=== PATIENT | female | born 1935 | race Caucasian/White ===

== ENCOUNTER → 2016-09-03 | Outpatient (REF) | payer MEDICARE, OTHER ==
[~2016-09-03] MED LIST: /ALEN70TA; /BENA20TA; /WARF3TA; ACET65TA; ADV100INH INH; ALBU17IN INH; ALBU83IN INH; AVEL1TAB3 PO; AZIT500T2 PO; AZOPT; BENA20TA8 PO; CALC500T36 PO; CALCCHW12; COUM1TAB19 PO; DOCU100C16 PO; FELO5TAB; FELO5TAB PO; FOSA70TA PO; HYDR25TAB PO; IPRASOL4 INH; K-TA1TAB PO; LASI40TA PO; LEVA1TAB PO; LUMIGAN; MICR10CA PO; MULTCAP PO; NEUR100C PO; OYST500T17 PO; PATIENT COMMENT; PRED10TA PO; THERGRAN; TORS100T PO; TRAM50TA2 PO; TYLE325C PO; TYLE650T25 PO; VITA100066 PO; VITA250T; VITA500046 PO; VITMTA PO; ZOCO40TA; ZOCO40TA PO
== END ==
LOC: M LAB REF 16:23
PROVIDERS: ATTEND Nurse Practitioner Family
DX: R07.9 Chest pain, unspecified (principal)

== ENCOUNTER 2016-11-23 19:08 | Observation (INO) | payer MEDICARE, OTHER ==
[~2016-11-23] VITALS: Ht 167.6 cm; Wt 78.2 kg
[~2016-11-23 19:08] MED LIST changes: -ADV100INH INH; -DOCU100C16 PO; -IPRASOL4 INH; -OYST500T17 PO; -PATIENT COMMENT; -TORS100T PO; -TRAM50TA2 PO; -VITA500046 PO
[2016-11-23 20:36] LABS: INR 2.26
--- NOTE | 2016-11-23 21:00 | REPUSA ---
CT of the head Clinical history: Fall. Protocol: Multiple axial CT images obtained with 5 mm slice thickness were obtained through the head without administration of contrast. Findings: The ventricles and sulci are symmetric but prominent in size bilaterally. There are periven tricular areas of low attenuation throughout the deep white matter. There is no evidence of acute hem orrhage or infarct. There is no midline shift, mass effect, or extra-axial fluid collection. The osse ous structures are unremarkable. The visualized paranasal sinuses and mastoid air cells are clear. Impression: No acute hemorrhage or infarct. 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
[2016-11-23] MEDS ORDERED: KETOROLAC TROMETHAMINE 10 MG TAB PO ONE (21:30)
[2016-11-23 22:25] LABS: CALCIUM LEVEL 9.6 MG/DL (8.8-10.2); CREATININE FOR GFR 1.03 MG/DL (0.55-1.02); GLOMERULAR FILTRATION RATE 54.9 (>32); POTASSIUM SERUM 3.8 MEQ/L (3.5-5.1)
[2016-11-23 22:27] LABS: BASO # 0.1 K/mm3 (0.0-0.2); BASO % 0.6 % (0.0-1.0); EOS # 0.2 K/mm3 (0.0-0.50); EOS % 1.3 % (0.0-3.0); LARGE UNSTAINED CELL # 0.2 K/mm3 (0.0-0.4); LARGE UNSTAINED CELL % 2.1 % (0.0-4.0); LYMPH # 1.1 K/mm3 (1.5-4.5); LYMPH % 7.7 % (24.0-44.0); MEAN CORPUSCULAR HEMOGLOBIN 29.1 pg (27.0-33.0); MEAN CORPUSCULAR HGB CONC 31.6 g/dl (32.0-36.5); MEAN CORPUSCULAR VOLUME 92.1 fl (80.0-96.0); MONO # 1.1 K/mm3 (0.0-0.8); MONO % 9.3 % (0.0-5.0); NEUTROPHILS # 9.1 K/mm3 (1.8-7.7); PLATELET COUNT, AUTOMATED 226 k/mm3 (150-450); RED CELL DISTRIBUTION WIDTH 14.3 % (11.5-14.5); WHITE BLOOD COUNT 11.5 K/mm3 (4.0-10.0)
[2016-11-23] MEDS ORDERED: NS 500 ML IV ONE (23:15)
[2016-11-24] MEDS ORDERED: ISOVUE-370 76% 100ML VIAL (Q9967) As Ordered ONE (00:26)
--- NOTE | 2016-11-24 01:10 | REPUSA ---
CLINICAL HISTORY: Trauma. TECHNIQUE: Multiple axial CT images were obtained through chest with IV contrast material. MPR olmedo l and sagittal sequences were obtained. COMMENTS: Pacemaker wires in good position. Moderate cardiomegaly. Mild central pulmonary venous congestion. Mild bilateral basilar contusions in the lower lobes. Subsegmental atelectatic airspace disease in the right lower lobe. There is no evidence of pleural or parenchymal mass. There are no pleural effusions. There is no evid ence of hilar or mediastinal lymphadenopathy. The heart and great vessels are within normal limits. The visualized portions of the liver are of uniform attenuation without mass or defect. There is no i ntra or extrahepatic biliary ductal dilatation. The spleen is unremarkable. The visualized pancreas i s of normal contour and attenuation characteristics. There is no evidence of adrenal mass. The visual ized portions of the kidneys present no abnormalities. The bony structures are free of lytic or blastic lesions. Multilevel degenerative changes are seen in volving the thoracic spine. Scattered calcifications are seen involving the aorta and visualized jade r branches compatible with atherosclerosis. No evidence for abnormal enhancement. IMPRESSION: Congestive heart failure. Mild bilateral basilar pulmonary contusions in the lower lobes more prominent on the right. No fracture. Thank you for your kind referral of this patient.
[2016-11-24] MEDS ORDERED: MORPHINE 2 MG/ML 1ML SYRINGE IV ONE (02:15)
[2016-11-24] MEDS ORDERED: IPRASOL4 INH (03:15)
[2016-11-24] MEDS ORDERED: TORS100T PO (03:15)
[2016-11-24] MEDS ORDERED: ADV100INH INH (03:15)
[2016-11-24] MEDS ORDERED: OYST500T17 PO (03:15)
[2016-11-24] MEDS ORDERED: VITA500046 PO (03:15)
[2016-11-24] MEDS ORDERED: PATIENT COMMENT (03:16)
--- NOTE | 2016-11-24 03:27 | HPEPDOC ---
Medical History and Physical History and Physical Primary care provider: Dr. Pereira Date of Admission: 11/24/2016 Attending: Dr. Myla Hinton CHIEF COMPLAINT: "I tripped and fell" HISTORY OF PRESENT ILLNESS: Ms. Lin is an 81-year-old female who is on chronic warfarin therapy for atrial fibrillation who tripped and fell earlier today. She denies any syncope, lightheadedness, or any prodromal symptoms, she simply tripped. She did hit her head, and does have a large contusion on the right side of her face. CT of the head was negative for any hemorrhage or osseous damage. Her chest x-ray did show a small opacity on the right side, therefore a chest CT was ordered, and pulmonary contusion was confirmed. As the patient is on warfarin therapy, the time during which she is at the highest risk of developing a bleed would be within the first 24 hours, therefore the decision was made to admit the patient and repeat a chest CT after at least 12 hours had passed. 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 She used to smoke half pack a day for 20 years but quit in 1974. She does drink alcohol occasionally. Denies recreational drug use. FAMILY HISTORY: No pertinent family history REVIEW OF SYSTEMS: Constitutional: Patient denies fevers, chills, night sweats, recent weight gain/ loss. HEENT: Patient denies blurred or double vision, transient visual disturbances, postnasal drip, epistaxis, sore throat, difficulty chewing or swallowing food. Cardiovascular: Patient denies chest discomfort/pain, palpitations, exertional dyspnea, orthopnea, edema of the extremities, claudication. Respiratory: Patient denies dyspnea, she does state that she has coughed a few times since she has been in the emergency department, but it is nonproductive. She denies hemoptysis. She does admit to some chest wall pain, mostly on the right side. Gastrointestinal: Patient denies nausea, vomiting, diarrhea, constipation, abdominal pain, melena, hematochezia, hematemesis, jaundice. PHYSICAL EXAMINATION: Vitals: Temperature 97.9, pulse 82, respirations 16, blood pressure 153/88, pulse oximetry 96% on room air General: Awake, alert, oriented 3. She is in no acute distress. She denies any recent fevers, chills, night sweats. HEENT: Head normocephalic, she does have a large contusion lateral to her right eye. pupils equally reactive to light and accommodation, conjunctiva are pink, sclera are nonicteric, buccal mucosa is pink and moist with no lesions in the oropharynx. Hearing is grossly intact to conversation. Respiratory: She did have a minimal wheeze, although with a few deep breaths and this resolved. Otherwise she is clear to auscultation bilaterally Cardiovascular: Irregularly irregular with variable S1 and S2. There is no evidence of chest wall deformity. There is no evidence of any contusion or ecchymoses on the chest wall. She is diffusely (yet minimally) tender to palpation on the right lateral chest wall. Abdomen: Soft, nontender, nondistended, no hepatosplenomegaly appreciated. Bowel sounds present. Extremities: 2+ pulses in the radial and dorsalis pedis bilaterally. No evidence of clubbing or cyanosis. IMAGING: In no acute traumatic injury or hemorrhages noted on the CT of the head. Bilateral lower lobe contusions, right worse than left and noted on CT of the chest. ASSESSMENT: 1. Bilateral lower lobe lung contusions 2. Fall secondary to tripping 3. Chronic atrial fibrillation, on Coumadin 4. Essential hypertension 5. Chronic diastolic congestive heart failure 6. History of mitral valve replacement 7. Wheezing for the past 1-2 months 8. DVT prophylaxis with Coumadin PLAN: Will admit the patient for observation. The patient was instructed to call the nurse immediately if there is any change in her respiratory status, pain, if she developed any shortness of breath, or hemoptysis. We will continue to monitor her vital signs and clinical status. Consideration may be made to repeat imaging later today if this is clinically warranted. Otherwise, we'll continue with her usual doses of her home regimen for her chronic medical issues. She was given 1 dose of PO Toradol which apparently was insufficient, therefore she also received 1 dose of IV morphine in the emergency department which she was able to tolerate without any issue in light of her codeine allergy. We will attempt to control her pain with tramadol and during her stay here. As the patient is in pain, she is also at risk for the development of pneumonia if she does not continue to take deep breaths, therefore I have also ordered for incentive spirometry. She also reports that she began wheezing a few months ago for which she was started on an inhaler, we will continue her home dose, and she will likely need to continue to work this up as an outpatient. My preceptor for this patient encounter was physically present in the building during the encounter and was fully available. As needed, all aspects of the patient interview, examination, medical decision making process, and medical care plan development were reviewed and approved by the preceptor. Preceptor is aware and concurs with the plan as stated in the body of this note and will attest to such by his/her cosignature. Vital Signs Vital Signs Date Time Temp Pulse Resp B/P (MAP) Pulse Ox O2 Delivery O2 Flow Rate FiO2 11/24/16 03:15 18 11/24/16 03:14 136/79 (98) 11/24/16 03:08 68 93 11/24/16 01:25 Room Air 11/23/16 19:21 97.9 Laboratory Data Labs 24H Laboratory Tests 2 11/23/16 20:09: White Blood Count 11.5H, Red Blood Count 4.66, Hemoglobin 13.6, Hematocrit 42.9 , Mean Corpuscular Volume 92.1, Mean Corpuscular Hemoglobin 29.1, Mean Corpuscular Hemoglobin Concent 31.6L, Red Cell Distribution Width 14.3, Platelet Count 226, Neutrophils (%) (Auto) 79.0H, Lymphocytes (%) (Auto) 7.7L, Monocytes (%) (Auto) 9.3H, Eosinophils (%) (Auto) 1.3, Basophils (%) (Auto) 0.6 , Neutrophils # (Auto) 9.1H, Lymphocytes # (Auto) 1.1L, Monocytes # (Auto) 1.1H , Eosinophils # (Auto) 0.2, Basophils # (Auto) 0.1, Large Unclassified Cells % 2.1, Large Unclassified Cells # 0.2, Prothrombin Time 25.8H, Prothromb Time International Ratio 2.26, Anion Gap 5L, Glomerular Filtration Rate 54.9, Blood Urea Nitrogen 21H, Creatinine 1.03H, Sodium Level 143, Potassium Level 3.8, Chloride Level 99, Carbon Dioxide Level 39H, Calcium Level 9.6 CBC/BMP Laboratory Tests 11/23/16 20:09 Red Blood Count 4.66, Mean Corpuscular Volume 92.1, Mean Corpuscular Hemoglobin 29.1, Mean Corpuscular Hemoglobin Concent 31.6 L, Red Cell Distribution Width 14.3, Neutrophils (%) (Auto) 79.0 H, Lymphocytes (%) (Auto) 7.7 L, Monocytes (% ) (Auto) 9.3 H, Eosinophils (%) (Auto) 1.3, Basophils (%) (Auto) 0.6, Neutrophils # (Auto) 9.1 H, Lymphocytes # (Auto) 1.1 L, Monocytes # (Auto) 1.1 H , Eosinophils # (Auto) 0.2, Basophils # (Auto) 0.1, Calcium Level 9.6 Home Medications Scheduled Calcium/Vitamin D (Oyster Shell Calcium + 500-200 mg-Unit) 1 Tab Tab, 1 TAB PO TID Cholecalciferol (Vitamin D) 5,000 Unit Tab, 5,000 UNIT PO QPM Multivitamins *[facility] STOCKED* (Thera M Plus *[facility] STOCKED*) 1 Tab Tab, 1 TAB PO DAILY Potassium Chloride (K-Tab) 20 Meq Tab, 20 MEQ PO BID Salmeterol/Fluticasone (Advair Diskus 100-50 Mcg/Dose) 28 Puff/Inhaler Aerp, 1 PUFF INH BID Simvastatin - High Dose (Zocor) 40 Mg Tab, 40 MG PO QHS Torsemide (Torsemide) 100 Mg Tab, 100 MG PO DAILY Warfarin Sod (Coumadin) 3 Mg Tab, 3 MG PO QPM Scheduled PRN Albuterol/Ipratropium (Ipratropium [place]/Albut 0.5-2.5 (3) mg/3Ml) 1 Steve Steve, 1 STEVE INH QID PRN for SHORTNESS OF BREATH Miscellaneous Medications [Patient Comment] PATIENT UNSURE OF MOST OF HER MEDICATIONS AND WHEN SHE TAKES THEM. NOT A RELIABLE HISTORIAN. GOING TO CALL SPOUSE OR THE PHARMACY IN THE MORNING Allergies Coded Allergies: Chlorpromazine (Verified Allergy, Intermediate, RASH, 06/13/12) Penicillins (Verified Allergy, Intermediate, RASH, 06/13/12) Penicillins Cross Reactors (Verified Allergy, Intermediate, RASH, 06/13/12) Codeine (Verified Adverse Reaction, Mild, VOMITTING, 06/13/12) SUBHASH LEE DO Nov 24, 2016 03:27
[2016-11-24] MEDS: traMADol 50 MG TAB PO PRN ×3 (05:23→20:02)
[2016-11-24] MEDS ORDERED: DOCU100C16 PO (05:24)
[2016-11-24 05:30] VITALS: BP 178/79
--- NOTE | 2016-11-24 05:52 | ECGEPIP ---
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
[2016-11-24] MEDS ORDERED: IPRATROPIUM 0.5MG/ALBUTEROL 2.5MG INH SOL UD 3ML (DUONEB)(J7620) INH PRN (06:00)
[2016-11-24 06:38] VITALS: BP 140/72
[2016-11-24 07:30] VITALS: BP 137/95
--- NOTE | 2016-11-24 07:33 | REP ---
Right ribs and PA chest: Right ribs four views: There is no rib fracture or other rib abnormality. 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 PA chest two views add inspiration and expiration: Comparison is 08/13/2016. There is chronic cardiomegaly. Sternotomy wires and pacemaker are again identified. There is chronic increased radiodensity inferolaterally in the right lung compatible with chronic parenchymal scarring. There is a bone infarct versus enchondroma in the proximal left humerus. There is no pneumothorax, hemothorax or pulmonary contusion. Signed by Jerardo Dasilva MD 11/24/2016 07:24 A
--- NOTE | 2016-11-24 07:37 | REP ---
Chest, single AP view, the patient supine, and expiration view: Comparisons are the plain film PA and lateral chest dated 09/26/[address] dated 11/24/[address] dated 10/26/2015. Massive cardiomegaly and sternotomy wires and pacemaker are again noted, unchanged. There is chronic increased radiodensity in the right middle lobe, unchanged from all prior studies, compatible with chronic atelectasis and scarring. There is no pneumothorax or hemothorax. There is an enchondroma versus bone infarct in the proximal left humerus. Signed by Jerardo Dasilva MD 11/24/2016 07:28 A
[2016-11-24] MEDS: VITAMIN D 1,000 INTERNATIONAL UNITS TABLET PO SCH (08:46)
[2016-11-24] MEDS: TORSEMIDE 100 MG TAB PO SCH ×2 (08:46→12:05)
[2016-11-24] MEDS: CALCIUM/VITAMIN D 500 MG TAB PO SCH ×3 (08:46→19:59)
--- NOTE | 2016-11-24 08:46 | REP ---
Right hip two views: Comparison is 05/23/2015. There is advanced osteoarthritis, unchanged. There is no fracture or dislocation. There is diffuse demineralization. The bladder is opacified because of the IV contrast for the CT of the chest earlier this same date. Signed by Jerardo Dasilva MD 11/24/2016 08:36 A
[2016-11-24] MEDS: POTASSIUM CHLORIDE 10 MEQ SR TABLET PO SCH (08:47)
--- NOTE | 2016-11-24 08:52 | REP ---
PA and lateral chest: Comparisons are 11/23/2016, 08/13/2016, chest CT and 11/14/[address] of 11/24/2016 of 36 a.m.: There is chronic cardiomegaly, sternotomy wires and pacemaker, unchanged from all prior studies. There is chronic collapse and atelectasis of the right middle lobe, unchanged from all prior studies. On the most recent CT there are subsegmental infiltrates in the lower lobes bilaterally, not present on the comparison CT, not visible on the current plain film study. There is no pneumothorax. No definite pleural effusion. The brayan and mediastinum are unremarkable. Bony thorax is unchanged. There is an enchondroma versus bone infarct in the proximal left humerus, unchanged. Impression: No significant interval changes. However, by CT there are small bilateral lower lobe infiltrates. Signed by Jerardo Dasilva MD 11/24/2016 08:44 A
[2016-11-24] MEDS: ADVAIR HFA 45/21MCG INHALER INH SCH ×2 (11:00→20:45)
[2016-11-24 12:00] VITALS: BP 178/75
--- NOTE | 2016-11-24 12:45 | IPNPDOC ---
Subjective Date Seen The patient was seen on 11/24/16. Subjective Chief Complaint/HPI The patient is a 81-year-old female admitted with a reason for visit of FELL. General: Denies: Chills, Night Sweats Constitutional: Denies: Chills, Fever, Malaise, Weakness, Fatigue Eyes: Denies: Pain, Vision change, Conjunctivae inflammation, Eyelid inflammation ENT: Denies: Head Aches, Ear Pain Skin: Denies: Rash Pulmonary: Denies: Dyspnea, Cough, Pleuritic Chest Pain, Other Symptoms Cardiovascular: Denies: Chest Pain, Palpitations, Orthopnea Gastrointestinal: Denies: Nausea, Vomiting Genitourinary: Denies: Dysuria Musculoskeletal: Reports: Other Symptoms (minimal right upper thoracic rib cage pain with movement, much improved from admission), Denies: Neck Pain, Back Pain Neurological: Denies: Weakness, Numbness Psych: Reports: Mood Normal Objective Physical Examination General Exam: Positive: Alert, Cooperative, No Acute Distress Eye Exam: Positive: Conjunctiva & lids normal, EOMI, Other Eye Symptoms ( minimal bruising of right supra-orbit from fall, denies change in vision/ blurred vision or pain with eye movement), Negative: Sclera icteric, Ptosis ENT Exam: Positive: Atraumatic, Mucous membr. moist/pink, Pharynx Normal, Tongue Midline, Nares Patent, Negative: Pharyngeal Edema Neck Exam: Positive: Supple, Negative: JVD, thyromegaly Chest Exam: Positive: Clear to auscultation, Normal air movement, Rhonchi, Negative: Rales, Wheezing, Diminished Heart Exam: Positive: Rate Normal, Normal S1, Normal S2, Negative: Murmurs, Rubs Abdomen Exam: Positive: Normal bowel sounds Extremity Exam: Positive: Normal pulses, Negative: Clubbing, Cyanosis, Edema, Tenderness, Swelling Skin Exam: Negative: Rash, Breakdown Neuro Exam: Positive: Normal Speech Assessment /Plan Problems (1) Pulmonary contusion Status: Acute Response to Treatment: Stable Problem Text: repeat CXR done today showed no interval changes but did comment on b/l lower lobe infiltrates. Pt did sound a bit rhonchus on lung exam but does not have a white count, is not complaining of cough, is afebrile, do not think/suspect this is pneumonia. Pt feels well and states her pain is much improved from admission. Will continue to monitor. Use of incentive spirometry was stressed to pt. Pt asked to alert nurse if she has SOB or begins to cough up blood. Pt verbalized understanding. (2) Infiltrate noted on imaging study Response to Treatment: Stable Problem Text: As above, in light of no white count and afebrile with no active complaints of cough, will continue to monitor as do not suspect this is due to pneumonia. Incentive spirometry use was encouraged to pt. (3) Diastolic heart failure Status: Chronic Response to Treatment: Stable Problem Text: pt seems euvolemic will continue home torsemide (4) Hypertension Status: Chronic Response to Treatment: Stable Problem Text: 178/75 pt receiving IV torsemide will continue to monitor, if it continues to increase may consider IV hydralizine if SBP >180 (5) H/O mitral valve replacement Status: Chronic Response to Treatment: Stable Problem Text: stable, porcine valve, would continue to monitor (6) Atrial fibrillation Status: Chronic Response to Treatment: Stable Problem Text: continue coumadin, INR is therapeutic (7) DVT prophylaxis Status: Acute Response to Treatment: Stable Problem Text: coumidin therapy Plan/VTE VTE Prophylaxis Ordered?: Yes VS, I&O, 24H, [facility] Vital Signs/I&O Vital Signs Date Time Temp Pulse Resp B/P (MAP) Pulse Ox O2 Delivery O2 Flow Rate FiO2 11/24/16 12:09 Room Air 11/24/16 12:00 97.9 69 20 178/75 (109) 94 I&O- Last 24 Hours up to 6 AM 11/24/16 06:00 Intake Total 30 ml Balance 30 ml Laboratory Data 24H LABS Laboratory Tests 2 11/23/16 20:09: White Blood Count 11.5H, Red Blood Count 4.66, Hemoglobin 13.6, Hematocrit 42.9 , Mean Corpuscular Volume 92.1, Mean Corpuscular Hemoglobin 29.1, Mean Corpuscular Hemoglobin Concent 31.6L, Red Cell Distribution Width 14.3, Platelet Count 226, Neutrophils (%) (Auto) 79.0H, Lymphocytes (%) (Auto) 7.7L, Monocytes (%) (Auto) 9.3H, Eosinophils (%) (Auto) 1.3, Basophils (%) (Auto) 0.6 , Neutrophils # (Auto) 9.1H, Lymphocytes # (Auto) 1.1L, Monocytes # (Auto) 1.1H , Eosinophils # (Auto) 0.2, Basophils # (Auto) 0.1, Large Unclassified Cells % 2.1, Large Unclassified Cells # 0.2, Prothrombin Time 25.8H, Prothromb Time International Ratio 2.26, Anion Gap 5L, Glomerular Filtration Rate 54.9, Blood Urea Nitrogen 21H, Creatinine 1.03H, Sodium Level 143, Potassium Level 3.8, Chloride Level 99, Carbon Dioxide Level 39H, Calcium Level 9.6 CBC/BMP Laboratory Tests 11/23/16 20:09 Red Blood Count 4.66, Mean Corpuscular Volume 92.1, Mean Corpuscular Hemoglobin 29.1, Mean Corpuscular Hemoglobin Concent 31.6 L, Red Cell Distribution Width 14.3, Neutrophils (%) (Auto) 79.0 H, Lymphocytes (%) (Auto) 7.7 L, Monocytes (% ) (Auto) 9.3 H, Eosinophils (%) (Auto) 1.3, Basophils (%) (Auto) 0.6, Neutrophils # (Auto) 9.1 H, Lymphocytes # (Auto) 1.1 L, Monocytes # (Auto) 1.1 H , Eosinophils # (Auto) 0.2, Basophils # (Auto) 0.1, Calcium Level 9.6 GME ATTESTATION GME ATTESTATION My preceptor for this patient encounter was physically present in the building during the encounter and was fully available. As needed, all aspects of the patient interview, examination, medical decision making process, and medical care plan development were reviewed and approved by the preceptor. Preceptor is aware and concurs with the plan as stated in the body of this note and will attest to such by his/her cosignature. ATTENDING NOTE I have seen and examined the above patient and agree with the progress note as documented above. SEGUN CARY DO Nov 24, 2016 12:45 SERGIO SOLIS Dec 05, 2016 18:11
[2016-11-24 16:00] VITALS: BP 151/69
[2016-11-24] MEDS ORDERED: WARFARIN SOD 3 MG TAB PO SCH (17:00)
[2016-11-24] MEDS ORDERED: MOM 30ML SUSPENSION UDC PO ONE (19:00)
[2016-11-24 20:00] VITALS: BP 163/75
[2016-11-24] MEDS ORDERED: DOCUSATE SODIUM 100 MG CAP PO SCH (21:00)
[2016-11-24] MEDS ORDERED: SIMVASTATIN 40 MG TAB PO SCH (21:00)
[2016-11-24] MEDS ORDERED: MULTIVITAMINS/MINERALS THERAP 1 TAB PO SCH (21:00)
[2016-11-25] VITALS: BP 155/71
[2016-11-25] MEDS: traMADol 50 MG TAB PO PRN ×3 (00:01→11:25)
[2016-11-25 04:00] VITALS: BP 169/76
[2016-11-25 05:52] LABS: BASO # 0.1 K/mm3 (0.0-0.2); BASO % 0.5 % (0.0-1.0); EOS # 0.1 K/mm3 (0.0-0.50); LARGE UNSTAINED CELL # 0.3 K/mm3 (0.0-0.4); LARGE UNSTAINED CELL % 2.6 % (0.0-4.0); LYMPH % 8.2 % (24.0-44.0); MEAN CORPUSCULAR HEMOGLOBIN 30.3 pg (27.0-33.0); MEAN CORPUSCULAR HGB CONC 33.6 g/dl (32.0-36.5); MEAN CORPUSCULAR VOLUME 90.4 fl (80.0-96.0); MONO % 8.2 % (0.0-5.0); NEUTROPHILS # 9.6 K/mm3 (1.8-7.7); NEUTROPHILS % 79.4 % (36.0-66.0); PLATELET COUNT, AUTOMATED 211 k/mm3 (150-450); RED CELL DISTRIBUTION WIDTH 14.2 % (11.5-14.5); WHITE BLOOD COUNT 12.1 K/mm3 (4.0-10.0)
[2016-11-25 05:59] LABS: INR 2.35
[2016-11-25 06:04] LABS: ANION GAP 5 MEQ/L (8-16); BLOOD UREA NITROGEN 20 MG/DL (7-18); CALCIUM LEVEL 9.5 MG/DL (8.8-10.2); CARBON DIOXIDE LEVEL 35 MEQ/L (21-32); CHLORIDE LEVEL 97 MEQ/L (98-107); CREATININE FOR GFR 0.78 MG/DL (0.55-1.02); GLOMERULAR FILTRATION RATE > 60.0 (>32); GLUCOSE, FASTING 110 MG/DL (83-110); MAGNESIUM LEVEL 2.3 MG/DL (1.8-2.4); POTASSIUM SERUM 3.4 MEQ/L (3.5-5.1); SODIUM LEVEL 137 MEQ/L (136-145)
[2016-11-25 08:00] VITALS: BP 167/77
[2016-11-25] MEDS: CALCIUM/VITAMIN D 500 MG TAB PO SCH (08:47)
[2016-11-25] MEDS: TORSEMIDE 100 MG TAB PO SCH (08:47)
[2016-11-25] MEDS: VITAMIN D 1,000 INTERNATIONAL UNITS TABLET PO SCH (08:47)
[2016-11-25] MEDS: POTASSIUM CHLORIDE 10 MEQ SR TABLET PO SCH (08:47)
[2016-11-25] MEDS ORDERED: TRAM50TA2 PO (11:00)
--- NOTE | 2016-11-25 11:21 | DS.PDOC ---
Discharge Summary General Date of Admission Nov 23, 2016 at 19:09 Date of Discharge 11-25-16 Primary Care Physician: Jr Pereira Collins Discharge Summary PROCEDURES PERFORMED DURING STAY: None ADMITTING DIAGNOSES: 1. B/l lower lobe contusions 2. Fall secondary to tripping 3. Chronic A. fib on coumidin 4. Essential HTN 5. Chronic diastolic CHF 6. Hx of mitral valve replacement 7. wheezing for past 2 months 8. DVT prohphylaxis on coumadin DISCHARGE DIAGNOSES: 1. Lung contusion 2. Infiltrates on CT 3. Diastolic HF 4. HTN 5. history of MV replacement 6. DVT prophylaxis COMPLICATIONS/CHIEF COMPLAINT: Altered Mental Status/Pulmonary Contusion. HISTORY OF PRESENT ILLNESS: Pt is a 81 y/o female who presened to ED on 2016 with complaint of having tripped on her rug that day and falling on her side and hitting her head. HOSPITAL COURSE: During the stay the pt did have some mild right upper thoracic rib cage pain with movement, especially with sitting upright in bed, this was controlled with tramadol medication. The pt did not complain of SOB or coughing up blood during the course of her stay. She did also suffer a right sided supra orbital contusion but did not suffer from LOC from her fall, during her stay she did not complain of any change in vision, blurred vision or pain with eye movement. On the day of d/c the pt was in some discomfort before her tramadol medication but stated it felt much better when her medication had taken effect, she denied being SOB or having any episodes of dizzyness or chest pain nor racing heart. DISCHARGE MEDICATIONS: Please see below. ALLERGIES: Please see below. PHYSICAL EXAMINATION ON DISCHARGE: VITAL SIGNS: Please see below. GENERAL: AAOx3, conversant and plesant, NAD HEENT: nares patent b/l, EOMI, clear conjunctiva, no pain with eye movements. NCAT. NECK: supple CARDIOVASCULAR EXAMINATION: normal s1 and s2, no murmurs, rubs or gallops appreciated RESPIRATORY EXAMINATION: cta b/l, no wheezing, rhonchi or rales appreciated ABDOMINAL EXAMINATION: soft, non-distended, nabsx4, no rebound ridgity or guarding appreciated EXTREMITIES: no rashes, erythema or clubbing noted SKIN: intact NEUROLOGICAL EXAMINATION: no focal deficits appreciated PSYCHIATRIC EXAMINATION: normal affect LABORATORY DATA: Please see below. IMAGING: CT head 11-23-16 Impression: No acute hemorrhage or infarct. Findings are consistent with age- related atrophy and chronic small vessel ischemic disease. Rib x-ray 11-23-16 There is chronic cardiomegaly. Sternotomy wires and pacemaker are again identified. There is chronic increased radiodensity inferolaterally in the right lung compatible with chronic parenchymal scarring. There is a bone infarct versus enchondroma in the proximal left humerus. There is no pneumothorax, hemothorax or pulmonary contusion. CXR 11-23-16 Massive cardiomegaly and sternotomy wires and pacemaker are again noted, unchanged. There is chronic increased radiodensity in the right middle lobe, unchanged from all prior studies, compatible with chronic atelectasis and scarring. There is no pneumothorax or hemothorax. There is an enchondroma versus bone infarct in the proximal left humerus. Chest CT 11-23-16 IMPRESSION: Congestive heart failure. Mild bilateral basilar pulmonary contusions in the lower lobes more prominent on the right. No fracture. Hip x-ray 11-24-16 There is advanced osteoarthritis, unchanged. There is no fracture or dislocation. There is diffuse demineralization. The bladder is opacified because of the IV contrast for the CT of the chest earlier this same date CXR 11-24-16 Impression: No significant interval changes. However, by CT there are small bilateral lower lobe infiltrates. PROGNOSIS: favorable ACTIVITY: As tolerated DIET: as tolerated DISCHARGE PLAN: follow with PCP within one week of d/c DISPOSITION: stable DISCHARGE INSTRUCTIONS: 1. Follow with PCP within one week of d/c 2. Should you experience coughing with blood, fever, increased chest pain, shortness of breath return to ED [facility] ITEMS TO FOLLOWUP ON ON OUTPATIENT: 1. Follow with PCP within one week of d/c DISCHARGE CONDITION: Stable TIME SPENT ON DISCHARGE: Greater than 35 minutes. Vital Signs/I&Os Vital Signs Date Time Temp Pulse Resp B/P (MAP) Pulse Ox O2 Delivery O2 Flow Rate FiO2 11/25/16 08:07 Room Air 11/25/16 08:00 98.2 64 20 167/77 (107) 93 I&O- Last 24 Hours up to 6 AM 11/26/16 06:00 Intake Total 720 ml Output Total 100 ml Balance 620 ml Laboratory Data Labs 24H Laboratory Tests 2 11/25/16 05:40: White Blood Count 12.1H, Red Blood Count 4.87, Hemoglobin 14.8, Hematocrit 44.0 , Mean Corpuscular Volume 90.4, Mean Corpuscular Hemoglobin 30.3, Mean Corpuscular Hemoglobin Concent 33.6, Red Cell Distribution Width 14.2, Platelet Count 211, Neutrophils (%) (Auto) 79.4H, Lymphocytes (%) (Auto) 8.2L, Monocytes (%) (Auto) 8.2H, Eosinophils (%) (Auto) 1.0, Basophils (%) (Auto) 0.5, Neutrophils # (Auto) 9.6H, Lymphocytes # (Auto) 1.0L, Monocytes # (Auto) 1.0H, Eosinophils # (Auto) 0.1, Basophils # (Auto) 0.1, Large Unclassified Cells % 2.6 , Large Unclassified Cells # 0.3, Prothrombin Time 26.6H, Prothromb Time International Ratio 2.35, Anion Gap 5L, Glomerular Filtration Rate > 60.0, Blood Urea Nitrogen 20H, Creatinine 0.78, Sodium Level 137, Potassium Level 3.4L , Chloride Level 97L, Carbon Dioxide Level 35H, Calcium Level 9.5, Magnesium Level 2.3 CBC/BMP Laboratory Tests 11/25/16 05:40 Red Blood Count 4.87, Mean Corpuscular Volume 90.4, Mean Corpuscular Hemoglobin 30.3, Mean Corpuscular Hemoglobin Concent 33.6, Red Cell Distribution Width 14.2 , Neutrophils (%) (Auto) 79.4 H, Lymphocytes (%) (Auto) 8.2 L, Monocytes (%) ( Auto) 8.2 H, Eosinophils (%) (Auto) 1.0, Basophils (%) (Auto) 0.5, Neutrophils # (Auto) 9.6 H, Lymphocytes # (Auto) 1.0 L, Monocytes # (Auto) 1.0 H, Eosinophils # (Auto) 0.1, Basophils # (Auto) 0.1, Calcium Level 9.5 Discharge Medications Scheduled Calcium/Vitamin D ([place] Calcium + 500-200 mg-Unit) 1 Tab Tab, 1 TAB PO TID, (Reported) Cholecalciferol (Vitamin D) 5,000 Unit Tab, 5,000 UNIT PO DAILY, (Reported) TAKES AT NOON Docusate Sodium (Docusate Sodium) 100 Mg Cap, 100 MG PO QHS, (Reported) Multivitamins *[facility] STOCKED* (Thera M Plus *[facility] STOCKED*) 1 Tab Tab, 1 TAB PO QHS , (Reported) Potassium Chloride (K-Tab) 20 Meq Tab, 20 MEQ PO DAILY, (Reported) Salmeterol/Fluticasone (Advair Diskus 100-50 Mcg/Dose) 28 Puff/Inhaler Aerp, 1 PUFF INH BID, (Reported) Simvastatin - High Dose (Zocor) 40 Mg Tab, 40 MG PO QHS, (Reported) Torsemide (Torsemide) 100 Mg Tab, 100 MG PO ASDIRECTED, (Reported) NORMALLY, TAKES ONCE A DAY; BEEN TAKING IT BID THIS WEEK PER DOCTOR. TAKES IN MORNING AND NOON. Warfarin Sod (Coumadin) 3 Mg Tab, 3 MG PO QPM, (Reported) TAKES AT DINNERTIME Scheduled PRN Albuterol/Ipratropium (Ipratropium [place]/Albut 0.5-2.5 (3) mg/3Ml) 1 Steve Steve, 1 STEVE INH QID PRN for SHORTNESS OF BREATH, (Reported) Tramadol HCl (Tramadol HCl) 50 Mg Tab, 50 MG PO Q6HP PRN for MODERATE PAIN (PS 5 -7) Allergies Coded Allergies: Chlorpromazine (Verified Allergy, Intermediate, RASH, 06/13/12) Penicillins (Verified Allergy, Intermediate, RASH, 06/13/12) Penicillins Cross Reactors (Verified Allergy, Intermediate, RASH, 06/13/12) Codeine (Verified Adverse Reaction, Mild, VOMITTING, 06/13/12) GME ATTESTATION GME ATTESTATION My preceptor for this patient encounter was physically present in the building during the encounter and was fully available. As needed, all aspects of the patient interview, examination, medical decision making process, and medical care plan development were reviewed and approved by the preceptor. Preceptor is aware and concurs with the plan as stated in the body of this note and will attest to such by his/her cosignature. SEGUN CARY DO Nov 25, 2016 11:21
== END 2016-11-25 12:06 | disposition home or self-care (01) ==
LOC: EDBD 19:08 → M ED 19:08 → M ED INP 19:09 → M PCU 11-24 05:40
PROVIDERS: ADMIT Internal Medicine; ATTEND Internal Medicine
DX: S27.322A Contusion of lung, bilateral, initial encounter (principal); W18.09XA Striking against other object with subsequent fall, initial encounter; Y92.099 Unspecified place in other non-institutional residence as the place of occurrence of the external cause; Y99.9 Unspecified external cause status; R91.8 Other nonspecific abnormal finding of lung field; I50.32 Chronic diastolic (congestive) heart failure; I11.0 Hypertensive heart disease with heart failure; Z95.2 Presence of prosthetic heart valve; Z95.0 Presence of cardiac pacemaker; I48.91 Unspecified atrial fibrillation; Z79.01 Long term (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 anticoagulants; Z79.899 Other long term (current) drug therapy; Z87.891 Personal history of nicotine dependence; N18.3 Chronic kidney disease, stage 3 (moderate); Y93.9 Activity, unspecified
CPT/HCPCS: 36415; 70450; 71010; 71020; 71101; 71260; 73502; 80048; 83735; 85025; 85610; 93005; 94640; 94664; 96374; 97162; 99285; G0378; G8978; G8979; G8980; Q9967

== ENCOUNTER → 2016-12-08 | Outpatient (REF) | payer MEDICARE, OTHER ==
[~2016-12-08] MED LIST changes: +ADV100INH INH; +DOCU100C16 PO; +IPRASOL4 INH; +OYST500T17 PO; +PATIENT COMMENT; +TORS100T PO; +TRAM50TA2 PO; +VITA500046 PO
[2016-12-08 19:17] LABS: VITAMIN B12 LEVEL 605 PG/ML
== END ==
LOC: M LAB REF 16:25
PROVIDERS: ATTEND Nurse Practitioner Family
DX: G30.1 Alzheimer's disease with late onset (principal)

== ENCOUNTER 2017-03-24 15:31 | Inpatient (IN) | payer MEDICARE, OTHER ==
[2017-03-24 16:07] LABS: ABG BASE EXCESS 3.2 (-2.0-2.0); ABG HCO3 31.6 MEQ/L (22.0-26.0); ABG O2 SATURATION 99.7 % (95.0-99.0); ABG PARTIAL PRESSURE O2 251.1 mmHg (75.0-100.0); ABG STANDARD HCO3 27.3 MEQ/L (22.0-26.0); ABG TOTAL CO2 33.5 MEQ/L (23.0-31.0); ABG pH (ARTERIAL) 7.304 UNITS (7.350-7.450)
[2017-03-24 16:23] LABS: BASO % 0.2 % (0.0-1.0); HEMATOCRIT 42.6 % (36.0-47.0); HEMOGLOBIN 13.8 g/dl (12.0-16.0); IMMATURE GRANULOCYTE # 0.1 10^3/uL (0-0); IMMATURE GRANULOCYTE % 0.6 % (0-0); LYMPH # 0.6 10^3/uL (1.5-4.5); LYMPH % 4.8 % (24.0-44.0); MEAN CORPUSCULAR HEMOGLOBIN 29.1 pg (27.0-33.0); MEAN CORPUSCULAR HGB CONC 32.4 g/dl (32.0-36.5); MEAN CORPUSCULAR VOLUME 89.9 fl (80.0-96.0); NEUTROPHILS # 10.6 10^3/uL (1.8-7.7); NEUTROPHILS % 79.4 % (36.0-66.0); PLATELET COUNT, AUTOMATED 194 10^3/uL (150-450); RED BLOOD COUNT 4.74 10^6/uL (4.00-5.40); WHITE BLOOD COUNT 13.4 10^3/uL (4.0-10.0)
[2017-03-24] MEDS: LABETALOL HCL 100 MG/20 ML VIAL IV (16:32)
[2017-03-24 16:34] LABS: INR 2.63; PARTIAL THROMBOPLASTIN TIME 44.2 SECONDS (26.8-37.9); PROTHROMBIN TIME 29.2 SECONDS (12.4-14.5)
[2017-03-24 16:44] LABS: NT-PRO BNP 2503 PG/ML (<450)
[2017-03-24 16:46] LABS: ALBUMIN/GLOBULIN RATIO 1.25 (1.00-1.93); ALKALINE PHOSPHATASE 77 U/L (45-117); ALT/SGPT 40 U/L (12-78); ANION GAP 9 MEQ/L (8-16); AST/SGOT 73 U/L (7-37); BILIRUBIN,DIRECT 0.4 MG/DL (0.0-0.2); BILIRUBIN,TOTAL 1.1 MG/DL (0.2-1.0); BLOOD UREA NITROGEN 30 MG/DL (7-18); CALCIUM LEVEL 9.5 MG/DL (8.8-10.2); CARBON DIOXIDE LEVEL 32 MEQ/L (21-32); CHLORIDE LEVEL 92 MEQ/L (98-107); CPK CREATINE PHOSPHOKINASE 502 U/L (26-192); CREATININE FOR GFR 1.23 MG/DL (0.55-1.02); FREE T4 1.22 NG/DL (0.76-1.46); GLOMERULAR FILTRATION RATE 44.7 (>32); GLUCOSE, FASTING 200 MG/DL (83-110); POTASSIUM SERUM 4.6 MEQ/L (3.5-5.1); SODIUM LEVEL 133 MEQ/L (136-145); TOTAL PROTEIN 7.2 GM/DL (6.4-8.2); TROPONIN I 0.05 NG/ML (< 0.10)
[2017-03-24 16:47] LABS: POSITIVE DIFF POS FLAG
[2017-03-24 16:51] LABS: CK-MB VALUE MASS 6.5 NG/ML (0.0-3.6); MB/CK RELATIVE INDEX 1.29 (< OR =4)
[2017-03-24] MEDS ORDERED: ISOVUE-370 76% 100ML VIAL (Q9967) As Ordered (16:57)
[2017-03-24] MEDS: WARFARIN SOD 3 MG TAB PO (17:00)
[2017-03-24 17:32] LABS: ABG BASE EXCESS 2.6 (-2.0-2.0); ABG HCO3 30.2 MEQ/L (22.0-26.0); ABG O2 SATURATION 99.4 % (95.0-99.0); ABG PARTIAL PRESSURE CO2 59.6 mmHg (35.0-45.0); ABG STANDARD HCO3 26.8 MEQ/L (22.0-26.0); ABG TOTAL CO2 32.1 MEQ/L (23.0-31.0); ABG pH (ARTERIAL) 7.323 UNITS (7.350-7.450)
[2017-03-24] MEDS: NITROGLYCERIN 2% OINT 1 GM *U/D* PKT TOP (18:15)
[2017-03-24] MEDS ORDERED: ONDANSETRON 4MG/2ML VIAL (J2405) IV (18:15)
[2017-03-24 18:44] LABS: C REACTIVE PROTEIN QUANTITATIV 3.13 MG/DL (0.00-0.30)
[2017-03-24 18:53] LABS: LACTIC ACID SEPSIS PROTOCOL 1.9 MMOL/L (0.4-2.0)
[2017-03-24] MEDS: methylPREDNISolone INJ 125 MG/2 ML VIAL (J2930) IV (20:00)
[2017-03-24] MEDS: MEROPENEM INJ 1 GM in APPROPRIATE DILUENT 1 EA IV (21:00)
[2017-03-24] MEDS ORDERED: TORSEMIDE 100 MG TAB PO (21:00)
[2017-03-24] MEDS: IPRATROPIUM 0.5MG/ALBUTEROL 2.5MG INH SOL UD 3ML (DUONEB)(J7620) NEB (21:45)
[2017-03-24] MEDS: DONEPEZIL 5 MG TAB PO (22:13)
[2017-03-24] MEDS: SENOKOT S TAB PO (22:13)
[2017-03-24] MEDS: SIMVASTATIN 40 MG TAB PO (22:13)
[2017-03-24] MEDS: MULTIVITAMINS/MINERALS THERAP 1 TAB PO (22:13)
[2017-03-24 22:20] LABS: CK-MB VALUE MASS 6.2 NG/ML (0.0-3.6); CPK CREATINE PHOSPHOKINASE 487 U/L (26-192); MB/CK RELATIVE INDEX 1.27 (< OR =4)
[2017-03-24 22:37] LABS: TROPONIN I 0.86 NG/ML (< 0.10)
[2017-03-24] MEDS: ADVAIR HFA 45/21MCG INHALER INH (22:45)
[2017-03-25] MEDS: IPRATROPIUM 0.5MG/ALBUTEROL 2.5MG INH SOL UD 3ML (DUONEB)(J7620) NEB ×5 (02:50→23:22)
[2017-03-25] MEDS: methylPREDNISolone INJ 125 MG/2 ML VIAL (J2930) IV (04:00)
[2017-03-25 04:52] LABS: HEMATOCRIT 41.1 % (36.0-47.0); HEMOGLOBIN 13.3 g/dl (12.0-16.0); MEAN CORPUSCULAR HEMOGLOBIN 29.2 pg (27.0-33.0); MEAN CORPUSCULAR HGB CONC 32.4 g/dl (32.0-36.5); MEAN CORPUSCULAR VOLUME 90.1 fl (80.0-96.0); PLATELET COUNT, AUTOMATED 156 10^3/uL (150-450); RED BLOOD COUNT 4.56 10^6/uL (4.00-5.40); RED CELL DISTRIBUTION WIDTH 14.9 % (11.5-14.5); WHITE BLOOD COUNT 9.3 10^3/uL (4.0-10.0)
[2017-03-25 05:04] LABS: INR 2.99; PROTHROMBIN TIME 32.4 SECONDS (12.4-14.5)
[2017-03-25 05:24] LABS: ALBUMIN 3.6 GM/DL (3.2-5.2); ALBUMIN/GLOBULIN RATIO 1.03 (1.00-1.93); ALKALINE PHOSPHATASE 74 U/L (45-117); ALT/SGPT 106 U/L (12-78); ANION GAP 7 MEQ/L (8-16); AST/SGOT 155 U/L (7-37); BILIRUBIN,TOTAL 0.7 MG/DL (0.2-1.0); BLOOD UREA NITROGEN 39 MG/DL (7-18); C REACTIVE PROTEIN QUANTITATIV 3.02 MG/DL (0.00-0.30); CALCIUM LEVEL 9.2 MG/DL (8.8-10.2); CARBON DIOXIDE LEVEL 36 MEQ/L (21-32); CHLORIDE LEVEL 93 MEQ/L (98-107); CPK CREATINE PHOSPHOKINASE 489 U/L (26-192); GLOMERULAR FILTRATION RATE 38.5 (>32); GLUCOSE, FASTING 146 MG/DL (83-110); MB/CK RELATIVE INDEX 1.63 (< OR =4); POTASSIUM SERUM 4.1 MEQ/L (3.5-5.1); SODIUM LEVEL 136 MEQ/L (136-145); TOTAL PROTEIN 7.1 GM/DL (6.4-8.2)
[2017-03-25] MEDS: LEVOTHYROXINE 25MCG TABLET (0.025MG) PO (06:00)
[2017-03-25] MEDS: ADVAIR HFA 45/21MCG INHALER INH ×2 (09:00→20:57)
[2017-03-25] MEDS: PANTOPRAZOLE 40MG INJ (PROTONIX) (C9113) IV (10:22)
[2017-03-25] MEDS: FUROSEMIDE 40 MG/4 ML VIAL (J1940) IV ×2 (10:22→17:28)
[2017-03-25] MEDS: MEROPENEM INJ 1 GM in APPROPRIATE DILUENT 1 EA IV ×2 (10:23→20:36)
[2017-03-25] MEDS: SENOKOT S TAB PO ×2 (11:31→20:37)
[2017-03-25 13:16] LABS: CPK CREATINE PHOSPHOKINASE 594 U/L (26-192); TROPONIN I 0.78 NG/ML (< 0.10)
[2017-03-25 13:17] LABS: MB/CK RELATIVE INDEX 1.34 (< OR =4)
[2017-03-25] MEDS: SODIUM CHLORIDE HYPERTONIC 3% 15ML NEB SOL INH ×3 (16:01→23:22)
[2017-03-25] MEDS: WARFARIN SOD 3 MG TAB PO (17:29)
[2017-03-25] MEDS ORDERED: SLF 3 ML SYR IV (17:30)
[2017-03-25] MEDS: MULTIVITAMINS/MINERALS THERAP 1 TAB PO (20:37)
[2017-03-25] MEDS: DONEPEZIL 5 MG TAB PO (20:37)
[2017-03-25] MEDS: SIMVASTATIN 40 MG TAB PO (20:37)
[2017-03-25 21:00] LABS: CPK CREATINE PHOSPHOKINASE 591 U/L (26-192); MB/CK RELATIVE INDEX 1.01 (< OR =4); TROPONIN I 0.48 NG/ML (< 0.10)
[2017-03-25] MEDS: SLF 3 ML SYR IV (22:00)
[2017-03-26] MEDS: IPRATROPIUM 0.5MG/ALBUTEROL 2.5MG INH SOL UD 3ML (DUONEB)(J7620) NEB ×5 (02:00→20:00)
[2017-03-26] MEDS: SODIUM CHLORIDE HYPERTONIC 3% 15ML NEB SOL INH ×5 (03:24→20:00)
[2017-03-26 04:50] LABS: MEAN CORPUSCULAR HGB CONC 32.5 g/dl (32.0-36.5); MEAN CORPUSCULAR VOLUME 89.3 fl (80.0-96.0); PLATELET COUNT, AUTOMATED 174 10^3/uL (150-450); RED BLOOD COUNT 4.48 10^6/uL (4.00-5.40); RED CELL DISTRIBUTION WIDTH 14.8 % (11.5-14.5); WHITE BLOOD COUNT 11.2 10^3/uL (4.0-10.0)
[2017-03-26 05:03] LABS: INR 4.62; PROTHROMBIN TIME 46.2 SECONDS (12.4-14.5)
[2017-03-26 05:12] LABS: ALBUMIN 3.5 GM/DL (3.2-5.2); ALBUMIN/GLOBULIN RATIO 1.17 (1.00-1.93); ALKALINE PHOSPHATASE 60 U/L (45-117); ALT/SGPT 101 U/L (12-78); ANION GAP 4 MEQ/L (8-16); AST/SGOT 115 U/L (7-37); BILIRUBIN,TOTAL 0.6 MG/DL (0.2-1.0); BLOOD UREA NITROGEN 46 MG/DL (7-18); C REACTIVE PROTEIN QUANTITATIV 1.85 MG/DL (0.00-0.30); CALCIUM LEVEL 8.5 MG/DL (8.8-10.2); CARBON DIOXIDE LEVEL 39 MEQ/L (21-32); CHLORIDE LEVEL 94 MEQ/L (98-107); CREATININE FOR GFR 1.03 MG/DL (0.55-1.02); GLOMERULAR FILTRATION RATE 54.9 (>32); GLUCOSE, FASTING 120 MG/DL (83-110); POTASSIUM SERUM 3.6 MEQ/L (3.5-5.1); SODIUM LEVEL 137 MEQ/L (136-145); TOTAL PROTEIN 6.5 GM/DL (6.4-8.2)
[2017-03-26] MEDS: LEVOTHYROXINE 25MCG TABLET (0.025MG) PO (05:44)
[2017-03-26] MEDS: SLF 3 ML SYR IV ×3 (05:45→21:00)
[2017-03-26 05:56] LABS: TROPONIN I 0.36 NG/ML (< 0.10)
[2017-03-26] MEDS: ADVAIR HFA 45/21MCG INHALER INH ×2 (08:03→20:22)
[2017-03-26] MEDS: methylPREDNISolone INJ 125 MG/2 ML VIAL (J2930) IV (08:19)
[2017-03-26] MEDS: SENOKOT S TAB PO ×2 (08:19→20:58)
[2017-03-26] MEDS: PANTOPRAZOLE 40MG INJ (PROTONIX) (C9113) IV (08:19)
[2017-03-26] MEDS: FUROSEMIDE 40 MG/4 ML VIAL (J1940) IV ×2 (08:19→17:29)
[2017-03-26] MEDS: MEROPENEM INJ 1 GM in APPROPRIATE DILUENT 1 EA IV ×2 (08:20→20:58)
[2017-03-26] MEDS: DONEPEZIL 5 MG TAB PO (20:57)
[2017-03-26] MEDS: MULTIVITAMINS/MINERALS THERAP 1 TAB PO (20:57)
[2017-03-26] MEDS: SIMVASTATIN 40 MG TAB PO (20:58)
[2017-03-27] MEDS: SODIUM CHLORIDE HYPERTONIC 3% 15ML NEB SOL INH ×7 (00:18→23:40)
[2017-03-27] MEDS: IPRATROPIUM 0.5MG/ALBUTEROL 2.5MG INH SOL UD 3ML (DUONEB)(J7620) NEB ×5 (00:19→23:41)
[2017-03-27 04:35] LABS: HEMATOCRIT 38.8 % (36.0-47.0); HEMOGLOBIN 12.4 g/dl (12.0-16.0); MEAN CORPUSCULAR HEMOGLOBIN 28.4 pg (27.0-33.0); PLATELET COUNT, AUTOMATED 164 10^3/uL (150-450); RED BLOOD COUNT 4.36 10^6/uL (4.00-5.40); RED CELL DISTRIBUTION WIDTH 14.6 % (11.5-14.5); WHITE BLOOD COUNT 11.3 10^3/uL (4.0-10.0)
[2017-03-27 04:46] LABS: PROTHROMBIN TIME 55.4 SECONDS (12.4-14.5)
[2017-03-27 04:55] LABS: ALBUMIN 3.4 GM/DL (3.2-5.2); ALBUMIN/GLOBULIN RATIO 1.21 (1.00-1.93); ALKALINE PHOSPHATASE 59 U/L (45-117); ALT/SGPT 107 U/L (12-78); ANION GAP 5 MEQ/L (8-16); AST/SGOT 97 U/L (7-37); BILIRUBIN,TOTAL 0.7 MG/DL (0.2-1.0); BLOOD UREA NITROGEN 30 MG/DL (7-18); C REACTIVE PROTEIN QUANTITATIV 0.98 MG/DL (0.00-0.30); CALCIUM LEVEL 8.5 MG/DL (8.8-10.2); CARBON DIOXIDE LEVEL 38 MEQ/L (21-32); CHLORIDE LEVEL 98 MEQ/L (98-107); CREATININE FOR GFR 0.72 MG/DL (0.55-1.02); GLOMERULAR FILTRATION RATE > 60.0 (>32); GLUCOSE, FASTING 108 MG/DL (83-110); POTASSIUM SERUM 3.7 MEQ/L (3.5-5.1); SODIUM LEVEL 141 MEQ/L (136-145); TOTAL PROTEIN 6.2 GM/DL (6.4-8.2); TROPONIN I 0.28 NG/ML (< 0.10)
[2017-03-27 05:40] LABS: INR 5.78
[2017-03-27] MEDS: LEVOTHYROXINE 25MCG TABLET (0.025MG) PO (05:56)
[2017-03-27] MEDS: SLF 3 ML SYR IV ×3 (05:59→21:05)
[2017-03-27] MEDS: FUROSEMIDE 40 MG/4 ML VIAL (J1940) IV ×2 (08:41→17:37)
[2017-03-27] MEDS: PANTOPRAZOLE 40MG INJ (PROTONIX) (C9113) IV (08:43)
[2017-03-27] MEDS: methylPREDNISolone INJ 125 MG/2 ML VIAL (J2930) IV (08:43)
[2017-03-27] MEDS: SENOKOT S TAB PO ×2 (08:43→21:04)
[2017-03-27] MEDS: MEROPENEM INJ 1 GM in APPROPRIATE DILUENT 1 EA IV ×2 (08:46→21:05)
[2017-03-27] MEDS: ADVAIR HFA 45/21MCG INHALER INH ×2 (09:31→21:45)
[2017-03-27] MEDS: SIMVASTATIN 40 MG TAB PO (21:04)
[2017-03-27] MEDS: MULTIVITAMINS/MINERALS THERAP 1 TAB PO (21:04)
[2017-03-27] MEDS: DONEPEZIL 5 MG TAB PO (21:05)
[2017-03-28] MEDS: SODIUM CHLORIDE HYPERTONIC 3% 15ML NEB SOL INH ×5 (02:56→20:02)
[2017-03-28] MEDS: IPRATROPIUM 0.5MG/ALBUTEROL 2.5MG INH SOL UD 3ML (DUONEB)(J7620) NEB ×4 (04:35→20:02)
[2017-03-28] MEDS: SLF 3 ML SYR IV ×3 (05:30→22:11)
[2017-03-28] MEDS: LEVOTHYROXINE 25MCG TABLET (0.025MG) PO (05:30)
[2017-03-28 06:10] LABS: HEMATOCRIT 38.6 % (36.0-47.0); HEMOGLOBIN 12.5 g/dl (12.0-16.0); MEAN CORPUSCULAR HEMOGLOBIN 29.3 pg (27.0-33.0); MEAN CORPUSCULAR HGB CONC 32.4 g/dl (32.0-36.5); MEAN CORPUSCULAR VOLUME 90.6 fl (80.0-96.0); PLATELET COUNT, AUTOMATED 166 10^3/uL (150-450); RED BLOOD COUNT 4.26 10^6/uL (4.00-5.40); RED CELL DISTRIBUTION WIDTH 14.6 % (11.5-14.5); WHITE BLOOD COUNT 10.4 10^3/uL (4.0-10.0)
[2017-03-28 06:19] LABS: INR 4.26; PROTHROMBIN TIME 43.2 SECONDS (12.4-14.5)
[2017-03-28 06:28] LABS: ALBUMIN 3.4 GM/DL (3.2-5.2); ALBUMIN/GLOBULIN RATIO 1.21 (1.00-1.93); ALKALINE PHOSPHATASE 61 U/L (45-117); ALT/SGPT 115 U/L (12-78); ANION GAP 2 MEQ/L (8-16); AST/SGOT 84 U/L (7-37); BILIRUBIN,TOTAL 0.7 MG/DL (0.2-1.0); BLOOD UREA NITROGEN 20 MG/DL (7-18); C REACTIVE PROTEIN QUANTITATIV 0.58 MG/DL (0.00-0.30); CALCIUM LEVEL 8.6 MG/DL (8.8-10.2); CARBON DIOXIDE LEVEL 42 MEQ/L (21-32); CHLORIDE LEVEL 97 MEQ/L (98-107); CREATININE FOR GFR 0.66 MG/DL (0.55-1.02); GLOMERULAR FILTRATION RATE > 60.0 (>32); GLUCOSE, FASTING 105 MG/DL (83-110); POTASSIUM SERUM 3.4 MEQ/L (3.5-5.1); SODIUM LEVEL 141 MEQ/L (136-145); TOTAL PROTEIN 6.2 GM/DL (6.4-8.2)
[2017-03-28] MEDS: ADVAIR HFA 45/21MCG INHALER INH (07:21)
[2017-03-28] MEDS: SENOKOT S TAB PO ×2 (09:55→22:10)
[2017-03-28] MEDS: POTASSIUM CHLORIDE 10 MEQ SR TABLET PO (09:55)
[2017-03-28] MEDS: methylPREDNISolone INJ 125 MG/2 ML VIAL (J2930) IV (09:55)
[2017-03-28] MEDS: PANTOPRAZOLE 40MG INJ (PROTONIX) (C9113) IV (09:55)
[2017-03-28] MEDS: FUROSEMIDE 40 MG/4 ML VIAL (J1940) IV (09:56)
[2017-03-28] MEDS: MEROPENEM INJ 1 GM in APPROPRIATE DILUENT 1 EA IV ×2 (09:56→22:10)
[2017-03-28] MEDS: TORSEMIDE 100 MG TAB PO (17:54)
[2017-03-28] MEDS: ADVAIR HFA 230/21MCG INHALER INH (21:00)
[2017-03-28] MEDS: methylPREDNISolone INJ 40 MG/1 ML VIAL (J2920) IV (22:09)
[2017-03-28] MEDS: DONEPEZIL 5 MG TAB PO (22:10)
[2017-03-28] MEDS: SIMVASTATIN 40 MG TAB PO (22:10)
[2017-03-28] MEDS: MULTIVITAMINS/MINERALS THERAP 1 TAB PO (22:10)
[2017-03-29] MEDS: IPRATROPIUM 0.5MG/ALBUTEROL 2.5MG INH SOL UD 3ML (DUONEB)(J7620) NEB ×7 (01:37→23:48)
[2017-03-29 06:07] LABS: HEMATOCRIT 41.1 % (36.0-47.0); HEMOGLOBIN 13.4 g/dl (12.0-16.0); MEAN CORPUSCULAR HEMOGLOBIN 29.1 pg (27.0-33.0); MEAN CORPUSCULAR HGB CONC 32.6 g/dl (32.0-36.5); MEAN CORPUSCULAR VOLUME 89.2 fl (80.0-96.0); PLATELET COUNT, AUTOMATED 186 10^3/uL (150-450); RED BLOOD COUNT 4.61 10^6/uL (4.00-5.40); RED CELL DISTRIBUTION WIDTH 14.7 % (11.5-14.5); WHITE BLOOD COUNT 9.7 10^3/uL (4.0-10.0)
[2017-03-29 06:18] LABS: INR 2.62; PROTHROMBIN TIME 29.1 SECONDS (12.4-14.5)
[2017-03-29] MEDS: SLF 3 ML SYR IV ×3 (06:21→22:05)
[2017-03-29] MEDS: LEVOTHYROXINE 25MCG TABLET (0.025MG) PO (06:21)
[2017-03-29 06:26] LABS: ALBUMIN 3.6 GM/DL (3.2-5.2); ALBUMIN/GLOBULIN RATIO 1.16 (1.00-1.93); ALKALINE PHOSPHATASE 62 U/L (45-117); ALT/SGPT 112 U/L (12-78); ANION GAP 3 MEQ/L (8-16); AST/SGOT 71 U/L (7-37); BILIRUBIN,TOTAL 1.2 MG/DL (0.2-1.0); BLOOD UREA NITROGEN 17 MG/DL (7-18); C REACTIVE PROTEIN QUANTITATIV 0.39 MG/DL (0.00-0.30); CALCIUM LEVEL 8.4 MG/DL (8.8-10.2); CARBON DIOXIDE LEVEL 43 MEQ/L (21-32); CHLORIDE LEVEL 93 MEQ/L (98-107); GLOMERULAR FILTRATION RATE > 60.0 (>32); GLUCOSE, FASTING 157 MG/DL (83-110); POTASSIUM SERUM 3.3 MEQ/L (3.5-5.1); SODIUM LEVEL 139 MEQ/L (136-145); TOTAL PROTEIN 6.7 GM/DL (6.4-8.2)
[2017-03-29] MEDS: ADVAIR HFA 230/21MCG INHALER INH ×2 (07:31→19:45)
[2017-03-29] MEDS: SODIUM CHLORIDE HYPERTONIC 3% 15ML NEB SOL INH ×7 (07:31→23:48)
[2017-03-29] MEDS: PANTOPRAZOLE 40MG TAB (PROTONIX) PO (10:08)
[2017-03-29] MEDS: POTASSIUM CHLORIDE 10 MEQ SR TABLET PO (10:09)
[2017-03-29] MEDS: methylPREDNISolone INJ 40 MG/1 ML VIAL (J2920) IV ×2 (10:10→22:04)
[2017-03-29] MEDS: MEROPENEM INJ 1 GM in APPROPRIATE DILUENT 1 EA IV ×2 (10:10→22:04)
[2017-03-29] MEDS: TORSEMIDE 100 MG TAB PO ×2 (10:15→16:34)
[2017-03-29] MEDS: WARFARIN SOD 2 MG TAB PO (16:32)
[2017-03-29] MEDS: MULTIVITAMINS/MINERALS THERAP 1 TAB PO (22:04)
[2017-03-29] MEDS: DONEPEZIL 5 MG TAB PO (22:04)
[2017-03-29] MEDS: SIMVASTATIN 40 MG TAB PO (22:04)
[2017-03-30] MEDS: IPRATROPIUM 0.5MG/ALBUTEROL 2.5MG INH SOL UD 3ML (DUONEB)(J7620) NEB ×5 (03:06→23:32)
[2017-03-30] MEDS: SODIUM CHLORIDE HYPERTONIC 3% 15ML NEB SOL INH ×6 (03:06→23:32)
[2017-03-30] MEDS: SLF 3 ML SYR IV ×3 (06:18→21:14)
[2017-03-30] MEDS: LEVOTHYROXINE 25MCG TABLET (0.025MG) PO (06:18)
[2017-03-30 06:32] LABS: HEMATOCRIT 40.5 % (36.0-47.0); HEMOGLOBIN 13.1 g/dl (12.0-16.0); MEAN CORPUSCULAR HEMOGLOBIN 28.6 pg (27.0-33.0); MEAN CORPUSCULAR HGB CONC 32.3 g/dl (32.0-36.5); MEAN CORPUSCULAR VOLUME 88.4 fl (80.0-96.0); PLATELET COUNT, AUTOMATED 206 10^3/uL (150-450); RED BLOOD COUNT 4.58 10^6/uL (4.00-5.40); RED CELL DISTRIBUTION WIDTH 14.7 % (11.5-14.5); WHITE BLOOD COUNT 11.7 10^3/uL (4.0-10.0)
[2017-03-30 06:51] LABS: ALBUMIN 3.2 GM/DL (3.2-5.2); ALBUMIN/GLOBULIN RATIO 1.07 (1.00-1.93); ALKALINE PHOSPHATASE 59 U/L (45-117); ALT/SGPT 90 U/L (12-78); ANION GAP 3 MEQ/L (8-16); AST/SGOT 50 U/L (7-37); BILIRUBIN,TOTAL 1.2 MG/DL (0.2-1.0); BLOOD UREA NITROGEN 19 MG/DL (7-18); C REACTIVE PROTEIN QUANTITATIV < 0.30 MG/DL (0.00-0.30); CALCIUM LEVEL 8.7 MG/DL (8.8-10.2); CARBON DIOXIDE LEVEL 44 MEQ/L (21-32); CHLORIDE LEVEL 92 MEQ/L (98-107); CREATININE FOR GFR 0.72 MG/DL (0.55-1.02); GLOMERULAR FILTRATION RATE > 60.0 (>32); GLUCOSE, FASTING 144 MG/DL (70-100); POTASSIUM SERUM 3.4 MEQ/L (3.5-5.1); SODIUM LEVEL 139 MEQ/L (136-145); TOTAL PROTEIN 6.2 GM/DL (6.4-8.2)
[2017-03-30 06:58] LABS: INR 2.21; PROTHROMBIN TIME 25.3 SECONDS (12.4-14.5)
[2017-03-30 08:21] LABS: MAGNESIUM LEVEL 2.3 MG/DL (1.8-2.4)
[2017-03-30] MEDS: ADVAIR HFA 230/21MCG INHALER INH ×2 (09:03→20:33)
[2017-03-30] MEDS: TORSEMIDE 100 MG TAB PO ×2 (09:47→17:23)
[2017-03-30] MEDS: PANTOPRAZOLE 40MG TAB (PROTONIX) PO (09:48)
[2017-03-30] MEDS: methylPREDNISolone INJ 40 MG/1 ML VIAL (J2920) IV (09:48)
[2017-03-30] MEDS: MEROPENEM INJ 1 GM in APPROPRIATE DILUENT 1 EA IV (09:48)
[2017-03-30] MEDS: guaiFENesin ER 600 MG TAB PO ×2 (12:16→21:13)
[2017-03-30] MEDS: predniSONE 20 MG TAB PO (12:16)
[2017-03-30] MEDS: POTASSIUM CHLORIDE 10 MEQ SR TABLET PO (12:17)
[2017-03-30] MEDS: LevoFLOXacin 500 MG TABLET PO (17:23)
[2017-03-30] MEDS: WARFARIN SOD 2 MG TAB PO (17:23)
[2017-03-30] MEDS: DONEPEZIL 5 MG TAB PO (21:00)
[2017-03-30] MEDS: MULTIVITAMINS/MINERALS THERAP 1 TAB PO (21:12)
[2017-03-30] MEDS: SIMVASTATIN 40 MG TAB PO (21:13)
[2017-03-31] MEDS: IPRATROPIUM 0.5MG/ALBUTEROL 2.5MG INH SOL UD 3ML (DUONEB)(J7620) NEB ×6 (04:42→20:00)
[2017-03-31] MEDS: SODIUM CHLORIDE HYPERTONIC 3% 15ML NEB SOL INH ×5 (04:42→20:00)
[2017-03-31] MEDS: LEVOTHYROXINE 25MCG TABLET (0.025MG) PO (06:20)
[2017-03-31] MEDS: SLF 3 ML SYR IV ×3 (06:20→22:00)
[2017-03-31 06:32] LABS: HEMATOCRIT 40.7 % (36.0-47.0); HEMOGLOBIN 13.3 g/dl (12.0-16.0); MEAN CORPUSCULAR HEMOGLOBIN 28.8 pg (27.0-33.0); MEAN CORPUSCULAR HGB CONC 32.7 g/dl (32.0-36.5); MEAN CORPUSCULAR VOLUME 88.1 fl (80.0-96.0); PLATELET COUNT, AUTOMATED 199 10^3/uL (150-450); RED BLOOD COUNT 4.62 10^6/uL (4.00-5.40); RED CELL DISTRIBUTION WIDTH 14.6 % (11.5-14.5); WHITE BLOOD COUNT 16.5 10^3/uL (4.0-10.0)
[2017-03-31 06:40] LABS: INR 2.16; PROTHROMBIN TIME 24.9 SECONDS (12.4-14.5)
[2017-03-31 06:54] LABS: ALBUMIN 3.3 GM/DL (3.2-5.2); ALKALINE PHOSPHATASE 57 U/L (45-117); ALT/SGPT 77 U/L (12-78); ANION GAP 6 MEQ/L (8-16); AST/SGOT 40 U/L (7-37); BILIRUBIN,TOTAL 1.4 MG/DL (0.2-1.0); BLOOD UREA NITROGEN 22 MG/DL (7-18); C REACTIVE PROTEIN QUANTITATIV < 0.30 MG/DL (0.00-0.30); CALCIUM LEVEL 8.8 MG/DL (8.8-10.2); CARBON DIOXIDE LEVEL 42 MEQ/L (21-32); CHLORIDE LEVEL 91 MEQ/L (98-107); CREATININE FOR GFR 0.83 MG/DL (0.55-1.02); GLOMERULAR FILTRATION RATE > 60.0 (>32); GLUCOSE, FASTING 119 MG/DL (70-100); SODIUM LEVEL 139 MEQ/L (136-145); TOTAL PROTEIN 6.3 GM/DL (6.4-8.2)
[2017-03-31] MEDS: ADVAIR HFA 230/21MCG INHALER INH (07:42)
[2017-03-31] MEDS ORDERED: POTASSIUM CHLORIDE 10 MEQ SR TABLET PO (09:00)
[2017-03-31] MEDS: NS 1,000 ML IV (09:07)
[2017-03-31] MEDS: POTASSIUM CHLORIDE 10 MEQ SR TABLET PO ×2 (09:08→21:14)
[2017-03-31] MEDS: predniSONE 20 MG TAB PO (09:08)
[2017-03-31] MEDS: PANTOPRAZOLE 40MG TAB (PROTONIX) PO (09:08)
[2017-03-31] MEDS: guaiFENesin ER 600 MG TAB PO ×2 (09:08→21:13)
[2017-03-31] MEDS: DOCUSATE SODIUM 100 MG CAP PO (14:44)
[2017-03-31] MEDS: LevoFLOXacin 500 MG TABLET PO (17:16)
[2017-03-31] MEDS: WARFARIN SOD 2 MG TAB PO (17:16)
[2017-03-31] MEDS: DONEPEZIL 5 MG TAB PO (21:13)
[2017-03-31] MEDS: SIMVASTATIN 40 MG TAB PO (21:14)
[2017-03-31] MEDS: MULTIVITAMINS/MINERALS THERAP 1 TAB PO (21:14)
[2017-04-01] MEDS: SODIUM CHLORIDE HYPERTONIC 3% 15ML NEB SOL INH ×3 (00:02→08:00)
[2017-04-01] MEDS: ADVAIR HFA 230/21MCG INHALER INH ×2 (00:02→07:17)
[2017-04-01] MEDS: IPRATROPIUM 0.5MG/ALBUTEROL 2.5MG INH SOL UD 3ML (DUONEB)(J7620) NEB ×2 (00:02→08:00)
[2017-04-01] MEDS: LEVOTHYROXINE 25MCG TABLET (0.025MG) PO (05:51)
[2017-04-01] MEDS: SLF 3 ML SYR IV (05:51)
[2017-04-01] MEDS: SIMETHICONE 80 MG CHEW TAB PO (06:43)
[2017-04-01] MEDS: PANTOPRAZOLE 40MG TAB (PROTONIX) PO (08:06)
[2017-04-01] MEDS: predniSONE 20 MG TAB PO (08:06)
[2017-04-01] MEDS: guaiFENesin ER 600 MG TAB PO (08:06)
[2017-04-01] MEDS: POTASSIUM CHLORIDE 10 MEQ SR TABLET PO (08:06)
[2017-04-01 09:14] LABS: HEMATOCRIT 44.8 % (36.0-47.0); HEMOGLOBIN 14.4 g/dl (12.0-16.0); MEAN CORPUSCULAR HEMOGLOBIN 28.7 pg (27.0-33.0); MEAN CORPUSCULAR HGB CONC 32.1 g/dl (32.0-36.5); MEAN CORPUSCULAR VOLUME 89.4 fl (80.0-96.0); PLATELET COUNT, AUTOMATED 239 10^3/uL (150-450); RED BLOOD COUNT 5.01 10^6/uL (4.00-5.40); RED CELL DISTRIBUTION WIDTH 14.9 % (11.5-14.5); WHITE BLOOD COUNT 19.3 10^3/uL (4.0-10.0)
[2017-04-01 09:38] LABS: INR 2.26; PROTHROMBIN TIME 25.8 SECONDS (12.4-14.5)
[2017-04-01 09:39] LABS: ANION GAP 6 MEQ/L (8-16); BLOOD UREA NITROGEN 24 MG/DL (7-18); CALCIUM LEVEL 9.5 MG/DL (8.8-10.2); CARBON DIOXIDE LEVEL 38 MEQ/L (21-32); CHLORIDE LEVEL 92 MEQ/L (98-107); GLOMERULAR FILTRATION RATE 50.9 (>32); GLUCOSE, FASTING 123 MG/DL (70-100); POTASSIUM SERUM 3.8 MEQ/L (3.5-5.1); SODIUM LEVEL 136 MEQ/L (136-145)
== END 2017-04-01 12:41 | disposition home health service (06) | DRG 193 ==
LOC: M MSPAV 03-27 16:42 → M ICU 03-25 14:40 → M ED 15:31 → M ED INP 18:13
DX: J18.9 Pneumonia, unspecified organism (principal); J96.01 Acute respiratory failure with hypoxia; I50.33 Acute on chronic diastolic (congestive) heart failure; I13.0 Hypertensive heart and chronic kidney disease with heart failure and stage 1 through stage 4 chronic kidney disease, or unspecified chronic kidney disease; E78.5 Hyperlipidemia, unspecified; J20.5 Acute bronchitis due to respiratory syncytial virus; E03.9 Hypothyroidism, unspecified; K21.9 Gastro-esophageal reflux disease without esophagitis; I48.91 Unspecified atrial fibrillation; N18.9 Chronic kidney disease, unspecified; G30.9 Alzheimer's disease, unspecified; F02.80 Dementia in other diseases classified elsewhere, unspecified severity, without behavioral disturbance, psychotic disturbance, mood disturbance, and anxiety; Z88.0 Allergy status to penicillin; Z88.5 Allergy status to narcotic agent; Z87.891 Personal history of nicotine dependence; Z79.52 Long term (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 systemic steroids; Z79.01 Long term (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 anticoagulants; Z79.899 Other long term (current) drug therapy; Z95.3 Presence of xenogenic heart valve

== ENCOUNTER → 2017-04-21 | Outpatient (REF) | payer MEDICARE, OTHER ==
[2017-04-21 15:45] LABS: PROTHROMBIN TIME 53.5 SECONDS (12.4-14.5)
[2017-04-21 16:15] LABS: INR 5.54
== END ==
LOC: M LAB REF 15:21
DX: I48.2 Chronic atrial fibrillation (principal)
CPT/HCPCS: 85610

== ENCOUNTER → 2017-05-28 | Outpatient (CLI) | payer MEDICARE, OTHER | LOC: M RAD 16:58 | DX: S52.514A Nondisplaced fracture of right radial styloid process, initial encounter for closed fracture (principal); W18.09XA Striking against other object with subsequent fall, initial encounter; Y92.9 Unspecified place or not applicable | CPT/HCPCS: 73110 ==

== ENCOUNTER 2017-09-30 03:41 | Emergency (ER) | payer MEDICARE, OTHER ==
[2017-09-30] MEDS: ONDANSETRON 4MG/2ML VIAL (J2405) IV (04:15)
[2017-09-30] MEDS: NS 500 ML IV (04:15)
[2017-09-30 04:38] LABS: BASO % 0.2 % (0.0-1.0); EOS % 0.1 % (0.0-3.0); HEMATOCRIT 38.2 % (36.0-47.0); HEMOGLOBIN 12.6 g/dl (12.0-15.5); IMMATURE GRANULOCYTE % 0.5 % (0-3.0); LYMPH % 0.6 % (24.0-44.0); MEAN CORPUSCULAR HEMOGLOBIN 29.9 pg (27.0-33.0); MEAN CORPUSCULAR VOLUME 90.5 fl (80.0-96.0); MONO % 15.2 % (0.0-5.0); NEUTROPHILS # 20.8 10^3/uL (1.8-7.7); NEUTROPHILS % 83.4 % (36.0-66.0); PLATELET COUNT, AUTOMATED 188 10^3/uL (150-450); RED BLOOD COUNT 4.22 10^6/uL (4.00-5.40); RED CELL DISTRIBUTION WIDTH 14.6 % (11.5-14.5); WHITE BLOOD COUNT 24.9 10^3/uL (4.0-10.0)
[2017-09-30 05:01] LABS: ANION GAP 5 MEQ/L (8-16); BLOOD UREA NITROGEN 45 MG/DL (7-18); CALCIUM LEVEL 9.2 MG/DL (8.8-10.2); CARBON DIOXIDE LEVEL 35 MEQ/L (21-32); CHLORIDE LEVEL 98 MEQ/L (98-107); CREATININE FOR GFR 1.52 MG/DL (0.55-1.30); GLOMERULAR FILTRATION RATE 34.9 (>32); GLUCOSE, FASTING 145 MG/DL (70-100); LYMPH # 0.2 10^3/uL (1.5-4.5); MONO # 3.8 10^3/uL (0.0-0.8); POSITIVE DIFF POS FLAG; POTASSIUM SERUM 4.3 MEQ/L (3.5-5.1); SODIUM LEVEL 138 MEQ/L (136-145)
== END 2017-09-30 11:26 | disposition home or self-care (01) ==
LOC: M ED 03:41
DX: R11.2 Nausea with vomiting, unspecified (principal); R19.7 Diarrhea, unspecified; I48.91 Unspecified atrial fibrillation; I11.0 Hypertensive heart disease with heart failure; I50.9 Heart failure, unspecified; G30.9 Alzheimer's disease, unspecified; F02.80 Dementia in other diseases classified elsewhere, unspecified severity, without behavioral disturbance, psychotic disturbance, mood disturbance, and anxiety; Z95.2 Presence of prosthetic heart valve; Z88.0 Allergy status to penicillin; Z88.5 Allergy status to narcotic agent; Z88.8 Allergy status to other drugs, medicaments and biological substances; Z79.899 Other long term (current) drug therapy; Z79.01 Long term (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 anticoagulants; Z79.51 Long term (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 inhaled steroids
CPT/HCPCS: J2405

== ENCOUNTER → 2017-12-24 | Outpatient (REF) | payer MEDICARE, OTHER ==
[2017-12-24 17:43] LABS: ATYPICAL LYMPH 7 % (0-5); BANDS 2 % (< 11); EOSINOPHILS 3 % (0-5); LYMPHOCYTES 2 % (16-52); MONOCYTES 17 % (0-8); NEUTROPHILS 69 % (35-75)
[2017-12-24 17:48] LABS: TOXIC VACUOLATION 1+
== END ==
LOC: M LAB REF 16:40
DX: D72.9 Disorder of white blood cells, unspecified (principal)
CPT/HCPCS: 85007

== ENCOUNTER → 2018-10-07 | Outpatient (REF) | payer MEDICARE, OTHER ==
[~2018-10-07] MED LIST changes: -/WARF3TA; +ARIC1TAB; -CALC500T36 PO; +CALC500T61 PO; +COUM1TAB19; +COUM2TAB22 PO; +DONE5TAB64 PO; +DOXY100C37 PO; +HYDR-2541 PO; -HYDR25TAB PO; +IPRA0.00 INH; -IPRASOL4 INH; +KLOR-CON; -LASI40TA PO; +LASI40TA9 PO; -LEVA1TAB PO; +LEVA250T13 PO; +LEVO25TA5 PO; +LOSA50TA88; +MUCI600T37 PO; +PRED-351 PO; -PRED10TA PO; +PRED10TA2 PO; +PROAAER10 INH; +SIMV40TA2; +SPIR-10; +SYNT25TA; +WARF-58
[2018-10-07 18:07] LABS: BASO # 0.1 10^3/uL (0.0-0.2); BASO % 0.6 % (0.0-1.0); EOS # 0.2 10^3/uL (0.0-0.50); EOS % 1.9 % (0.0-3.0); HEMATOCRIT 41.6 % (36.0-47.0); HEMOGLOBIN 13.5 g/dl (12.0-15.5); LYMPH # 1.2 10^3/uL (1.5-4.5); LYMPH % 10.4 % (24.0-44.0); MEAN CORPUSCULAR HEMOGLOBIN 29.8 pg (27.0-33.0); MEAN CORPUSCULAR HGB CONC 32.5 g/dl (32.0-36.5); MEAN CORPUSCULAR VOLUME 91.8 fl (80.0-96.0); MONO # 1.9 10^3/uL (0.0-0.8); NEUTROPHILS # 7.7 10^3/uL (1.8-7.7); NEUTROPHILS % 69.6 % (36.0-66.0); PLATELET COUNT, AUTOMATED 216 10^3/uL (150-450); RED BLOOD COUNT 4.53 10^6/uL (4.00-5.40)
== END ==
LOC: M LAB REF 17:10
PROVIDERS: ATTEND Nurse Practitioner Adult Health
DX: N18.3 Chronic kidney disease, stage 3 (moderate) (principal)

== ENCOUNTER 2018-11-12 15:06 | Observation (INO) | payer MEDICARE, OTHER ==
[~2018-11-12] VITALS: Ht 167.6 cm; Wt 69.6 kg
[~2018-11-12 15:06] MED LIST changes: -ARIC1TAB; +ARIC1TAB PO; -AZIT500T2 PO; +AZIT500T5 PO; -FELO5TAB PO; +FELO5TAB26 PO; -SIMV40TA2; +SIMV40TA20 PO; -SPIR-10; +SPIR-10 PO; -SYNT25TA; +SYNT25TA PO; -WARF-58; +WARF-58 PO
[2018-11-12] MEDS ORDERED: WARF05TA PO (17:14)
[2018-11-12] MEDS ORDERED: INCR1INH PO (17:14)
[2018-11-12 17:53] LABS: BASO # 0.1 10^3/uL (0.0-0.2); BASO % 0.7 % (0.0-1.0); EOS # 0.3 10^3/uL (0.0-0.5); EOS % 2.1 % (0.0-3.0); HEMATOCRIT 41.4 % (36.0-47.0); HEMOGLOBIN 13.6 g/dl (12.0-15.5); LYMPH % 6.1 % (24.0-44.0); MEAN CORPUSCULAR HGB CONC 32.9 g/dl (32.0-36.5); MEAN CORPUSCULAR VOLUME 91.2 fl (80.0-96.0); MONO % 13.5 % (0.0-5.0); NEUTROPHILS # 12.3 10^3/uL (1.5-8.5); NEUTROPHILS % 77.1 % (36.0-66.0); PLATELET COUNT, AUTOMATED 211 10^3/uL (150-450); RED BLOOD COUNT 4.54 10^6/uL (4.00-5.40)
[2018-11-12 18:08] LABS: INR 2.13; PROTHROMBIN TIME 23.6 SECONDS (11.8-14.0)
[2018-11-12 18:09] LABS: PARTIAL THROMBOPLASTIN TIME 34.8 SECONDS (25.0-38.4)
[2018-11-12 18:21] LABS: MONO # 2.2 10^3/uL (0.0-0.8)
[2018-11-12] MEDS ORDERED: NS 500 ML IV ONE (19:00)
[2018-11-12] MEDS ORDERED: ISOVUE-370 76% 100ML VIAL (Q9967) As Ordered ONE (19:02)
--- NOTE | 2018-11-12 20:28 | REPVR ---
EXAM: CT Abdomen and Pelvis With Contrast EXAM DATE/TIME: 11/12/2018 7:38 PM CLINICAL HISTORY: 83 years old, female; Abdominal pain; Tenderness; Other: CVA; Additional info: UTI, elev. Wbc, CVA tender TECHNIQUE: Imaging protocol: Computed tomography of the abdomen and pelvis with intravenous contrast. Radiation optimization: All CT scans at this facility use at least one of these dose optimization techniques: automated exposure control; mA and/or kV adjustment per patient size (includes targeted exams where dose is matched to clinical indication); or iterative reconstruction. Contrast material: ISOVUE 370; Contrast volume: 100 ml; Contrast route: IV; COMPARISON: CT ABD PELVIS W/O CONTRAST 09/30/2017 5:56 AM FINDINGS: Tubes, catheters and devices: Pacemaker in position. Lungs: Minimal bibasilar interstitial prominence. Heart: Prominent enlargement of the right atrium. Liver: The liver attenuation is 81 Hounsfield units and the spleen is 106 Hounsfield units. Gallbladder and bile ducts: There is a gallstone in the gallbladder measuring 17 mm. Pancreas: Normal. No ductal dilation. Spleen: Splenic calcifications. Adrenals: Normal. No mass. Kidneys and ureters: Moderate left renal atrophy with parenchymal thinning, particularly the upper pole. There is a left renal cyst measuring up to 20 mm. Stomach and bowel: Slight wall thickening of the gastric antrum and pylorus. Colonic diverticulosis without diverticulitis. Appendix: A normal retrocecal appendix is seen. Intraperitoneal space: Unremarkable. No free air. No significant fluid collection. Vasculature: There is moderate atherosclerotic calcification of the abdominal aorta with extension into the iliac arteries. Lymph nodes: Unremarkable. No enlarged lymph nodes. Bladder: There is bladder wall thickening, however, the bladder is nondistended and is nonspecific. There is some perivesicular induration, however. Facet arthropathy of lower lumbar spine. Reproductive: Unremarkable as visualized. Bones/joints: Degenerative changes of the hips, right greater than left. Soft tissues: Unremarkable. IMPRESSION: 1. Enlarged right atrium and pacemaker in position which is unchanged from 09/30/2017. 2. Cholelithiasis 3. Question of antral gastritis which is similar. 4. Moderate left renal atrophy with parenchymal thinning. 5. Colonic diverticulosis without diverticulitis. 6. There is bladder wall thickening, however, the bladder is nondistended and is nonspecific. There is perivesicular induration and cystitis is not excluded. Electronically signed by: Russel Santana On 11/12/2018 20:28:11 PM
[2018-11-12] MEDS ORDERED: cefTRIAXone SOD 500 MG in D5W MINI-BAG PLUS 50 ML IV ONE (21:00)
--- NOTE | 2018-11-12 21:31 | HPEPDOC ---
[facility] Medical History & Physical Date of Admission Nov 12, 2018 Date of Service: Nov 12, 2018 Primary Care Physician: Jr Pereira Collins Attending Physician: ROBYN BUENO MD History and Physical TIME OF SERVICE: 950pm The patient is a poor historian. The HPI was obtained from the patient's daughter and ED attending CHIEF COMPLAINT: Bloody urine HISTORY OF PRESENT ILLNESS: This is an 83-year-old female who was brought to the ED today for evaluation of hematuria. According to the patient's daughter earlier during the day the patient's noticed that she kept on going to the bathroom. She complained of pain when she urinated one time and thereafter developed sagrario blood in the urine. Currently the patient continues to have polyuria but the dysuria has resolved. She denies having abdominal pain, denies having back pain, denies having fevers, and denies having chills. According to the patient's daughter who corroborated the review of systems, in the ED attending the patient had right- sided CVA tenderness. REVIEW OF SYSTEMS: 12 point review of systems negative except as listed in HPI PAST MEDICAL/ SURGICAL HISTORY: Afib w Mitral Valve Prosthesis (Coumadin) Alzheimer's Dementia Chronic Diastolic CHF / Chronic HTN Hypothyroidism COPD CKD 3 Dyslipidemia Unsteady gait/uses a walker to ambulate. Status post pacemaker placement SOCIAL HISTORY: Quit smoking, smoked half a pack for 20 years. His . The patient is dependent on her and her daughter for assistance with IADLs FAMILY HISTORY: Patient's daughter denies family history of cancer. ALLERGIES: Please see below. HOME MEDICATIONS: Please see below. PHYSICAL EXAMINATION: VITAL SIGNS: Please see below. GENERAL APPEARANCE: Well-nourished, well-developed, not in apparent distress, does not appear toxic HEENT: Normocephalic, atraumatic, mucous members moist and pink CARDIOVASCULAR: Regular rate and rhythm. No murmurs, rubs or gallops LUNGS: Clear to auscultation bilaterally on room air ABDOMEN: The abdomen is soft and nontender on palpation. Bowel sounds are hypoactive MUSCULOSKELETAL: Age of motion is intact in all 4 extremities INTEGUMENT: Skin does not appear flushed and diaphoretic NEUROLOGICAL: Cranial nerves II-12 grossly intact. Speech is not dysarthric PSYCHIATRIC: Alert and oriented to person, place and time, able to understand and follow commands LABORATORY DATA: See below. IMAGING: CT of the abdomen showed an enlarged right atrium, pacemaker, cholelithiasis, possible antral gastritis, moderate left renal atrophy with parenchymal thickening, chronic diverticulosis, and bladder wall thickening with perivascular induration MICROBIOLOGY: Please see below. ASSESSMENT: Ms. Lin is an 9-year-old female with a past medical history of atrial fibrillation, prosthetic mitral valve, chronic diastolic congestive heart failure, chronic hypertension, CKD 3, COPD, hypothyroidism and Alzheimer's dementia who will be admitted for management of pyelonephritis. PLAN: 1.Pyelonephritis -symptoms include CVA tenderness and dysuria -WBC # elevated -UA showed 3+ blood, leukocyte esterase and WBCs and bacteria - Cr & BUN slightly elevated Plan: admit to [facility] / f/u Ucx, blood Cx and renal function / switch to PO Ciprofloxacin tomorrow 2. Hematuria CT showed bladder wall thicknening that could be due to UTI or malignancy I discussed this finding with the patient's daughter will talk to the the patient's father about whether they want urology eval Plan: day time team can f/u w patients to determine if they want Uro eval / cystocscopy to r/o cancer 3. Afib w Mitral Valve Prosthesis (Coumadin) INR 2.3 Plan: c/w home meds 4.Chronic Diastolic CHF /Chronic HTN Clinically compensated. Plan: Control blood pressure /Continue home meds 5.COPD Stable Plan: Continue home meds 6. CKD 3 Plan: f/u BMP avoid NSAIDs 7. Hypothyroidism Plan: Continue home meds 8. Alzheimer's Dementia. Plan: Patient's family will spend the night and try to be present during the hospitalization /continue home meds DVT px w SCDs bc of hematuria Dispo pending clinical course Vital Signs Vital Signs Date Time Temp Pulse Resp B/P (MAP) Pulse Ox O2 Delivery O2 Flow Rate FiO2 11/12/18 19:54 97.8 63 16 149/67 (94) 96 Room Air Laboratory Data Labs 24H Laboratory Tests 2 11/12/18 16:13: Urine Color REDH, Urine Appearance CLOUDYH, Urine pH 8.0, Urine Specific [place] 1.008, Urine Protein 2+H, Urine Glucose (UA) NEGATIVE, Urine Ketones NEGATIVE, Urine Blood 3+H, Urine Nitrite NEGATIVE, Urine Bilirubin NEGATIVE, Urine Urobilinogen 0.2, Urine Leukocyte Esterase 1+H, Urine WBC (Auto) 68H, Urine RBC (Auto) TNTCH, Urine Hyaline Casts (Auto) 0, Urine Bacteria (Auto) 1+H, Urine Squamous Epithelial Cells 0, Urine Sperm (Auto) 11/12/18 17:41: Immature Granulocyte % (Auto) 0.5, White Blood Count 16.0H, Red Blood Count 4.54, Hemoglobin 13.6, Hematocrit 41.4, Mean Corpuscular Volume 91.2, Mean Corpuscular Hemoglobin 30.0, Mean Corpuscular Hemoglobin Concent 32.9, Red Cell Distribution Width 15.2H, Platelet Count 211, Neutrophils (%) (Auto) 77.1H, Lymphocytes (%) (Auto) 6.1L, Monocytes (%) (Auto) 13.5H, Eosinophils (%) (Auto) 2.1, Basophils (%) (Auto) 0.7, Neutrophils # (Auto) 12.3H, Lymphocytes # (Auto) 1.0L, Monocytes # (Auto) 2.2H, Eosinophils # (Auto) 0.3, Basophils # (Auto) 0.1, Nucleated Red Blood Cells % (auto) 0.0, Prothrombin Time 23.6H, Prothromb Time International Ratio 2.13, Activated Partial Thromboplast Time 34.8 11/12/18 17:53: POC Glucose (Misc Panel) 106H, POC Sodium (Misc Panel) 135L, POC Potassium (Misc Panel) 4.1, POC Chloride (Misc Panel) 95L, POC Total CO2 (Misc Panel) 32.0H, POC Blood Urea Nitrogen (Misc Panel 27H, POC Ionized Calcium (Misc Panel) 4.8, POC Creatinine (Misc Panel) 1.4H, POC Hematocrit (Misc Panel) 42.0 CBC/BMP Laboratory Tests 11/12/18 17:41 Red Blood Count 4.54, Mean Corpuscular Volume 91.2, Mean Corpuscular Hemoglobin 30.0, Mean Corpuscular Hemoglobin Concent 32.9, Red Cell Distribution Width 15.2 H, Neutrophils (%) (Auto) 77.1 H, Lymphocytes (%) (Auto) 6.1 L, Monocytes (%) (Auto) 13.5 H, Eosinophils (%) (Auto) 2.1, Basophils (%) (Auto) 0.7, Neutrophils # (Auto) 12.3 H, Lymphocytes # (Auto) 1.0 L, Monocytes # (Auto) 2.2 H, Eosinophils # (Auto) 0.3, Basophils # (Auto) 0.1 Microbiology Microbiology 11/12/18 Urine Culture, Received Pending Home Medications Scheduled Calcium Carbonate/Vitamin D3 (Calcium 500-Vit D3 200 Caplet) 1 Each Tablet, 1 TAB PO TID Cholecalciferol (Vitamin D3) (Vitamin D3) 5,000 Unit Capsule, 5,000 UNIT PO DAILY TAKES AT NOON Docusate Sodium (Colace) 100 Mg Capsule, 100 MG PO BID Donepezil HCl (Aricept) 5 Mg Tab, 5 MG PO QHS Levothyroxine Sodium (Synthroid) 25 Mcg Tab, 25 MCG PO DAILY TAKES AT 0700 Multivitamin (Multivitamins) 1 Each Capsule, 1 CAP PO QHS Potassium Chloride (Potassium Chloride) 10 Meq Tab.er.prt, 10 MEQ PO BID TAKES 0800 AND 1800 Salmeterol/Fluticasone (Advair 100-50 Diskus) 28 Puff/Inhaler Aerp, 1 PUFF INH BID Simvastatin (Simvastatin) 40 Mg Tab, 40 MG PO QHS Spironolactone (Spironolactone) 25 Mg Tab, 25 MG PO DAILY Torsemide (Torsemide) 100 Mg Tab, 50 MG PO BID TAKES 0800 AND 1200 Umeclidinium [place] (Incruse Ellipta) 62.5 Mcg Blst.w.dev, 1 PUFF PO QPM Warfarin Sodium (Warfarin Sodium) 3 Mg Tab, 3 MG PO QPM TAKES AT 1800 Allergies Coded Allergies: Penicillins (Verified Allergy, Intermediate, rash, 11/12/18) chlorpromazine (Verified Allergy, Unknown, 11/12/18) codeine (Verified Adverse Reaction, Unknown, vomiting, 11/12/18) A-FIB/CHADSVASC A-FIB History Current/History of A-Fib/PAF?: Yes Current PO Anticoag Therapy: Yes Age/Risk Factor Scoring CHADSVASC: CHADSVASC Response (Comments) Value Age Risk Factor Age >/= 75 years old 2 Gender Risk Factor Female 1 Hx of CHF Yes 1 Hx of HTN Yes 1 Hx of Stroke/TIA/or VTE No 0 Hx of Diabetes No 0 Hx of Vascular Disease No 0 Total 5 Treatment Treatment ordered: ROBYN Hirsch MD Nov 12, 2018 21:31
[2018-11-12] MEDS ORDERED: CALC1TAB30 PO (21:34)
[2018-11-12] MEDS ORDERED: VITA500054 PO (21:34)
[2018-11-12] MEDS ORDERED: POTA10TA17 PO (21:34)
[2018-11-12] MEDS ORDERED: MULTCAP PO (21:36)
[2018-11-12] MEDS ORDERED: COLA100C5 PO (21:39)
[2018-11-13 01:51] VITALS: BP 136/62
[2018-11-13] MEDS: DONEPEZIL 5 MG TAB PO SCH ×2 (02:54→21:01)
[2018-11-13 06:00] VITALS: BP 125/57
[2018-11-13] MEDS: CIPROFLOXACIN 250 MG TAB PO SCH ×2 (06:07→17:49)
[2018-11-13] MEDS: LEVOTHYROXINE 25MCG TABLET (0.025MG) PO SCH (06:07)
[2018-11-13 07:15] LABS: HEMATOCRIT 37.3 % (36.0-47.0); HEMOGLOBIN 12.2 g/dl (12.0-15.5); MEAN CORPUSCULAR HEMOGLOBIN 29.2 pg (27.0-33.0); MEAN CORPUSCULAR HGB CONC 32.7 g/dl (32.0-36.5); MEAN CORPUSCULAR VOLUME 89.2 fl (80.0-96.0); PLATELET COUNT, AUTOMATED 190 10^3/uL (150-450); RED BLOOD COUNT 4.18 10^6/uL (4.00-5.40); WHITE BLOOD COUNT 12.2 10^3/uL (4.0-10.0)
[2018-11-13 07:22] LABS: INR 2.13; PROTHROMBIN TIME 23.6 SECONDS (11.8-14.0)
[2018-11-13 07:39] LABS: CALCIUM LEVEL 9.5 MG/DL (8.8-10.2); CREATININE FOR GFR 1.06 MG/DL (0.55-1.30); GLOMERULAR FILTRATION RATE 52.8 (>32); POTASSIUM SERUM 3.6 MEQ/L (3.5-5.1)
[2018-11-13] MEDS: ADVAIR HFA 45/21MCG INHALER INH SCH ×2 (07:59→19:42)
[2018-11-13] MEDS: POTASSIUM CHLORIDE 10 MEQ SR TABLET PO SCH ×2 (09:17→21:01)
[2018-11-13] MEDS: SPIRONOLACTONE 25 MG TAB PO SCH (09:17)
[2018-11-13] MEDS: DOCUSATE SODIUM 100 MG CAP PO SCH ×2 (09:17→21:00)
[2018-11-13] MEDS: TORSEMIDE (DEMADEX) 50 MG PER 1/2 TAB PO SCH ×2 (09:17→17:49)
--- NOTE | 2018-11-13 12:51 | IPNPDOC ---
Date Seen The patient was seen on 11/13/18. Progress Note SUBJECTIVE: Patient denies any complaints at this time, she is feeling good otherwise patient denies chest pain, shortness breath, nausea, vomiting, fevers, chills. Patient is oriented to person but not place time or situation which is her baseline and as such much of the history is obtained from the patient's daughter who lives with her at his bedside. Patient has had hematuria for one day as well as frequent urination and some dysuria with being unable to void at times yesterday prompting her to present to the emergency room yesterday. OBJECTIVE PHYSICAL EXAMINATION: VITAL SIGNS: Please see below. GENERAL: Pleasant elderly female sitting up in bed no acute distress feeding herself breakfast HEENT: Moist mucous membranes no elevation in CVP CARDIOVASCULAR: S1 S2 regular no additional heart sounds appreciated. RESPIRATORY: Clear to auscultation bilaterally. ABDOMINAL: Bowel sounds present abdomen soft and nontender CVA tenderness positive more so on the left than the right EXTREMITIES: No clubbing cyanosis or edema NEUROLOGICAL: Spontaneously moves all 4 extremities cranial 2 through 12 grossly intact no gross focal deficits appreciated PSYCHOLOGICAL: Appropriate but disoriented LABORATORY DATA, MICROBIOLOGY: Please see below. IMAGING STUDIES: CT abdomen and pelvis:1. Enlarged right atrium and pacemaker in position which is unchanged from 09/30/2017. 2. Cholelithiasis 3. Question of antral gastritis which is similar. 4. Moderate left renal atrophy with parenchymal thinning. 5. Colonic diverticulosis without diverticulitis. 6. There is bladder wall thickening, however, the bladder is nondistended and is nonspecific. There is perivesicular induration and cystitis is not excluded. ASSESSMENT AND PLAN: This is a 83-year-old female with pyelonephritis PROBLEMS: 1. Pyelonephritis: History is difficult given the patient's presentation however her family is quite reliable she's had increased urinations as well as complained of some intermittent difficulty of urination and hematuria within the last 24 hours. UA is abnormal is mostly blood but certainly could be taken to be suggestive of a urinary tract infection in the setting. As such he did receive 1 dose of ceftriaxone is currently on ciprofloxacin which we will continue she appears to be tolerating it quite well. We'll monitor her urine for improvement of ulcerative hemoglobin as she did reportedly have quite significant bleeding. My suspicion for any anemia is quite low though. It is possible that her bleeding secondary to anticoagulation and underlying bladder tumor she did have some bladder wall thickness however I would treat her for urinary tract infection and see if her symptoms resolved without any recurrence prior to further investigations or cystoscopy and I did discuss at length with the family bedside. Follow culture data should likely complete 2 weeks of antibiotics 2. Atrial fibrillation: She is rate controlled she is anticoagulated. She is status post pacer 3. Alzheimer's type dementia: She is at her baseline cognitive status. Continue with Aricept 4. Hypothyroidism: Continue with Synthroid 5. COPD: Patient is at her baseline respiratory status, continue with Advair and umeclidinium 6. Chronic kidney disease: Stable 7. Dyslipidemia: Resume statin upon discharge 8. 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 Diastolic congestive heart failure: Well compensated at this time, continue with torsemide and potassium supplementation 10. Hypertension: Continue spironolactone, controlled DVT prophylaxis: Coumadin DISPOSITION: Possibly home in the next 24 hours. VS, I&O, 24H, [facility] Vital Signs/I&O Vital Signs Date Time Temp Pulse Resp B/P (MAP) Pulse Ox O2 Delivery O2 Flow Rate FiO2 11/13/18 06:00 98.0 60 18 125/57 (79) 96 11/12/18 19:54 Room Air I&O- Last 24 Hours up to 6 AM 11/13/18 06:00 Intake Total 650 ml Balance 650 ml Laboratory Data 24H LABS Laboratory Tests 2 11/12/18 16:13: Urine Color REDH, Urine Appearance CLOUDYH, Urine pH 8.0, Urine Specific [place] 1.008, Urine Protein 2+H, Urine Glucose (UA) NEGATIVE, Urine Ketones NEGATIVE, Urine Blood 3+H, Urine Nitrite NEGATIVE, Urine Bilirubin NEGATIVE, Urine Urobilinogen 0.2, Urine Leukocyte Esterase 1+H, Urine WBC (Auto) 68H, Urine RBC (Auto) TNTCH, Urine Hyaline Casts (Auto) 0, Urine Bacteria (Auto) 1+H, Urine Squamous Epithelial Cells 0, Urine Sperm (Auto) 11/12/18 17:41: Immature Granulocyte % (Auto) 0.5, White Blood Count 16.0H, Red Blood Count 4.54, Hemoglobin 13.6, Hematocrit 41.4, Mean Corpuscular Volume 91.2, Mean Corpuscular Hemoglobin 30.0, Mean Corpuscular Hemoglobin Concent 32.9, Red Cell Distribution Width 15.2H, Platelet Count 211, Neutrophils (%) (Auto) 77.1H, Lymphocytes (%) (Auto) 6.1L, Monocytes (%) (Auto) 13.5H, Eosinophils (%) (Auto) 2.1, Basophils (%) (Auto) 0.7, Neutrophils # (Auto) 12.3H, Lymphocytes # (Auto) 1.0L, Monocytes # (Auto) 2.2H, Eosinophils # (Auto) 0.3, Basophils # (Auto) 0.1, Nucleated Red Blood Cells % (auto) 0.0, Prothrombin Time 23.6H, Prothromb Time I nternational Ratio 2.13, Activated Partial Thromboplast Time 34.8 11/12/18 17:53: POC Glucose (Misc Panel) 106H, POC Sodium (Misc Panel) 135L, POC Potassium (Misc Panel) 4.1, POC Chloride (Misc Panel) 95L, POC Total CO2 (Misc Panel) 32.0H, POC Blood Urea Nitrogen (Misc Panel 27H, POC Ionized Calcium (Misc Panel) 4.8, POC Creatinine (Misc Panel) 1.4H, POC Hematocrit (Misc Panel) 42.0 11/12/18 21:59: Lactic Acid Level 1.0 11/13/18 06:36: Nucleated Red Blood Cells % (auto) 0.0, Prothrombin Time 23.6H, Prothromb Time International Ratio 2.13, Anion Gap 6L, Glomerular Filtration Rate 52.8, Blood Urea Nitrogen 21H, Creatinine 1.06, Sodium Level 138, Potassium Level 3.6, Chloride Level 99, Carbon Dioxide Level 33H, Calcium Level 9.5 CBC/BMP Laboratory Tests 11/12/18 17:41 Red Blood Count 4.54, Mean Corpuscular Volume 91.2, Mean Corpuscular Hemoglobin 30.0, Mean Corpuscular Hemoglobin Concent 32.9, Red Cell Distribution Width 15.2 H, Neutrophils (%) (Auto) 77.1 H, Lymphocytes (%) (Auto) 6.1 L, Monocytes (%) (Auto) 13.5 H, Eosinophils (%) (Auto) 2.1, Basophils (%) (Auto) 0.7, Neutrophils # (Auto) 12.3 H, Lymphocytes # (Auto) 1.0 L, Monocytes # (Auto) 2.2 H, Eosinophils # (Auto) 0.3, Basophils # (Auto) 0.1 11/13/18 06:36 Red Blood Count 4.18, Mean Corpuscular Volume 89.2, Mean Corpuscular Hemoglobin 29.2, Mean Corpuscular Hemoglobin Concent 32.7, Red Cell Distribution Width 15.3 H, Calcium Level 9.5 Microbiology Microbiology 11/12/18 Blood Culture, Received Pending 11/12/18 Blood Culture, Received Pending 11/12/18 Urine Culture, Received Pending HERLINDA REEDER MD Nov 13, 2018 12:51
[2018-11-13 15:06] VITALS: BP 125/54
[2018-11-13] MEDS ORDERED: WARFARIN SOD 3 MG TAB PO SCH (17:00)
[2018-11-13] MEDS ORDERED: INCRUSE ELLIPTA (PATIENT'S OWN MED) INH SCH (20:00)
[2018-11-13 22:00] VITALS: BP 139/65
[2018-11-14] MEDS: CIPROFLOXACIN 250 MG TAB PO SCH (05:47)
[2018-11-14] MEDS: LEVOTHYROXINE 25MCG TABLET (0.025MG) PO SCH (05:47)
[2018-11-14 06:00] VITALS: BP 144/63
[2018-11-14 06:42] LABS: HEMATOCRIT 37.2 % (36.0-47.0); HEMOGLOBIN 12.3 g/dl (12.0-15.5); MEAN CORPUSCULAR HEMOGLOBIN 29.9 pg (27.0-33.0); MEAN CORPUSCULAR HGB CONC 33.1 g/dl (32.0-36.5); MEAN CORPUSCULAR VOLUME 90.5 fl (80.0-96.0); PLATELET COUNT, AUTOMATED 182 10^3/uL (150-450); RED BLOOD COUNT 4.11 10^6/uL (4.00-5.40); WHITE BLOOD COUNT 9.5 10^3/uL (4.0-10.0)
[2018-11-14 06:53] LABS: INR 1.87; PROTHROMBIN TIME 21.3 SECONDS (11.8-14.0)
[2018-11-14 07:12] LABS: CREATININE FOR GFR 1.16 MG/DL (0.55-1.30); GLOMERULAR FILTRATION RATE 47.6 (>32); POTASSIUM SERUM 3.5 MEQ/L (3.5-5.1)
[2018-11-14] MEDS: POTASSIUM CHLORIDE 10 MEQ SR TABLET PO SCH (08:26)
[2018-11-14] MEDS: DOCUSATE SODIUM 100 MG CAP PO SCH (08:26)
[2018-11-14] MEDS: TORSEMIDE (DEMADEX) 50 MG PER 1/2 TAB PO SCH (08:26)
[2018-11-14] MEDS: SPIRONOLACTONE 25 MG TAB PO SCH (08:26)
[2018-11-14] MEDS: ADVAIR HFA 45/21MCG INHALER INH SCH (08:45)
[2018-11-14] MEDS ORDERED: CIPR-250 PO (09:49)
--- NOTE | 2018-11-14 14:23 | DS.PDOC ---
Discharge Summary General Date of Admission Nov 12, 2018 at 15:07 Date of Discharge 11/14/18 Primary Care Physician: Jr Pereira Collins Attending Physician: HERLINDA REEDER MD Discharge Summary PROCEDURES PERFORMED DURING STAY: None. ADMITTING/DISCHARGE DIAGNOSES: 1. Pyelonephritis 2. Atrial fibrillation 3. Alzheimer's type dementia 4. Hypothyroidism 5. Chronic obstructive pulmonary disease 6. Chronic kidney disease 7. Dyslipidemia 8. Mitral valve disease 9. Diastolic congestive heart failure 10. Hypertension COMPLICATIONS/CHIEF COMPLAINT: Blood in urine HISTORY OF PRESENT ILLNESS/HOSPITAL COURSE: Patient is an 83-year-old female who presented to the emergency room 2 days prior to discharge with hematuria. Patient was going to the bathroom more frequently throughout the day when she came in the emergency room. In the emergency Department patient continue to have polyuria but she was having no pain or difficulty with urination at that time. Patient was found to have right-sided CVA tenderness. Patient was admitted into the hospital for treatment of pyelonephritis due to her positive urinary analysis for infection in her positive CVA tenderness. Patient was treated with ciprofloxacin. Patient was monitored in the hospital for 2 days and on the second day, patient was deemed ready for discharge. Patient was discharged home with family. DISCHARGE MEDICATIONS: Please see below. ALLERGIES: Please see below. PHYSICAL EXAMINATION ON DISCHARGE: Vitals: (see below) General: No acute distress, laying comfortably in bed. HEENT: Moist mucous membranes. Neck: No JVD or lymphadenopathy Cardiac: RRR, mechanical valve could be heard loudest over the fifth intercostal space midclavicular line. Pulm: Clear to auscultation b/l. No wheezing, rhonchi Abd: NT/ND + BS, mild right-sided CVA tenderness. Ext: No edema or cyanosis LABORATORY DATA: Please see below. IMAGING: A CT of the abdomen and pelvis with IV contrast performed on 11/12/2017 showed enlarged right atrium and pacemaker in position which is unchanged from 09/30/2017, cholelithiasis, question of antral gastritis which is similar, moderate left renal atrophy with parenchymal thinning, colonic diverticulosis without diverticulitis, there is bladder wall thickening however the bladder is nondistended and is nonspecific. There is perivesicular induration and cystitis is not excluded PROGNOSIS: Fair ACTIVITY: As tolerated. DIET: Regular DISCHARGE PLAN/DISPOSITION: Discharge home with family DISCHARGE INSTRUCTIONS: 1. Follow-up with primary care provider within 5-10 days. 2. Continue ciprofloxacin 250 mg twice a day for the next 12 days to complete a 14 day course. 3. Urinary analysis should be repeated in about 4-6 weeks to monitor for resolution of hematuria. 4. Return to the emergency department if symptoms worsen. DISCHARGE CONDITION: Stable. I saw and evaluated the patient. I agree with the findings and plan of care as documented in the documenters note. I spent 45 minutes coordinating this patient's discharge. Vital Signs/I&Os Vital Signs Date Time Temp Pulse Resp B/P (MAP) Pulse Ox O2 Delivery O2 Flow Rate FiO2 11/14/18 06:00 97.2 58 18 144/63 (90) 93 11/12/18 19:54 Room Air I&O- Last 24 Hours up to 6 AM 11/14/18 06:00 Intake Total 960 ml Balance 960 ml Laboratory Data Labs 24H Laboratory Tests 2 11/14/18 06:26: Nucleated Red Blood Cells % (auto) 0.0, Prothrombin Time 21.3H, Prothromb Time International Ratio 1.87, Anion Gap 6L, Glomerular Filtration Rate 47.6, Blood Urea Nitrogen 18, Creatinine 1.16, Sodium Level 140, Potassium Level 3.5, Chloride Level 102, Carbon Dioxide Level 32, Calcium Level 9.0 CBC/BMP Laboratory Tests 11/14/18 06:26 Red Blood Count 4.11, Mean Corpuscular Volume 90.5, Mean Corpuscular Hemoglobin 29.9, Mean Corpuscular Hemoglobin Concent 33.1, Red Cell Distribution Width 15.2 H, Calcium Level 9.0 Microbiology Microbiology 11/12/18 Blood Culture - Preliminary, Resulted No growth after 24 hours . All specim... 11/12/18 Blood Culture - Preliminary, Resulted No growth after 24 hours . All specim... 11/12/18 Urine Culture - Final, Complete Escherichia Coli Discharge Medications Scheduled Calcium Carbonate/Vitamin D3 (Calcium 500-Vit D3 200 Caplet) 1 Each Tablet, 1 TAB PO TID, (Reported) Cholecalciferol (Vitamin D3) (Vitamin D3) 5,000 Unit Capsule, 5,000 UNIT PO DAILY, (Reported) TAKES AT NOON Ciprofloxacin HCl (Cipro) 250 Mg Tablet, 250 MG PO BID@0600,1800 Docusate Sodium (Colace) 100 Mg Capsule, 100 MG PO BID, (Reported) Donepezil HCl (Aricept) 5 Mg Tab, 5 MG PO QHS, (Reported) Levothyroxine Sodium (Synthroid) 25 Mcg Tab, 25 MCG PO DAILY, (Reported) TAKES AT 0700 Multivitamin (Multivitamins) 1 Each Capsule, 1 CAP PO QHS, (Reported) Potassium Chloride (Potassium Chloride) 10 Meq Tab.er.prt, 10 MEQ PO BID, (Reported) TAKES 0800 AND 1800 Salmeterol/Fluticasone (Advair 100-50 Diskus) 28 Puff/Inhaler Aerp, 1 PUFF INH BID, (Reported) Simvastatin (Simvastatin) 40 Mg Tab, 40 MG PO QHS, (Reported) Spironolactone (Spironolactone) 25 Mg Tab, 25 MG PO DAILY, (Reported) Torsemide (Torsemide) 100 Mg Tab, 50 MG PO BID, (Reported) TAKES 0800 AND 1200 Umeclidinium [place] (Incruse Ellipta) 62.5 Mcg Blst.w.dev, 1 PUFF PO QPM, (Reported) Warfarin Sodium (Warfarin Sodium) 3 Mg Tab, 3 MG PO QPM, (Reported) TAKES AT 1800 Allergies Coded Allergies: Penicillins (Verified Allergy, Intermediate, rash, 11/12/18) chlorpromazine (Verified Allergy, Unknown, 11/12/18) codeine (Verified Adverse Reaction, Unknown, vomiting, 11/12/18) ROLANDO PRESSLEY DO Nov 14, 2018 14:23 HERLINDA REEDER MD Nov 22, 2018 12:09
== END 2018-11-14 10:30 | disposition home or self-care (01) ==
LOC: M ED 15:06 → M ED INP 15:07 → UNDOADMOB 21:32 → M ED INP 21:32 → M MS5PR 11-13 01:45
PROVIDERS: ADMIT Internal Medicine; ATTEND Internal Medicine
DX: N10 Acute pyelonephritis (principal); I48.91 Unspecified atrial fibrillation; G30.9 Alzheimer's disease, unspecified; F02.80 Dementia in other diseases classified elsewhere, unspecified severity, without behavioral disturbance, psychotic disturbance, mood disturbance, and anxiety; E03.9 Hypothyroidism, unspecified; N18.3 Chronic kidney disease, stage 3 (moderate); I12.9 Hypertensive chronic kidney disease with stage 1 through stage 4 chronic kidney disease, or unspecified chronic kidney disease; E78.49 Other hyperlipidemia; I34.1 Nonrheumatic mitral (valve) prolapse; J44.9 Chronic obstructive pulmonary disease, unspecified; I50.32 Chronic diastolic (congestive) heart failure; Z79.01 Long term (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 anticoagulants; Z88.0 Allergy status to penicillin; Z79.899 Other long term (current) drug therapy; Z88.8 Allergy status to other drugs, medicaments and biological substances; Z87.891 Personal history of nicotine dependence; Z95.0 Presence of cardiac pacemaker
CPT/HCPCS: 36415; 74177; 80047; 80048; 81001; 83605; 85025; 85027; 85610; 85730; 87040; 87088; 87186; 94640; 96361; 96365; 99284; G0378; J0696; Q9967

== ENCOUNTER 2018-11-25 13:56 | Emergency (ER) | payer MEDICARE, OTHER ==
[~2018-11-25] VITALS: Ht 167.6 cm; Wt 73.2 kg
[~2018-11-25 13:56] MED LIST changes: +AZIT500T2 PO; -AZIT500T5 PO; +CALC1TAB30 PO; +CIPR-250 PO; +COLA100C5 PO; +FELO5TAB PO; -FELO5TAB26 PO; +INCR1INH PO; +POTA10TA17 PO; +SIMV40TA2 PO; -SIMV40TA20 PO; +VITA500054 PO; +WARF05TA PO
[2018-11-25 14:09] VITALS: BP 155/70
--- NOTE | 2018-11-25 14:45 | REP ---
CT BRAIN WITHOUT IV CONTRAST: CT brain performed without IV contrast. There is moderate atrophy. There is no midline shift or mass effect. Mild periventricular small vessel ischemic changes are present. There is no acute intracranial hemorrhage or extra-axial fluid collection. Basal ganglia calcifications are seen bilaterally. There are vascular calcifications in the carotid siphons. No fracture is seen. IMPRESSION: Chronic atrophy. No acute intracranial hemorrhage or skull fracture. Electronically Signed by Jerardo Smart MD 11/25/2018 06:53 P
--- NOTE | 2018-11-25 14:46 | REP ---
The of the cervical spine: Axial images are acquired helical scanning and a reformatted sagittal coronal projections. There are no comparisons. There is demineralization. Vertebral body heights are normal. No vertebral body compression deformities. There is degenerative disc disease throughout the cervical spine. The prevertebral soft tissues are unremarkable. The facet articulations of C3- C4-C5 appear fused bilaterally. I suspect the distal tip of the L5 spinous process is in a avulsed. This could be acute or chronic. Is 1 - 2 mm of anterolisthesis of the C4 vertebral body on C5 and there is reversal of the cervical lordosis. This could be positional, from muscular spasm or secondary to the used facets at C 03-05 bilaterally. The skull base, C1, C2 is unremarkable except for osteoarthritis. There are no posterior element fractures except for the avulsed distal tip of the C5 minus process , acute versus chronic. Impression: The distal tip of the C5 spinous process appears an avulsed. This could be acute or chronic. No other fracture is identified. There is one and 2 mm anterolisthesis of C four on five and reversal of the cervical lordosis. This could be positional, degenerative or secondary to the fused posterior facets at C3-C5, or could be a combination of these factors. Graph there is demineralization. Electronically Signed by Jerardo Dasilva MD 11/25/2018 02:37 P
== END 2018-11-25 16:40 | disposition home or self-care (01) ==
LOC: M ED 13:56 → EDBD 13:56 → M ED 16:40
DX: S09.8XXA Other specified injuries of head, initial encounter (principal); W01.0XXA Fall on same level from slipping, tripping and stumbling without subsequent striking against object, initial encounter; Y92.002 Bathroom of unspecified non-institutional (private) residence as the place of occurrence of the external cause; Y93.E1 Activity, personal bathing and showering; E78.5 Hyperlipidemia, unspecified; Y99.8 Other external cause status; I48.91 Unspecified atrial fibrillation; E03.9 Hypothyroidism, unspecified; G31.9 Degenerative disease of nervous system, unspecified; I13.0 Hypertensive heart and chronic kidney disease with heart failure and stage 1 through stage 4 chronic kidney disease, or unspecified chronic kidney disease; M50.31 Other cervical disc degeneration, high cervical region; H40.9 Unspecified glaucoma; J44.9 Chronic obstructive pulmonary disease, unspecified; I50.9 Heart failure, unspecified; N18.3 Chronic kidney disease, stage 3 (moderate); M81.0 Age-related osteoporosis without current pathological fracture; Z95.0 Presence of cardiac pacemaker; Z87.891 Personal history of nicotine dependence; Z88.0 Allergy status to penicillin; Z88.5 Allergy status to narcotic agent; Z88.8 Allergy status to other drugs, medicaments and biological substances; Z79.01 Long term (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 anticoagulants; Z95.2 Presence of prosthetic heart valve; Z79.899 Other long term (current) drug therapy

== ENCOUNTER → 2018-11-29 | Outpatient (CLI) | payer MEDICARE, OTHER ==
--- NOTE | 2018-11-29 12:09 | REP ---
CT BRAIN WITHOUT CONTRAST: HISTORY: Head injury in a fall. Comparison head CT study November 25, 2018 and November 23, 2018. CT FINDINGS: Preliminary digital cfo controller radiograph is unremarkable. On bone window settings, there is no evidence of skull fracture. No significant scalp hematoma is appreciated. No acute intraorbital abnormality is seen. On soft tissue window settings, there is a generalized cerebral atrophy and cerebellar atrophy unchanged. There is physiologic calcification of the basal ganglia bilaterally. Small vessel changes are seen in the periventricular white matter as before. There is some vascular calcification in the distal internal carotid arteries. There is no evidence of acute intracranial hemorrhage, infarct, mass or midline shift. IMPRESSION: Generalized atrophy, small vessel changes, vascular calcification. No acute intracranial abnormality. Electronically Signed by Cj Ardon MD 11/29/2018 04:07 P
== END ==
LOC: M RAD 10:41
PROVIDERS: ATTEND Nurse Practitioner Adult Health
DX: S09.90XD Unspecified injury of head, subsequent encounter (principal); X58.XXXD Exposure to other specified factors, subsequent encounter

== ENCOUNTER → 2019-02-07 | Outpatient (REF) | payer MEDICARE, OTHER ==
[~2019-02-07] MED LIST changes: -AZIT500T2 PO; +AZIT500T5 PO; -FELO5TAB PO; +FELO5TAB26 PO; -SIMV40TA2 PO; +SIMV40TA20 PO
== END ==
LOC: M LAB REF 12:14
PROVIDERS: ATTEND Nurse Practitioner Adult Health
DX: R35.0 Frequency of micturition (principal)

== ENCOUNTER → 2019-05-09 | Outpatient (REF) | payer MEDICARE, OTHER ==
[2019-05-09 18:20] LABS: ATYPICAL LYMPH 17 % (0-5); BASOPHILS 2 % (0-1); EOSINOPHILS 4 % (0-3); LYMPHOCYTES 5 % (16-44); MONOCYTES 2 % (0-5); NEUTROPHILS 70 % (28-66); OVALOCYTES 1+; POIKILOCYTOSIS 1+
[2019-05-09 18:21] LABS: PLATELET ESTIMATE NORMAL (NORMAL)
== END ==
LOC: M LAB REF 16:14
PROVIDERS: ATTEND Nurse Practitioner Adult Health
DX: Z51.81 Encounter for therapeutic drug level monitoring (principal); Z79.01 Long term (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 anticoagulants; Z95.2 Presence of prosthetic heart valve; N18.3 Chronic kidney disease, stage 3 (moderate)

== ENCOUNTER 2019-12-26 08:28 | Inpatient (IN) | payer MEDICARE, OTHER ==
[~2019-12-26] VITALS: Ht 162.6 cm; Wt 73.8 kg
[2019-12-26] MEDS: ADVAIR HFA 45/21MCG INHALER INH SCH ×2 (08:00→19:06)
[2019-12-26] MEDS ORDERED: LIDOCAINE 2% 5ML JELLY UROJET TOP ONE (08:45)
[2019-12-26] MEDS ORDERED: NS 500 ML IV ONE (08:45)
[2019-12-26] MEDS: POTASSIUM CHLORIDE 10 MEQ SR TABLET PO SCH ×2 (09:00→21:53)
[2019-12-26] MEDS: DOCUSATE SODIUM 100 MG CAP PO SCH ×2 (09:00→21:53)
[2019-12-26] MEDS ORDERED: WARF-58 PO (09:14)
[2019-12-26 09:22] LABS: BASO # 0.1 10^3/uL (0.0-0.2); BASO % 0.4 % (0.0-1.0); EOS # 0.1 10^3/uL (0.0-0.5); EOS % 0.5 % (0.0-3.0); HEMATOCRIT 40.2 % (36.0-47.0); HEMOGLOBIN 13.1 g/dl (12.0-15.5); LYMPH # 0.8 10^3/uL (1.5-5.0); LYMPH % 5.6 % (24.0-44.0); MEAN CORPUSCULAR HEMOGLOBIN 30.1 pg (27.0-33.0); MEAN CORPUSCULAR HGB CONC 32.6 g/dl (32.0-36.5); MEAN CORPUSCULAR VOLUME 92.4 fl (80.0-96.0); MONO # 2.5 10^3/uL (0.0-0.8); MONO % 17.9 % (0.0-5.0); NEUTROPHILS # 10.7 10^3/uL (1.5-8.5); PLATELET COUNT, AUTOMATED 178 10^3/uL (150-450); RED BLOOD COUNT 4.35 10^6/uL (4.00-5.40); WHITE BLOOD COUNT 14.2 10^3/uL (4.0-10.0)
[2019-12-26] MEDS ORDERED: ISOVUE-370 76% 100ML VIAL As Ordered ONE (09:45)
--- NOTE | 2019-12-26 09:48 | REPVR ---
PROCEDURE INFORMATION: Exam: XR Chest, 1 View Exam date and time: 12/26/2019 9:20 AM Age: 84 years old Clinical indication: Other: Altered mental status TECHNIQUE: Imaging protocol: XR of the chest Views: Frontal portable sitting upright view of the chest. COMPARISON: [facility] PORTABLE CHEST X-RAY 03/24/2017 4:10 PM FINDINGS: Tubes, catheters and devices: The patient is status post median sternotomy with intact sternal cerclage wires. Lungs: The pulmonary vasculature is less congested and better defined. Stable right middle lobe mild subsegmental scarring. Mild right lateral basilar subsegmental atelectasis. Pleural space: No pleural effusion. No pneumothorax. Heart/Mediastinum: Mediastinum: Stable. Poorly visualized mitral valve replacement. Stable left sided left atrial calcifications. Stable marked cardiomegaly. Vasculature: A single lead left subclavian permanent pacemaker is present. The right ventricular lead appears to be in good position. Mild tortuosity of the descending thoracic aorta. Bones/joints: Stable proximal left humeral probable bone infarction, as visualized. Moderate aortic arch and descending thoracic aortic atherosclerotic calcification without ectasia. IMPRESSION: 1. Improved pulmonary vascular congestion. 2. Mild right lateral basilar subsegmental atelectasis. Electronically signed by: Cory Parmar On 12/26/2019 09:48:54 AM
[2019-12-26 09:51] LABS: ALBUMIN 3.7 GM/DL (3.2-5.2); ALT/SGPT 24 U/L (12-78); BILIRUBIN,DIRECT 0.4 MG/DL (0.0-0.2); BILIRUBIN,TOTAL 1.2 MG/DL (0.2-1.0); CK-MB VALUE MASS < 1.0 NG/ML (<3.6); CPK CREATINE PHOSPHOKINASE 62 U/L (26-192); LIPASE 157 U/L (73-393); MB/CK RELATIVE INDEX 1.61 (< OR =4); TOTAL PROTEIN 6.7 GM/DL (6.4-8.2); TROPONIN I < 0.02 NG/ML (< 0.10)
[2019-12-26] MEDS ORDERED: ALBU83IN INH (10:45)
[2019-12-26] MEDS ORDERED: CLAR500T97 PO (10:45)
[2019-12-26] MEDS ORDERED: D 50CAP2 PO (10:45)
[2019-12-26] MEDS ORDERED: ACET-907 PO (10:45)
[2019-12-26] MEDS ORDERED: IPRA0.00 INH (10:45)
--- NOTE | 2019-12-26 10:46 | REPVR ---
PROCEDURE INFORMATION: Exam: CT Head Without Contrast Exam date and time: 12/26/2019 10:17 AM Age: 84 years old Clinical indication: Altered mental status/memory loss TECHNIQUE: Imaging protocol: Computed tomography of the head without contrast. Radiation optimization: All CT scans at this facility use at least one of these dose optimization techniques: automated exposure control; mA and/or kV adjustment per patient size (includes targeted exams where dose is matched to clinical indication); or iterative reconstruction. COMPARISON: CT Head without contrast 11/29/2018 11:28 AM FINDINGS: Brain: Mild hypoattenuating foci are noted in the posterior superior periatrial and anterior lateral ventricular periventricular white matter bilaterally. Bilateral globus pallidus calcifications. 3.5 mm dural-based right lower parietal region densely ossified lesion likely representing a chronic calcified benign meningioma, stable. No intracranial hemorrhage. No acute cortical infarction identified. Cerebral ventricles: Prominence of the ventricular system and subarachnoid spaces is consistent with the patient's age of 84 years. Bones/joints: No acute abnormality identified. No acute fracture. Paranasal sinuses: Visualized sinuses are unremarkable. No fluid levels. Mastoid air cells: Visualized mastoid air cells are well aerated. Orbital cavity: Bilateral prior cataract surgery. Vasculature: Atherosclerotic calcifications are present involving the carotid artery siphons bilaterally. Soft tissues: Unremarkable. IMPRESSION: 1. Age appropriate supratentorial and infratentorial atrophy. 2. Mild chronic white matter microvascular ischemic disease. 3. No acute intracranial abnormality identified. Electronically signed by: Cory Parmar On 12/26/2019 10:46:27 AM
--- NOTE | 2019-12-26 11:01 | REPVR ---
PROCEDURE INFORMATION: Exam: CT Abdomen And Pelvis With Contrast Exam date and time: 12/26/2019 10:17 AM Age: 84 years old Clinical indication: Abdominal pain; Localized; Left lower quadrant (llq); Additional info: Llq pain - await bun/cr TECHNIQUE: Imaging protocol: Computed tomography of the abdomen and pelvis with intravenous contrast. Radiation optimization: All CT scans at this facility use at least one of these dose optimization techniques: automated exposure control; mA and/or kV adjustment per patient size (includes targeted exams where dose is matched to clinical indication); or iterative reconstruction. Contrast material: ISOVUE 370; Contrast volume: 100 ml; Contrast route: INTRAVENOUS (IV); COMPARISON: CT ABD/PEL W/IV CONTRAST ONLY 11/12/2018 7:35 PM FINDINGS: Tubes, catheters and devices: A right ventricular pacemaker lead is present. Heart: Right atrial and right ventricular cardiac chamber dilatation redemonstrated. Mitral annular calcification is present. Marked cardiomegaly. Liver: Normal. No mass. Gallbladder and bile ducts: A single 23 mm gallstone is present dependently in the nondistended gallbladder. No wall thickening or pericholecystic fluid identified. Pancreas: Severe pancreatic atrophy. Spleen: The spleen demonstrates a few small granulomatous calcifications. Adrenals: Normal. No mass. Kidneys and ureters: 2.1 cm left renal lower pole exophytic benign simple cyst. Severe left renal cortical scarring. Stomach and bowel: There is mural thickening of the proximal sigmoid colon, with paracolonic diverticula and pericolonic soft tissue stranding with increased paracolic adipose attenuation. No evidence of perforation or abscess formation. Appendix: The vermiform appendix is normal. Intraperitoneal space: Unremarkable. No free air. No significant fluid collection. Vasculature: Moderate aortic atherosclerotic calcification without aneurysm. The iliac arteries show moderate bilateral atherosclerotic calcifications without evidence of aneurysm. Lymph nodes: No enlarged lymph nodes. Urinary bladder: Unremarkable as visualized. Reproductive: Small nonspecific uterine mural calcifications, stable. Bones/joints: Bilateral lower lumbar facet primary osteoarthritis. Diffuse osteopenia. The patient is status post median sternotomy with sternal cerclage wires. Soft tissues: Unremarkable. IMPRESSION: 1. Uncomplicated sigmoid colonic diverticulitis. 2. Left renal benign simple cyst. 3. Severe left renal cortical scarring. 4. Cholelithiasis. COMMENTS: Consistent with the [employer]'s Incidental Findings Committee white paper (J Am Mary Radiol 2018): Any incidental renal lesion less than 1 cm or classified as too small to characterize, or any incidental cystic renal lesion characterized as simple-appearing, is likely benign. No follow-up imaging is recommended for these lesions per consensus recommendations based on imaging criteria. Electronically signed by: Cory Parmar On 12/26/2019 11:01:15 AM
[2019-12-26] MEDS ORDERED: ONDANSETRON 4MG/2ML VIAL IV ONE (11:15)
[2019-12-26] MEDS ORDERED: fentaNYL 100 MCG/2 ML INJECTION (J3010) IV ONE (11:15)
[2019-12-26] MEDS ORDERED: NS 1,000 ML IV ONE (11:15)
[2019-12-26] MEDS ORDERED: MEROPENEM INJ 1 GM in IV 1 EA IV ONE (11:15)
[2019-12-26] MEDS ORDERED: ACETAMINOPHEN TAB 650MG DOSE (2X325MG) PO PRN (12:15)
[2019-12-26] MEDS ORDERED: MORPHINE 2 MG/ML 1ML VIAL (J2270) IV PRN (12:30)
[2019-12-26] MEDS ORDERED: ONDANSETRON 4MG/2ML VIAL IV PRN (12:30)
[2019-12-26] MEDS: NS 1,000 ML IV SCH ×2 (12:36→21:54)
--- NOTE | 2019-12-26 12:57 | HPEPDOC ---
[facility] Medical History & Physical Date of Admission Dec 26, 2019 Date of Service: Dec 26, 2019 History and Physical Chief complaint: Presented to the hospital with worsening confusion over the last 2 weeks History of present illness: Patient is an 84-year-old female with a PMHx of Alzheimers, A. fib and Mitral Valve Prosthesis (on Coumadin), s/p PM, Diastolic CHF, HTN, DLP, COPD, Hypothyroidism, CKD3, Unsteady gait (uses a walker at baseline) who presented to [facility] after expressing worsening confusion while at home. [facility]. Patients had noted that shes been experiencing some level of confusion over last 2 weeks. Over the last 2 days. She didnt progressively getting weaker. Yesterday she had a loss of appetite. History was acquired from daughter, Tiara ([phone]), who was present at the bedside. As per daughter, patient has not experience any nausea, vomiting, chest pain, shortness of breath or fevers or chills while at home. She has experience a cough recently without any significant production of sputum. Vision has reported abdominal pain over last 3-4 days with constipation while at home. Denies any urinary discomfort. Past Medical History: Alzheimers, A. fib and Mitral Valve Prosthesis (on Coumadin), s/p PM, Diastolic CHF, HTN, DLP, COPD, Hypothyroidism, CKD3, Unsteady gait (uses a walker at baseline) Past Surgical History: Mitral valve replacements 1984 Pacemaker placement approximately 15 years ago No other surgeries reported Allergies: See below Medications: See below Family History: - No history of malignancies Social History: - No history of alcohol or illicit drugs; as per daughter, patient had quit smoking in 1971; but was a smoker of 20 years at one D - Denies recent travel or sick contacts - Lives with at [facility] Review of Systems: 10 point review of systems complete, all negative otherwise stated in HPI Physical exam: - Vitals: BP [121/59], HR [51], RR [18], Sat [99%NC2L], Temp [98.7F] - General: Lying in bed, No acute distress, Awake / Alert, Drowsy - HEENT: NC, AT, PERRLA - CVS: Bradycardic, +S1S2 - Lungs: Fair air entry bilaterally, No wheezing / rales / rhonchi - Abdomen: Soft, Non-distended, left lower quadrant tenderness - Extremities: Trace to 1+ pitting edema bilaterally, No calf tenderness - Neuro: No focal motor or sensory deficit - Skin: No visible rashes Assessment and Plan: Acute metabolic encephalopathy - likely 2/2 infectious etiology - Currently patient has had a decline in her baseline level of mentation - Patient does have dementia at baseline; however, she is able to ambulate and lives at assisted living - No focal neurologic deficits noted - CT head 12/25: 1. Age appropriate supratentorial and infratentorial atrophy. 2. Mild chronic white matter microvascular ischemic disease. 3. No acute intracranial abnormality identified. - See below Acute diverticulitis - Patient is hemodynamically stable and afebrile - Physical reveals left lower quadrant abdominal tenderness - Leukocytosis with neutrophil predominance; No lactic acidosis - CT abdomen / pelvis 12/25: 1. Uncomplicated sigmoid colonic diverticulitis. 2. Left renal benign simple cyst. 3. Severe left renal cortical scarring. 4. Cholelithiasis. - CXR 12/25: 1. Improved pulmonary vascular congestion. 2. Mild right lateral basilar subsegmental atelectasis. - Patient has received meropenem in the emergency room - Will continue with ceftriaxone and Flagyl while inpatient - Continue with pain control and anti-emetics with morphine and Zofran Alzheimers - c/w Donepezil A. fib and Mitral Valve Prosthesis (on Coumadin) s/p PM Diastolic CHF - LE with trace pitting edema - CXR with improved vascular congestion - Will stop IV fluids within 24 hours - Diuretics on hold for now HTN - BP well controlled - Currently not on medications DLP - Currently not on medications COPD - No evidence of exacerbation - c/w inhaled therapy as ordered Hypothyroidism - c/w Levothyroxine CKD3 - Cr baseline of 1.0 - Cr slightly elevated form baseline - Will hold diuretics - c/w gentle IV fluid hydration for 24 hours only Vitamin D deficiency - c/w Vitamin D supplementation Unsteady gait - Uses a walker at baseline - Will consider PT evaluation within 24 hours Gastrointestinal prophylaxis - Will start Protonix DVT prophylaxis - Will continue full anticoagulation with Coumadin Vital Signs Vital Signs Date Time Temp Pulse Resp B/P (MAP) Pulse Ox O2 Delivery O2 Flow Rate FiO2 12/26/19 12:15 51 98 12/26/19 12:00 121/59 (79) 12/26/19 11:59 18 12/26/19 10:00 Room Air 12/26/19 08:45 98.7 Laboratory Data Labs 24H Laboratory Tests 2 12/26/19 08:53: Immature Granulocyte % (Auto) 0.6, Neutrophils (%) (Auto) 75.0H, Lymphocytes (%) (Auto) 5.6L, Monocytes (%) (Auto) 17.9H, Eosinophils (%) (Auto) 0.5, Basophils (%) (Auto) 0.4, Neutrophils # (Auto) 10.7H, Lymphocytes # (Auto) 0.8L, Monocytes # (Auto) 2.5H, Eosinophils # (Auto) 0.1, Basophils # (Auto) 0.1, Nucleated Red Blood Cells % (auto) 0.0, Urine Color YELLOW, Urine Appearance CLEAR, Urine pH 6.0, Urine Specific [place] 1.012, Urine Protein NEGATIVE, Urine Glucose (UA) NEGATIVE, Urine Ketones NEGATIVE, Urine Blood NEGATIVE, Urine Nitrite NEGATIVE, Urine Bilirubin NEGATIVE, Urine Urobilinogen 0.2, Urine Leukocyte Esterase NEGATIVE, Urine WBC (Auto) 1, Urine RBC (Auto) 1, Urine Hyaline Casts (Auto) 0, Urine Bacteria (Auto) NEGATIVE, Urine Squamous Epithelial Cells 0, Urine Sperm (Auto) , Total Bilirubin 1.2H, Direct Bilirubin 0.4H, Aspartate Amino Transf (AST/SGOT) 23, Alanine Aminotransferase (ALT/SGPT) 24, Alkaline Phosphatase 72, Ammonia < 10, Total Creatine Kinase 62, Creatine Kinase MB < 1.0, Creatine Kinase MB Relative Index 1.61, Troponin I < 0.02, Total Protein 6.7, Albumin 3.7, Albumin/Globulin Ratio 1.2, Lipase 157, Thyroid Stimulating Hormone (TSH) 3.480 12/26/19 09:28: POC Glucose (Misc Panel) 107H, POC Sodium (Misc Panel) 136, POC Potassium (Misc Panel) 3.9, POC Chloride (Misc Panel) 95L, POC Total CO2 (Misc Panel) 30.0H, POC Blood Urea Nitrogen (Misc Panel 30H, POC Ionized Calcium (Misc Panel) 5.1, POC Creatinine (Misc Panel) 1.2, POC Prothrombin Time (Misc) 31.3H, POC INR (Misc) 2.7, POC Hematocrit (Misc Panel) 41.0 12/26/19 09:29: POC Lactate (Misc Panel) 0.90 12/26/19 09:34: POC Troponin I ([facility]) 0.02 CBC/BMP Laboratory Tests 12/26/19 08:53 Home Medications Scheduled Calcium Carbonate/Vitamin D3 (Calcium 500-Vit D3 200 Caplet) 1 Each Tablet, 1 TA B PO TID Cholecalciferol (Vitamin D3) (Vitamin D3) 125 Mcg Capsule, 125 MCG PO DAILY TAKES AT 1300 Docusate Sodium (Colace) 100 Mg Capsule, 100 MG PO BID Donepezil HCl (Aricept) 5 Mg Tab, 5 MG PO QHS Levothyroxine Sodium (Synthroid) 25 Mcg Tab, 25 MCG PO DAILY Multivitamin (Multivitamins) 1 Each Capsule, 1 CAP PO QHS Potassium Chloride (Potassium Chloride) 10 Meq Tab.er.prt, 10 MEQ PO BID TAKES 0800 AND 1800 Salmeterol/Fluticasone (Advair 100-50 Diskus) 28 Puff/Inhaler Aerp, 1 PUFF INH BID Simvastatin (Simvastatin) 40 Mg Tab, 40 MG PO QHS Spironolactone (Spironolactone) 25 Mg Tab, 25 MG PO DAILY Torsemide (Torsemide) 100 Mg Tab, 50 MG PO DAILY Umeclidinium [place] (Incruse Ellipta) 62.5 Mcg Blst.w.dev, 1 PUFF PO QHS Warfarin Sodium (Warfarin Sodium) 3 Mg Tab, 3 MG PO 6XWK QPM: WED, , WED, , WED, WED Warfarin Sodium (Warfarin Sodium) 3 Mg Tablet, 6 MG PO 1XWK QPM: SUNDAYS Scheduled PRN Acetaminophen (Tylenol) 325 Mg Tablet, 650 MG PO Q6H PRN for PAIN / FEVER Albuterol Sulf (Albuterol Sulfate) 2.5 Mg/3 Ml Vial.neb, 2.5 MG INH QID PRN for SOB/WHEEZING Clarithromycin (Clarithromycin) 500 Mg Tablet, 500 MG PO ONCE PRN for PRIOR TO DENTAL PROCEDURE Ipratropium/Albuterol Sulfate (Iprat-Albut 0.5-3(2.5) mg/3 ml) 3 Ml Ampul.neb, 1 STEVE INH QID PRN for SHORTNESS OF BREATH Allergies Coded Allergies: Penicillins (Verified Allergy, Intermediate, rash, 11/12/18) chlorpromazine (Verified Allergy, Unknown, 11/12/18) codeine (Verified Adverse Reaction, Unknown, vomiting, 11/12/18) KVNG LORD MD Dec 26, 2019 12:57
[2019-12-26] MEDS ORDERED: LEVALBUTEROL 1.25 MG/0.5 ML CONCENTRATE NEB INH PRN (13:00)
[2019-12-26 15:20] VITALS: BP 118/38
[2019-12-26 15:23] VITALS: BP 122/44
[2019-12-26] MEDS: LEVALBUTEROL 1.25 MG/0.5 ML CONCENTRATE NEB INH SCH ×2 (16:00→19:06)
[2019-12-26] MEDS: PANTOPRAZOLE 40MG VIAL (C9113 PER 1) IV SCH (16:21)
[2019-12-26] MEDS: cefTRIAXone SOD 2 GM in D5W MINI-BAG PLUS 50 ML IV SCH (16:22)
[2019-12-26] MEDS: LEVOTHYROXINE 25MCG TABLET (0.025MG) PO SCH (16:22)
[2019-12-26] MEDS: CALCIUM/VITAMIN D 500 MG TAB PO SCH ×2 (16:22→21:53)
[2019-12-26] MEDS: VITAMIN D 1,000 INTERNATIONAL UNITS TABLET PO SCH (16:22)
[2019-12-26] MEDS: WARFARIN SOD 3MG TAB PO SCH (17:36)
[2019-12-26] MEDS: metroNIDAZOLE 500 MG in IV 1 EA IV SCH (17:36)
[2019-12-26] MEDS: MULTIVITAMINS/MINERALS THERAP 1 TAB PO SCH (21:54)
[2019-12-26] MEDS: DONEPEZIL 5 MG TAB PO SCH (21:54)
[2019-12-26] MEDS: SIMVASTATIN 40 MG TAB PO SCH (21:54)
[2019-12-26 22:00] VITALS: BP 139/64
[2019-12-27] MEDS: metroNIDAZOLE 500 MG in IV 1 EA IV SCH ×3 (00:53→17:07)
--- NOTE | 2019-12-27 05:32 | ECGEPIP ---
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
[2019-12-27 06:00] VITALS: BP 139/69
[2019-12-27] MEDS: LEVOTHYROXINE 25MCG TABLET (0.025MG) PO SCH (06:15)
[2019-12-27 07:32] LABS: BASO # 0.1 10^3/uL (0.0-0.2); BASO % 0.6 % (0.0-1.0); EOS % 0.2 % (0.0-3.0); HEMATOCRIT 38.9 % (36.0-47.0); HEMOGLOBIN 12.4 g/dl (12.0-15.5); LYMPH # 0.6 10^3/uL (1.5-5.0); MEAN CORPUSCULAR HEMOGLOBIN 30.1 pg (27.0-33.0); MEAN CORPUSCULAR HGB CONC 31.9 g/dl (32.0-36.5); MEAN CORPUSCULAR VOLUME 94.4 fl (80.0-96.0); MONO # 2.6 10^3/uL (0.0-0.8); MONO % 16.7 % (0.0-5.0); PLATELET COUNT, AUTOMATED 161 10^3/uL (150-450); RED BLOOD COUNT 4.12 10^6/uL (4.00-5.40); WHITE BLOOD COUNT 15.4 10^3/uL (4.0-10.0)
[2019-12-27 07:48] LABS: BLOOD UREA NITROGEN 24 MG/DL (7-18); CREATININE FOR GFR 0.94 MG/DL (0.55-1.30); GLUCOSE, FASTING 76 MG/DL (70-100)
[2019-12-27 07:49] LABS: CALCIUM LEVEL 9.6 MG/DL (8.8-10.2); CARBON DIOXIDE LEVEL 27 MEQ/L (21-32); CHLORIDE LEVEL 105 MEQ/L (98-107); GLOMERULAR FILTRATION RATE > 60.0 (>32); MAGNESIUM LEVEL 2.4 MG/DL (1.8-2.4); POTASSIUM SERUM 4.6 MEQ/L (3.5-5.1); SODIUM LEVEL 139 MEQ/L (136-145)
[2019-12-27 07:51] LABS: INR 3.21; PROTHROMBIN TIME 33.6 SECONDS (12.5-14.3)
[2019-12-27] MEDS: CALCIUM/VITAMIN D 500 MG TAB PO SCH ×3 (07:56→22:10)
[2019-12-27] MEDS: DOCUSATE SODIUM 100 MG CAP PO SCH ×2 (07:56→22:10)
[2019-12-27] MEDS: POTASSIUM CHLORIDE 10 MEQ SR TABLET PO SCH ×2 (07:56→22:10)
[2019-12-27] MEDS: CALCIUM CARBONATE 500 MG CHEW U/D PO SCH ×4 (07:58→17:07)
[2019-12-27] MEDS: WARFARIN SOD 3MG TAB PO SCH (07:59)
[2019-12-27] MEDS: LEVALBUTEROL 1.25 MG/0.5 ML CONCENTRATE NEB INH SCH ×4 (08:00→20:00)
[2019-12-27] MEDS: ADVAIR HFA 45/21MCG INHALER INH SCH ×2 (08:27→20:41)
[2019-12-27] MEDS ORDERED: TORSEMIDE 100 MG TAB PO SCH (09:00)
[2019-12-27] MEDS: VITAMIN D 1,000 INTERNATIONAL UNITS TABLET PO SCH (12:42)
[2019-12-27] MEDS: PANTOPRAZOLE 40MG VIAL (C9113 PER 1) IV SCH (12:43)
[2019-12-27 14:00] VITALS: BP 140/71
[2019-12-27] MEDS ORDERED: PILL CUTTER 1 EACH XX PRN (14:00)
[2019-12-27] MEDS: SPIRONOLACTONE 25 MG TAB PO SCH (14:16)
[2019-12-27] MEDS: cefTRIAXone SOD 2 GM in D5W MINI-BAG PLUS 50 ML IV SCH (15:31)
[2019-12-27] MEDS: TORSEMIDE (DEMADEX) 50 MG PER 1/2 TAB PO SCH (15:31)
--- NOTE | 2019-12-27 18:37 | IPNPDOC ---
Text Note Date of Service The patient was seen on 12/27/19. NOTE Subjective: Patient is an 84-year-old female with a PMHx of Alzheimers, A. fib and Mitral Valve Prosthesis (on Coumadin), s/p PM, Diastolic CHF, HTN, DLP, COPD, Hypothyroidism, CKD3, Unsteady gait (uses a walker at baseline) who presented to [facility] after expressing worsening confusion while at home. Patient was admitted to the hospital service for evaluation of her diverticulitis. Patient was seen and examined at the bedside. Patient is awake and alert. Denies any nausea, vomiting. Denies chest pain, shortness breath or palpitations. Reports some abdominal discomfort. Denies any bowel movements. Denies any urinary discomfort. Objective: Vitals (See below) General: Lying in bed, no acute distress, comfortable, AAOx3 HEENT: NC, AT CVS: +S1S2 Lungs: Fair air entry b/l, -w/r/r Abdomen: Soft, ND, left lower quadrant tenderness. Still appreciated Extremities: Trace edema, - Calf tenderness Assessment and plan: s/p Acute metabolic encephalopathy - likely 2/2 infectious etiology - Mentation appears to be improved compared to yesterday patient is awake and alert - No focal neurologic deficits noted - CT head 12/25: 1. Age appropriate supratentorial and infratentorial atrophy. 2. Mild chronic white matter microvascular ischemic disease. 3. No acute intracranial abnormality identified. - See below Acute diverticulitis - Remains hemodynamically stable and afebrile - Physical with improvement of left lower quadrant abdominal tenderness - Leukocytosis persists; No lactic acidosis - CT abdomen / pelvis 12/25: 1. Uncomplicated sigmoid colonic diverticulitis. 2. Left renal benign simple cyst. 3. Severe left renal cortical scarring. 4. Cholelithiasis. - CXR 12/25: 1. Improved pulmonary vascular congestion. 2. Mild right lateral basilar subsegmental atelectasis. - c/w ceftriaxone and Flagyl (Day #2) - c/w pain control and anti-emetics with morphine and Zofran - Will advance diet today as tolerated Alzheimers - c/w Donepezil A. fib and Mitral Valve Prosthesis (on Coumadin) - s/p PM - Supra-therapeutic INR - Will hold Coumadin today Diastolic CHF - LE again with trace pitting edema - CXR with improved vascular congestion - Will DC IV fluids - Will resume Diuretics HTN - BP well controlled - Currently not on medications DLP - Currently not on medications COPD - No evidence of exacerbation - c/w inhaled therapy as ordered Hypothyroidism - c/w Levothyroxine CKD3 - Cr baseline of 1.0 - Will resume diuresis today Vitamin D deficiency - c/w Vitamin D supplementation Unsteady gait - Uses a walker at baseline - Will start PT evaluation today Gastrointestinal prophylaxis - Will c/w Protonix DVT prophylaxis - Will continue full anticoagulation with Coumadin VS,Fishbone, I+O VS, Fishbone, I+O Laboratory Tests 12/27/19 07:00 Vital Signs Date Time Temp Pulse Resp B/P (MAP) Pulse Ox O2 Delivery O2 Flow Rate FiO2 12/27/19 14:00 140/71 (94) 12/27/19 14:00 98.6 68 17 93 Room Air 12/26/19 14:50 2.0 I&O- Last 24 Hours up to 6 AM 12/27/19 06:00 Intake Total 1100 ml Output Total 30 ml Balance 1070 ml KVNG LORD MD Dec 27, 2019 18:37
[2019-12-27 22:00] VITALS: BP 137/49
[2019-12-27] MEDS: DONEPEZIL 5 MG TAB PO SCH (22:10)
[2019-12-27] MEDS: SIMVASTATIN 40 MG TAB PO SCH (22:10)
[2019-12-27] MEDS: MULTIVITAMINS/MINERALS THERAP 1 TAB PO SCH (22:10)
[2019-12-28] MEDS: metroNIDAZOLE 500 MG in IV 1 EA IV SCH ×2 (00:57→09:31)
[2019-12-28] MEDS: LEVOTHYROXINE 25MCG TABLET (0.025MG) PO SCH (06:42)
[2019-12-28 07:57] LABS: BASO # 0.1 10^3/uL (0.0-0.2); BASO % 0.8 % (0.0-1.0); EOS # 0.2 10^3/uL (0.0-0.5); EOS % 1.5 % (0.0-3.0); HEMATOCRIT 35.6 % (36.0-47.0); HEMOGLOBIN 11.5 g/dl (12.0-15.5); LYMPH % 9.6 % (24.0-44.0); MEAN CORPUSCULAR HEMOGLOBIN 29.5 pg (27.0-33.0); MEAN CORPUSCULAR HGB CONC 32.3 g/dl (32.0-36.5); MEAN CORPUSCULAR VOLUME 91.3 fl (80.0-96.0); MONO % 19.6 % (0.0-5.0); NEUTROPHILS % 68.1 % (36.0-66.0); PLATELET COUNT, AUTOMATED 158 10^3/uL (150-450); WHITE BLOOD COUNT 10.3 10^3/uL (4.0-10.0)
[2019-12-28] MEDS: LEVALBUTEROL 1.25 MG/0.5 ML CONCENTRATE NEB INH SCH ×2 (08:00→11:24)
[2019-12-28] MEDS: ADVAIR HFA 45/21MCG INHALER INH SCH (08:26)
[2019-12-28 08:28] LABS: CALCIUM LEVEL 8.9 MG/DL (8.8-10.2); CREATININE FOR GFR 1.02 MG/DL (0.55-1.30); GLOMERULAR FILTRATION RATE 55.1 (>32); POTASSIUM SERUM 3.6 MEQ/L (3.5-5.1)
[2019-12-28 09:22] LABS: INR 5.06
[2019-12-28] MEDS: SPIRONOLACTONE 25 MG TAB PO SCH (09:31)
[2019-12-28] MEDS: TORSEMIDE (DEMADEX) 50 MG PER 1/2 TAB PO SCH (09:31)
[2019-12-28] MEDS: CALCIUM/VITAMIN D 500 MG TAB PO SCH (09:32)
[2019-12-28] MEDS: POTASSIUM CHLORIDE 10 MEQ SR TABLET PO SCH (09:32)
[2019-12-28] MEDS: DOCUSATE SODIUM 100 MG CAP PO SCH (09:32)
[2019-12-28] MEDS: CALCIUM CARBONATE 500 MG CHEW U/D PO SCH ×2 (09:32→13:00)
[2019-12-28] MEDS ORDERED: METR-265 PO (10:46)
[2019-12-28] MEDS ORDERED: CIPR500T3 PO (10:46)
--- NOTE | 2019-12-28 11:18 | DS.PDOC ---
Discharge Summary General Date of Admission Dec 26, 2019 at 12:28 Date of Discharge 12/28/2019 Primary Care Physician: Simi Martinez Attending Physician: JEFF PASTOR MD Discharge Summary PROCEDURES PERFORMED DURING STAY: None. ADMITTING/DISCHARGE DIAGNOSES: 1. Acute metabolic encephalopathy, likely secondary to infectious etiology. 2. Acute diverticulitis. 3. Alzheimer's dementia. 4. Atrial fibrillation with mitral valve prosthesis, on Coumadin. 5. Diastolic congestive heart failure 6. Hypertension 7. Dyslipidemia 8. COPD 9. Hypothyroidism 10. CKG stage III 11. Vitamin D deficiency 12. Unsteady gait COMPLICATIONS/CHIEF COMPLAINT: Diverticulitis Large Intestine. HISTORY OF PRESENT ILLNESS: Patient is an 84-year-old female who presented to the hospital on 12/26/2019 with's increased confusion over the last 2 weeks. Patient has also had progressive weakness 2 days prior to admission. Patient also had a loss of appetite the day prior to coming to admission. Patient had been experiencing a cough without any significant sputum production. Patient had also been complaining of increased abdominal pain over the last 3-4 days with constipation while at home. Patient was brought into the emergency department with patient was found to have diverticulitis and was started on IV antibiotics. Patient was started on IV ceftriaxone and IV metronidazole. HOSPITAL COURSE: During the patient's hospital course, she was at first very sleepy and was not waking up much. Patient's diet was able to be advanced on 12/27/2019. Patient became more awake on 12/27/2019 and was experiencing less abdominal pain. Patient worked with physical therapy and was back at her baseline. Patient was doing much better on 12/28/2019. Patient was eating and was not reporting any abdominal pain. Patient's INR did become supratherapeutic. We spoke with the patient's daughter about this and she has a device that she can check her INR from home. We advised her to hold her warfarin and to speak with her primary care provider, Dr. Pereira, who manages her INR for further instructions. We advised her to check her INR tomorrow and report this to her PCP. Metronidazole is the most likely culprit for her increased INR. Patient will be discharged home on 3 more days of ciprofloxacin and metronidazole. Patient was deemed safe and ready for discharge on 12/26/2019 and was discharged from the hospital. DISCHARGE MEDICATIONS: Please see below. ALLERGIES: Please see below. PHYSICAL EXAMINATION ON DISCHARGE: VITAL SIGNS: Please see below. General: Alert female who is sitting in the chair eating a full liquid diet when I walked into the room. Patient did not appear to be in any acute distress. HEENT: Normocephalic, atraumatic, moist mucous membranes. Cardiac: Regular rate and rhythm, no murmurs, normal S1, normal S2 Pulm: Clear to auscultation bilaterally. No wheezes, rhonchi, rales Abd: Nondistended, nontender to palpation, normal bowel sounds Ext: No edema bilateral lower extremities LABORATORY DATA: Please see below. IMAGING: A CT of the head performed without IV contrast on 12/26/2019 was reported to show age-appropriate supratentorial and infratentorial atrophy, mild chronic white matter microvascular ischemic disease, no acute intracranial abnormality identified. A chest x-ray performed on 12/26/2019 was reported to show improved pulmonary vascular congestion, mild right lateral basilar subsegmental atelectasis A CT of the abdomen and pelvis performed with IV contrast only on 12/26/2019 was reported to show uncomplicated sigmoid colonic diverticulitis, left renal benign simple cyst, severe left renal cortical scarring, cholelithiasis PROGNOSIS: Fair ACTIVITY: As tolerated. DIET: Advance as tolerated DISCHARGE PLAN: Discharge home with family DISCHARGE INSTRUCTIONS: 1. Follow up with primary care provider in 3-5 days. 2. Hold warfarin today and recheck INR with home INR machine tomorrow and await instructions from primary care provider. 3. Advance diet as tolerated. 4. Continue ciprofloxacin and metronidazole for 3 days DISCHARGE CONDITION: Stable. TIME SPENT ON DISCHARGE: 30 minutes. Vital Signs/I&Os Vital Signs Date Time Temp Pulse Resp B/P (MAP) Pulse Ox O2 Delivery O2 Flow Rate FiO2 12/27/19 22:00 99.0 62 18 137/49 (78) 94 Room Air 12/26/19 14:50 2.0 I&O- Last 24 Hours up to 6 AM 12/28/19 06:00 Intake Total 2284 ml Output Total 0 ml Balance 2284 ml Laboratory Data Labs 24H Laboratory Tests 2 12/28/19 06:52: Lab Scanned Report Miscellaneous Lab 12/28/19 07:11: Immature Granulocyte % (Auto) 0.4, Neutrophils (%) (Auto) 68.1H, Lymphocytes (%) (Auto) 9.6L, Monocytes (%) (Auto) 19.6H, Eosinophils (%) (Auto) 1.5, Basophils (%) (Auto) 0.8, Neutrophils # (Auto) 7.0, Lymphocytes # (Auto) 1.0L, Monocytes # (Auto) 2.0H, Eosinophils # (Auto) 0.2, Basophils # (Auto) 0.1, Nucleated Red Blood Cells % (auto) 0.0, Anion Gap 7L, Glomerular Filtration Rate 55.1, Calcium Level 8.9, Magnesium Level 2.0 12/28/19 08:23: Prothrombin Time 48.0H, Prothromb Time International Ratio 5.06*H CBC/BMP Laboratory Tests 12/28/19 07:11 Discharge Medications Scheduled Calcium Carbonate/Vitamin D3 (Calcium 500-Vit D3 200 Caplet) 1 Each Tablet, 1 TAB PO TID, (Reported) Cholecalciferol (Vitamin D3) (Vitamin D3) 125 Mcg Capsule, 125 MCG PO DAILY, (Reported) TAKES AT 1300 Ciprofloxacin HCl (Ciprofloxacin HCl) 500 Mg Tablet, 500 MG PO BID Docusate Sodium (Colace) 100 Mg Capsule, 100 MG PO BID, (Reported) Donepezil HCl (Aricept) 5 Mg Tab, 5 MG PO QHS, (Reported) Levothyroxine Sodium (Synthroid) 25 Mcg Tab, 25 MCG PO DAILY, (Reported) Metronidazole (Metronidazole) 500 Mg Tablet, 500 MG PO TID Multivitamin (Multivitamins) 1 Each Capsule, 1 CAP PO QHS, (Reported) Potassium Chloride (Potassium Chloride) 10 Meq Tab.er.prt, 10 MEQ PO BID, (Reported) TAKES 0800 AND 1800 Salmeterol/Fluticasone (Advair 100-50 Diskus) 28 Puff/Inhaler Aerp, 1 PUFF INH BID, (Reported) Simvastatin (Simvastatin) 40 Mg Tab, 40 MG PO QHS, (Reported) Spironolactone (Spironolactone) 25 Mg Tab, 25 MG PO DAILY, (Reported) Torsemide (Torsemide) 100 Mg Tab, 50 MG PO DAILY, (Reported) Umeclidinium [place] (Incruse Ellipta) 62.5 Mcg Blst.w.dev, 1 PUFF PO QHS, (Reported) Scheduled PRN Acetaminophen (Tylenol) 325 Mg Tablet, 650 MG PO Q6H PRN for PAIN / FEVER, (Reported) Albuterol Sulf (Albuterol Sulfate) 2.5 Mg/3 Ml Vial.neb, 2.5 MG INH QID PRN for SOB/WHEEZING, (Reported) Clarithromycin (Clarithromycin) 500 Mg Tablet, 500 MG PO ONCE PRN for PRIOR TO DENTAL PROCEDURE, (Reported) Ipratropium/Albuterol Sulfate (Iprat-Albut 0.5-3(2.5) mg/3 ml) 3 Ml Ampul.neb, 1 STEVE INH QID PRN for SHORTNESS OF BREATH, (Reported) Allergies Coded Allergies: Penicillins (Verified Allergy, Intermediate, rash, 11/12/18) chlorpromazine (Verified Allergy, Unknown, 11/12/18) codeine (Verified Adverse Reaction, Unknown, vomiting, 11/12/18) GME ATTESTATION GME ATTESTATION My faculty preceptor for this patient encounter was physically present during the encounter and was fully available. All aspects of the patient interview, examination, medical decision making process, and medical care plan development were reviewed and approved by the faculty preceptor. The faculty preceptor is aware and concurs with the plan as stated in the body of this note and will attest to such by his/her cosignature. ATTENDING NOTE I, Jeff Pastor, have independently examined this patient and performed my own physical exam, as well as reviewed the documentation and edited where necessary. I have discussed in detail with the resident / student the findings and plan of treatment as documented by the resident / student and edited their note. I agree with their findings and treatment plan and have edited their documentation. I will continue to follow the patient during this hospital stay. Time spent on discharge 35 minutes ROLANDO PRESSLEY DO Dec 28, 2019 11:18 JEFF PASTOR MD Dec 28, 2019 15:47
[2019-12-28] MEDS: PANTOPRAZOLE 40MG VIAL (C9113 PER 1) IV SCH (13:00)
[2019-12-28] MEDS: VITAMIN D 1,000 INTERNATIONAL UNITS TABLET PO SCH (13:00)
[2019-12-28 14:00] VITALS: BP 152/69
[2019-12-31] MEDS ORDERED: WARFARIN SOD 3MG TAB PO SCH (17:00)
== END 2019-12-28 14:45 | disposition home or self-care (01) | DRG 391 ==
LOC: M ED 08:28 → EDBD 08:28 → M ED INP 12:28 → ENRESERV 14:18 → M MS5PR 15:05
PROVIDERS: ADMIT Internal Medicine; ATTEND Internal Medicine
DX: K57.32 Diverticulitis of large intestine without perforation or abscess without bleeding (principal); G93.41 Metabolic encephalopathy; I13.0 Hypertensive heart and chronic kidney disease with heart failure and stage 1 through stage 4 chronic kidney disease, or unspecified chronic kidney disease; I50.32 Chronic diastolic (congestive) heart failure; N18.30 Chronic kidney disease, stage 3 unspecified; J44.9 Chronic obstructive pulmonary disease, unspecified; G30.9 Alzheimer's disease, unspecified; I48.91 Unspecified atrial fibrillation; F02.80 Dementia in other diseases classified elsewhere, unspecified severity, without behavioral disturbance, psychotic disturbance, mood disturbance, and anxiety; Z79.01 Long term (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 anticoagulants; Z95.2 Presence of prosthetic heart valve; E78.5 Hyperlipidemia, unspecified; E03.9 Hypothyroidism, unspecified; E55.9 Vitamin D deficiency, unspecified; R26.89 Other abnormalities of gait and mobility; Z79.899 Other long term (current) drug therapy; Z88.0 Allergy status to penicillin; Z88.5 Allergy status to narcotic agent; Z88.8 Allergy status to other drugs, medicaments and biological substances

== ENCOUNTER → 2020-01-10 | Outpatient (REF) | payer MEDICARE, OTHER ==
[~2020-01-10] MED LIST changes: +ACET-907 PO; +CIPR500T3 PO; +CLAR500T97 PO; +D 50CAP2 PO; +METR-265 PO
[2020-01-10 17:39] LABS: HEMATOCRIT 41.6 % (36.0-47.0); HEMOGLOBIN 13.3 g/dl (12.0-15.5); MEAN CORPUSCULAR HEMOGLOBIN 29.8 pg (27.0-33.0); MEAN CORPUSCULAR VOLUME 93.3 fl (80.0-96.0); PLATELET COUNT, AUTOMATED 231 10^3/uL (150-450); RED BLOOD COUNT 4.46 10^6/uL (4.00-5.40); WHITE BLOOD COUNT 7.8 10^3/uL (4.0-10.0)
[2020-01-10 20:08] LABS: ALBUMIN 3.7 GM/DL (3.2-5.2); BILIRUBIN,TOTAL 0.7 MG/DL (0.2-1.0); CALCIUM LEVEL 10.1 MG/DL (8.8-10.2); CREATININE FOR GFR 1.07 MG/DL (0.55-1.30); GLOMERULAR FILTRATION RATE 52.1 (>32); POTASSIUM SERUM 4.2 MEQ/L (3.5-5.1); TOTAL PROTEIN 6.6 GM/DL (6.4-8.2)
== END ==
LOC: M LAB REF 16:42
PROVIDERS: ATTEND Nurse Practitioner Adult Health
DX: I50.41 Acute combined systolic (congestive) and diastolic (congestive) heart failure (principal)

== ENCOUNTER 2020-01-31 06:20 | Inpatient (IN) | payer MEDICARE, OTHER ==
[~2020-01-31] VITALS: Ht 160 cm; Wt 71.0 kg
[2020-01-31 07:48] LABS: BASO # 0.1 10^3/uL (0.0-0.2); BASO % 1.1 % (0.0-1.0); EOS # 0.2 10^3/uL (0.0-0.5); EOS % 2.2 % (0.0-3.0); HEMATOCRIT 40.6 % (36.0-47.0); LYMPH # 1.1 10^3/uL (1.5-5.0); LYMPH % 12.8 % (24.0-44.0); MEAN CORPUSCULAR HEMOGLOBIN 29.9 pg (27.0-33.0); MEAN CORPUSCULAR VOLUME 93.3 fl (80.0-96.0); MONO # 1.5 10^3/uL (0.0-0.8); NEUTROPHILS # 5.5 10^3/uL (1.5-8.5); NEUTROPHILS % 65.5 % (36.0-66.0); PLATELET COUNT, AUTOMATED 194 10^3/uL (150-450); RED BLOOD COUNT 4.35 10^6/uL (4.00-5.40); WHITE BLOOD COUNT 8.5 10^3/uL (4.0-10.0)
[2020-01-31] MEDS ORDERED: WARF-58 PO (07:59)
[2020-01-31 08:18] LABS: THYROID STIMULATING HORMONE 5.12 uIU/ML (0.358-3.740)
[2020-01-31] MEDS: ADVAIR HFA 45/21MCG INHALER INH SCH ×2 (09:00→19:37)
[2020-01-31 09:25] LABS: INR 2.38; PROTHROMBIN TIME 26.5 SECONDS (12.5-14.3)
[2020-01-31] MEDS ORDERED: IPRATROPIUM 0.5MG/ALBUTEROL 2.5MG INH SOL UD 3ML (DUONEB) INH PRN (11:30)
[2020-01-31] MEDS ORDERED: ALBUTEROL SULFATE 2.5 MG/0.5 ML INH NEB SOLN INH PRN (11:30)
[2020-01-31] MEDS ORDERED: ACETAMINOPHEN TAB 650MG DOSE (2X325MG) PO PRN (11:30)
--- NOTE | 2020-01-31 11:36 | HPEPDOC ---
[facility] Medical History & Physical Date of Admission Jan 31, 2020 Date of Service: Jan 31, 2020 Primary Care Physician: Jr Pereira Collins Attending Physician: MARY JANE MOODY MD History and Physical CHIEF COMPLAINT: Syncope HISTORY OF PRESENT ILLNESS: The patient has dementia, and history is given by her daughter. The patient is an 84yo female with a hx of Alzheimer dementia, HTN, atrial fibrillation, and diastolic heart failure. She was in her normal state of health until this morning, when her was helping her out of bed and she fell. The patient's called for the facility staff. The patient reportedly regained consciousness after a few seconds and stated "I passed out." She was brought to the hospital by EMS and is accompanied by her daughter. The patient denies dizziness, blurry vision, or tremor. The patient is in no pain, and has had no recent changes to eating habits or energy levels, though the daughter adds that the patient's normal energy and appetite are low. PAST MEDICAL HISTORY: 1. Alzheimer's Dementia. 2. HTN. 3. A-Fib. 4. Diastolic Heart Failure. 5. COPD 6. Mechanical Mitral Valve 7. CKD Stage 3 PAST SURGICAL HISTORY: 1. Pacemaker. 2. Mitral Mechanical Valve Replacement. SOCIAL HISTORY: Marital status: . Resides in: [facility]. 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 Tobacco use: Former smoker. Daughter reports that she quit in the 70s, and smoked less than one pack a day ETOH: used to drink socially. FAMILY HISTORY: Mother: of a stroke in her 60s. ALLERGIES: Please see below. REVIEW OF SYSTEMS: CONSTITUTIONAL: Denies recent weight changes, energy changes, fever or chills HEENT: Denies eyesight changes, blurry vision, hearing changes, or sinus problems. CARDIOVASCULAR: Denies chest pain, irregular heart beats, swelling in the ex tremities. RESPIRATORY: Denies SOB, cough, wheezing. GASTROINTESTINAL: Denies nausea, vomiting, constipation/diarrhea, pain or difficulties swallowing. GENITOURINARY: Denies pyuria. SKIN: Denies new rashes. MUSCULOSKELETAL: Denies muscle or joint pains. NEUROLOGICAL: Positive for loss of consciousness as per HPI. Denies RAMIREZ, blurry vision, weakness. HOME MEDICATIONS: Please see below. PHYSICAL EXAMINATION: VITAL SIGNS: See below GENERAL APPEARANCE: Patient NAD. Patient is an elderly woman who appears her stated age. She is well groomed. HEENT: Eyes are PERRL, but do not accommodate. Mucus membranes are moist and pink. Normocephalic, atraumatic. CARDIOVASCULAR: Bradycardic with a normal rhythm. S1 and S2 sounds are noted. No S3 or S4 sounds are appreciated. There is a distinct click over the mitral valve. Radial pulses are equal. Capillary refill <3s. LUNGS: Wheezing is heard at the lung bases b/l. No rales or rhonchi are appreciated. Chest rise is symmetrical on inhalation. ABDOMEN: Abdomen is soft, nondistended, nontender, bowel sounds present MUSCULOSKELETAL: Moves all extremities well. EXTREMITIES: There is no edema in the legs. No lesions are seen on the feet. NEUROLOGICAL: Eyes have trouble tracking finger movements, and do not look down. Otherwise, cranial nerve 2-12 testing is normal. Muscle strength 5/5 in both lower and upper extremities. PSYCHIATRIC: Patient is awake and alert. Patient has a flat affect. LABORATORY DATA: See below. IMAGING: None MICROBIOLOGY: Please see below. ASSESSMENT: Mrs. Lin is an 84yo female with a PMHx of Alzheimer's dementia, A-fib, HTN and CKD Stage 3, who presented after an episode of syncope found to be bradycardic with ventricular pacemaker functioning at a rate of 50. PLAN: 1. Bradycardia with ventricular pacemaker. - The daughter reports that previous interrogation last Apr did not show any use the previous year. - Discussed with Dr. Mortensen who will interrogate the pacemaker and may increase the basal rate. - Obtain 2D Echocardiogram. Continuous Telemetry. 2. Syncope -Likely 2/2 bradycardia as discussed above -Orthostatics in the ED were negative -Patient has no signs of infection -No electrolyte abnormalities on lab work 3. Mechanical Mitral Valve -INR is 2.36, below the therapeutic range for mechanical valve (2.5-3.5) -Home warfarin is 3mg. Will give 4 mg dose of Warfarin tonight, and will reevaluate INR in the morning to determine further treatment. 4. Diastolic CHF - Continue spironolactone and torsemide. 5. A-Fib - Continue Warfarin as noted above 5. CKD Stage 3 - Cr 1.1, baseline around 1.0 - monitor BMP daily 6. HLD -Continue home Simvastatin 7. Alzheimer's Dementia -Continue home Donepezil DVT prophylaxis: on warfarin as noted above Disposition: admitted to med/surg with TM inpatient, expect greater than 2 midnight's stay Vital Signs Vital Signs Date Time Temp Pulse Resp B/P (MAP) Pulse Ox O2 Delivery O2 Flow Rate FiO2 01/31/20 11:05 97.9 49 18 96 Room Air 01/31/20 11:00 142/67 (92) Laboratory Data Labs 24H Laboratory Tests 2 01/31/20 07:15: Immature Granulocyte % (Auto) 0.4, Neutrophils (%) (Auto) 65.5, Lymphocytes (%) (Auto) 12.8L, Monocytes (%) (Auto) 18.0H, Eosinophils (%) (Auto) 2.2, Basophils (%) (Auto) 1.1H, Neutrophils # (Auto) 5.5, Lymphocytes # (Auto) 1.1L, Monocytes # (Auto) 1.5H, Eosinophils # (Auto) 0.2, Basophils # (Auto) 0.1, Nucleated Red Blood Cells % (auto) 0.0, Prothrombin Time 26.5H, Prothromb Time International Ratio 2.38, Thyroid Stimulating Hormone (TSH) 5.120H 01/31/20 07:19: Bedside Glucose (Misc Panel) 83 01/31/20 07:35: POC Glucose (Misc Panel) 89, POC Sodium (Misc Panel) 138, POC Potassium (Misc Panel) 3.7, POC Chloride (Misc Panel) 98, POC Total CO2 (Misc Panel) 32.0H, POC Blood Urea Nitrogen (Misc Panel 26, POC Ionized Calcium (Misc Panel) 4.6, POC Creatinine (Misc Panel) 1.1, POC Hematocrit (Misc Panel) 40.0 01/31/20 07:37: POC Troponin I (Misc) 0.01 01/31/20 09:31: Coronavirus (COVID-19)(PCR) NEGATIVE CBC/BMP Laboratory Tests 01/31/20 07:15 Home Medications Scheduled Calcium Carbonate/Vitamin D3 (Calcium 500-Vit D3 200 Caplet) 1 Each Tablet, 1 T AB PO TID Cholecalciferol (Vitamin D3) (Vitamin D3) 125 Mcg Capsule, 125 MCG PO DAILY TAKES AT 1300 Docusate Sodium (Colace) 100 Mg Capsule, 100 MG PO BID Donepezil HCl (Aricept) 5 Mg Tab, 5 MG PO QHS Levothyroxine Sodium (Levothyroxine Sodium) 25 Mcg Tablet, 25 MCG PO DAILY Multivitamin (Multivitamins) 1 Each Capsule, 1 CAP PO QHS Potassium Chloride (Potassium Chloride) 10 Meq Tab.er.prt, 10 MEQ PO BID TAKES 0800 AND 1800 Salmeterol/Fluticasone (Advair 100-50 Diskus) 28 Puff/Inhaler Aerp, 1 PUFF INH BID Simvastatin (Simvastatin) 40 Mg Tab, 40 MG PO QHS Spironolactone (Spironolactone) 25 Mg Tab, 25 MG PO DAILY Torsemide (Torsemide) 100 Mg Tab, 100 MG PO DAILY Umeclidinium [place] (Incruse Ellipta) 62.5 Mcg Blst.w.dev, 1 PUFF PO QHS Warfarin Sodium (Warfarin Sodium) 3 Mg Tablet, 3 MG PO QHS Scheduled PRN Acetaminophen (Tylenol) 325 Mg Tablet, 650 MG PO Q6H PRN for PAIN / FEVER Albuterol Sulf (Albuterol Sulfate) 2.5 Mg/3 Ml Vial.neb, 2.5 MG INH QID PRN for SOB/WHEEZING Ipratropium/Albuterol Sulfate (Iprat-Albut 0.5-3(2.5) mg/3 ml) 3 Ml Ampul.neb, 1 STEVE INH QID PRN for SHORTNESS OF BREATH Allergies Coded Allergies: Penicillins (Verified Allergy, Intermediate, rash, 01/31/20) chlorpromazine (Verified Allergy, Unknown, 01/31/20) codeine (Verified Adverse Reaction, Unknown, vomiting, 01/31/20) A-FIB/CHADSVASC A-FIB History Current/History of A-Fib/PAF?: Yes Current PO Anticoag Therapy: Yes GME ATTESTATION GME ATTESTATION My faculty preceptor for this patient encounter was physically present during the encounter and was fully available. All aspects of the patient interview, examination, medical decision making process, and medical care plan development were reviewed and approved by the faculty preceptor. The faculty preceptor is aware and concurs with the plan as stated in the body of this note and will attest to such by his/her cosignature. ATTENDING NOTE Patient was seen and examined by me personally with the students and the residen ts. Agree with the above assessment and plan. ROSSANA PETIT Jan 31, 2020 11:36 MJ PENALOZA D.O. Jan 31, 2020 16:17 MARY JANE MOODY MD Feb 02, 2020 11:37
[2020-01-31 12:15] VITALS: BP 151/68
[2020-01-31 12:59] LABS: FREE T4 1.32 NG/DL (0.76-1.46)
[2020-01-31] MEDS: DOCUSATE SODIUM 100 MG CAP PO SCH ×2 (13:03→21:13)
[2020-01-31] MEDS: SPIRONOLACTONE 25 MG TAB PO SCH (13:03)
[2020-01-31] MEDS: POTASSIUM CHLORIDE 10 MEQ SR TABLET PO SCH ×2 (13:04→21:13)
[2020-01-31] MEDS: TIOTROPIUM INHALER/CAPSULE (SPIRIVA) INH SCH (13:11)
[2020-01-31 14:00] VITALS: BP 163/59
[2020-01-31] MEDS: TORSEMIDE 100 MG TAB PO SCH (15:48)
[2020-01-31] MEDS: CALCIUM/VITAMIN D 500 MG TAB PO SCH ×2 (15:48→21:13)
[2020-01-31] MEDS ORDERED: WARFARIN SOD 1MG TAB PO ONE (17:00)
[2020-01-31] MEDS: DONEPEZIL 5 MG TAB PO SCH (21:14)
[2020-01-31] MEDS: SIMVASTATIN 40 MG TAB PO SCH (21:14)
[2020-01-31] MEDS: WARFARIN SOD 3MG TAB PO SCH (21:14)
[2020-01-31 22:00] VITALS: BP 134/49
[2020-02-01 06:00] VITALS: BP 127/52
[2020-02-01] MEDS: TIOTROPIUM INHALER/CAPSULE (SPIRIVA) INH SCH (07:15)
[2020-02-01] MEDS: ADVAIR HFA 45/21MCG INHALER INH SCH ×2 (07:16→19:20)
--- NOTE | 2020-02-01 07:22 | ECGEPIP ---
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
[2020-02-01 07:48] LABS: HEMATOCRIT 44.1 % (36.0-47.0); HEMOGLOBIN 14.3 g/dl (12.0-15.5); MEAN CORPUSCULAR HEMOGLOBIN 29.9 pg (27.0-33.0); MEAN CORPUSCULAR HGB CONC 32.4 g/dl (32.0-36.5); MEAN CORPUSCULAR VOLUME 92.3 fl (80.0-96.0); PLATELET COUNT, AUTOMATED 205 10^3/uL (150-450); RED BLOOD COUNT 4.78 10^6/uL (4.00-5.40); WHITE BLOOD COUNT 8.7 10^3/uL (4.0-10.0)
[2020-02-01 08:04] LABS: INR 2.35; PROTHROMBIN TIME 26.3 SECONDS (12.5-14.3)
[2020-02-01 08:25] LABS: CALCIUM LEVEL 9.6 MG/DL (8.8-10.2); GLOMERULAR FILTRATION RATE 56.4 (>32); POTASSIUM SERUM 3.6 MEQ/L (3.5-5.1)
[2020-02-01] MEDS: CALCIUM/VITAMIN D 500 MG TAB PO SCH ×3 (09:26→22:17)
[2020-02-01] MEDS: DOCUSATE SODIUM 100 MG CAP PO SCH ×2 (09:26→22:18)
[2020-02-01] MEDS: SPIRONOLACTONE 25 MG TAB PO SCH (09:27)
[2020-02-01] MEDS: POTASSIUM CHLORIDE 10 MEQ SR TABLET PO SCH ×2 (09:27→22:18)
[2020-02-01] MEDS: TORSEMIDE 100 MG TAB PO SCH (09:27)
--- NOTE | 2020-02-01 10:51 | IPNPDOC ---
Text Note Date of Service The patient was seen on 02/01/20. NOTE SUBJECTIVE: Patient was seen and examined today at bedside. She appears somewhat confused as she is trying to eat breakfast, but holding up her breakfast order form and unsure of what to do with it. She states she is frustrated. She denies any new complaints today. No chest pain or palpitations. No shortness of breath. No recent episodes of syncope. However, she is somewhat poor historian due to her advanced dementia. OBJECTIVE: VITAL SIGNS: See below GENERAL: Alert, comfortable, in no acute distress HEENT: Normocephalic, atraumatic, PERRLA, EOMI, moist mucous membranes NECK: Supple, trachea midline, no lymphadenopathy, no JVD CARDIOVASCULAR: Bradycardic rate, normal rhythm, normal S1 and S2. Distinct click auscultated. RESPIRATORY: Clear to auscultation bilaterally with equal air entry bilaterally. No wheezing, rhonchi, or rales. ABDOMEN: Soft, nontender, nondistended, bowel sounds present, no masses or hepatosplenomegaly appreciated EXTREMITIES: No cyanosis or edema. Pulses 2+/4 in bilateral upper and lower extremities SKIN: [place], warm, dry NEUROLOGIC: Alert and oriented x1 to person. No focal deficits appreciated PSYCHIATRIC: Affect somewhat flat. Appears frustrated due to her confusion. ASSESSMENT/PLAN: 84 year old female with a history of Alzheimer's dementia, atrial fibrillation, HTN and CKD Stage 3, who presented after an episode of syncope found to be bradycardic with ventricular pacemaker functioning at a rate of 50. # Bradycardia with ventricular pacemaker. - The daughter reports that previous interrogation last Apr did not show any use the previous year. - Discussed with Dr. Mortensen who came in yesterday to adjust the pacemaker settings. Her basal rate was increased to 60. - Ordered echocardiogram, results pending. Continuous telemetry. # Syncope -Likely 2/2 bradycardia as discussed above -Orthostatics in the ED were negative -Patient has no signs of infection -No electrolyte abnormalities on lab work -Echocardiogram results pending. # Mechanical Mitral Valve -INR is 2.35, below the therapeutic range for mechanical valve (2.5-3.5) -Home warfarin is 3mg. Will give 5 mg dose of Warfarin tonight as her INR remains subtherapeutic. # Diastolic CHF - Continue spironolactone and torsemide. # A-Fib - Continue Warfarin as noted above # CKD Stage 3 - Cr 1.0, baseline around 1.0 - monitor BMP daily # HLD -Continue home Simvastatin # Alzheimer's Dementia -Continue home Donepezil DVT prophylaxis: on warfarin as noted above Disposition: likely d/c tomorrow to return to her assisted living facility with her VS,Fishbone, I+O VS, Fishbone, I+O Laboratory Tests 02/01/20 07:31 Vital Signs Date Time Temp Pulse Resp B/P (MAP) Pulse Ox O2 Delivery O2 Flow Rate FiO2 02/01/20 06:00 97.1 60 20 127/52 (77) 95 Room Air I&O- Last 24 Hours up to 6 AM 02/01/20 06:00 Intake Total 390 ml Output Total 500 ml Balance -110 ml GME ATTESTATION GME ATTESTATION My faculty preceptor for this patient encounter was physically present during the encounter and was fully available. All aspects of the patient interview, examination, medical decision making process, and medical care plan development were reviewed and approved by the faculty preceptor. The faculty preceptor is aware and concurs with the plan as stated in the body of this note and will attest to such by his/her cosignature. ATTENDING NOTE Patient was seen and examined by me personally with the students and the residents. Agree with the above assessment and plan. MJ PENALOZA D.O. Feb 01, 2020 10:51 MARY JANE MOODY MD Feb 02, 2020 11:37
[2020-02-01] MEDS: LEVOTHYROXINE 25MCG TABLET (0.025MG) PO SCH (10:53)
[2020-02-01 14:00] VITALS: BP 130/50
[2020-02-01] MEDS ORDERED: WARFARIN SOD 2MG TAB PO ONE (17:00)
[2020-02-01] MEDS ORDERED: RAMELTEON 8 MG TAB (ROZEREM) PO PRN (21:00)
[2020-02-01 22:00] VITALS: BP 131/51
[2020-02-01] MEDS: DONEPEZIL 5 MG TAB PO SCH (22:17)
[2020-02-01] MEDS: WARFARIN SOD 3MG TAB PO SCH (22:17)
[2020-02-01] MEDS: SIMVASTATIN 40 MG TAB PO SCH (22:17)
[2020-02-02] MEDS: LEVOTHYROXINE 25MCG TABLET (0.025MG) PO SCH (05:46)
[2020-02-02 06:14] LABS: INR 2.79; PROTHROMBIN TIME 30.1 SECONDS (12.5-14.3)
[2020-02-02 06:39] VITALS: BP 126/54
[2020-02-02] MEDS ORDERED: LEVO25TA5 PO (07:09)
[2020-02-02] MEDS: TIOTROPIUM INHALER/CAPSULE (SPIRIVA) INH SCH (07:20)
[2020-02-02] MEDS: ADVAIR HFA 45/21MCG INHALER INH SCH (07:21)
[2020-02-02] MEDS: SPIRONOLACTONE 25 MG TAB PO SCH (08:58)
[2020-02-02] MEDS: CALCIUM/VITAMIN D 500 MG TAB PO SCH (08:58)
[2020-02-02] MEDS: DOCUSATE SODIUM 100 MG CAP PO SCH (08:58)
[2020-02-02] MEDS: TORSEMIDE 100 MG TAB PO SCH (08:58)
[2020-02-02] MEDS: POTASSIUM CHLORIDE 10 MEQ SR TABLET PO SCH (08:59)
--- NOTE | 2020-02-02 13:24 | ECHO ---
DATE OF PROCEDURE: 01/31/2020 Age: 84 Gender: Female Height: 160 cm Weight: 71 kg REFERRING PHYSICIAN: Danie Baltazar MD and Sommer Spivey DO. INDICATION: Syncope. MEASUREMENTS: IVS 1.0 cm LV 5.4 cm LVPW 0.9 cm LA 6.1 cm Aorta 3.0 cm IVC 2.4 cm Left atrial volume index 98 FINDINGS: This study is of acceptable technical quality. The patient is in atrial fibrillation with bradycardic rate and intermittent ventricular pacing. Left ventricle is normal size. There is septal wall motion abnormality consistent with right ventricular paced rhythm. Overall, ejection fraction appears to be mildly reduced. I estimated LVEF around 50%. Right ventricle appeared mildly dilated. There is severe biapical enlargement, left atrium is larger than the right. There is an echo artifact in right-sided heart chambers consistent with pacemaker lead. The aortic valve is tricuspid. It is minimally sclerotic, but mobility of leaflets is preserved. There is a mechanical prosthesis in the mitral position. The visualization was rather limited, but it appears to have normal mobility. No obvious dysfunction of the valves by 2D imaging is apparent. Tricuspid valve appears normal. Pulmonic valve also appears normal. No pericardial effusion is noted. Inferior vena cava is dilated and there is limited collapse with inspiration indicative of high central venous pressure. Aortic root is normal. Aortic arch and abdominal aorta were not well visualized. Doppler interrogation of the aortic valve reveals no stenosis and mild insufficiency. The mean gradient across the mitral valve is 5 mmHg, peak gradient 12 mmHg, and only mild insufficiency seen by color Doppler imaging. This is consistent with normal function of the prosthetic valve. There is at least moderate tricuspid insufficiency. Calculated pulmonary artery pressure is at minimum in the 50s, corresponding to moderate pulmonary hypertension. Pulmonic valve exhibits trace insufficiency. Evaluation of diastolic function is inconclusive due to underlying atrial fibrillation and the presence of mitral prosthesis. CONCLUSIONS: 1. Study is of fair technical quality, underlying atrial fibrillation with slow ventricular response and intermittent ventricular pacing. 2. Normal left ventricular (LV) size with septal wall motion abnormality and overall mildly reduced left ventricular systolic function, estimated left ventricular ejection fraction (LVEF) 50%. 3. Aortic sclerosis with no stenosis and mild insufficiency. 4. Normally functional mitral prosthetic valve. 5. High central venous pressure and likely moderate pulmonary hypertension. 6. Moderate tricuspid insufficiency. 7. Echo artifact in right-sided heart chamber most likely consistent with right ventricle pacing lead. COMMENTS: Subacute bacterial endocarditis (SBE) prophylaxis is recommended. The severity of pulmonary hypertension does not appear to be sufficient to explain syncopal event. MTDD
--- NOTE | 2020-02-02 14:43 | DS.PDOC ---
Discharge Summary General Date of Admission Jan 31, 2020 at 10:38 Date of Discharge 02/02/2020 Attending Physician: MARY JANE MOODY MD Discharge Summary PROCEDURES PERFORMED DURING STAY: None. ADMITTING DIAGNOSES: 1. Bradycardia with ventricular pacemaker. 2. Syncope 3. Mechanical Mitral Valve 4. Diastolic CHF 5. A-Fib 5. CKD Stage 3 6. HLD 7. Alzheimer's Dementia DISCHARGE DIAGNOSES: 1. Bradycardia, resolved, with ventricular pacemaker. 2. Syncope, single episode 3. Mechanical Mitral Valve 4. Diastolic CHF 5. A-Fib 5. CKD Stage 3 6. HLD 7. Alzheimer's Dementia COMPLICATIONS/CHIEF COMPLAINT: Dementia/Syncope. HISTORY OF PRESENT ILLNESS: Regina Lin is an 84-year-old female who presented after a single syncopal episode at her home in a assisted living facility. She lives in assisted living with her who was helping to get her out of bed when the patient suddenly went weak and nonresponsive for a few seconds. The prevented her from falling to the ground and lowered her down carefully. The patient awoke after just a few seconds and stated "I just fainted". The assisted living facility called EMS and the patient was brought to the emergency department for further evaluation. The patient's daughter accompanied her and provided most of the history. The patient herself was able to answer review of system questions and denied any current symptoms. She did recall the episode earlier that morning and denies any prior episodes similar to this. Emergency department evaluation did not find any acute abnormalities. However, EKG showed a ventricularly paced rhythm with atrial fibrillation and bradycardia at a rate of 48. The hospitalist team was called for admission for possible symptomatic bradycardia or pacemaker dysfunction.. HOSPITAL COURSE: The patient was admitted to the hospital and monitored on continuous telemetry. The daughter provided further history, noting that the patient had been seen by her sheriff sergeant, Dr. Kaylee waggoner in April 2019 and had not had any use of the pacemaker at that time for the previous year. In light of this, it appears she is newly pacemaker dependent. Dr. Kaylee waggoner was called and he was able to see the patient and interrogate the pacemaker. He did not find any acute events during the time of the syncope. He also increase the basal rate of the pacemaker to 60 BPM, instead of 50 BPM which it was previously set at. An echocardiogram was performed with results detailed below. The patient did not have any syncopal episodes or pre-syncopal symptoms during her admission. DISCHARGE MEDICATIONS: Please see below. ALLERGIES: Please see below. PHYSICAL EXAMINATION ON DISCHARGE: VITAL SIGNS: Please see below. GENERAL: Alert, comfortable, in no acute distress HEENT: Normocephalic, atraumatic, PERRLA, EOMI, moist mucous membranes NECK: Supple, trachea midline, no lymphadenopathy, no JVD CARDIOVASCULAR: Bradycardic rate, normal rhythm, normal S1 and S2. Distinct click auscultated. RESPIRATORY: Clear to auscultation bilaterally with equal air entry bilaterally. No wheezing, rhonchi, or rales. ABDOMEN: Soft, nontender, nondistended, bowel sounds present, no masses or hepatosplenomegaly appreciated EXTREMITIES: No cyanosis or edema. Pulses 2+/4 in bilateral upper and lower extremities SKIN: [place], warm, dry NEUROLOGIC: Alert and oriented x1 to person. No focal deficits appreciated PSYCHIATRIC: Affect somewhat flat. Appears frustrated due to her confusion. LABORATORY DATA: Please see below. IMAGING: - Echocardiogram: 1. Study is of fair technical quality, underlying atrial fibrillation with slow ventricular response and intermittent ventricular pacing. 2. Normal left ventricular (LV) size with septal wall motion abnormality and overall mildly reduced left ventricular systolic function, estimated left ventricular ejection fraction (LVEF) 50%. 3. Aortic sclerosis with no stenosis and mild insufficiency. 4. Normally functional mitral prosthetic valve. 5. High central venous pressure and likely moderate pulmonary hypertension. 6. Moderate tricuspid insufficiency. 7. Echo artifact in right-sided heart chamber most likely consistent with right ventricle pacing lead. PROGNOSIS: Fair ACTIVITY: As tolerated. DIET: 2 gram sodium restriction DISCHARGE PLAN: Home to assisted living facility DISPOSITION: 01 Home, Self-Care. DISCHARGE INSTRUCTIONS: 1. Follow-up with your PCP in 7-10 days 2. Follow up with cardiology Dr Mortensen next week as scheduled 3. You had an echocardiogram during this admission and the results will be reviewed with you by your PCP and/or sheriff sergeant. 4. If your symptoms return or your condition worsens, please call your PCP or return to the ED for further evaluation. ITEMS TO FOLLOWUP ON ON OUTPATIENT: 1. Echocardiogram results DISCHARGE CONDITION: Stable. TIME SPENT ON DISCHARGE: Greater than 35 minutes. Vital Signs/I&Os Vital Signs Date Time Temp Pulse Resp B/P (MAP) Pulse Ox O2 Delivery O2 Flow Rate FiO2 11/27/20 06:39 98.2 62 18 126/54 (78) 94 Room Air I&O- Last 24 Hours up to 6 AM 02/02/20 06:00 Intake Total 220 ml Output Total 100 ml Balance 120 ml Laboratory Data Labs 24H Laboratory Tests 2 02/02/20 05:39: Prothrombin Time 30.1H, Prothromb Time International Ratio 2.79 Discharge Medications Scheduled Calcium Carbonate/Vitamin D3 (Calcium 500-Vit D3 200 Caplet) 1 Each Tablet, 1 TAB PO TID, (Reported) Cholecalciferol (Vitamin D3) (Vitamin D3) 125 Mcg Capsule, 125 MCG PO DAILY, (Reported) TAKES AT 1300 Docusate Sodium (Colace) 100 Mg Capsule, 100 MG PO BID, (Reported) Donepezil HCl (Aricept) 5 Mg Tab, 5 MG PO QHS, (Reported) Levothyroxine Sodium (Levothyroxine Sodium) 25 Mcg Tablet, 25 MCG PO DAILY, (Reported) Multivitamin (Multivitamins) 1 Each Capsule, 1 CAP PO QHS, (Reported) Potassium Chloride (Potassium Chloride) 10 Meq Tab.er.prt, 10 MEQ PO BID, (Reported) TAKES 0800 AND 1800 Salmeterol/Fluticasone (Advair 100-50 Diskus) 28 Puff/Inhaler Aerp, 1 PUFF INH BID, (Reported) Simvastatin (Simvastatin) 40 Mg Tab, 40 MG PO QHS, (Reported) Spironolactone (Spironolactone) 25 Mg Tab, 25 MG PO DAILY, (Reported) Torsemide (Torsemide) 100 Mg Tab, 100 MG PO DAILY, (Reported) Umeclidinium [place] (Incruse Ellipta) 62.5 Mcg Blst.w.dev, 1 PUFF PO QHS, ( Reported) Warfarin Sodium (Warfarin Sodium) 3 Mg Tablet, 3 MG PO QHS, (Reported) Scheduled PRN Acetaminophen (Tylenol) 325 Mg Tablet, 650 MG PO Q6H PRN for PAIN / FEVER, (Reported) Albuterol Sulf (Albuterol Sulfate) 2.5 Mg/3 Ml Vial.neb, 2.5 MG INH QID PRN for SOB/WHEEZING, (Reported) Ipratropium/Albuterol Sulfate (Iprat-Albut 0.5-3(2.5) mg/3 ml) 3 Ml Ampul.neb, 1 STEVE INH QID PRN for SHORTNESS OF BREATH, (Reported) Allergies Coded Allergies: Penicillins (Verified Allergy, Intermediate, rash, 01/31/20) chlorpromazine (Verified Allergy, Unknown, 01/31/20) codeine (Verified Adverse Reaction, Unknown, vomiting, 01/31/20) GME ATTESTATION GME ATTESTATION My faculty preceptor for this patient encounter was physically present during the encounter and was fully available. All aspects of the patient interview, examination, medical decision making process, and medical care plan development were reviewed and approved by the faculty preceptor. The faculty preceptor is aware and concurs with the plan as stated in the body of this note and will attest to such by his/her cosignature. MJ PENALOZA D.O. Feb 02, 2020 14:43
== END 2020-02-02 13:48 | disposition home or self-care (01) | DRG 309 ==
LOC: M ED 06:20 → M ED INP 10:38 → ENRESERV 10:53 → M MSPAV 12:13
PROVIDERS: ADMIT Internal Medicine; ATTEND Internal Medicine
DX: R00.1 Bradycardia, unspecified (principal); I50.32 Chronic diastolic (congestive) heart failure; I13.0 Hypertensive heart and chronic kidney disease with heart failure and stage 1 through stage 4 chronic kidney disease, or unspecified chronic kidney disease; R55 Syncope and collapse; N18.30 Chronic kidney disease, stage 3 unspecified; I48.91 Unspecified atrial fibrillation; G30.9 Alzheimer's disease, unspecified; Z95.0 Presence of cardiac pacemaker; F02.80 Dementia in other diseases classified elsewhere, unspecified severity, without behavioral disturbance, psychotic disturbance, mood disturbance, and anxiety; Z79.899 Other long term (current) drug therapy; Z88.0 Allergy status to penicillin; Z88.5 Allergy status to narcotic agent; Z88.8 Allergy status to other drugs, medicaments and biological substances; Z87.891 Personal history of nicotine dependence

== ENCOUNTER 2020-03-29 02:31 | Inpatient (IN) | payer MEDICARE, OTHER ==
[~2020-03-29] VITALS: Ht 162.6 cm; Wt 77.5 kg
--- OUTSIDE RECORDS SUMMARY | 2020-03-29 02:35 | CCD | Continuity of Care Document ---
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) Use O nset: 09/12/1996 Atrial fibrillation Onset: 09/12/1996 Contact dermatitis SHANNA Bernard Onset: 12/05/2010 Heart valve replacement SHANNA Bernard Onset: 3 Mitral valve disorder SHANNA Bernard Onset: 08/03/2012 Essential hypertension LORENA Puentes Onset: 3 Anticoagulant agent SHANNA Bernard Onset: 09/19/2014 Chronic atrial fibrillation Luiz Pereira MD Onset: Hypothyroidism Luiz Pereira MD Onset: 12/09/2016 Social History Type Date Description Comments Sex Unknown Tobacco Use Start: Unknown End: Unknown Patient is a former smoker Exercise Type/Frequency Exercises rarely Allergies, Adverse Reactions, Alerts Active Allergies Reaction Severity Comments Date WILMER Hernandez 02/03/2010 Thorazine 11/27/2015 Medications Active Medications SIG Qnty Indications Ordering Provide r Date Xopenex 0.63mg/3ML Nebulizer use four times daily prn for wheezing and shortness of breath. DX J44.9 36ml SHANNA Bernard 01/01/2020 [facility] Probiotic Capsules one twice daily while on antibiotics or if having diarrhea 30cap s Simi Cole [facility] 12/29/2019 Vitamin D3 Ultra Strength 125mcg (5000 Ut) Capsules 1 by mouth every day 90caps Simi Cole [facility] Nebulizer Kit/Tubing/Mouthpiece K it for use with nebulizer--use up to four times a day dx j44.9 1units Simi Cole [facility] 01/12/2019 Incruse Ellipta 62.5mcg/Inh Aeroso l inhale one puff by mouth daily 3units Simi Cole [facility] 019 Levothyroxine Sodium 25mcg Tablets 1 tablet by mouth every day 90tabs Simi Cole [facility] 12/09 Aricept 5mg Tablets 1 by mouth every day at bedtime 90tabs G30.1 Nicolas Espana M.D. 12/08/2016 Advair Diskus 100-50mcg/Dose Aeros ol inhale one puff by mouth twice a day 180units Simi Cole [facility] 10/13/2016 Colace 100mg Capsules 1 by mouth twice a day 180caps K59.00 LUL Beyer JR 017 Calcium 500+D [id number] Table ts 1 by mouth three times a day 270tabs Luiz Pereira MD Duoneb 0.5-2.5(3)mg/3ML Solution inhale the contents of one vial via nebulizer four times a day as needed for wheezing or shortness of breath 270ml R06.02 Simi Cole [facility] 07/21/19 17 Torsemide 100mg Tablets 1tablet by mouth daily 30tabs R60.0 Simi Cole [facility] 07/20/2016 Tylenol 325mg Capsules 2 by mouth every day as needed 180caps Simi Cole [facility] 05/22/2016 Albuterol Sulfate (2 .5mg/3ML) 0.083% Nebulizer q.i.d. prn via nebulizer dx J44.9 75ml ARVIND BernardP 09/27/2015 Coumadin 3mg Tablets take 1 tablet by mouth once a day as directed 90tabs Simi Cole [facility] Simvastatin 40mg Tablets take one tablet by mouth at bedtime 90tabs Simi Cole [facility] 09/11/2014 Multi-Vitamins Tablets 1 by mouth daily 90tabs Simi Cole, [facility] 09/20/2002 Spironolactone 25mg Tablets 1 by mouth every day Unknown Klor-Con M10 10Meq Tablets ER 2 by mouth every day Unknown Losartan Potassium 25mg Tablets 1 by mouth every day Unknown Ciprofloxacin HCL 500mg Tablets 1 tab by mouth twice daily Unknown Metronidazole 500mg Tablets one by mouth three times a day for 10 days Unknown Medications Administered in Office Medication SIG Qnty Indications Ordering Provider Date Administration Of Flu Vaccine Inj ection Simi Cole, [facility] 02/07/2019 Immunization Adminstration,1 Vaccine/Tox oid Injection Simi Cole, [facility] 07/07/2018 Administration Of Flu Vaccine Inj ection Simi Cole, [facility] 12/24/2017 Administration Of Flu Vaccine Inj ection Carleen Trimble [facility] 12/08/2016 Administration Of Flu Vaccine Inj ection Carleen Trimble, [facility] 12/19/2015 Administration Of Flu Vaccine Inj ection Luiz Pereira MD 12/20/2014 Administration Of Flu Vaccine Inj salmaion Luiz Pereira MD 12/28/2013 Administration Of Flu Vaccine Inj salmaion Luiz Pereira MD 12/18/2011 Administration Of Flu Vaccine Inj salmaion Luiz Pereira MD 12/16/2010 Administration Of Flu Vaccine Inj kay Pereira MD 12/12/2009 Administration Of Flu Vaccine Inj kay Pereira MD 12/13/2008 Administration Of Flu Vaccine Inj salmaion Luiz Pereira MD 01/10/2008 Administration Of Flu Vaccine Inj salmaion Luiz Pereira MD 12/23/2006 Administration Of Zostavax Injection Luiz Pereira MD 08/13/2006 Administration Of Flu Vaccine Inj ection LORENA Puentes 02/04/2006 Administration Of Flu Vaccine Inj ection Luiz Pereira MD 12/09/2004 Administration Of Flu Vaccine Inj ection ARVIND BernardP 12/25/2003 Administration Of Flu Vaccine Inj salmaion Luiz Pereira MD 01/09/2003 Administration Of Flu Vaccine Inj ection Simi [place], [employer] 12/13/2001 Immunizations CPT Code Status Date Vaccine Lot # [id number] Given 12/11/2019 Influenza,Unspecified 20644 Given 11/14/2019 PPD [id number] 38349 Given 02/07/2019 Influenza Vaccin e Quadrivalent Preser/Antibiotic Free Im Use [id number] 58400 Given 07/07/2018 Adacel- Tetanus Diphtheria P ertussis (Age64 & Under) [id number] 37336 Given 04/12/2018 Shingrix 56825 Given 02/01/2018 Shingrix 97199 Given 12/24/2017 Influenza Virus Vaccine, Quadrivalent ([id number]), Derived From 5 Given 12/08/2016 Influenza Vaccin e Quadrivalent Preser/Antibiotic Free Im Use [id number] Q2037 Given 12/19/2015 Fluvirin Virus Vaccine 32797 01 Q2037 Given 12/20/2014 Fluvirin Virus Vaccine 39011 01 90746 Given 05/22/2014 Prevnar 13 [id number] Q2037 Given 12/28/2013 Fluvirin Virus Vaccine 82916 21 Q2037 Given 12/18/2011 Fluvirin Virus Vaccine 69492 01 Q2037 Given 12/16/2010 Fluvirin Virus Vaccine Q2037 Given 12/16/2010 Fluvirin Virus Vaccine 22969 Given 12/12/2009 Influenza Virus Vaccine 05505 Given 01/29/2009 Pneumovax 23 10840 Given 12/13/2008 Influenza Virus Vaccine 64064 Given 01/10/2008 Influenza Virus Vaccine 03607 Given 12/23/2006 Influenza Virus Vaccine 09359 Given 08/13/2006 Zoster Vaccine 24198 Given 02/04/2006 Influenza Virus Vaccine 03411 Given 12/09/2004 Influenza Virus Vaccine 62905 Given 12/25/2003 Influenza Virus Vaccine 45394 Given 01/09/2003 Influenza Virus Vaccine 33988 Given 12/13/2001 Influenza Virus Vaccine 62377 Given 01/25/2001 Influenza Virus Vaccine 29345 Given 04/13/2000 Tetanus Toxoid U-Pneum Given 12/07/1999 Pneumococcal,Unspecified 21241 Given 12/26/1998 Influenza Virus Vaccine 13855 Given 12/30/1993 Influenza Virus Vaccine Vital Signs Date Vital Result Comment 01/04/2020 11:21am Heart Rate 82 /min Weight 163.00 lb O2 % BldC Oximetry 94 % 11/16/2019 1:40pm BP Systolic 130 mmHg BP Diastolic 50 mmHg Heart Rate 56 /min Body Temperature 98.4 F Respiratory Rate 14 /min Height 65.5 inches 5'5.50" Weight 147.00 lb O2 % BldC Oximetry 95 % BMI (Body Mass Index) 24.1 kg/m2 Results Test Acquired Date Facility Test Result H/L Range Note Laboratory test finding 01/31/2020 [facility] [address] [place] [address] [phone] iSTAT Troponin 0.01 NG/ML Normal 0.00-0.08 Istat Chem8+ Panel 01/31/2020 [facility] nter [address] [place] [address] [phone] iSTAT HCT 40.0 % Normal 38.0-51.0 iSTAT Glucose 89 mg/dL Normal 70-105 iSTAT Sodium 138 mEq/L Normal 136-145 iSTAT Potassium 3.7 mEq/L Normal 3.5-5.1 iSTAT CA++ 4.6 mg/dL Normal 4.5-5.3 iSTAT Chloride 98 mEq/L Normal 98-109 iSTAT Co2 32.0 MM/L High 23.0-27.0 iSTAT BUN 26 mg/dL Normal 8-26 iSTAT Creatinine 1.1 mg/dL Normal 0.6-1.3 Laboratory test finding 01/31/[address] [address] [phone] Bedside Glucose 83 mg/dL Normal 83-110 CBC With Differential 01/31/[address] [address] [phone] White Blood Count 8.5 10 Normal 4.0-10.0 Red Blood Count 4.35 10 Normal 4.00-5.40 Hemoglobin 13.0 g/dL Normal 12.0-15.5 Hematocrit 40.6 % Normal 36.0-47.0 Mean Corpuscular Volume 93.3 fl Normal 80.0-96.0 Mean Corpuscular Hemoglobin 29.9 pg Normal 27.0-33.0 Mean Corpuscular HGB Conc 32.0 g/dL Normal 32.0-36.5 Red Cell Distribution Width 15.2 % High 11.5-14.5 Platelet Count, Automated 194 10 Normal 150-450 Neutrophils % 65.5 % Normal 36.0-66.0 Lymph % 12.8 % Low 24.0-44.0 Bulloch % 18.0 % High 0.0-5.0 Eos % 2.2 % Normal 0.0-3.0 Baso % 1.1 % High 0.0-1.0 Immature Granulocyte % 0.4 % Normal 0-3.0 Nucleated Red Blood Cell % 0.0 % Normal 0-0 Neutrophils # 5.5 10 Normal 1.5-8.5 Lymph # 1.1 10 Low 1.5-5.0 Bulloch # 1.5 10 High 0.0-0.8 Eos # 0.2 10 Normal 0.0-0.5 Baso # 0.1 10 Normal 0.0-0.2 Laboratory test finding 01/31/2020 [facility] [address] [place] [address] [phone] Thyroid Stimulating Hormone 5.120 uIU/ML High 0. 358-3.740 Prothrombin Time/Inr 01/31/2020 [facility] enter [address] [place] [address] [phone] Prothrombin Time 26.5 seconds High 12.5-14.3 Inr 2.38 Normal 1 Complete Blood Count 01/10/2020 [facility] enter [address] [place] [address] [phone] White Blood Count 7.8 10 Normal 4.0-10.0 Red Blood Count 4.46 10 Normal 4.00-5.40 Hemoglobin 13.3 g/dL Normal 12.0-15.5 Hematocrit 41.6 % Normal 36.0-47.0 Mean Corpuscular Volume 93.3 fl Normal 80.0-96.0 Mean Corpuscular Hemoglobin 29.8 pg Normal 27.0-33.0 Mean Corpuscular HGB Conc 32.0 g/dL Normal 32.0-36.5 Red Cell Distribution Width 15.9 % High 11.5-14.5 Platelet Count, Automated 231 10 Normal 150-450 Nucleated Red Blood Cell % 0.0 % Normal 0-0 Comprehensive Metabolic Profil 01/10/2020 [facility] [address] [place] [address] [phone] Glucose, Fasting 99 mg/dL Normal 70-100 Blood Urea Nitrogen 21 mg/dL High 7-18 Creatinine For GFR 1.07 mg/dL Normal 0.55-1.30 Glomerular Filtration Rate 52.1 Normal >32 2 Sodium Level 136 mEq/L Normal 136-145 Potassium Serum 4.2 mEq/L Normal 3.5-5.1 Chloride Level 95 mEq/L Low 98-107 Carbon Dioxide Level 35 mEq/L High 21-32 Anion Gap 6 mEq/L Low 8-16 Calcium Level 10.1 mg/dL Normal 8.8-10.2 Ast/Sgot 32 U/L Normal 7-37 Alt/SGPT 23 U/L Normal 12-78 Alkaline Phosphatase 66 U/L Normal 45-117 Bilirubin,Total 0.7 mg/dL Normal 0.2-1.0 Total Protein 6.6 GM/DL Normal 6.4-8.2 Albumin 3.7 GM/DL Normal 3.2-5.2 Albumin/Globulin Ratio 1.3 Normal 1.2-2.2 Type & Screen -Incl Blood Type,Price,AB SC 12/26/[address] [address] [phone] Blood Type A POSITIVE Normal AB Screen (Indirect Jaylan)Vis NEGATIVE Normal Laboratory test finding 12/26/2019 [facility] [address] [place] [address] [phone] Lipase 157 U/L Normal 73-393 Thyroid Stimulating Hormone 3.480 uIU/ML Normal 0.358-3.740 Liver Profile 12/26/2019 [facility] nter [address] [place] [address] [phone] Ast/Sgot 23 U/L Normal 7-37 Alt/SGPT 24 U/L Normal 12-78 Alkaline Phosphatase 72 U/L Normal 45-117 Bilirubin,Total 1.2 mg/dL High 0.2-1.0 Bilirubin,Direct 0.4 mg/dL High 0.0-0.2 Total Protein 6.7 GM/DL Normal 6.4-8.2 Albumin 3.7 GM/DL Normal 3.2-5.2 Albumin/Globulin Ratio 1.2 Normal 1.2-2.2 Cardiac Marker Panel 12/26/2019 [facility] enter [address] [place] [address] [phone] CPK Creatine Phosphokinase 62 U/L Normal 26-19 2 CK-MB Value Mass < 1.0 NG/ML Normal <3.6 MB/CK Relative Index 1.61 Normal < Or =4 3 Troponin I < 0.02 NG/ML Normal < 0.10 4 Ua W/ Reflex To Culture 12/26/[address] [address] [phone] Appearance, Urine RFX CLEAR Normal Clear Color, Urine RFX YELLOW Normal Yellow PH,Urine RFX 6.0 units Normal 5.0-9.0 Specific Elizabeth Ur Auto RFX 1.012 Normal 1.002-1.035 Protein, Urine Auto RFX NEGATIVE mg/dL Normal Negative Glucose, Urine (Ua) Auto RFX NEGATIVE mg/dL Normal Negative Ketone, Urine Auto RFX NEGATIVE mg/dL Normal Negative Urobilinogen, Urine Auto RFX 0.2 mg/dL Normal 0.0-2.0 Bilirubin, Urine Auto RFX NEGATIVE Normal Negative Nitrite, Urine Auto RFX NEGATIVE Normal Negative Leukocyte Esterase Ur Auto RFX NEGATIVE Normal Negative Blood, Urine Blood RFX NEGATIVE Normal Negative WBC, Urine Auto RFX 1 /HPF Normal 0-3 RBC, Urine Auto RFX 1 /HPF Normal 0-3 Bacteria, Urine Auto RFX NEGATIVE Normal Negative Squam Epithelial Cell Ur Aurfx 0 /HPF Normal 0-6 Hyaline Cast, Urine Auto RFX 0 /LPF Normal 0-1 Laboratory test finding 12/26/2019 [address] [place] [address] [phone] Ammonia < 10 uMOL/L Normal <32 CBC With Differential 12/26/[address] [address] [phone] White Blood Count 14.2 10 High 4.0-10.0 Red Blood Count 4.35 10 Normal 4.00-5.40 Hemoglobin 13.1 g/dL Normal 12.0-15.5 Hematocrit 40.2 % Normal 36.0-47.0 Mean Corpuscular Volume 92.4 fl Normal 80.0-96.0 Mean Corpuscular Hemoglobin 30.1 pg Normal 27.0-33.0 Mean Corpuscular HGB Conc 32.6 g/dL Normal 32.0-36.5 Red Cell Distribution Width 15.3 % High 11.5-14.5 Platelet Count, Automated 178 10 Normal 150-450 Neutrophils % 75.0 % High 36.0-66.0 Lymph % 5.6 % Low 24.0-44.0 Bulloch % 17.9 % High 0.0-5.0 Eos % 0.5 % Normal 0.0-3.0 Baso % 0.4 % Normal 0.0-1.0 Immature Granulocyte % 0.6 % Normal 0-3.0 Nucleated Red Blood Cell % 0.0 % Normal 0-0 Neutrophils # 10.7 10 High 1.5-8.5 Lymph # 0.8 10 Low 1.5-5.0 Bulloch # 2.5 10 High 0.0-0.8 Eos # 0.1 10 Normal 0.0-0.5 Baso # 0.1 10 Normal 0.0-0.2 Istat PT/Inr 12/26/2019 [place] [address] [place], [place] [address] [phone] iSTAT Protime Seconds 31.3 seconds High 12.1-14. 4 iSTAT Inr 2.7 Normal Istat Chem8+ Panel 12/26/2019 [facility] nter [address] [place], [place] [address] [phone] iSTAT HCT 41.0 % Normal 38.0-51.0 iSTAT Glucose 107 mg/dL High 70-105 iSTAT Sodium 136 mEq/L Normal 136-145 iSTAT Potassium 3.9 mEq/L Normal 3.5-5.1 iSTAT CA++ 5.1 mg/dL Normal 4.5-5.3 iSTAT Chloride 95 mEq/L Low 98-109 iSTAT Co2 30.0 MM/L High 23.0-27.0 iSTAT BUN 30 mg/dL High 8-26 iSTAT Creatinine 1.2 mg/dL Normal 0.6-1.3 Laboratory test finding 12/26/2019 [facility] [address] [place], [place] [address] [phone] iSTAT Lactate 0.90 Normal 0.4-2.0 Laboratory test finding 12/26/2019 [facility] [address] [place] [address] [phone] iSTAT Troponin 0.02 NG/ML Normal 0.00-0.08 Complete Blood Count 11/16/2019 [facility] [employer] [facility] [employer] Super[employer] Finishing: [place] [address] [phone] WBC 7.4 x10*3/UL 4.1 - 10.9 RBC 5.02 x10*6/UL 4.20 - 6.30 Hemoglobin 14.8 g/dL 12.0 - 18.0 Hematocrit 44.4 % 37.0 - 51.0 MCV 88.5 fL 80.0 - 97.0 MCH 29.4 pg 26.0 - 32.0 MCHC 33.3 g/dL 31.0 - 38.0 RDW 14.3 % High 11.6 - 13.7 PLT 208 x10*3/UL 140 - 440 MPV 8.8 FL 7.8 - 11.0 Lymph % 16.7 % 10.0 - 58.5 Mid % 4.6 % 1.7 - 9.3 Neut % 78.7 % 37.0 - 92.0 Lymph # 1.2 x10*3/UL 0.6 - 4.1 Mid # 0.4 x10*3/UL 0.1 - 0.6 Neut # 5.8 x10*3/UL 2.0 - 7.8 Basic Metabolic Panel 11/16/2019 [facility] Super[facility] [employer] Finishing: [place] [address] [phone] Glucose 100 mg/dL High 74 - 99 5 BUN 24 mg/dL High 7 - 18 Creatinine 1.4 mg/dL High 0.6 - 1.3 Sodium 139 mEq/L 136 - 145 Potassium 4.3 mEq/L 3.5 - 5.1 Chloride 99 mEq/L 98 - 107 Carbon Dioxide 36 mEq/L High 21 - 32 Calcium 9.9 mg/dL 8.5 - 10.1 GFR 36 mL/min Low >60 GFR 44 mL/min Low >60 6 Laboratory test finding 11/16/2019 [place] [employer] [facility] [employer] Supervisor Pipe Finishing: [place] [address] [phone] Thyroid Stimulating Hormone 3.19 uIU/mL 0.3 6 - 3.74 Laboratory test finding 11/14/2019 Wi-Inr Inr 3.1 Laboratory test finding 10/17/2019 Wi-Inr Inr 2.5 Complete Blood Count 08/16/2019 [facility] [employer] Supervisor P[employer] Finishing: [place] [address] [phone] WBC 8.1 x10*3/UL 4.1 - 10.9 RBC 5.07 x10*6/UL 4.20 - 6.30 Hemoglobin 14.8 g/dL 12.0 - 18.0 Hematocrit 44.9 % 37.0 - 51.0 MCV 88.5 fL 80.0 - 97.0 MCH 29.3 pg 26.0 - 32.0 MCHC 33.1 g/dL 31.0 - 38.0 RDW 14.2 % High 11.6 - 13.7 PLT 206 x10*3/UL 140 - 440 MPV 8.7 FL 7.8 - 11.0 Lymph % 16.9 % 10.0 - 58.5 Mid % 4.7 % 1.7 - 9.3 Neut % 78.4 % 37.0 - 92.0 Lymph # 1.3 x10*3/UL 0.6 - 4.1 Mid # 0.5 x10*3/UL 0.1 - 0.6 Neut # 6.3 x10*3/UL 2.0 - 7.8 Basic Metabolic Panel 08/16/2019 [facility] Super[employer] Finishing: [place] [address] [phone] Glucose 76 mg/dL 74 - 99 7 BUN 22 mg/dL High 7 - 18 Creatinine 1.2 mg/dL 0.6 - 1.3 Sodium 144 mEq/L 136 - 145 Potassium 4.2 mEq/L 3.5 - 5.1 Chloride 104 mEq/L 98 - 107 Carbon Dioxide 33 mEq/L High 21 - 32 Calcium 9.7 mg/dL 8.5 - 10.1 GFR 43 mL/min Low >60 GFR 52 mL/min Low >60 8 Laboratory test finding 08/16/2019 [place] [facility] Super[employer] P[employer] Finishing: [place] [address] [phone] Magnesium 2.1 mg/dL 1.8 - 2.4 1 THERAPUTIC HUMAN INR VALUES INDICATIONS NORMAL RANGES PROPHYLAXIS/TREATMENT OF: VENOUS THROMBOSIS 2.0-3.0 PULMONARY EMBOLISM 2.0-3.0 PREVENTION OF SYSTEMIC EMBOLISM FROM: TISSUE HEART VALVES 2.0-3.0 ACUTE MYOCARDIAL INFARCTION 2.0-3.0 VALVULAR HEART DISEASE 2.0-3.0 ATRIAL FIBRILLATION 2.0-3.0 MECHANICAL VALVES(HIGH RISK) 2.5-3.5 RECURRENT MYOCARDIAL INFARCTION 2.5-3.5 2 Units are mL/min/1.73 m2 Chronic Kidney Disease Staging per NKF: Stage I & II GFR >=60 Normal to Mildly Decreased Stage III GFR 30-59 Moderately Decreased Stage IV GFR 15-29 Severely Decreased Stage V GFR <15 Very Little GFR Left ESRD GFR <15 on RN CARDIOLOGY 3 DIAGNOSIS CRITERIA MMB ng/ml Relative Index (RI) NON-AMI < or = 5 N/A CARLOS ZONE > 5 < or = 4 AMI > 5 > 4 4 Troponin I Reference Interva l for Siemens Enola LOCI: 99th Percentile= 0.00-0.045 ng/ml Risk Stratification: <= 0.10 ng/ml Decreased Risk for Adverse Clinical Events. 0.10-1.50 ng/ml Increased Risk for Adv erse Clinical Events. Evaluation of additional criterion and/or repeat testing in 2-6 hours is suggested to rule out myocardial damage. >= 1.50 ng/ml Indicative of Myocardial Injury. 5 100-125 mg/dL PRE-DIABET ES/FASTING >126 mg/dL DIABETES/FASTING 6 CHRONIC KIDNEY DISEASE STAGI NG PER NKF STAGE I & II GFR >= 60 NORMAL TO MILDLY DECREASED STAGE III GFR 30-59 MODERATELY DECREASED STAGE IV GFR 15-29 SEVERELY DECREASED STAGE V GFR <15 VERY LITTLE GFR LEFT ESRD GFR <15 ON RN CARDIOLOGY 7 100-125 mg/dL PRE-DIABET ES/FASTING >126 mg/dL DIABETES/FASTING 8 CHRONIC KIDNEY DISEASE STAGI NG PER NKF STAGE I & II GFR >= 60 NORMAL TO MILDLY DECREASED STAGE III GFR 30-59 MODERATELY DECREASED STAGE IV GFR 15-29 SEVERELY DECREASED STAGE V GFR <15 VERY LITTLE GFR LEFT ESRD GFR <15 ON RN CARDIOLOGY Procedures Date Code Description Status 11/02/2017 [id number] Diabetic Foot Exam Completed 04/15/2016 [id number] Mammogram Completed 03/22/2015 [id number] Mammogram Completed 03/21/2014 [id number] Mammogram Completed 03/20/2013 [id number] Mammogram Completed 01/25/2013 [id number] Diabetic Retinal Eye Exam Comple casey 08/17/2012 [id number] Bone Mineral Density Test Comple casey 03/17/2012 [id number] Mammogram Completed 03/12/2011 [id number] Mammogram Completed 08/15/2010 [id number] Bone Mineral Density Test Comple casey 03/11/2010 [id number] Mammogram Completed 03/06/2009 [id number] Mammogram Completed 03/05/2008 [id number] Bone Mineral Density Test Comple casey 12/28/2003 [id number] Colonoscopy Completed Medical Devices Description No Information Available Encounters Type Date Location Provider Dx Diagnosis Office Visit 01/04/2020 11:20a [facility] Simi Arcos [place], [place] K57.92 Dvtrcli of intest, part unsp, w/o perf o r abscess w/o bleed I50.41 Acute combined systolic and diastolic (congestive) hrt fail I13.0 Hyp hrt & chr kdny dis w hrt fail and stg 1-4/unsp chr kdny N18.31 Chronic kidney disease, stag e 3a J44.9 Chronic obstructive pulmonar y disease, unspecified I48.21 Permanent atrial fibrillatio n 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 heart valve Z79.01 senior care (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 a nticoagulants R26.89 Other abnormalities of gait and mobility Office Visit 11/16/2019 1:40p [facility] 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 N18.3 Chronic kidney disease, stag e 3 (moderate) J44.9 Chronic obstructive pulmonar y disease, unspecified G30.1 Alzheimer's disease with lat e onset F02.80 Dementia in oth diseases [facility] w/o behavrl disturb I48.21 Permanent atrial fibrillatio n Z79.01 senior care (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 a nticoagulants 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 heart valve Z13.89 Encounter for screening for other disorder Assessments Date Code Description Provider 01/04/2020 K57.92 Diverticulitis of in testine, part unspecified, without perforation or abscess without bleeding Simi Cole [facility] 01/04/2020 I50.41 Acute combined systo lic (congestive) and diastolic (congestive) heart failure SHANNA Bernard 01/04/2020 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 Simi Cole [facility] 01/04/2020 N18.31 Chronic kidney disease, stage 3a ARVIND BernardP 01/04/2020 J44.9 Chronic obstructive pulmonary di sease, unspecified Simi Cole [facility] 01/04/2020 I48.21 Permanent atrial fibrillation An n ARVIND ColeP 01/04/2020 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 Simi Cole [facility] 01/04/2020 Z79.01 watermaster (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 antic oagulants SHANNA Bernard 01/04/2020 R26.89 Other abnormalities of gait and mobility SHANNA Bernard 12/21/2019 J44.9 Chronic obstructive pulmonary di sease, unspecified Dee F. 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 Simi Cole, [facility] 11/16/2019 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 Simi Cole [facility] 11/16/2019 N18.3 Chronic kidney disease, stage 3 (moderate) Simi Cole [facility] 11/16/2019 J44.9 Chronic obstructive pulmonary di sease, unspecified Simi Cole [facility] 11/16/2019 G30.1 Alzheimer's disease with late on set Simi Cole [facility] 11/16/2019 F02.80 Dementia in other di seases classified elsewhere without behavioral disturbance Simi oCle [facility] 11/16/2019 I48.21 Permanent atrial fibrillation An carlos Cole [facility] 11/16/2019 Z79.01 senior care (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 antic oagulants Simi Cole [facility] 11/16/2019 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 Simi Cole [facility] 11/16/2019 I87.2 Venous insufficiency (chronic) ( peripheral) [facility] [facility] 11/14/2019 Z11.1 Encounter for screening for resp iratory tuberculosis Luiz Pereira MD 11/14/2019 I48.21 Permanent atrial fibrillation An carlos Cole [facility] 11/14/2019 I48.21 Permanent atrial fibrillation Pr otime 11/14/2019 Z51.81 Encounter for therapeutic drug l evel monitoring Simi Cole [facility] 11/14/2019 Z51.81 Encounter for therapeutic drug l evel monitoring Protime 11/14/2019 Z79.01 watermaster (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 antic oagulants Simi Cole, [facility] 11/14/2019 Z79.01 watermaster (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 antic oagulants Protime 10/17/2019 I48.21 Permanent atrial fibrillation An n Kita Lott, [facility] 10/17/2019 I48.21 Permanent atrial fibrillation Pr otime 10/17/2019 Z51.81 Encounter for therapeutic drug l evel monitoring Simi Kita Oren, [facility] 10/17/2019 Z79.01 watermaster (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 antic oagulants Simi Cole, [facility] 10/12/2019 I10 Essential (primary) hypertension Luiz Pereira MD 10/12/2019 N18.3 Chronic kidney disease, stage 3 (moderate) Luiz Pereira MD 10/12/2019 J44.9 Chronic obstructive pulmonary di sease, unspecified Luiz Pereira MD 10/12/2019 G30.1 Alzheimer's disease with late on set Luiz Pereira MD 09/07/2019 N18.3 Chronic kidney disease, stage 3 (moderate) Luiz Pereira MD 09/07/2019 J44.9 Chronic obstructive pulmonary di sease, unspecified Luiz Pereira MD 09/07/2019 G30.1 Alzheimer's disease with late on set Luiz Pereira MD 09/07/2019 I10 Essential (primary) hypertension Luiz Pereira MD 08/16/2019 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 Simi Cole, [facility] 08/16/2019 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 Simi Cole, [facility] 08/16/2019 N18.3 Chronic kidney disease, stage 3 (moderate) iSmi Cole [facility] 08/16/2019 J44.9 Chronic obstructive pulmonary di sease, unspecified Simi Cole [facility] 08/16/2019 G30.1 Alzheimer's disease with late on set Simi Cole, [facility] 08/16/2019 F02.80 Dementia in other di seases classified elsewhere without behavioral disturbance Simi Cole [facility] 08/16/2019 I48.21 Permanent atrial fibrillation An n Kita Lott, [facility] 08/16/2019 Z79.01 senior care (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 antic oagulants Simi Kita Lott [facility] 08/16/2019 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 01/04/2020 - SHANNA Bernard* K57.92 Diverticulitis of intestine, part unspecified, without perforation or abscess without bleeding * I50.41 Acute combined systolic (congestive) and diastolic (congestive) heart failure* New Orders:* CBC and CMP, Scheduled: 01/10/20 * Comments:* will increase Torsemide to 100mg daily.will arrange for [facility] to evaluate. 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 * N18.31 Chronic kidney disease, stage 3a * J44.9 Chronic obstructive pulmonary disease, unspecified* Comments:* will request BMP in one week. * I48.21 Permanent atrial fibrillation* Comments:* Rate controlled. * 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 heart valve * Z79.01 watermaster (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 anticoagulants* Comments:* INR completed at home. Has been supratherapeutic due to interaction of Warfarin and Metronidazole. Verbal instructions given. Signs and symptoms to report re viewed. No evidence of thromboembolic or bleeding events. * R26.89 Other abnormalities of gait and mobility* New Orders:* Physical Therapy, Ordered: 01/04/20 * Comments:* will request home physical therapy. * All * Comments:* Will need FRANCIE.Tried to discuss MOLST and advance directives.Booklet "hard choices for loving people" given. Functional Status Description No Information Available Mental Status Description No Information Available Referrals Description No Information Available
--- OUTSIDE RECORDS SUMMARY | 2020-03-29 02:36 | CCD | Continuity of Care Document ---
Author Organization Unknown Address Unknown Phone Unavailable Care Team Providers Care Macaroni Maker Name Role Phone Luiz Pereira JR, MD AUTM Unavailable Kaylee Pop AUTM [phone] David Foster MD AUTM [phone] Richie Zapien MD AUTM [phone] Simi Molina AUTM [phone] [place] AT [facility] AUTM [phone] Problems Active Problems Provider Date Anticoagulants Sketcher (Current) Use O nset: 09/12/1996 Atrial fibrillation [...] breath. DX J44.9 36ml SHANNA Bernard 01/01/2020 [facility] Probiotic Capsules one twice daily while on antibiotics or if having diarrhea 30cap s Simi Cole [facility] 12/29/2019 Vitamin D3 Ultra Strength 125mcg (5000 Ut) Capsules 1 by mouth every day 90caps Simi Cole [facility] Nebulizer Kit/Tubing/Mouthpiece K it for use with nebulizer--use up to four times a day dx j44.9 1units Simi Cole [facility] 01/12/2019 Incruse Ellipta 62.5mcg/Inh Aeroso l inhale one puff by mouth daily 3units Simi Cole [facility] 019 Levothyroxine Sodium 25mcg Tablets 1 tablet by mouth every day 90tabs Simi Cole [facility] 12/09 Aricept 5mg Tablets 1 by mouth every day at bedtime 90tabs G30.1 Nicolas Espana M.D. 12/08/2016 Advair Diskus 100-50mcg/Dose Aeros ol inhale one puff by mouth twice a day 180units Simi Cole [facility] 10/13/2016 Colace 100mg Capsules 1 by mouth twice a day 180caps K59.00 LUL Beyer JR 017 Calcium 500+D [id number] Table ts 1 by mouth three times a day 270tabs Luiz Pereira MD Duoneb 0.5-2.5(3)mg/3ML Solution inhale the contents of one vial via nebulizer four times a day as needed for wheezing or shortness of breath 270ml R06.02 Simi Cole [facility] 07/21/19 17 Torsemide 100mg Tablets 1tablet by mouth daily 30tabs R60.0 Simi Cole [facility] 07/20/2016 Tylenol 325mg Capsules 2 by mouth every day as needed 180caps Simi Cole [facility] 05/22/2016 Albuterol Sulfate (2 .5mg/3ML) 0.083% Nebulizer q.i.d. prn via nebulizer dx J44.9 75ml ARVIND BernardP 09/27/2015 Coumadin 3mg Tablets take 1 tablet by mouth once a day as directed 90tabs Simi Cole [facility] Simvastatin 40mg Tablets take one tablet by mouth at bedtime 90tabs Simi Cole [facility] 09/11/2014 Multi-Vitamins Tablets 1 by mouth daily 90tabs Simi Cole, [facility] 09/20/2002 Spironolactone 25mg Tablets 1 by mouth [...] Of Flu Vaccine Inj ection Simi Cole, [facility] 02/07/2019 Immunization Adminstration,1 Vaccine/Tox oid Injection Simi Cole, [facility] 07/07/2018 Administration Of Flu Vaccine Inj ection Simi Cole, [facility] 12/24/2017 Administration Of Flu Vaccine Inj ection Carleen Trimble [facility] 12/08/2016 Administration Of Flu Vaccine Inj ection Carleen Trimble, [facility] 12/19/2015 Administration Of Flu Vaccine Inj ection Luiz Pereira MD 12/20/2014 Administration Of Flu Vaccine Inj salmaion Luiz Pereira MD 12/28/2013 Administration Of Flu Vaccine Inj salmaion Luiz Pereira MD 12/18/2011 Administration Of Flu Vaccine Inj salmaion Luiz Pereira MD 12/16/2010 Administration Of Flu Vaccine Inj kya Pereira MD 12/12/2009 Administration Of Flu Vaccine [...] Of Flu Vaccine Inj ection Simi Le Louisa, [employer] 12/13/2001 Immunizations CPT Code Status Date Vaccine Lot # U-Flu Given 12/11/2019 Influenza,Unspecified 96632 Given 11/14/2019 PPD [id number] 29165 Given 02/07/2019 Influenza Vaccin e Quadrivalent Preser/Antibiotic Free Im Use [id number] 97998 Given 07/07/2018 Adacel- Tetanus Diphtheria P ertussis (Age64 & Under) [id number] 47766 Given 04/12/2018 Shingrix 59872 Given 02/01/2018 Shingrix 72643 Given 12/24/2017 Influenza Virus Vaccine, Quadrivalent ([id number]), Derived From 8 Given 12/08/2016 Influenza Vaccin e Quadrivalent Preser/Antibiotic Free Im Use 105176 Q2037 Given 12/19/2015 Fluvirin Virus Vaccine 45809 01 Q2037 Given 12/20/2014 Fluvirin Virus Vaccine 59453 01 83916 Given 05/22/2014 Prevnar 13 [id number] Q2037 Given 12/28/2013 Fluvirin Virus Vaccine 23904 21 Q2037 Given 12/18/2011 Fluvirin Virus Vaccine 59043 01 Q2037 Given 12/16/2010 Fluvirin Virus Vaccine Q2037 Given 12/16/2010 Fluvirin Virus Vaccine 58332 Given 12/12/2009 Influenza Virus Vaccine 57804 Given 01/29/2009 Pneumovax 23 20420 Given 12/13/2008 Influenza Virus Vaccine 99457 Given 01/10/2008 Influenza Virus Vaccine 27062 Given 12/23/2006 Influenza Virus Vaccine 91984 Given 08/13/2006 Zoster Vaccine 61599 Given 02/04/2006 Influenza Virus Vaccine 23257 Given 12/09/2004 Influenza Virus Vaccine 27792 Given 12/25/2003 Influenza Virus Vaccine 64119 Given 01/09/2003 Influenza Virus Vaccine 02373 Given 12/13/2001 Influenza Virus Vaccine 18830 Given 01/25/2001 Influenza Virus Vaccine 75872 Given 04/13/2000 Tetanus Toxoid U-Pneum Given 12/07/1999 Pneumococcal,Unspecified 81985 Given 12/26/1998 Influenza Virus Vaccine 24567 Given 12/30/1993 Influenza Virus Vaccine Vital Signs [...] H/L Range Note Laboratory test finding 01/31/2020 [facility] [address] [place] [address] [phone] iSTAT Troponin 0.01 NG/ML Normal 0.00-0.08 Istat Chem8+ Panel 01/31/2020 [facility] nter [address] [place] [address] [phone] iSTAT HCT 40.0 % Normal 38.0-51.0 iSTAT Glucose 89 mg/dL Normal 70-105 iSTAT Sodium 138 mEq/L Normal 136-145 iSTAT Potassium 3.7 mEq/L Normal 3.5-5.1 iSTAT CA++ 4.6 mg/dL Normal 4.5-5.3 iSTAT Chloride 98 mEq/L Normal 98-109 iSTAT Co2 32.0 MM/L High 23.0-27.0 iSTAT BUN 26 mg/dL Normal 8-26 iSTAT Creatinine 1.1 mg/dL Normal 0.6-1.3 Laboratory test finding 01/31/[address] [address] [phone] Bedside Glucose 83 mg/dL Normal 83-110 CBC With Differential 01/31/[address] [address] [phone] White Blood Count 8.5 10 Normal 4.0-10.0 [...] 36.0-66.0 Lymph % 12.8 % Low 24.0-44.0 Scurry % 18.0 % High 0.0-5.0 Eos % 2.2 % Normal 0.0-3.0 Baso % 1.1 % High 0.0-1.0 Immature Granulocyte % 0.4 % Normal 0-3.0 Nucleated Red Blood Cell % 0.0 % Normal 0-0 Neutrophils # 5.5 10 Normal 1.5-8.5 Lymph # 1.1 10 Low 1.5-5.0 Scurry # 1.5 10 High 0.0-0.8 Eos # 0.2 10 Normal 0.0-0.5 Baso # 0.1 10 Normal 0.0-0.2 Laboratory test finding 01/31/2020 [facility] [address] [place] [address] [phone] Thyroid Stimulating Hormone 5.120 uIU/ML High 0. 358-3.740 Prothrombin Time/Inr 01/31/2020 [facility] enter [address] [place] [address] [phone] Prothrombin Time 26.5 seconds High 12.5-14.3 Inr 2.38 Normal 1 Complete Blood Count 01/10/2020 [facility] enter [address] [place] [address] [phone] White Blood Count 7.8 10 Normal 4.0-10.0 [...] % Normal 0-0 Comprehensive Metabolic Profil 01/10/2020 [facility] [address] [place] [address] [phone] Glucose, Fasting 99 mg/dL Normal 70-100 Blood [...] & Screen -Incl Blood Type,Price,AB SC 12/26/[address] [address] [phone] Blood Type A POSITIVE Normal AB Screen (Indirect Jaylan)Vis NEGATIVE Normal Laboratory test finding 12/26/2019 [facility] [address] [place] [address] [phone] Lipase 157 U/L Normal 73-393 Thyroid Stimulating Hormone 3.480 uIU/ML Normal 0.358-3.740 Liver Profile 12/26/2019 [facility] nter [address] [place] [address] [phone] Ast/Sgot 23 U/L Normal 7-37 Alt/SGPT 24 U/L Normal 12-78 Alkaline Phosphatase 72 U/L Normal 45-117 Bilirubin,Total 1.2 mg/dL High 0.2-1.0 Bilirubin,Direct 0.4 mg/dL High 0.0-0.2 Total Protein 6.7 GM/DL Normal 6.4-8.2 Albumin 3.7 GM/DL Normal 3.2-5.2 Albumin/Globulin Ratio 1.2 Normal 1.2-2.2 Cardiac Marker Panel 12/26/2019 [facility] enter [address] [place] [address] [phone] CPK Creatine Phosphokinase 62 U/L Normal 26-19 2 CK-MB Value Mass < 1.0 NG/ML Normal <3.6 MB/CK Relative Index 1.61 Normal < Or =4 3 Troponin I < 0.02 NG/ML Normal < 0.10 4 Ua W/ Reflex To Culture 12/26/[address] [address] [phone] Appearance, Urine RFX CLEAR Normal Clear Color, Urine RFX YELLOW Normal Yellow PH,Urine RFX 6.0 units Normal 5.0-9.0 Specific [place] Ur Auto RFX 1.012 Normal 1.002-1.035 Protein, [...] /LPF Normal 0-1 Laboratory test finding 12/26/2019 [address] [place] [address] [phone] Ammonia < 10 uMOL/L Normal <32 CBC With Differential 12/26/[address] [address] [phone] White Blood Count 14.2 10 High 4.0-10.0 [...] 36.0-66.0 Lymph % 5.6 % Low 24.0-44.0 Scurry % 17.9 % High 0.0-5.0 Eos % 0.5 % Normal 0.0-3.0 Baso % 0.4 % Normal 0.0-1.0 Immature Granulocyte % 0.6 % Normal 0-3.0 Nucleated Red Blood Cell % 0.0 % Normal 0-0 Neutrophils # 10.7 10 High 1.5-8.5 Lymph # 0.8 10 Low 1.5-5.0 Scurry # 2.5 10 High 0.0-0.8 Eos # 0.1 10 Normal 0.0-0.5 Baso # 0.1 10 Normal 0.0-0.2 Istat PT/Inr 12/26/2019 [address] [place], [place] [address] [phone] iSTAT Protime Seconds 31.3 seconds High 12.1-14. 4 iSTAT Inr 2.7 Normal Istat Chem8+ Panel 12/26/2019 [facility] nter [address] [place], [place] [address] [phone] iSTAT HCT 41.0 % Normal 38.0-51.0 iSTAT Glucose 107 mg/dL High 70-105 iSTAT Sodium 136 mEq/L Normal 136-145 iSTAT Potassium 3.9 mEq/L Normal 3.5-5.1 iSTAT CA++ 5.1 mg/dL Normal 4.5-5.3 iSTAT Chloride 95 mEq/L Low 98-109 iSTAT Co2 30.0 MM/L High 23.0-27.0 iSTAT BUN 30 mg/dL High 8-26 iSTAT Creatinine 1.2 mg/dL Normal 0.6-1.3 Laboratory test finding 12/26/2019 [facility] [address] [place], [place] [address] [phone] iSTAT Lactate 0.90 Normal 0.4-2.0 Laboratory test finding 12/26/2019 [facility] [address] [place] [address] [phone] iSTAT Troponin 0.02 NG/ML Normal 0.00-0.08 Complete Blood Count 11/16/2019 [facility] Pipe Processor: [place] [address] [phone] WBC 7.4 x10*3/UL 4.1 - 10.9 RBC [...] 2.0 - 7.8 Basic Metabolic Panel 11/16/2019 [facility] Pipe Processor: [place] [address] [phone] Glucose 100 mg/dL High 74 - 99 [...] Low >60 6 Laboratory test finding 11/16/2019 [facility] [employer] [employer] [facility] [employer] Pipe Processor: [place] [address] [phone] Thyroid Stimulating Hormone 3.19 uIU/mL 0.3 6 - 3.74 Laboratory test finding 11/14/2019 [facility] Inr 3.1 Laboratory test finding 10/17/2019 [facility] Inr 2.5 Complete Blood Count 08/16/2019 [facility] [facility] Pipe Processor: [place] [address] [phone] WBC 8.1 x10*3/UL 4.1 - 10.9 RBC [...] 2.0 - 7.8 Basic Metabolic Panel 08/16/2019 [facility] Pipe Processor: [place] [address] [phone] Glucose 76 mg/dL 74 - 99 7 [...] Low >60 8 Laboratory test finding 08/16/2019 [facility] Pipe Processor: [place] [address] [phone] Magnesium 2.1 mg/dL 1.8 - 2.4 1 [...] Little GFR Left ESRD GFR <15 on BRAILLE TRANSLATOR 3 DIAGNOSIS CRITERIA MMB ng/ml Relative Index (RI) NON-AMI < or = 5 N/A CARLOS ZONE > 5 < or = 4 AMI > 5 > 4 4 Troponin I Reference Interva l for Siemens Piru LOCI: 99th Percentile= 0.00-0.045 ng/ml Risk Stratification: [...] LITTLE GFR LEFT ESRD GFR <15 ON BRAILLE TRANSLATOR 7 100-125 mg/dL PRE-DIABET ES/FASTING >126 mg/dL DIABETES/FASTING 8 CHRONIC KIDNEY DISEASE STAGI NG PER NKF STAGE I & II GFR >= 60 NORMAL TO MILDLY DECREASED STAGE III GFR 30-59 MODERATELY DECREASED STAGE IV GFR 15-29 SEVERELY DECREASED STAGE V GFR <15 VERY LITTLE GFR LEFT ESRD GFR <15 ON BRAILLE TRANSLATOR Procedures Date Code Description Status 11/02/2017 [id number] Diabetic Foot Exam Completed 04/15/2016 [id number] Mammogram Completed 03/22/2015 [id number] Mammogram Completed 03/21/2014 [id number] Mammogram Completed 03/20/2013 [id number] Mammogram Completed 01/25/2013 [id number] Diabetic Retinal Eye Exam Comple casey 08/17/2012 [id number] Bone Mineral Density Test Comple casey 03/17/2012 [id number] Mammogram Completed 03/12/2011 [id number] Mammogram Completed 08/15/2010 [id number] Bone Mineral Density Test Comple casey 03/11/2010 [id number] Mammogram Completed 03/06/2009 [id number] Mammogram Completed 03/05/2008 [id number] Bone Mineral Density Test Comple casey 12/28/2003 [id number] Colonoscopy Completed Medical Devices Description No Information Available Encounters Type Date Location Provider Dx Diagnosis Office Visit 01/04/2020 11:20a [facility] 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 an d diastolic hrt fail N18.3 Chronic kidney disease, stag e 3 (moderate) J44.9 Chronic obstructive pulmonar y disease, unspecified G30.1 Alzheimer's disease with lat e onset F02.80 Dementia in oth diseases [facility] w/o behavrl disturb I48.21 Permanent atrial fibrillatio n Z79.01 USP (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 a nticoagulants 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 heart valve Z13.89 Encounter for screening for other disorder Assessments Date Code Description Provider 01/04/2020 K57.92 Diverticulitis of in testine, part unspecified, without perforation or abscess without bleeding Simi Cole [facility] 01/04/2020 I50.41 Acute combined systo lic (congestive) and diastolic (congestive) heart failure SHANNA Bernard 01/04/2020 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 Simi Cole [facility] 01/04/2020 N18.31 Chronic kidney disease, stage 3a ARVIND BernardP 01/04/2020 J44.9 Chronic obstructive pulmonary di sease, unspecified Simi oCle [facility] 01/04/2020 I48.21 Permanent atrial fibrillation An n ARVIND ColeP 01/04/2020 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 Simi Cole [facility] 01/04/2020 Z79.01 medical terminologist (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 antic oagulants SHANNA Bernard [...] MD 11/17/2019 I10 Essential (primary) hypertension Luiz Pereira MD 11/16/2019 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 Simi Cole, [facility] 11/16/2019 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 Simi Cole [facility] 11/16/2019 N18.3 Chronic kidney disease, stage 3 (moderate) Simi Cole [facility] 11/16/2019 J44.9 Chronic obstructive pulmonary di sease, unspecified Simi Cole [facility] 11/16/2019 G30.1 Alzheimer's disease with late on set Simi Cole [facility] 11/16/2019 F02.80 Dementia in other di seases classified elsewhere without behavioral disturbance Simi Cole [facility] 11/16/2019 I48.21 Permanent atrial fibrillation An carlos Cole [facility] 11/16/2019 Z79.01 USP (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 antic oagulants Simi Cole [facility] 11/16/2019 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 Simi Cole [facility] 11/16/2019 I87.2 Venous insufficiency (chronic) ( peripheral) Simi Cole [facility] 11/14/2019 Z11.1 Encounter for screening for resp iratory tuberculosis Luiz Pereira MD 11/14/2019 I48.21 Permanent atrial fibrillation An carlos Cole [facility] 11/14/2019 I48.21 Permanent atrial fibrillation Pr otime 11/14/2019 Z51.81 Encounter for therapeutic drug l evel monitoring Simi Cole [facility] 11/14/2019 Z51.81 Encounter for therapeutic drug l evel monitoring Protime 11/14/2019 Z79.01 medical terminologist (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 antic oagulants Simi Cole, [facility] 11/14/2019 Z79.01 medical terminologist (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 antic oagulants Protime 10/17/2019 I48.21 Permanent atrial fibrillation An n Kita Lott, [facility] 10/17/2019 I48.21 Permanent atrial fibrillation Pr otime 10/17/2019 Z51.81 Encounter for therapeutic drug l evel monitoring Simi Kita Oren, [facility] 10/17/2019 Z79.01 medical terminologist (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 antic oagulants Simi Cole, [facility] 10/12/2019 I10 Essential (primary) hypertension Luiz Pereira [...] idney disease with heart chris Simi Cole, [facility] 08/16/2019 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 Simi Cole, [facility] 08/16/2019 N18.3 Chronic kidney disease, stage 3 (moderate) Simi Cole [facility] 08/16/2019 J44.9 Chronic obstructive pulmonary di sease, unspecified Simi Cole [facility] 08/16/2019 G30.1 Alzheimer's disease with late on set Simi Cole, [facility] 08/16/2019 F02.80 Dementia in other di seases classified elsewhere without behavioral disturbance Simi Cole [facility] 08/16/2019 I48.21 Permanent atrial fibrillation An n Kita Lott, [facility] 08/16/2019 Z79.01 USP (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 antic oagulants Simi Kita Lott [facility] 08/16/2019 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 01/04/2020 - SHANNA Bernard* K57.92 Diverticulitis of intestine, part unspecified, without perforation or abscess without bleeding * I50.41 Acute combined systolic (congestive) and diastolic (congestive) heart failure* New Orders:* CBC and CMP, Scheduled: 01/10/20 * Comments:* will increase Torsemide to 100mg daily.will arrange for [facility] to evaluate. 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 * N18.31 Chronic kidney disease, stage 3a * J44.9 Chronic obstructive pulmonary disease, unspecified* Comments:* will request BMP in one week. * I48.21 Permanent atrial fibrillation* Comments:* Rate controlled. * 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 heart valve * Z79.01 medical terminologist (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 anticoagulants* Comments:* INR completed [...]
--- OUTSIDE RECORDS SUMMARY | 2020-03-29 02:36 | CCD | Continuity of Care Document ---
Author Organization Unknown Address Unknown Phone Unavailable Care Team Providers Care Janitor Name Role Phone Luiz Pereira JR, MD AUTM Unavailable Kaylee Pop AUTM [phone] David Foster MD AUTM [phone] Richie Zapien MD AUTM [phone] Simi Molina AUTM [phone] [place] AT [facility] AUTM [phone] Problems Active Problems Provider Date Anticoagulants Bicycle Messenger (Current) Use O nset: 09/12/1996 Atrial fibrillation [...] breath. DX J44.9 36ml SHANNA Bernard 01/01/2020 [facility] Probiotic Capsules one twice daily while on antibiotics or if having diarrhea 30cap s Simi Cole [facility] 12/29/2019 Vitamin D3 Ultra Strength 125mcg (5000 Ut) Capsules 1 by mouth every day 90caps Simi Cole [facility] Nebulizer Kit/Tubing/Mouthpiece K it for use with nebulizer--use up to four times a day dx j44.9 1units Simi Cole [facility] 01/12/2019 Incruse Ellipta 62.5mcg/Inh Aeroso l inhale one puff by mouth daily 3units Simi Cole [facility] 019 Levothyroxine Sodium 25mcg Tablets 1 tablet by mouth every day 90tabs Simi Cole [facility] 12/09 Aricept 5mg Tablets 1 by mouth every day at bedtime 90tabs G30.1 Nicolas Espana M.D. 12/08/2016 Advair Diskus 100-50mcg/Dose Aeros ol inhale one puff by mouth twice a day 180units Simi Cole [facility] 10/13/2016 Colace 100mg Capsules 1 by mouth twice a day 180caps K59.00 LUL Beyer JR 017 Calcium 500+D [id number] Table ts 1 by mouth three times a day 270tabs Luiz Pereira MD Duoneb 0.5-2.5(3)mg/3ML Solution inhale the contents of one vial via nebulizer four times a day as needed for wheezing or shortness of breath 270ml R06.02 Simi Cole [facility] 07/21/19 17 Torsemide 100mg Tablets 1tablet by mouth daily 30tabs R60.0 Simi Cole [facility] 07/20/2016 Tylenol 325mg Capsules 2 by mouth every day as needed 180caps Simi Cole [facility] 05/22/2016 Albuterol Sulfate (2 .5mg/3ML) 0.083% Nebulizer q.i.d. prn via nebulizer dx J44.9 75ml ARVIND BernardP 09/27/2015 Coumadin 3mg Tablets take 1 tablet by mouth once a day as directed 90tabs Simi Cole [facility] Simvastatin 40mg Tablets take one tablet by mouth at bedtime 90tabs Simi Cole [facility] 09/11/2014 Multi-Vitamins Tablets 1 by mouth daily 90tabs Simi Cole, [facility] 09/20/2002 Spironolactone 25mg Tablets 1 by [...] Of Flu Vaccine Inj ection Simi Cole, [facility] 02/07/2019 Immunization Adminstration,1 Vaccine/Tox oid Injection Simi Cole, [facility] 07/07/2018 Administration Of Flu Vaccine Inj ection Simi Cole, [facility] 12/24/2017 Administration Of Flu Vaccine Inj ection Carleen Trimble [facility] 12/08/2016 Administration Of Flu Vaccine Inj ection Carleen Trimble, [facility] 12/19/2015 Administration Of Flu Vaccine Inj [...] Of Flu Vaccine Inj ection Simi Le Moore, [employer] 12/13/2001 Immunizations CPT Code Status Date Vaccine Lot # U-Flu Given 12/11/2019 Influenza,Unspecified 51814 Given 11/14/2019 PPD [id number] 48224 Given 02/07/2019 Influenza Vaccin e Quadrivalent Preser/Antibiotic Free Im Use [id number] 61513 Given 07/07/2018 Adacel- Tetanus Diphtheria P ertussis (Age64 & Under) [id number] 11460 Given 04/12/2018 Shingrix 41480 Given 02/01/2018 Shingrix 97794 Given 12/24/2017 Influenza Virus Vaccine, Quadrivalent ([id number]), Derived From 3 Given 12/08/2016 Influenza Vaccin e Quadrivalent Preser/Antibiotic Free Im Use [id number] Q2037 Given 12/19/2015 Fluvirin Virus Vaccine 51564 01 Q2037 Given 12/20/2014 Fluvirin Virus Vaccine 07891 01 71322 Given 05/22/2014 Prevnar 13 [id number] Q2037 Given 12/28/2013 Fluvirin Virus Vaccine 52918 21 Q2037 Given 12/18/2011 Fluvirin Virus Vaccine 52973 01 Q2037 Given 12/16/2010 Fluvirin Virus Vaccine Q2037 Given 12/16/2010 Fluvirin Virus Vaccine 65686 Given 12/12/2009 Influenza Virus Vaccine 72726 Given 01/29/2009 Pneumovax 23 73747 Given 12/13/2008 Influenza Virus Vaccine 99964 Given 01/10/2008 Influenza Virus Vaccine 01384 Given 12/23/2006 Influenza Virus Vaccine 30296 Given 08/13/2006 Zoster Vaccine 60767 Given 02/04/2006 Influenza Virus Vaccine 54632 Given 12/09/2004 Influenza Virus Vaccine 99203 Given 12/25/2003 Influenza Virus Vaccine 70321 Given 01/09/2003 Influenza Virus Vaccine 45865 Given 12/13/2001 Influenza Virus Vaccine 32100 Given 01/25/2001 Influenza Virus Vaccine 67539 Given 04/13/2000 Tetanus Toxoid U-Pneum Given 12/07/1999 Pneumococcal,Unspecified 90255 Given 12/26/1998 Influenza Virus Vaccine 00972 Given 12/30/1993 Influenza Virus Vaccine Vital Signs [...] H/L Range Note Laboratory test finding 01/31/2020 [facility] [address] [place] [address] [phone] iSTAT Troponin 0.01 NG/ML Normal 0.00-0.08 Istat Chem8+ Panel 01/31/2020 [facility] nter [address] [place] [address] [phone] iSTAT HCT 40.0 % Normal 38.0-51.0 iSTAT Glucose 89 mg/dL Normal 70-105 iSTAT Sodium 138 mEq/L Normal 136-145 iSTAT Potassium 3.7 mEq/L Normal 3.5-5.1 iSTAT CA++ 4.6 mg/dL Normal 4.5-5.3 iSTAT Chloride 98 mEq/L Normal 98-109 iSTAT Co2 32.0 MM/L High 23.0-27.0 iSTAT BUN 26 mg/dL Normal 8-26 iSTAT Creatinine 1.1 mg/dL Normal 0.6-1.3 Laboratory test finding 01/31/[address] [address] [phone] Bedside Glucose 83 mg/dL Normal 83-110 CBC With Differential 01/31/[address] [address] [phone] White Blood Count 8.5 10 Normal 4.0-10.0 [...] 36.0-66.0 Lymph % 12.8 % Low 24.0-44.0 Kay % 18.0 % High 0.0-5.0 Eos % 2.2 % Normal 0.0-3.0 Baso % 1.1 % High 0.0-1.0 Immature Granulocyte % 0.4 % Normal 0-3.0 Nucleated Red Blood Cell % 0.0 % Normal 0-0 Neutrophils # 5.5 10 Normal 1.5-8.5 Lymph # 1.1 10 Low 1.5-5.0 Kay # 1.5 10 High 0.0-0.8 Eos # 0.2 10 Normal 0.0-0.5 Baso # 0.1 10 Normal 0.0-0.2 Laboratory test finding 01/31/2020 [facility] [address] [place] [address] [phone] Thyroid Stimulating Hormone 5.120 uIU/ML High 0. 358-3.740 Prothrombin Time/Inr 01/31/2020 [facility] enter [address] [place] [address] [phone] Prothrombin Time 26.5 seconds High 12.5-14.3 Inr 2.38 Normal 1 Complete Blood Count 01/10/2020 [facility] enter [address] [place] [address] [phone] White Blood Count 7.8 10 Normal 4.0-10.0 [...] % Normal 0-0 Comprehensive Metabolic Profil 01/10/2020 [facility] [address] [place] [address] [phone] Glucose, Fasting 99 mg/dL Normal 70-100 Blood [...] & Screen -Incl Blood Type,Price,AB SC 12/26/[address] [address] [phone] Blood Type A POSITIVE Normal AB Screen (Indirect Jaylan)Vis NEGATIVE Normal Laboratory test finding 12/26/2019 [facility] [address] [place] [address] [phone] Lipase 157 U/L Normal 73-393 Thyroid Stimulating Hormone 3.480 uIU/ML Normal 0.358-3.740 Liver Profile 12/26/2019 [facility] nter [address] [place] [address] [phone] Ast/Sgot 23 U/L Normal 7-37 Alt/SGPT 24 U/L Normal 12-78 Alkaline Phosphatase 72 U/L Normal 45-117 Bilirubin,Total 1.2 mg/dL High 0.2-1.0 Bilirubin,Direct 0.4 mg/dL High 0.0-0.2 Total Protein 6.7 GM/DL Normal 6.4-8.2 Albumin 3.7 GM/DL Normal 3.2-5.2 Albumin/Globulin Ratio 1.2 Normal 1.2-2.2 Cardiac Marker Panel 12/26/2019 [facility] enter [address] [place] [address] [phone] CPK Creatine Phosphokinase 62 U/L Normal 26-19 2 CK-MB Value Mass < 1.0 NG/ML Normal <3.6 MB/CK Relative Index 1.61 Normal < Or =4 3 Troponin I < 0.02 NG/ML Normal < 0.10 4 Ua W/ Reflex To Culture 12/26/[address] [address] [phone] Appearance, Urine RFX CLEAR Normal Clear Color, Urine RFX YELLOW Normal Yellow PH,Urine RFX 6.0 units Normal 5.0-9.0 Specific [place] Ur Auto RFX 1.012 Normal 1.002-1.035 Protein, [...] /LPF Normal 0-1 Laboratory test finding 12/26/2019 [facility] [address] [place] [address] [phone] Ammonia < 10 uMOL/L Normal <32 CBC With Differential 12/26/[address] [address] [phone] White Blood Count 14.2 10 High 4.0-10.0 [...] 36.0-66.0 Lymph % 5.6 % Low 24.0-44.0 Kay % 17.9 % High 0.0-5.0 Eos % 0.5 % Normal 0.0-3.0 Baso % 0.4 % Normal 0.0-1.0 Immature Granulocyte % 0.6 % Normal 0-3.0 Nucleated Red Blood Cell % 0.0 % Normal 0-0 Neutrophils # 10.7 10 High 1.5-8.5 Lymph # 0.8 10 Low 1.5-5.0 Kay # 2.5 10 High 0.0-0.8 Eos # 0.1 10 Normal 0.0-0.5 Baso # 0.1 10 Normal 0.0-0.2 Istat PT/Inr 12/26/2019 [address] [place], [place] [address] [phone] iSTAT Protime Seconds 31.3 seconds High 12.1-14. 4 iSTAT Inr 2.7 Normal Istat Chem8+ Panel 12/26/2019 [facility] nter [address] [place], [place] [address] [phone] iSTAT HCT 41.0 % Normal 38.0-51.0 iSTAT Glucose 107 mg/dL High 70-105 iSTAT Sodium 136 mEq/L Normal 136-145 iSTAT Potassium 3.9 mEq/L Normal 3.5-5.1 iSTAT CA++ 5.1 mg/dL Normal 4.5-5.3 iSTAT Chloride 95 mEq/L Low 98-109 iSTAT Co2 30.0 MM/L High 23.0-27.0 iSTAT BUN 30 mg/dL High 8-26 iSTAT Creatinine 1.2 mg/dL Normal 0.6-1.3 Laboratory test finding 12/26/2019 [facility] [address] [place], [place] [address] [phone] iSTAT Lactate 0.90 Normal 0.4-2.0 Laboratory test finding 12/26/2019 [facility] [address] [place] [address] [phone] iSTAT Troponin 0.02 NG/ML Normal 0.00-0.08 Complete Blood Count 11/16/2019 [facility] Summer Sessions Director: [place] [address] [phone] WBC 7.4 x10*3/UL 4.1 - 10.9 RBC [...] 2.0 - 7.8 Basic Metabolic Panel 11/16/2019 [facility] Summer [facility] Director: [place] [address] [phone] Glucose 100 mg/dL High 74 - 99 [...] Low >60 6 Laboratory test finding 11/16/2019 [facility] Summer Sessions Director: [place] [address] [phone] Thyroid Stimulating Hormone 3.19 uIU/mL 0.3 6 - 3.74 Laboratory test finding 11/14/2019 [facility] Inr 3.1 Laboratory test finding 10/17/2019 [facility] Inr 2.5 Complete Blood Count 08/16/2019 [facility] Summer Sessions Director: [place] [address] [phone] WBC 8.1 x10*3/UL 4.1 - 10.9 RBC [...] 2.0 - 7.8 Basic Metabolic Panel 08/16/2019 [facility] Summer Sessions Director: [place] [address] [phone] Glucose 76 mg/dL 74 - 99 7 [...] Low >60 8 Laboratory test finding 08/16/2019 [facility] Summer Sessions Director: [place] [address] [phone] Magnesium 2.1 mg/dL 1.8 - 2.4 1 [...] Little GFR Left ESRD GFR <15 on GRAVEL WEIGHER 3 DIAGNOSIS CRITERIA MMB ng/ml Relative Index (RI) NON-AMI < or = 5 N/A CARLOS ZONE > 5 < or = 4 AMI > 5 > 4 4 Troponin I Reference Interva l for Siemens [place] LOCI: 99th Percentile= 0.00-0.045 ng/ml Risk Stratification: [...] LITTLE GFR LEFT ESRD GFR <15 ON GRAVEL WEIGHER 7 100-125 mg/dL PRE-DIABET ES/FASTING >126 mg/dL DIABETES/FASTING 8 CHRONIC KIDNEY DISEASE STAGI NG PER NKF STAGE I & II GFR >= 60 NORMAL TO MILDLY DECREASED STAGE III GFR 30-59 MODERATELY DECREASED STAGE IV GFR 15-29 SEVERELY DECREASED STAGE V GFR <15 VERY LITTLE GFR LEFT ESRD GFR <15 ON GRAVEL WEIGHER Procedures Date Code Description Status 11/02/2017 [id number] Diabetic Foot Exam Completed 04/15/2016 [id number] Mammogram Completed 03/22/2015 [id number] Mammogram Completed 03/21/2014 [id number] Mammogram Completed 03/20/2013 [id number] Mammogram Completed 01/25/2013 [id number] Diabetic Retinal Eye Exam Comple casey 08/17/2012 [id number] Bone Mineral Density Test Comple casey 03/17/2012 [id number] Mammogram Completed 03/12/2011 [id number] Mammogram Completed 08/15/2010 [id number] Bone Mineral Density Test Comple casey 03/11/2010 [id number] Mammogram Completed 03/06/2009 [id number] Mammogram Completed 03/05/2008 [id number] Bone Mineral Density Test Comple casey 12/28/2003 [id number] Colonoscopy Completed Medical Devices Description No Information Available Encounters Type Date Location Provider Dx Diagnosis Office Visit 01/04/2020 11:20a [facility] 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 N18.3 Chronic kidney disease, stag e 3 (moderate) J44.9 Chronic obstructive pulmonar y disease, unspecified G30.1 Alzheimer's disease with lat e onset F02.80 Dementia in oth diseases [facility] w/o behavrl disturb I48.21 Permanent atrial fibrillatio n Z79.01 skilled nursing (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 a nticoagulants 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 heart valve Z13.89 Encounter for screening for other disorder Assessments Date Code Description Provider 01/04/2020 K57.92 Diverticulitis of in testine, part unspecified, without perforation or abscess without bleeding Simi Cole [facility] 01/04/2020 I50.41 Acute combined systo lic (congestive) and diastolic (congestive) heart failure SHANNA Bernard 01/04/2020 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 Simi Cole [facility] 01/04/2020 N18.31 Chronic kidney disease, stage 3a ARVIND BernardP 01/04/2020 J44.9 Chronic obstructive pulmonary di sease, unspecified Simi Cole [facility] 01/04/2020 I48.21 Permanent atrial fibrillation An n ARVIND ColeP 01/04/2020 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 Simi Cole [facility] 01/04/2020 Z79.01 director long term care (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 antic oagulants SHANNA Bernard [...] idney disease with heart chris Simi Cole, [facility] 11/16/2019 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 Simi Cole [facility] 11/16/2019 N18.3 Chronic kidney disease, stage 3 (moderate) Simi Cole [facility] 11/16/2019 J44.9 Chronic obstructive pulmonary di sease, unspecified Simi Cole [facility] 11/16/2019 G30.1 Alzheimer's disease with late on set Simi Cole [facility] 11/16/2019 F02.80 Dementia in other di seases classified elsewhere without behavioral disturbance Simi Cole [facility] 11/16/2019 I48.21 Permanent atrial fibrillation An carlos Cole [facility] 11/16/2019 Z79.01 skilled nursing (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 antic oagulants Simi Cole [facility] 11/16/2019 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 Simi Cole [facility] 11/16/2019 I87.2 Venous insufficiency (chronic) ( peripheral) Simi Cole [facility] 11/14/2019 Z11.1 Encounter for screening for resp iratory tuberculosis Liuz Pereira MD 11/14/2019 I48.21 Permanent atrial fibrillation An carlos Cole [facility] 11/14/2019 I48.21 Permanent atrial fibrillation Pr otime 11/14/2019 Z51.81 Encounter for therapeutic drug l evel monitoring Simi Cole [facility] 11/14/2019 Z51.81 Encounter for therapeutic drug l evel monitoring Protime 11/14/2019 Z79.01 director long term care (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 antic oagulants Simi Cole, [facility] 11/14/2019 Z79.01 director long term care (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 antic oagulants Protime 10/17/2019 I48.21 Permanent atrial fibrillation An n Kita Lott, [facility] 10/17/2019 I48.21 Permanent atrial fibrillation Pr otime 10/17/2019 Z51.81 Encounter for therapeutic drug l evel monitoring Simi Kita Orne, [facility] 10/17/2019 Z79.01 director long term care (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 antic oagulants Simi Cole, [facility] 10/12/2019 I10 Essential (primary) hypertension Luiz [...] idney disease with heart chris Simi Cole, [facility] 08/16/2019 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 Simi Cole, [facility] 08/16/2019 N18.3 Chronic kidney disease, stage 3 (moderate) Simi Cole [facility] 08/16/2019 J44.9 Chronic obstructive pulmonary di sease, unspecified Simi Cole [facility] 08/16/2019 G30.1 Alzheimer's disease with late on set Simi Cole, [facility] 08/16/2019 F02.80 Dementia in other di seases classified elsewhere without behavioral disturbance Simi Cole [facility] 08/16/2019 I48.21 Permanent atrial fibrillation An n Kita Lott, [facility] 08/16/2019 Z79.01 skilled nursing (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 antic oagulants Simi Kita Lott [facility] 08/16/2019 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 Simi [place], [facility] 08/16/2019 Z13.89 Encounter for screening for othe r disorder SHANNA Bernard 08/15/2019 N18.3 Chronic kidney disease, stage 3 (moderate) Luiz Pereira MD 08/15/2019 J44.9 Chronic obstructive pulmonary di sease, unspecified Luiz Pereira MD 08/15/2019 I10 Essential (primary) hypertension Luiz Pereira MD 08/15/2019 E66.3 Overweight Luiz valladares MD Plan of Treatment Future Appointment(s):* 02/28/2020 3:20 pm - SHANNA Bernard at [facility] 01/04/2020 - SHANNA Bernard* K57.92 Diverticulitis of intestine, part unspecified, without perforation or abscess without bleeding * I50.41 Acute combined systolic (congestive) and diastolic (congestive) heart failure* New Orders:* CBC and CMP, Scheduled: 01/10/20 * Comments:* will increase Torsemide to 100mg daily.will arrange for [facility] to evaluate. 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 * N18.31 Chronic kidney disease, stage 3a * J44.9 Chronic obstructive pulmonary disease, unspecified* Comments:* will request BMP in one week. * I48.21 Permanent atrial fibrillation* Comments:* Rate controlled. * 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 heart valve * Z79.01 director long term care (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 anticoagulants* Comments:* INR completed [...]
--- OUTSIDE RECORDS SUMMARY | 2020-03-29 02:36 | CCD | Continuity of Care Document ---
Author Author Regina Bernard Organization Unknown Address [address] [facility] [address] [place] [address] Phone [phone] Care Team Providers Care Mri Tech Name Role Phone Luiz Pereira JR, MD AUTM Unavailable Kaylee Pop AUTM [phone] David Foster MD AUTM [phone] Richie Zapien MD AUTM [phone] Simi Molina AUTM [phone] [facility] AT [facility] AUTM [phone] Problems Active Problems Provider Date Anticoagulants Detention (Current) Use O nset: 09/12/1996 Atrial fibrillation [...] Alerts Active Allergies Reaction Severity Comments Date Codeine,PCN 02/03/2010 Thorazine 11/27/2015 Medications Active Medications SIG Qnty Indications Ordering Provide r Date Xopenex 0.63mg/3ML Nebulizer use four times daily prn for wheezing and shortness of breath. DX J44.[address] [facility] 01/01/2020 Culturelle [facility] Probiotic Capsules one twice daily while on antibiotics or if having diarrhea 30cap s Simi Cole [facility] 12/29/2019 Vitamin D3 Ultra Strength 125mcg (5000 Ut) Capsules 1 by mouth every day 90caps Simi Cole [facility] Nebulizer Kit/Tubing/Mouthpiece K it for use with nebulizer--use up to four times a day dx j44.[address] [facility] 01/12/2019 Incruse Ellipta 62.5mcg/Inh Aeroso l inhale one puff by mouth daily 3units Simi Cole [facility] 019 Levothyroxine Sodium 25mcg Tablets 1 tablet by mouth every day 90tabs Simi Cole [facility] 12/09 Aricept 5mg Tablets 1 by mouth every day at bedtime 90tabs G30.1 Nicolas Espana M.D. 12/08/2016 Advair Diskus 100-50mcg/Dose Aeros ol inhale one puff by mouth twice a day 180units Simi Cole [facility] 10/13/2016 Colace 100mg Capsules 1 by mouth twice a day 180caps K59.00 LUL Beyer JR 017 Calcium 500+D [id number] Table ts 1 by mouth three times a day 270tabs Luiz Pereira MD Duoneb 0.5-2.5(3)mg/3ML Solution inhale the contents of one vial via nebulizer four times a day as needed for wheezing or shortness of breath 270ml R06.[address] [facility] 07/21/19 17 Torsemide 100mg Tablets 1tablet by mouth daily 30tabs R60.[address] [facility] 07/20/2016 Tylenol 325mg Capsules 2 by mouth every day as needed 180caps Simi Cole [facility] 05/22/2016 Albuterol Sulfate (2 .5mg/3ML) 0.083% Nebulizer q.i.d. prn via nebulizer dx J44.[address] [facility] 09/27/2015 Coumadin 3mg Tablets take 1 tablet by mouth once a day as directed 90tabs Simi Cloe, [facility] Simvastatin 40mg Tablets take one tablet by mouth at bedtime 90tabs Simi Cole, [facility] 09/11/2014 Multi-Vitamins Tablets 1 by mouth daily 90tabs Simi Cole, [facility] 09/20/2002 Spironolactone 25mg Tablets 1 by [...] Provider Date Administration Of Flu Vaccine Inj [facility] Simi Cole, [facility] 02/07/2019 Immunization Adminstration,1 Vaccine/Tox oid Injection Simi Cole, [facility] 07/07/2018 Administration Of Flu Vaccine Inj ection Simi Cole, [facility] 12/24/2017 Administration Of Flu Vaccine Inj ection Carleen Trimble, [facility] 12/08/2016 Administration Of Flu Vaccine Inj ection Carleen Trimble, [facility] 12/19/2015 Administration Of Flu Vaccine Inj ection Luiz Pereira MD 12/20/2014 Administration Of Flu Vaccine Inj salmaion Luiz Pereira MD 12/28/2013 Administration Of Flu Vaccine Inj salmaion Luiz Pereira MD 12/18/2011 Administration Of Flu Vaccine Inj salmaion Luiz Pereira MD 12/16/2010 Administration Of Flu Vaccine Inj salmaion Luiz Pereira MD 12/12/2009 Administration Of Flu Vaccine Inj salmaion Luiz Pereira MD 12/13/2008 Administration Of Flu Vaccine Inj ection Luiz Pereira MD 01/10/2008 Administration Of Flu Vaccine Inj ection Luiz Pereira MD 12/23/2006 Administration Of Zostavax Injection Luiz Pereira MD 08/13/2006 Administration Of Flu Vaccine Inj ection LORENA Puentes 02/04/2006 Administration Of Flu Vaccine Inj ection Luiz Pereira MD 12/09/2004 Administration Of Flu Vaccine Inj ection SHANNA Beranrd 12/25/2003 Administration Of Flu Vaccine Inj ection Luiz Pereira MD 01/09/2003 Administration Of Flu Vaccine Inj ection SHANNA Bernard 12/13/2001 Immunizations CPT Code Status Date Vaccine Lot # [id number] Given 12/11/2019 Influenza,Unspecified [id number] Given 11/14/2019 PPD [id number] 73516 Given 02/07/2019 Influenza Vaccin e Quadrivalent Preser/Antibiotic Free Im Use [id number] 13123 Given 07/07/2018 Adacel- Tetanus Diphtheria P ertussis (Age64 & Under) [id number] 67095 Given 04/12/2018 Shingrix 76585 Given 02/01/2018 Shingrix 14971 Given 12/24/2017 Influenza Virus Vaccine, Quadrivalent ([id number]), Derived From 8 Given 12/08/2016 Influenza Vaccin e Quadrivalent Preser/Antibiotic Free Im Use [id number] Q2037 Given 12/19/2015 Fluvirin Virus Vaccine 83219 01 Q2037 Given 12/20/2014 Fluvirin Virus Vaccine 95866 01 68949 Given 05/22/2014 Prevnar 13 [id number] Q2037 Given 12/28/2013 Fluvirin Virus Vaccine 15913 21 Q2037 Given 12/18/2011 Fluvirin Virus Vaccine 92988 01 Q2037 Given 12/16/2010 Fluvirin Virus Vaccine Q2037 Given 12/16/2010 Fluvirin Virus Vaccine 22093 Given 12/12/2009 Influenza Virus Vaccine 45439 Given 01/29/2009 Pneumovax 23 78186 Given 12/13/2008 Influenza Virus Vaccine 25377 Given 01/10/2008 Influenza Virus Vaccine 22128 Given 12/23/2006 Influenza Virus Vaccine 59751 Given 08/13/2006 Zoster Vaccine 97559 Given 02/04/2006 Influenza Virus Vaccine 66084 Given 12/09/2004 Influenza Virus Vaccine 46245 Given 12/25/2003 Influenza Virus Vaccine 16627 Given 01/09/2003 Influenza Virus Vaccine 01241 Given 12/13/2001 Influenza Virus Vaccine 34430 Given 01/25/2001 Influenza Virus Vaccine 72998 Given 04/13/2000 Tetanus Toxoid U-Pneum Given 12/07/1999 Pneumococcal,Unspecified 96569 Given 12/26/1998 Influenza Virus Vaccine 52824 Given 12/30/1993 Influenza Virus Vaccine Vital Signs [...] H/L Range Note Laboratory test finding 01/31/[address] [address] [phone] iSTAT Troponin 0.01 NG/ML Normal 0.00-0.08 Istat Chem8+ Panel 01/31/2020 [facility]ter [address] [place] [address] [phone] iSTAT HCT 40.0 % Normal 38.0-51.0 iSTAT Glucose 89 mg/dL Normal 70-105 iSTAT Sodium 138 mEq/L Normal 136-145 iSTAT Potassium 3.7 mEq/L Normal 3.5-5.1 iSTAT CA++ 4.6 mg/dL Normal 4.5-5.3 iSTAT Chloride 98 mEq/L Normal 98-109 iSTAT Co2 32.0 MM/L High 23.0-27.0 iSTAT BUN 26 mg/dL Normal 8-26 iSTAT Creatinine 1.1 mg/dL Normal 0.6-1.3 Laboratory test finding 01/31/[address] [address] [phone] Bedside Glucose 83 mg/dL Normal 83-110 CBC With Differential 01/31/[address] [address] [phone] White Blood Count 8.5 10 Normal 4.0-10.0 [...] 36.0-66.0 Lymph % 12.8 % Low 24.0-44.0 Panola % 18.0 % High 0.0-5.0 Eos % 2.2 % Normal 0.0-3.0 Baso % 1.1 % High 0.0-1.0 Immature Granulocyte % 0.4 % Normal 0-3.0 Nucleated Red Blood Cell % 0.0 % Normal 0-0 Neutrophils # 5.5 10 Normal 1.5-8.5 Lymph # 1.1 10 Low 1.5-5.0 Panola # 1.5 10 High 0.0-0.8 Eos # 0.2 10 Normal 0.0-0.5 Baso # 0.1 10 Normal 0.0-0.2 Laboratory test finding 01/31/2020 [facility] [address] [place] [address] [phone] Thyroid Stimulating Hormone 5.120 uIU/ML High 0. 358-3.740 Prothrombin Time/Inr 01/31/2020 [facility] enter [address] [place] [address] [phone] Prothrombin Time 26.5 seconds High 12.5-14.3 Inr 2.38 Normal 1 Complete Blood Count 01/10/2020 [facility] enter [address] [place] [id number] [phone] White Blood Count 7.8 10 Normal 4.0-10.0 [...] % Normal 0-0 Comprehensive Metabolic Profil 01/10/[address] [id number] [phone] Glucose, Fasting 99 mg/dL Normal 70-100 Blood [...] & Screen -Incl Blood Type,Price,AB SC 12/26/[address] [address] [phone] Blood Type A POSITIVE Normal AB Screen (Indirect Jaylan)Vis NEGATIVE Normal Laboratory test finding 12/26/[address] [address] [phone] Lipase 157 U/L Normal 73-393 Thyroid Stimulating Hormone 3.480 uIU/ML Normal 0.358-3.740 Liver Profile 12/26/2019 [facility] [address] [place] [address] [phone] Ast/Sgot 23 U/L Normal 7-37 Alt/SGPT 24 U/L Normal 12-78 Alkaline Phosphatase 72 U/L Normal 45-117 Bilirubin,Total 1.2 mg/dL High 0.2-1.0 Bilirubin,Direct 0.4 mg/dL High 0.0-0.2 Total Protein 6.7 GM/DL Normal 6.4-8.2 Albumin 3.7 GM/DL Normal 3.2-5.2 Albumin/Globulin Ratio 1.2 Normal 1.2-2.2 Cardiac Marker Panel 12/26/2019 [facility] enter [address] [place] [address] [phone] CPK Creatine Phosphokinase 62 U/L Normal 26-19 2 CK-MB Value Mass < 1.0 NG/ML Normal <3.6 MB/CK Relative Index 1.61 Normal < Or =4 3 Troponin I < 0.02 NG/ML Normal < 0.10 4 Ua W/ Reflex To Culture 12/26/[address] [address] [phone] Appearance, Urine RFX CLEAR Normal Clear Color, Urine RFX YELLOW Normal Yellow PH,Urine RFX 6.0 units Normal 5.0-9.0 Specific [place] Ur Auto RFX 1.012 Normal 1.002-1.035 Protein, [...] /LPF Normal 0-1 Laboratory test finding 12/26/[address] [address] [phone] Ammonia < 10 uMOL/L Normal <32 CBC With Differential 12/26/[address] [address] [phone] White Blood Count 14.2 10 High 4.0-10.0 [...] 36.0-66.0 Lymph % 5.6 % Low 24.0-44.0 Panola % 17.9 % High 0.0-5.0 Eos % 0.5 % Normal 0.0-3.0 Baso % 0.4 % Normal 0.0-1.0 Immature Granulocyte % 0.6 % Normal 0-3.0 Nucleated Red Blood Cell % 0.0 % Normal 0-0 Neutrophils # 10.7 10 High 1.5-8.5 Lymph # 0.8 10 Low 1.5-5.0 Panola # 2.5 10 High 0.0-0.8 Eos # 0.1 10 Normal 0.0-0.5 Baso # 0.1 10 Normal 0.0-0.2 Istat PT/Inr 12/26/2019 [facility] [address] [place], [place] [id number] [phone] iSTAT Protime Seconds 31.3 seconds High 12.1-14. 4 iSTAT Inr 2.7 Normal Istat Chem8+ Panel 12/26/2019 [facility] [address] [place], [place] 52[address]358 [phone] iSTAT HCT 41.0 % Normal 38.0-51.0 iSTAT Glucose 107 mg/dL High 70-105 iSTAT Sodium 136 mEq/L Normal 136-145 iSTAT Potassium 3.9 mEq/L Normal 3.5-5.1 iSTAT CA++ 5.1 mg/dL Normal 4.5-5.3 iSTAT Chloride 95 mEq/L Low 98-109 iSTAT Co2 30.0 MM/L High 23.0-27.0 iSTAT BUN 30 mg/dL High 8-26 iSTAT Creatinine 1.2 mg/dL Normal 0.6-1.3 Laboratory test finding 12/26/[address] 6211025 [phone] iSTAT Lactate 0.90 Normal 0.4-2.0 Laboratory test finding 12/26/[address] 0510826 [phone] iSTAT Troponin 0.02 NG/ML Normal 0.00-0.08 Complete Blood Count 11/16/2019 [facility] Ground Worker: [place] [address] [phone] WBC 7.4 x10*3/UL 4.1 - 10.9 RBC [...] 2.0 - 7.8 Basic Metabolic Panel 11/16/2019 [facility] Ground Worker: [place] [address] [phone] Glucose 100 mg/dL High 74 - 99 [...] Low >60 6 Laboratory test finding 11/16/2019 [facility] Ground Worker: [place] [address] [phone] Thyroid Stimulating Hormone 3.19 uIU/mL 0.3 6 - 3.74 Laboratory test finding 11/14/2019 [facility] Inr 3.1 Laboratory test finding 10/17/2019 [facility] Inr 2.5 Complete Blood Count 08/16/2019 [facility] Ground Worker: [place] [address] [phone] WBC 8.1 x10*3/UL 4.1 - 10.9 RBC [...] 2.0 - 7.8 Basic Metabolic Panel 08/16/2019 [facility] Ground Worker: [place] [address] [phone] Glucose 76 mg/dL 74 - 99 7 [...] Low >60 8 Laboratory test finding 08/16/2019 [facility] Ground Worker: [place] [address] [phone] Magnesium 2.1 mg/dL 1.8 - 2.4 1 [...] Little GFR Left ESRD GFR <15 on COMPUTER PUBLISHER 3 DIAGNOSIS CRITERIA MMB ng/ml Relative Index (RI) NON-AMI < or = 5 N/A CARLOS ZONE > 5 < or = 4 AMI > 5 > 4 4 Troponin I Reference Interva l for [employer] LOCI: 99th Percentile= 0.00-0.045 ng/ml Risk Stratification: [...] LITTLE GFR LEFT ESRD GFR <15 ON COMPUTER PUBLISHER 7 100-125 mg/dL PRE-DIABET ES/FASTING >126 mg/dL DIABETES/FASTING 8 CHRONIC KIDNEY DISEASE STAGI NG PER NKF STAGE I & II GFR >= 60 NORMAL TO MILDLY DECREASED STAGE III GFR 30-59 MODERATELY DECREASED STAGE IV GFR 15-29 SEVERELY DECREASED STAGE V GFR <15 VERY LITTLE GFR LEFT ESRD GFR <15 ON COMPUTER PUBLISHER Procedures Date Code Description Status 11/02/2017 [id number] Diabetic Foot Exam Completed 04/15/2016 [id number] Mammogram Completed 03/22/2015 [id number] Mammogram Completed 03/21/2014 [id number] Mammogram Completed 03/20/2013 [id number] Mammogram Completed 01/25/2013 [id number] Diabetic Retinal Eye Exam Comple casey 08/17/2012 [id number] Bone Mineral Density Test Comple casey 03/17/2012 [id number] Mammogram Completed 03/12/2011 [id number] Mammogram Completed 08/15/2010 [id number] Bone Mineral Density Test Comple casey 03/11/2010 [id number] Mammogram Completed 03/06/2009 [id number] Mammogram Completed 03/05/2008 [id number] Bone Mineral Density Test Comple casey 12/28/2003 [id number] Colonoscopy Completed Medical Devices Description No Information Available Encounters Type Date Location Provider Dx Diagnosis Office Visit 01/04/2020 11:20a [facility] 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 Simi Arcos ne, 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 01/04/2020 N18.31 Chronic kidney disease, stage 3a ARVIND BernardP 01/04/2020 J44.9 Chronic obstructive pulmonary di sease, unspecified Simi Cole [facility] 01/04/2020 I48.21 Permanent atrial fibrillation An carlos Cole [facility] 01/04/2020 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 ARVIND BernardP 01/04/2020 Z79.01 chief operator reformer (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 antic oagulants Simi Cole [facility] 01/04/2020 R26.89 Other abnormalities of gait and mobility Simi Cole [facility] 12/21/2019 J44.9 Chronic obstructive pulmonary di sease, unspecified Luiz Pereira MD 12/21/2019 I48.21 Permanent atrial fibrillation Co julianne [...] idney disease with heart chris Simi Cole [facility] 11/16/2019 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 Simi Cole [facility] 11/16/2019 N18.3 Chronic kidney disease, stage 3 (moderate) Simi Cole [facility] 11/16/2019 J44.9 Chronic obstructive pulmonary di sease, unspecified Simi Cole [facility] 11/16/2019 G30.1 Alzheimer's disease with late on set Simi Cole [facility] 11/16/2019 F02.80 Dementia in other di seases classified elsewhere without behavioral disturbance Simi Cole [facility] 11/16/2019 I48.21 Permanent atrial fibrillation An n Kita Lott [facility] 11/16/2019 Z79.01 snf (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 antic oagulants Simi Cole [facility] 11/16/2019 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 Simi Cole [facility] 11/16/2019 I87.2 Venous insufficiency (chronic) ( peripheral) Simi Cole [facility] 11/14/2019 Z11.1 Encounter for screening for resp iratory tuberculosis Luiz Pereira MD 11/14/2019 I48.21 Permanent atrial fibrillation An n Kita Lott [facility] 11/14/2019 I48.21 Permanent atrial fibrillation Pr otime 11/14/2019 Z51.81 Encounter for therapeutic drug l evel monitoring Simi Kita Lott, [facility] 11/14/2019 Z51.81 Encounter for therapeutic drug l evel monitoring Protime 11/14/2019 Z79.01 chief operator reformer (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 antic oagulants Simi Kita Lott, [facility] 11/14/2019 Z79.01 snf (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 antic oagulants Protime 10/17/2019 I48.21 Permanent atrial fibrillation An n Kita Lott, [facility] 10/17/2019 I48.21 Permanent atrial fibrillation Pr otime 10/17/2019 Z51.81 Encounter for therapeutic drug l evel monitoring Simi Cole, [facility] 10/17/2019 Z79.01 snf (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 antic oagulants Simi Cole, [facility] 10/12/2019 I10 Essential (primary) hypertension Luiz [...] idney disease with heart chris Simi Cole, 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 08/16/2019 N18.3 Chronic kidney disease, stage 3 (moderate) Simi Cole [facility] 08/16/2019 J44.9 Chronic obstructive pulmonary di sease, unspecified Simi Cole, [facility] 08/16/2019 G30.1 Alzheimer's disease with late on set Simi Cole [facility] 08/16/2019 F02.80 Dementia in other di seases classified elsewhere without behavioral disturbance Simi Cole [facility] 08/16/2019 I48.21 Permanent atrial fibrillation An n Kita Lott 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 08/16/2019 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 Simi Cole [facility] 08/16/2019 Z13.89 Encounter for screening for othe r disorder Simi Cole [facility] 08/15/2019 N18.3 Chronic kidney disease, stage 3 (moderate) Luiz Pereira MD 08/15/2019 J44.9 Chronic obstructive pulmonary di sease, unspecified Luiz Pereira MD 08/15/2019 I10 Essential (primary) hypertension Luiz Pereira MD 08/15/2019 E66.3 Overweight Luiz valladares MD Plan of Treatment Future Appointment(s):* 02/28/2020 3:20 pm - SHANNA Bernard at [facility] 01/04/2020 - SHANNA Bernard* K57.92 Diverticulitis of intestine, part unspecified, without perforation or abscess without bleeding * I50.41 Acute combined systolic (congestive) and diastolic (congestive) heart failure* New Orders:* CBC and CMP, Scheduled: 01/10/20 * Comments:* will increase Torsemide to 100mg daily.will arrange for [facility] to evaluate. 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 * N18.31 Chronic kidney disease, stage 3a * J44.9 Chronic obstructive pulmonary disease, unspecified* Comments:* will request BMP in one week. * I48.21 Permanent atrial fibrillation* Comments:* Rate controlled. * 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 heart valve * Z79.01 chief operator reformer (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 anticoagulants* Comments:* INR completed [...]
--- OUTSIDE RECORDS SUMMARY | 2020-03-29 02:37 | CCD | Continuity of Care Document ---
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) 26-Dec-2019 Status: Active History of falling (Z91.81) 26-Dec-2019 Status: Active shelter (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 inhaled steroids (Z79.51) 26-Dec-2019 Status: Active shelter (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 anticoagulants (Z79.01) 26-Dec-2019 Status: Active Encounter for thera peutic drug level monitoring (Z51.81) 26-Dec-2019 Status: Active 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) 26-Dec-2019 Status: Active Unspecified osteoar thritis, unspecified site (M19.90) 26-Dec-2019 Status: Active Permanent atrial fi brillation (I48.21) 26-Dec-2019 Status: Active 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) 26-Dec-2019 Status: Active Alzheimer's disease , unspecified (G30.9) 26-Dec-2019 Status: Active Chronic kidney dise ase, stage 3a (N18.31) 26-Dec-2019 Status: Active 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) 26-Dec-2019 Status: Active Hypertensive heart and chronic kidney disease with heart failure and stage 1 through stage 4 chronic kidney disease, or unspecified chronic kidney disease (I13.0) 26-Dec-2019 Status: Active Diverticulitis of i ntestine, part unspecified, without perforation or abscess without bleeding (K57.92) 26-Dec-2019 Status: Active Chronic obstructive pulmonary disease with (acute) exacerbation (J44.1) 09-Dec-2019 Status: Active Medications Name Dates Details Xopenex 0.63 MG/3ML every 6 hours as needed for wheezing or shortness of breath Luiz Pereira MD Active Biaxin 500 MG 1 tab 1 hour prior to dental procedures Sajan Pereira MD Start : 10-Jan-2020 Active Ipratropium-Albuterol 0.5-2.5 (3) MG/3ML every 6 hours as needed for shortness of breath Sajan Pereira MD Start : 10-Jan-2020 Active Klor-Con M10 10 MEQ Sajan Pereira MD Start : 10-Jan-2020 Active Spironolactone 25 MG Sajan Pereira MD Start : 10-Jan-2020 Active Multivitamin Sajan Pereira MD Start : 09-Jan-2020 Active Simvastatin 40 MG Sajan Pereira MD Start : 09-Jan-2020 Active Coumadin 3 MG Sajan Pereira MD Start : 09-Jan-2020 Active Albuterol Sulfate (2.5 MG/3ML) 0.083% via nebulizer for SOB, no more than 4x/day Sajan Pereira MD Start : 09-Jan-2020 Active Tylenol 2 by mouth everyday as needed for pain >5, no more than 3,000 mg/day. Sajan Pereira MD Start : 09-Jan-2020 Active Torsemide 100 MG Sajan Pereira MD Start : 09-Jan-2020 Active Calcium Sajan Pereira MD Start : 09-Jan-2020 Active Colace Sajan Pereira MD Start : 09-Jan-2020 Active Advair Diskus 100-50 MCG/DOSE one puff by sharla twice a day Sajan Pereira MD Start : 09-Jan-2020 Active Vitamin D Sajan Pereira MD Start : 09-Jan-2020 Active Incruse Ellipta 62.5 MCG/INH Sajan Pereira MD Start : 09-Jan-2020 Active Levothyroxine Sajan Pereira MD Start : 09-Jan-2020 Active Aricept 5 MG Sajan Pereira MD Start : 09-Jan-2020 Active Spironolactone 25 MG Sajan Pereira MD Start : 27-Apr-2017 End : 27-Apr-2017 Inactive Aricept 5 MG Sajan Pereira MD Start : 05-Apr-2017 End : 27-Apr-2017 Inactive Synthroid 25 MCG Sajan Pereira MD Start : 05-Apr-2017 End : 27-Apr-2017 Inactive Multivitamin Adults Sajan Pereira MD Start : 05-Apr-2017 End : 27-Apr-2017 Inactive Potassium Chloride Azeb ER 20 MEQ 2 tablets twice a day Sajan Pereira MD Start : 05-Apr-2017 End : 27-Apr-2017 Inactive Vitamin D3 5000 UNIT Sajan Pereira MD Start : 05-Apr-2017 End : 27-Apr-2017 Inactive Colace 100 MG daily as needed for constipation Sajan Pereira MD Start : 05-Apr-2017 End : 27-Apr-2017 Inactive predniSONE 10 MG 3 tablets for 3 days, 2 tablets for 3 days, 1 tablet for 3 days then stop. Sajan Pereira MD Start : 05-Apr-2017 End : 14-Apr-2017 Inactive Mucinex 600 MG Sajan Pereira MD Start : 05-Apr-2017 End : 27-Apr-2017 Inactive Coumadin 3 MG Sajan Pereira MD Start : 05-Apr-2017 End : 27-Apr-2017 Inactive Albuterol Sulfate HFA 108 (90 Base) MCG/ACT 2 puffs four times a day as needed for SOB Sajan Pereira MD Start : 05-Apr-2017 End : 27-Apr-2017 Inactive Albuterol Sulfate (2.5 MG/3ML) 0.083% Sajan Pereira MD Start : 05-Apr-2017 End : 27-Apr-2017 Inactive Calcium 500+D 500-200 MG-UNIT Sajan Pereira MD Start : 05-Apr-2017 End : 27-Apr-2017 Inactive Advair Diskus 100-50 MCG/DOSE Sajan Pereira MD Start : 05-Apr-2017 End : 27-Apr-2017 Inactive Simvastatin 40 MG Sajan Pereira MD Start : 05-Apr-2017 End : 27-Apr-2017 Inactive Torsemide 100 MG 0800 and noon Luiz Pereira MD* Start : 05-Apr-2017 End : 27-Apr-2017 Inactive Tylenol 325 MG 2 tablets Q6hrs as needed for pain. Max daily dose: 3000mg Luiz Pereira MD* Start : 05-Apr-2017 End : 27-Apr-2017 Inactive Allergies and Adverse Reactions Name Dates Details chlorpromazine (Allergy) Onset: Status: Active codeine (Allergy) Onset: 10-Jan-2020 Status: Active Penicillin (Allergy) Onset: 0 Status: Active Results Date Description Value Details No Known Results Plan of Care Name Dates Details Instructions Diet:Regular Diet Ins truction Type: Nutrition education Payers * Medicare - [facility] * [facility]
--- OUTSIDE RECORDS SUMMARY | 2020-03-29 02:37 | CCD | Continuity of Care Document ---
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 (Z79.51) 26-Dec-2019 Status: Active 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 anticoagulants (Z79.01) 26-Dec-2019 Status: [...] 09-Dec-2019 Status: Active Medications Name Dates Details Spironolactone 25 MG Luiz Pereira MD Active Xopenex 0.63 MG/3ML every 6 hours as needed for wheezing or shortness of breath Sajan Pereira MD Start : 10-Jan-2020 Active Biaxin 500 MG 1 tab 1 hour prior to dental procedures Sajan Pereira MD Start : 10-Jan-2020 Active Ipratropium-Albuterol 0.5-2.5 (3) MG/3ML every 6 hours as needed for shortness of breath Sajan Pereira MD Start : 10-Jan-2020 Active Klor-Con M10 10 MEQ Sajan Pereira MD Start : 10-Jan-2020 Active Colace Sajan Pereira MD Start : [...] Sajan Pereira MD Start : 09-Jan-2020 Active Multivitamin Sajan Pereira MD Start : 09-Jan-2020 Active Spironolactone 25 MG Sajan Pereira MD Start : 27-Apr-2017 End : 27-Apr-2017 Inactive Tylenol 325 MG 2 tablets Q6hrs as needed for pain. Max daily dose: 3000mg Sajan Pereira MD Start : 05-Apr-2017 End : 27-Apr-2017 Inactive Torsemide 100 MG 0800 and noon Sajan Pereira MD Start : 05-Apr-2017 End [...] Start : 05-Apr-2017 End : 27-Apr-2017 Inactive Mucinex 600 MG Sajan Pereira MD Start : 05-Apr-2017 End : 27-Apr-2017 Inactive predniSONE 10 MG 3 tablets for 3 days, 2 tablets for 3 days, 1 tablet for 3 days then stop. Sajan Pereira MD Start : 05-Apr-2017 End : 14-Apr-2017 Inactive Colace 100 MG daily as needed [...] Start : 05-Apr-2017 End : 27-Apr-2017 Inactive Aricept 5 MG [...] Type: Nutrition education Payers * Medicare - [facility] * [facility]
--- OUTSIDE RECORDS SUMMARY | 2020-03-29 02:37 | CCD | Continuity of Care Document ---
Author Author Rgeina Bernard Organization Unknown Address [address] [facility] [address] [place] [address] Phone [phone] Care Team Providers Care Locks Tender Name Role Phone Luiz Pereira JR, MD AUTM Unavailable Kaylee Pop AUTM [phone] David Foster MD AUTM [phone] Richie Zapien MD AUTM [phone] Simi Molina AUTM [phone] [place] [facility] AUTM [phone] Problems Active Problems Provider Date Anticoagulants Longterm (Current) Use O nset: 09/12/1996 Atrial fibrillation Onset: 09/12/1996 Contact dermatitis SHANNA Bernard Onset: 12/05/2010 Heart valve replacement SHANNA Bernard Onset: 3 Mitral valve disorder SHANNA Bernard Onset: 08/03/2012 Essential hypertension LORENA Puentes Onset: 3 Anticoagulant agent SHANNA Bernard Onset: 09/19/2014 Chronic atrial fibrillation Luiz Pereira MD Onset: Hypothyroidism Liuz Pereira MD Onset: 12/09/2016 Social History Type [...] of breath. DX J44.9 36ml Simi Cole [facility] 01/01/2020 Culturelle [employer] Probiotic Capsules one twice daily while on antibiotics or if having diarrhea 30cap s Simi Cole [facility] 12/29/2019 Vitamin D3 Ultra Strength 125mcg (5000 Ut) Capsules 1 by mouth every day 90caps Simi Cole [facility] Nebulizer Kit/Tubing/Mouthpiece K it for use with nebulizer--use up to four times a day dx j44.9 1units Simi Cole [facility] 01/12/2019 Incruse Ellipta 62.5mcg/Inh Aeroso l inhale one puff by mouth daily 3units Simi Cole [facility] 019 Levothyroxine Sodium 25mcg Tablets 1 tablet by mouth every day 90tabs Simi Cole [facility] 12/09 Aricept 5mg Tablets 1 by mouth every day at bedtime 90tabs G30.1 Nicolas Espana M.D. 12/08/2016 Advair Diskus 100-50mcg/Dose Aeros ol inhale one puff by mouth twice a day 180units Simi Cole [facility] 10/13/2016 Colace 100mg Capsules 1 by mouth twice a day 180caps K59.00 Simi Cole [facility] 09/03/2016 Calcium 500+D [id number]-Bcpu Table ts 1 by mouth three times a day 270tabs Luiz Pereira MD Duoneb 0.5-2.5(3)mg/3ML Solution inhale the contents of one vial via nebulizer four times a day as needed for wheezing or shortness of breath 270ml R06.02 Simi Cole [facility] 07/21/19 17 Torsemide 100mg Tablets 1tablet by mouth daily 30tabs R60.0 Simi Cole [facility] 07/20/2016 Tylenol 325mg Capsules 2 by mouth every day as needed 180caps Simi Cole [facility] 05/22/2016 Albuterol Sulfate (2 .5mg/3ML) 0.083% Nebulizer q.i.d. prn via nebulizer dx J44.9 75ml Simi Cole [facility] 09/27/2015 Coumadin 3mg Tablets take 1 tablet by mouth once a day as directed 90tabs Simi Cole, [facility] Simvastatin 40mg Tablets take one tablet by mouth at bedtime 90tabs Simi Cole [facility] 09/11/2014 Multi-Vitamins Tablets 1 by mouth daily 90tabs Simi Cole, [facility] 09/20/2002 Spironolactone 25mg Tablets 1 by [...] Of Flu Vaccine Inj ection Simi Cole, [facility] 02/07/2019 Immunization Adminstration,1 Vaccine[facility]/2018 Administration Of Flu Vaccine Inj ection Simi Cole, [facility] 12/24/2017 Administration Of Flu Vaccine Inj ection Carleen Trimble, [facility] 12/08/2016 Administration Of Flu Vaccine Inj ection Carleen Trimble, [facility] 12/19/2015 Administration Of Flu Vaccine Inj ection Luiz Pereira MD 12/20/2014 Administration Of Flu Vaccine Inj salmaion Luiz Pereira MD 12/28/2013 Administration Of Flu Vaccine Inj kay Pereira MD 12/18/2011 Administration Of Flu Vaccine [...] Of Flu Vaccine Inj ection SHANNA Bernard 12/25/2003 Administration Of Flu Vaccine Inj ection Luiz Pereira MD 01/09/2003 Administration Of Flu Vaccine Inj ection SHANNA Bernard 12/13/2001 Immunizations CPT Code Status Date Vaccine Lot # U-Flu Given 12/11/2019 Influenza,Unspecified 48362 Given 11/14/2019 PPD [id number] 54611 Given 02/07/2019 Influenza Vaccin e Quadrivalent Preser/Antibiotic Free Im Use [id number] 31589 Given 07/07/2018 Adacel- Tetanus Diphtheria P ertussis (Age64 & Under) [id number] 17817 Given 04/12/2018 Shingrix 80265 Given 02/01/2018 Shingrix 02369 Given 12/24/2017 Influenza Virus Vaccine, Quadrivalent ([id number]), Derived From 1 Given 12/08/2016 Influenza Vaccin e Quadrivalent Preser/Antibiotic Free Im Use [id number] Q2037 Given 12/19/2015 Fluvirin Virus Vaccine 46875 01 Q2037 Given 12/20/2014 Fluvirin Virus Vaccine 24938 01 60414 Given 05/22/2014 Prevnar 13 [id number] Q2037 Given 12/28/2013 Fluvirin Virus Vaccine 23806 21 Q2037 Given 12/18/2011 Fluvirin Virus Vaccine 94181 01 Q2037 Given 12/16/2010 Fluvirin Virus Vaccine Q2037 Given 12/16/2010 Fluvirin Virus Vaccine 71304 Given 12/12/2009 Influenza Virus Vaccine 34975 Given 01/29/2009 Pneumovax 23 43728 Given 12/13/2008 Influenza Virus Vaccine 79507 Given 01/10/2008 Influenza Virus Vaccine 87937 Given 12/23/2006 Influenza Virus Vaccine 47096 Given 08/13/2006 Zoster Vaccine 88516 Given 02/04/2006 Influenza Virus Vaccine 93275 Given 12/09/2004 Influenza Virus Vaccine 44286 Given 12/25/2003 Influenza Virus Vaccine 35973 Given 01/09/2003 Influenza Virus Vaccine 63241 Given 12/13/2001 Influenza Virus Vaccine 00591 Given 01/25/2001 Influenza Virus Vaccine 61285 Given 04/13/2000 Tetanus Toxoid U-Pneum Given 12/07/1999 Pneumococcal,Unspecified 78964 Given 12/26/1998 Influenza Virus Vaccine 35830 Given 12/30/1993 Influenza Virus Vaccine Vital Signs [...] Date Facility Test Result H/L Range Note Complete Blood Count 01/10/2020 [facility] enter [address] [place] [address] [phone] White Blood Count 7.8 10 Normal 4.0-10.0 [...] % Normal 0-0 Comprehensive Metabolic Profil 01/10/2020 [address] [place] [address] [phone] Glucose, Fasting 99 mg/dL Normal 70-100 Blood Urea Nitrogen 21 mg/dL High 7-18 Creatinine For GFR 1.07 mg/dL Normal 0.55-1.30 Glomerular Filtration Rate 52.1 Normal >32 1 Sodium Level 136 mEq/L Normal 136-145 Potassium [...] & Screen -Incl Blood Type,Price,AB SC 12/26/[address] [address] [phone] Blood Type A POSITIVE Normal AB Screen (Indirect Jaylan)Vis NEGATIVE Normal Laboratory test finding 12/26/[address] [address] [phone] Lipase 157 U/L Normal 73-393 Thyroid Stimulating Hormone 3.480 uIU/ML Normal 0.358-3.740 Liver Profile 12/26/2019 [facility] [address] [place] [address] [phone] Ast/Sgot 23 U/L Normal 7-37 Alt/SGPT 24 U/L Normal 12-78 Alkaline Phosphatase 72 U/L Normal 45-117 Bilirubin,Total 1.2 mg/dL High 0.2-1.0 Bilirubin,Direct 0.4 mg/dL High 0.0-0.2 Total Protein 6.7 GM/DL Normal 6.4-8.2 Albumin 3.7 GM/DL Normal 3.2-5.2 Albumin/Globulin Ratio 1.2 Normal 1.2-2.2 Cardiac Marker Panel 12/26/2019 [facility] C enter [address] [place] [address] [phone] CPK Creatine Phosphokinase 62 U/L Normal 26-19 2 CK-MB Value Mass < 1.0 NG/ML Normal <3.6 MB/CK Relative Index 1.61 Normal < Or =4 2 Troponin I < 0.02 NG/ML Normal < 0.10 3 Ua W/ Reflex To Culture 12/26/[address] [address] [phone] Appearance, Urine RFX CLEAR Normal Clear Color, Urine RFX YELLOW Normal Yellow PH,Urine RFX 6.0 units Normal 5.0-9.0 Specific [place] Ur Auto RFX 1.012 Normal 1.002-1.035 Protein, [...] /LPF Normal 0-1 Laboratory test finding 12/26/[address] [address] [phone] Ammonia < 10 uMOL/L Normal <32 CBC With Differential 12/26/[address] [address] [phone] White Blood Count 14.2 10 High 4.0-10.0 [...] 36.0-66.0 Lymph % 5.6 % Low 24.0-44.0 [place] % 17.9 % High 0.0-5.0 Eos % 0.5 % Normal 0.0-3.0 Baso % 0.4 % Normal 0.0-1.0 Immature Granulocyte % 0.6 % Normal 0-3.0 Nucleated Red Blood Cell % 0.0 % Normal 0-0 Neutrophils # 10.7 10 High 1.5-8.5 Lymph # 0.8 10 Low 1.5-5.0 [place] # 2.5 10 High 0.0-0.8 Eos # 0.1 10 Normal 0.0-0.5 Baso # 0.1 10 Normal 0.0-0.2 Istat PT/Inr 12/26/2019 [facility] nter [address] [place] [address] [phone] iSTAT Protime Seconds 31.3 seconds High 12.1-14. 4 iSTAT Inr 2.7 Normal Istat Chem8+ Panel 12/26/2019 [facility] nter [address] [place] [address] [phone] iSTAT HCT 41.0 % Normal 38.0-51.0 iSTAT Glucose 107 mg/dL High 70-105 iSTAT Sodium 136 mEq/L Normal 136-145 iSTAT Potassium 3.9 mEq/L Normal 3.5-5.1 iSTAT CA++ 5.1 mg/dL Normal 4.5-5.3 iSTAT Chloride 95 mEq/L Low 98-109 iSTAT Co2 30.0 MM/L High 23.0-27.0 iSTAT BUN 30 mg/dL High 8-26 iSTAT Creatinine 1.2 mg/dL Normal 0.6-1.3 Laboratory test finding 12/26/[address] [address] [phone] iSTAT Lactate 0.90 Normal 0.4-2.0 Laboratory test finding 12/26/[address] [address] [phone] iSTAT Troponin 0.02 NG/ML Normal 0.00-0.08 Complete Blood Count 11/16/2019 [facility] Technical Sales Manager: [place] [address] [phone] WBC 7.4 x10*3/UL 4.1 - 10.9 RBC [...] 2.0 - 7.8 Basic Metabolic Panel 11/16/2019 [facility] Technical Sales Manager: [place] [address] [phone] Glucose 100 mg/dL High 74 - 99 4 BUN 24 mg/dL High 7 - 18 Creatinine 1.4 mg/dL High 0.6 - 1.3 Sodium 139 mEq/L 136 - 145 Potassium 4.3 mEq/L 3.5 - 5.1 Chloride 99 mEq/L 98 - 107 Carbon Dioxide 36 mEq/L High 21 - 32 Calcium 9.9 mg/dL 8.5 - 10.1 GFR 36 mL/min Low >60 GFR 44 mL/min Low >60 5 Laboratory test finding 11/16/2019 [facility] Technical Sales Manager: Dr Luiz Pereira [place], [place] [address] [phone] Thyroid Stimulating Hormone 3.19 uIU/mL 0.3 6 - 3.74 Laboratory test finding 11/14/2019 Wi[facility] Inr 3.1 Laboratory test finding 10/17/2019 Wi-Inr Inr 2.5 Complete Blood Count 08/16/2019 [facility] Technical Sales Manager: [place] [address] [phone] WBC 8.1 x10*3/UL 4.1 - 10.9 RBC [...] 2.0 - 7.8 Basic Metabolic Panel 08/16/2019 [facility] Technical Sales Manager: [place] [address] [phone] Glucose 76 mg/dL 74 - 99 6 BUN 22 mg/dL High 7 - 18 Creatinine 1.2 mg/dL 0.6 - 1.3 Sodium 144 mEq/L 136 - 145 Potassium 4.2 mEq/L 3.5 - 5.1 Chloride 104 mEq/L 98 - 107 Carbon Dioxide 33 mEq/L High 21 - 32 Calcium 9.7 mg/dL 8.5 - 10.1 GFR 43 mL/min Low >60 GFR 52 mL/min Low >60 7 Laboratory test finding 08/16/2019 [facility] Technical Sales Manager: Dr Luiz Pereira [place], [place] [address] [phone] Magnesium 2.1 mg/dL 1.8 - 2.4 1 Units are mL/min/1.73 m2 Chronic Kidney Disease Staging per NKF: Stage I & II GFR >=60 Normal to Mildly Decreased Stage III GFR 30-59 Moderately Decreased Stage IV GFR 15-29 Severely Decreased Stage V GFR <15 Very Little GFR Left ESRD GFR <15 on STORAGE CONSULTANT 2 DIAGNOSIS CRITERIA MMB ng/ml Relative Index (RI) NON-AMI < or = 5 N/A CARLOS ZONE > 5 < or = 4 AMI > 5 > 4 3 Troponin I Reference Interva l for Siemens [place]ner LOCI: 99th Percentile= 0.00-0.045 ng/ml Risk Stratification: <= 0.10 ng/ml Decreased Risk for Adverse Clinical Events. 0.10-1.50 ng/ml Increased Risk for Adv erse Clinical Events. Evaluation of additional criterion and/or repeat testing in 2-6 hours is suggested to rule out myocardial damage. >= 1.50 ng/ml Indicative of Myocardial Injury. 4 100-125 mg/dL PRE-DIABET ES/FASTING >126 mg/dL DIABETES/FASTING 5 CHRONIC KIDNEY DISEASE STAGI NG PER NKF STAGE I & II GFR >= 60 NORMAL TO MILDLY DECREASED STAGE III GFR 30-59 MODERATELY DECREASED STAGE IV GFR 15-29 SEVERELY DECREASED STAGE V GFR <15 VERY LITTLE GFR LEFT ESRD GFR <15 ON STORAGE CONSULTANT 6 100-125 mg/dL PRE-DIABET ES/FASTING >126 mg/dL DIABETES/FASTING 7 CHRONIC KIDNEY DISEASE STAGI NG PER NKF STAGE I & II GFR >= 60 NORMAL TO MILDLY DECREASED STAGE III GFR 30-59 MODERATELY DECREASED STAGE IV GFR 15-29 SEVERELY DECREASED STAGE V GFR <15 VERY LITTLE GFR LEFT ESRD GFR <15 ON STORAGE CONSULTANT Procedures Date Code Description Status 11/02/2017 [id number] Diabetic Foot Exam Completed 04/15/2016 [id number] Mammogram Completed 03/22/2015 [id number] Mammogram Completed 03/21/2014 [id number] Mammogram Completed 03/20/2013 [id number] Mammogram Completed 01/25/2013 [id number] Diabetic Retinal Eye Exam Comple [facility] 08/17/2012 [id number] Bone Mineral Density Test [facility] 03/17/2012 [id number] Mammogram Completed 03/12/2011 [id number] Mammogram Completed 08/15/2010 [id number] Bone Mineral Density Test [facility] 03/11/2010 [id number] Mammogram Completed 03/06/2009 [id number] Mammogram Completed 03/05/2008 [id number] Bone Mineral Density Test [facility] 12/28/2003 [id number] Colonoscopy Completed Medical Devices Description No Information Available Encounters Type Date Location Provider Dx Diagnosis Office Visit 11/16/2019 1:40p [facility] 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 N18.3 Chronic kidney disease, stag e 3 (moderate) J44.9 Chronic obstructive pulmonar y disease, unspecified G30.1 Alzheimer's disease with lat e onset F02.80 Dementia in oth diseases [facility] el[facility] w/o behavrl disturb I48.21 Permanent atrial fibrillatio n Z79.01 terminal system operator (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 a nticoagulants 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 heart valve Z13.89 Encounter for screening for other disorder Assessments Date Code Description Provider 01/04/2020 I50.41 Acute combined systo lic (congestive) and diastolic (congestive) heart failure ARVIND BernardP 01/04/2020 J44.9 Chronic obstructive pulmonary di sease, unspecified Simi Cole [facility] 01/04/2020 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 ARVIND BernardP 01/04/2020 N18.31 Chronic kidney disease, stage 3a Simi Cole [facility] 01/04/2020 I48.21 Permanent atrial fibrillation An carlos Cole [facility] 01/04/2020 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 Simi Cole [facility] 01/04/2020 Z79.01 terminal system operator (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 antic oagulants ARVIND BernardP 01/04/2020 R26.89 Other abnormalities of gait and mobility SHANNA Bernard 11/17/2019 J44.9 Chronic obstructive pulmonary di sease, unspecified Luiz Pereira MD 11/17/2019 G30.1 Alzheimer's disease with late on set Luiz Pereira MD 11/17/2019 I48.21 Permanent atrial fibrillation Co julianne Pereira MD 11/17/2019 I10 Essential (primary) hypertension Luiz Pereira MD 11/16/2019 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 Simi Cole, [facility] 11/16/2019 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 Simi Cole, [facility] 11/16/2019 N18.3 Chronic kidney disease, stage 3 (moderate) Simi Cole, [facility] 11/16/2019 J44.9 Chronic obstructive pulmonary di sease, unspecified Simi Cole, [facility] 11/16/2019 G30.1 Alzheimer's disease with late on set Simi Cole, [facility] 11/16/2019 F02.80 Dementia in other di seases classified elsewhere without behavioral disturbance Simi Cole [facility] 11/16/2019 I48.21 Permanent atrial fibrillation An n Kita Lott, [facility] 11/16/2019 Z79.01 half-way (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 antic oagulants Simi Cole, [facility] 11/16/2019 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 Simi Cole, [facility] 11/16/2019 I87.2 Venous insufficiency (chronic) ( peripheral) Simi Cole [facility] 11/14/2019 Z11.1 Encounter for screening for resp iratory tuberculosis Luiz Pereira MD 11/14/2019 I48.21 Permanent atrial fibrillation An n Kita Lott [facility] 11/14/2019 I48.21 Permanent atrial fibrillation Pr otime 11/14/2019 Z51.81 Encounter for therapeutic drug l evel monitoring Simi Cole [facility] 11/14/2019 Z51.81 Encounter for therapeutic drug l evel monitoring Protime 11/14/2019 Z79.01 half-way (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 antic oagulants Simi Cole [facility] 11/14/2019 Z79.01 terminal system operator (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 antic oagulants Protime 10/17/2019 I48.21 Permanent atrial fibrillation An n Kita Lott [facility] 10/17/2019 I48.21 Permanent atrial fibrillation Pr otime 10/17/2019 Z51.81 Encounter for therapeutic drug l evel monitoring Simi Cole, [facility] 10/17/2019 Z79.01 half-way (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 antic oagulants Simi Cole, [facility] 10/12/2019 I10 Essential (primary) hypertension Luiz [...] idney disease with heart chris Simi Cole, [facility] 08/16/2019 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 Simi Cole [facility] 08/16/2019 N18.3 Chronic kidney disease, stage 3 (moderate) Simi Cole [facility] 08/16/2019 J44.9 Chronic obstructive pulmonary di sease, unspecified Simi Cole [facility] 08/16/2019 G30.1 Alzheimer's disease with late on set Simi Cole, [facility] 08/16/2019 F02.80 Dementia in other di seases classified elsewhere without behavioral disturbance Simi Cole [facility] 08/16/2019 I48.21 Permanent atrial fibrillation An n Kita Lott, [facility] 08/16/2019 Z79.01 half-way (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 antic oagulants Simi Cole, [facility] 08/16/2019 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 Simi Cole, [facility] 08/16/2019 Z13.89 Encounter for screening for othe r disorder SHANNA Bernard 08/15/2019 N18.3 Chronic kidney disease, stage 3 (moderate) Luiz Pereira MD 08/15/2019 J44.9 Chronic obstructive pulmonary di sease, unspecified Luiz Pereira MD 08/15/2019 I10 Essential (primary) hypertension Luiz Pereira MD 08/15/2019 E66.3 Overweight Luiz valladares MD 07/27/2019 N18.3 Chronic kidney disease, stage 3 (moderate) Luiz Pereira MD 07/27/2019 J44.9 Chronic obstructive pulmonary di sease, unspecified Luiz Pereira MD 07/27/2019 G30.1 Alzheimer's disease with late on set Luiz Pereira MD 07/27/2019 I10 Essential (primary) hypertension Luiz Pereira MD Plan of Treatment Future Appointment(s):* 01/23/2020 3:00 pm - SHANNA Bernard at [facility] * 02/28/2020 3:20 pm - SHANNA Bernard at [facility] 01/04/2020 - SHANNA Bernard* I50.41 Acute combined systolic (congestive) and diastolic (congestive) heart failure* New Orders:* CBC and CMP, Scheduled: 01/10/20 * Comments:* will increase Torsemide to 100mg daily.will arrange for [facility] to evaluate. * J44.9 Chronic obstructive pulmonary disease, unspecified* Comments:* will request BMP in one week. 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 * N18.31 Chronic kidney disease, stage 3a * I48.21 Permanent atrial fibrillation* Comments:* Rate controlled. 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
--- OUTSIDE RECORDS SUMMARY | 2020-03-29 02:37 | CCD | Continuity of Care Document ---
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) 26-Dec-2019 Status: Active History of falling (Z91.81) 26-Dec-2019 Status: Active [facility] (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 inhaled steroids (Z79.51) 26-Dec-2019 Status: Active [facility] (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 anticoagulants (Z79.01) 26-Dec-2019 Status: Active Encounter for thera peutic drug level monitoring (Z51.81) 26-Dec-2019 Status: Active 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
--- OUTSIDE RECORDS SUMMARY | 2020-03-29 02:37 | CCD | Continuity of Care Document ---
Author Author Regina Bernard Organization Unknown Address [address] [facility] [address] [place] [address] Phone [phone] Care Team Providers Care Blacksmith Assistant Name Role Phone Luiz Pereira JR, MD AUTM Unavailable Kaylee Pop AUTM [phone] David Foster MD AUTM [phone] Richie Zapien MD AUTM [phone] Simi Molina AUTM [phone] [place] [facility] AUTM [phone] Problems Active Problems Provider Date Anticoagulants Prison (Current) Use O nset: 09/12/1996 Atrial fibrillation [...] of breath. DX J44.9 36ml Simi Cole [facility] 01/01/2020 [facility] Probiotic Capsules one twice daily while on antibiotics or if having diarrhea 30cap s Simi Cole [facility] 12/29/2019 Vitamin D3 Ultra Strength 125mcg (5000 Ut) Capsules 1 by mouth every day 90caps Simi Cole [facility] Nebulizer Kit/Tubing/Mouthpiece K it for use with nebulizer--use up to four times a day dx j44.9 1units Simi Cole [facility] 01/12/2019 Incruse Ellipta 62.5mcg/Inh Aeroso l inhale one puff by mouth daily 3units Simi Cole [facility] 019 Levothyroxine Sodium 25mcg Tablets 1 tablet by mouth every day 90tabs Simi Cole [facility] 12/09 Aricept 5mg Tablets 1 by mouth every day at bedtime 90tabs G30.1 Nicolas Espana M.D. 12/08/2016 Advair Diskus 100-50mcg/Dose Aeros ol inhale one puff by mouth twice a day 180units Simi Cole [facility] 10/13/2016 Colace 100mg Capsules 1 by mouth twice a day 180caps K59.00 Simi Cole [facility] 09/03/2016 Calcium 500+D [id number] Table ts 1 by mouth three times a day 270tabs Luiz Pereira MD Duoneb 0.5-2.5(3)mg/3ML Solution inhale the contents of one vial via nebulizer four times a day as needed for wheezing or shortness of breath 270ml R06.02 Simi Cole [facility] 07/21/19 17 Torsemide 100mg Tablets 1tablet by mouth daily 30tabs R60.0 Simi Cole [facility] 07/20/2016 Tylenol 325mg Capsules 2 by mouth every day as needed 180caps Simi Cole [facility] 05/22/2016 Albuterol Sulfate (2 .5mg/3ML) 0.083% Nebulizer q.i.d. prn via nebulizer dx J44.9 75ml Simi Cole [facility] 09/27/2015 Coumadin 3mg Tablets take 1 tablet by mouth once a day as directed 90tabs Simi Cole, [facility] Simvastatin 40mg Tablets take one tablet by mouth at bedtime 90tabs Simi Cole [facility] 09/11/2014 Multi-Vitamins Tablets 1 by mouth daily 90tabs Simi Cole, [facility] 09/20/2002 Spironolactone 25mg Tablets 1 by mouth [...] Of Flu Vaccine Inj ection Simi Cole, [facility] 02/07/2019 Immunization Adminstration,1 [facility] Administration Of Flu Vaccine Inj ection Simi Cole, [facility] 12/24/2017 Administration Of Flu Vaccine Inj ection Carleen Trimble, [facility] 12/08/2016 Administration Of Flu Vaccine Inj ection Carleen Trimble, [facility] 12/19/2015 Administration Of Flu Vaccine Inj ection [...] Vaccine Lot # U-[id number] Given 12/11/2019 Influenza,Unspecified 02549 Given 11/14/2019 PPD [id number] Given 02/07/2019 Influenza Vaccin e Quadrivalent Preser/Antibiotic Free Im Use [id number] 51240 Given 07/07/2018 Adacel- Tetanus Diphtheria P ertussis (Age64 & Under) [id number] 58414 Given 04/12/2018 Shingrix 31348 Given 02/01/2018 Shingrix 77507 Given 12/24/2017 Influenza Virus Vaccine, Quadrivalent ([id number]), Derived From 6 Given 12/08/2016 Influenza Vaccin e Quadrivalent Preser/Antibiotic Free Im Use [id number] Q2037 Given 12/19/2015 Fluvirin Virus Vaccine 21922 01 Q2037 Given 12/20/2014 Fluvirin Virus Vaccine 70094 01 23232 Given 05/22/2014 Prevnar 13 [id number] Q2037 Given 12/28/2013 Fluvirin Virus Vaccine 70872 21 Q2037 Given 12/18/2011 Fluvirin Virus Vaccine 57185 01 Q2037 Given 12/16/2010 Fluvirin Virus Vaccine Q2037 Given 12/16/2010 Fluvirin Virus Vaccine 05878 Given 12/12/2009 Influenza Virus Vaccine 03781 Given 01/29/2009 Pneumovax 23 18934 Given 12/13/2008 Influenza Virus Vaccine 11753 Given 01/10/2008 Influenza Virus Vaccine 19915 Given 12/23/2006 Influenza Virus Vaccine 60948 Given 08/13/2006 Zoster Vaccine 18041 Given 02/04/2006 Influenza Virus Vaccine 37838 Given 12/09/2004 Influenza Virus Vaccine 46364 Given 12/25/2003 Influenza Virus Vaccine 79273 Given 01/09/2003 Influenza Virus Vaccine 82579 Given 12/13/2001 Influenza Virus Vaccine 65508 Given 01/25/2001 Influenza Virus Vaccine 21775 Given 04/13/2000 Tetanus Toxoid U-Pneum Given 12/07/1999 Pneumococcal,Unspecified 41784 Given 12/26/1998 Influenza Virus Vaccine 63682 Given 12/30/1993 Influenza Virus Vaccine Vital Signs [...] H/L Range Note Complete Blood Count 01/10/2020 [facility] enter [address] [place] [address] [phone] White Blood Count 7.8 10 Normal 4.0-10.0 [...] % Normal 0-0 Comprehensive Metabolic Profil 01/10/2020 [place] [address] [place] [address] [phone] Glucose, Fasting 99 mg/dL Normal 70-100 Blood [...] & Screen -Incl Blood Type,Price,AB SC 12/26/[address] [address] [phone] Blood Type A POSITIVE Normal AB Screen (Indirect Jaylan)Vis NEGATIVE Normal Laboratory test finding 12/26/[address] [address] [phone] Lipase 157 U/L Normal 73-393 Thyroid Stimulating Hormone 3.480 uIU/ML Normal 0.358-3.740 Liver Profile 12/26/2019 [facility] Ce nter [address] [place] [address] [phone] Ast/Sgot 23 U/L Normal 7-37 Alt/SGPT 24 U/L Normal 12-78 Alkaline Phosphatase 72 U/L Normal 45-117 Bilirubin,Total 1.2 mg/dL High 0.2-1.0 Bilirubin,Direct 0.4 mg/dL High 0.0-0.2 Total Protein 6.7 GM/DL Normal 6.4-8.2 Albumin 3.7 GM/DL Normal 3.2-5.2 Albumin/Globulin Ratio 1.2 Normal 1.2-2.2 Cardiac Marker Panel 12/26/2019 [facility] C enter [address] [place] [address] [phone] CPK Creatine Phosphokinase 62 U/L Normal 26-19 2 CK-MB Value Mass < 1.0 NG/ML Normal <3.6 MB/CK Relative Index 1.61 Normal < Or =4 2 Troponin I < 0.02 NG/ML Normal < 0.10 3 Ua W/ Reflex To Culture 12/26/[address] [address] [phone] Appearance, Urine RFX CLEAR Normal Clear Color, Urine RFX YELLOW Normal Yellow PH,Urine RFX 6.0 units Normal 5.0-9.0 Specific [place] Ur Auto RFX 1.012 Normal 1.002-1.035 Protein, [...] /LPF Normal 0-1 Laboratory test finding 12/26/[address] [address] [phone] Ammonia < 10 uMOL/L Normal <32 CBC With Differential 12/26/[address] [address] [phone] White Blood Count 14.2 10 High 4.0-10.0 [...] 36.0-66.0 Lymph % 5.6 % Low 24.0-44.0 [place] % 17.9 % High 0.0-5.0 Eos % 0.5 % Normal 0.0-3.0 Baso % 0.4 % Normal 0.0-1.0 Immature Granulocyte % 0.6 % Normal 0-3.0 Nucleated Red Blood Cell % 0.0 % Normal 0-0 Neutrophils # 10.7 10 High 1.5-8.5 Lymph # 0.8 10 Low 1.5-5.0 [place] # 2.5 10 High 0.0-0.8 Eos # 0.1 10 Normal 0.0-0.5 Baso # 0.1 10 Normal 0.0-0.2 Istat PT/Inr 12/26/2019 [facility] nter [address] [place] [address] [phone] iSTAT Protime Seconds 31.3 seconds High 12.1-14. 4 iSTAT Inr 2.7 Normal Istat Chem8+ Panel 12/26/2019 [facility] nter [address] [place] [address] [phone] iSTAT HCT 41.0 % Normal 38.0-51.0 iSTAT Glucose 107 mg/dL High 70-105 iSTAT Sodium 136 mEq/L Normal 136-145 iSTAT Potassium 3.9 mEq/L Normal 3.5-5.1 iSTAT CA++ 5.1 mg/dL Normal 4.5-5.3 iSTAT Chloride 95 mEq/L Low 98-109 iSTAT Co2 30.0 MM/L High 23.0-27.0 iSTAT BUN 30 mg/dL High 8-26 iSTAT Creatinine 1.2 mg/dL Normal 0.6-1.3 Laboratory test finding 12/26/[address] [address] [phone] iSTAT Lactate 0.90 Normal 0.4-2.0 Laboratory test finding 12/26/[address] [address] [phone] iSTAT Troponin 0.02 NG/ML Normal 0.00-0.08 Complete Blood Count 11/16/2019 [facility] Die Try Out Worker: [place] [address] [phone] WBC 7.4 x10*3/UL 4.1 - 10.9 RBC [...] 2.0 - 7.8 Basic Metabolic Panel 11/16/2019 [facility] Die Try Out Worker: [place] [address] [phone] Glucose 100 mg/dL High 74 - 99 [...] Low >60 5 Laboratory test finding 11/16/2019 [facility] Die Try Out Worker: Dr Luiz Pereira [place] [address] [phone] Thyroid Stimulating Hormone 3.19 uIU/mL 0.3 6 - 3.74 Laboratory test finding 11/14/2019 Wi-Inr Inr 3.1 Laboratory test finding 10/17/2019 [facility] Inr 2.5 Complete Blood Count 08/16/2019 [facility] Die Try Out Worker: [place] [address] [phone] WBC 8.1 x10*3/UL 4.1 - 10.9 RBC [...] 2.0 - 7.8 Basic Metabolic Panel 08/16/2019 [facility] Die Try Out Worker: [place] [address] [phone] Glucose 76 mg/dL 74 - 99 6 [...] Low >60 7 Laboratory test finding 08/16/2019 [facility] Die Try Out Worker: Dr Luiz Pereira [place], [place] [id number] [phone] Magnesium 2.1 mg/dL 1.8 - 2.4 1 Units are mL/min/1.73 m2 Chronic Kidney Disease Staging per NKF: Stage I & II GFR >=60 Normal to Mildly Decreased Stage III GFR 30-59 Moderately Decreased Stage IV GFR 15-29 Severely Decreased Stage V GFR <15 Very Little GFR Left ESRD GFR <15 on COMFORT FILLER 2 DIAGNOSIS CRITERIA MMB ng/ml Relative Index (RI) NON-AMI < or = 5 N/A CARLOS ZONE > 5 < or = 4 AMI > 5 > 4 3 Troponin I Reference Interva l for Siemens [place] LOCI: 99th Percentile= 0.00-0.045 ng/ml Risk Stratification: [...] LITTLE GFR LEFT ESRD GFR <15 ON COMFORT FILLER 6 100-125 mg/dL PRE-DIABET ES/FASTING >126 mg/dL DIABETES/FASTING 7 CHRONIC KIDNEY DISEASE STAGI NG PER NKF STAGE I & II GFR >= 60 NORMAL TO MILDLY DECREASED STAGE III GFR 30-59 MODERATELY DECREASED STAGE IV GFR 15-29 SEVERELY DECREASED STAGE V GFR <15 VERY LITTLE GFR LEFT ESRD GFR <15 ON COMFORT FILLER Procedures Date Code Description Status 11/02/2017 [id number] Diabetic Foot Exam Completed 04/15/2016 [id number] Mammogram Completed 03/22/2015 [id number] Mammogram Completed 03/21/2014 [id number] Mammogram Completed 03/20/2013 [id number] Mammogram Completed 01/25/2013 [id number] Diabetic Retinal Eye Exam [facility] 08/17/2012 [id number] Bone Mineral Density Test [facility] 03/17/2012 [id number] Mammogram Completed 03/12/2011 [id number] Mammogram Completed 08/15/2010 [id number] Bone Mineral Density Test [facility] 03/11/2010 [id number] Mammogram Completed 03/06/2009 [id number] Mammogram Completed 03/05/2008 [id number] Bone Mineral Density Test [facility] 12/28/2003 [id number] Colonoscopy Completed Medical Devices Description No Information Available Encounters Type Date Location Provider Dx Diagnosis Office Visit 01/04/2020 11:20a [facility] 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 N18.3 Chronic kidney disease, stag e 3 (moderate) J44.9 Chronic obstructive pulmonar y disease, unspecified G30.1 Alzheimer's disease with lat e onset F02.80 Dementia in oth diseases [facility] el[facility] w/o behavrl disturb I48.21 Permanent atrial fibrillatio n Z79.01 long term care pharmacist (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 a nticoagulants 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 heart valve Z13.89 Encounter for screening for other disorder Assessments Date Code Description Provider 01/04/2020 K57.92 Diverticulitis of in testine, part unspecified, without perforation or abscess without bleeding SHANNA Bernard 01/04/2020 I50.41 Acute combined systo lic (congestive) and diastolic (congestive) heart failure Simi Cole, [facility] 01/04/2020 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 Simi Cole, [facility] 01/04/2020 N18.31 Chronic kidney disease, stage 3a Simi Cole, [facility] 01/04/2020 J44.9 Chronic obstructive pulmonary di sease, unspecified Simi Cole, [facility] 01/04/2020 I48.21 Permanent atrial fibrillation An n Kita Lott, [facility] 01/04/2020 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 Simi Cole, [facility] 01/04/2020 Z79.01 correction (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 antic oagulants Simi Cole, [facility] 01/04/2020 R26.89 Other abnormalities of gait and mobility Simi Cole, [facility] 11/17/2019 J44.9 Chronic obstructive pulmonary di sease, unspecified Luiz Pereira MD 11/17/2019 G30.1 Alzheimer's disease with late on set Luiz Pereira MD 11/17/2019 I48.21 Permanent atrial fibrillation Co julianne Pereira MD 11/17/2019 I10 Essential (primary) hypertension Luiz Pereira MD 11/16/2019 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 Simi Cole, [facility] 11/16/2019 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 Simi Cole, [facility] 11/16/2019 N18.3 Chronic kidney disease, stage 3 (moderate) Simi Cole, [facility] 11/16/2019 J44.9 Chronic obstructive pulmonary di sease, unspecified Simi Cole, [facility] 11/16/2019 G30.1 Alzheimer's disease with late on set Simi Cole, [facility] 11/16/2019 F02.80 Dementia in other di seases classified elsewhere without behavioral disturbance Simi Cole, [facility] 11/16/2019 I48.21 Permanent atrial fibrillation An n Kita Lott, [facility] 11/16/2019 Z79.01 correction (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 antic oagulants Simi Cole, [facility] 11/16/2019 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 Simi Cole, [facility] 11/16/2019 I87.2 Venous insufficiency (chronic) ( peripheral) Simi [place] [facility] 11/14/2019 Z11.1 Encounter for screening for resp iratory tuberculosis Luiz Pereira MD 11/14/2019 I48.21 Permanent atrial fibrillation An carlos Cole [facility] 11/14/2019 I48.21 Permanent atrial fibrillation Pr otime 11/14/2019 Z51.81 Encounter for therapeutic drug l evel monitoring Simi Kita Oren [facility] 11/14/2019 Z51.81 Encounter for therapeutic drug l evel monitoring Protime 11/14/2019 Z79.01 long term care pharmacist (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 antic oagulants Simi Kita Oren [facility] 11/14/2019 Z79.01 long term care pharmacist (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 antic oagulants Protime 10/17/2019 I48.21 Permanent atrial fibrillation An carlos Cole [facility] 10/17/2019 I48.21 Permanent atrial fibrillation Pr otime 10/17/2019 Z51.81 Encounter for therapeutic drug l evel monitoring Simi Cole [facility] 10/17/2019 Z79.01 long term care pharmacist (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 antic oagulants Simi Cole [facility] 10/12/2019 I10 Essential (primary) hypertension Luiz Pereira MD 10/12/2019 N18.3 Chronic kidney disease, stage 3 (moderate) Luiz Pereira MD 10/12/2019 J44.9 Chronic obstructive pulmonary di sease, unspecified Luiz Pereira MD 10/12/2019 G30.1 Alzheimer's disease with late on set Luiz Pereira MD 09/07/2019 N18.3 Chronic kidney disease, stage 3 (moderate) Luiz Preeira MD 09/07/2019 J44.9 Chronic obstructive pulmonary di sease, unspecified Luiz Pereira MD 09/07/2019 G30.1 Alzheimer's disease with late on set Luiz Pereira MD 09/07/2019 I10 Essential (primary) hypertension Luiz Pereira MD 08/16/2019 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 Simi Cole [facility] 08/16/2019 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 Simi Cole, [facility] 08/16/2019 N18.3 Chronic kidney disease, stage 3 (moderate) Simi [place], [facility] 08/16/2019 J44.9 Chronic obstructive pulmonary di sease, unspecified Simi Cole, [facility] 08/16/2019 G30.1 Alzheimer's disease with late on set Simi Cole, [facility] 08/16/2019 F02.80 Dementia in other di seases classified elsewhere without behavioral disturbance Simi Kita Oren [facility] 08/16/2019 I48.21 Permanent atrial fibrillation An carlos Cole, [facility] 08/16/2019 Z79.01 correction (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 antic oagulants Simi [place], [facility] 08/16/2019 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 Simi Cole, [facility] 08/16/2019 Z13.89 Encounter for screening for othe r disorder Simi Kita Lott [facility] 08/15/2019 N18.3 Chronic kidney disease, stage 3 [...] 01/23/2020 3:00 pm - SHANNA Bernard at [facility] * 02/28/2020 3:20 pm - SHANNA Bernard at [facility] 01/04/2020 - SHANNA Bernard* K57.92 Diverticulitis of intestine, part unspecified, without perforation or abscess without bleeding * I50.41 Acute combined systolic (congestive) and diastolic (congestive) heart failure* New Orders:* CBC and CMP, Scheduled: 01/10/20 * Comments:* will increase Torsemide to 100mg daily.will arrange for [facility] to evaluate. 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 * N18.31 Chronic kidney disease, stage 3a * J44.9 Chronic obstructive pulmonary disease, unspecified* Comments:* will request BMP in one week. * I48.21 Permanent atrial fibrillation* Comments:* Rate controlled. * 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 heart valve * Z79.01 correction (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 anticoagulants* Comments:* INR completed [...]
--- OUTSIDE RECORDS SUMMARY | 2020-03-29 02:38 | CCD | Continuity of Care Document ---
Author Author Regina Medina [employer] Organization Unknown Address Unknown Phone Unavailable Care Team Providers Care Firer Electric [employer]otive Name Role Phone Luiz Pereira Unavailable Unavailable Unavailable Luiz Pereira Unavailable Unavailable Unavailable MitchellHarvinderRadha Unavailable Roxana Abbott Unavailable Guerda Brendon Unavailable Problems Name Dates Details 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) 04-Jan-2020 Status: Active Medications Name Dates Details Xopenex [...] Pereira MD Start : 09-Jan-2020 Active Colace Sjaan Pereira MD Start : 09-Jan-2020 Active Advair [...] Type: Nutrition education Payers * Medicare - [facility] * [facility]
--- OUTSIDE RECORDS SUMMARY | 2020-03-29 02:38 | CCD | Continuity of Care Document ---
Author Author Regina Medina [employer] Organization Unknown Address Unknown Phone Unavailable Care Team Providers Care Fine Arts Instructor Name Role Phone Luiz Pereira Unavailable Unavailable [...] Type: Nutrition education Payers * Medicare - [facility] * [facility]
--- OUTSIDE RECORDS SUMMARY | 2020-03-29 02:38 | CCD | Continuity of Care Document ---
Author Author Regina LEE PA Organization Unknown Address [address] [facility], [place] [address] Phone [phone] Care Team Providers Care Estate Planner Name Role Phone Randall REYES MD, Luiz Rocha AUTM [phone] Problems Active Problems Provider Date Complete atrioventricular block IVANA Mayo Onset: 09/22/2011 Cardiac pacemaker in situ IVANA Mayo Onset: 09/22/2011 Chronic diastolic heart failure Ariel Mortensen MD Onset: 04/22/2017 Chronic atrial fibrillation Ariel Mortensen MD Onset: 04/08 Heart valve replacement Ariel Mortensen MD Onset: 04/22/19 18 Essential hypertension Ariel Mortensen MD Onset: 8 Left bundle branch block Ariel Mortensen MD Onset: 018 High degree second degree atrioventricular block Ariel harvey MD Onset: 04/22/2017 Rheumatic mitral regurgitation LUL Garcia Onset: 0 10/13/2017 Dietary management surveillance LUL Garcia Onset: 10/13/2017 Hypertensive heart disease with heart failure LUL Reynoso Onset: 10/13/2017 Social History Type Date Description Comments Sex Unknown ETOH Use Does not consume alcohol Tobacco Use Start: Unknown End: Unknown Patient is a former smoker up to 1 ppd x20 yrs, quit 1976 Smoking Status Reviewed: 01/11/20 Patient is a former smoker up to 1 ppd x20 yrs, quit 1976 Exercise Type/Frequency Walks sporadically Exercise Limitations Fatigue Exercise Limitations Imbalance Exercise Limitations Weakness some Exercise Limitations Shortness Of Breath Allergies, Adverse Reactions, Alerts Active Allergies Reaction Severity Comments Date Penicillins rash 07/31/2008 Thorazine rash 07/31/2008 Codeine Phosphate nausea/vomiting 009 Medications Active Medications SIG Qnty Indications Ordering Provide r Date Clarithromycin 500mg Tablets SBE prior to dental work Luiz Pereira JR, MD Acetaminophen 325mg Tablets 1-2 every 4 hours as needed Luiz Pereira JR, MD 020 Torsemide 100mg Tablets 1 by mouth once a day Luiz Pereira JR, MD 020 Incruse Ellipta 62.5mcg/Inh Aeroso l 1 puff daily Luiz Pereira JR, MD 020 Zocor 40mg Tablets 1 by mouth every night at bedtime Unknown 04/21/2018 Spironolactone 25mg Tablets 1 by mouth every day 90tabs I10 Delvis June MD 04/22/2017 I50.32 Klor-Con M10 10Meq Tablets ER 1 by mouth twice a day 180tabs Delvis June MD 04/22/2017 Advair Diskus 250-50mcg/Dose Aeros ol 1 puff twice a day Unknown 04/21/2017 Synthroid 25mcg Tablets 1 by mouth every day Unknown 04/21/2017 Vitamin D3 Ultra Strength 5000Unit Capsules 1 by mouth every day Unknown 018 Aricept 5mg Tablets 1 by mouth every day Unknown 04/21/2017 Docusate Sodium 100mg Capsules 1 by mouth twice a day Unknown 04/21/2017 Ipratropium Mcallen/Albuterol Sulfate 0.5-2.5(3)mg/3ML Solution 1 nebulizer treatment 4 times a day (wit h each meal and bedtime). Unknown 04/21/2017 Calcium/Vitamin D 500mg Tablets 1 po tid Unknown 07/31/2008 Multivitamins Tablets 1 po d aily Unknown 07/31/2008 Coumadin 3mg Tablets as direc casey Unknown 07/31/2008 Immunizations Description No Information Available Vital Signs Date Vital Result Comment 01/11/2020 2:37pm Weight 154.00 lb Home Weight 157lb Height 66 inches 5'6" BMI (Body Mass Index) 24.9 kg/m2 Heart Rate 53 /min BP Systolic Sitting 118 mmHg large cuff, Ra BP Diastolic Sitting 58 mmHg large cuff, Ra 04/19/2019 1:36pm Weight 161.00 lb Home Weight 157lb Height 66 inches 5'6" BMI (Body Mass Index) 26.0 kg/m2 Heart Rate 51 /min BP Systolic Sitting 122 mmHg BP Diastolic Sitting 68 mmHg Results Test Acquired Date Facility Test Result H/L Range Note Complete Blood Count 11/16/2019 N2N/Direct CCD Impo rt WBC 7.4 x10*3/UL 4.1-10.9 RBC 5.02 x10*6/UL 4.20-6.30 Hemoglobin 14.8 g/dL 12.0-18.0 Hematocrit 44.4 % 37.0-51.0 MCV 88.5 fL 80.0-97.0 MCH 29.4 pg 26.0-32.0 MCHC 33.3 g/dL 31.0-38.0 RDW 14.3 % High 11.6-13.7 PLT 208 x10*3/UL 140-440 MPV 8.8 FL 7.8-11.0 Lymph % 16.7 % 10.0-58.5 Mid % 4.6 % 1.7-9.3 Neut % 78.7 % 37.0-92.0 Lymph # 1.2 x10*3/UL 0.6-4.1 Mid # 0.4 x10*3/UL 0.1-0.6 Neut # 5.8 x10*3/UL 2.0-7.8 Procedures Date Code Description Status 01/11/2020 63589 ECG 12-Lead Completed Medical Devices Description No Information Available Encounters Type Date Location Provider Dx Diagnosis Office Visit 01/11/2020 2:15p Main Office LUL Garcia I11.0 Hypertensive heart disease with heart failure I50.32 Chronic diastolic (congestiv e) heart failure I05.1 Rheumatic mitral insufficien cy 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 heart valve I48.21 Permanent atrial fibrillatio n Z95.0 Presence of cardiac pacemake r Z71.3 Dietary counseling and surve illance Assessments Date Code Description Provider 01/11/2020 I11.0 Hypertensive heart disease with heart failure LUL Garcia 01/11/2020 I50.32 Chronic diastolic (congestive) h eart failure LUL Garcia 01/11/2020 I05.1 Rheumatic mitral insufficiency A llLUL Cardenas 01/11/2020 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 LUL Garcia 01/11/2020 I48.21 Permanent atrial fibrillation Al LUL Barrios 01/11/2020 Z95.0 Presence of cardiac pacemaker Al LUL Barrios 01/11/2020 Z71.3 Dietary counseling and surveilla [facility] LUL Garcia Plan of Treatment Future Appointment(s):* 04/29/2020 2:15 pm - LUL Schwartz at Main Office * 04/12/2020 2:15 pm - LUL Schwartz at Main Office 01/11/2020 - LUL Garcia* I11.0 Hypertensive heart disease with heart failure * I50.32 Chronic diastolic (congestive) heart failure* Recommendations:* Please let me know if your weight increases > 3 lbs overnight or 5 lbs in one week. Limit sodium to less than 2000 mg daily and fluid less than 1.5 L daily. * I05.1 Rheumatic mitral insufficiency * 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 heart valve * I48.21 Permanent atrial fibrillation * Z95.0 Presence of cardiac pacemaker * Z71.3 Dietary counseling and surveillance* Recommendations:* Recommend adopting a more whole foods, plant-based diet in addition to moderate exercise a minimum of 30 minutes 6 days a week. In order to optimize cardiovascular health please be conscious of processed foods, alcohol (no more than two dr inks a day for men and one drink a day for women), salt (<2000 mg/d), oils, saturated fat/animal products, and highly refined carbohydrates such as breads, pastas, and sweets. * All * Follow up:* CV 3 months. Functional Status Functional Condition Comment Date Status Independent with feeding Active Independent with grooming Active Independent with standing Active Requires assistance with ambulating Uses 4 wheeled wal ker with seat and hand brakes Active Requires assistance with bathing Active Requires assistance with dressing Active Requires assistance with toileting Active Mental Status Description No Information Available Referrals Description No Information Available
--- OUTSIDE RECORDS SUMMARY | 2020-03-29 02:38 | CCD | Continuity of Care Document ---
Author Author Regina Bernard Organization Unknown Address [address] [facility] [address] [place] [address] Phone [phone] Care Team Providers Care Deep Fat Cook Fry Name Role Phone Luiz Pereira JR, MD AUTM Unavailable Kaylee Pop AUTM [phone] David Foster MD AUTM [phone] Richie Zapien MD AUTM [phone] Simi Molina AUTM [phone] [place] AT [facility] AUTM [phone] Problems Active Problems Provider Date Anticoagulants Usp (Current) Use O nset: 09/12/1996 Atrial fibrillation [...] of breath. DX J44.9 36ml Simi Cole [facility] 01/01/2020 [employer] [employer] Probiotic Capsules one twice daily while on antibiotics or if having diarrhea 30cap s Simi Cole [facility] 12/29/2019 Vitamin D3 Ultra Strength 125mcg (5000 Ut) Capsules 1 by mouth every day 90caps Simi Cole [facility] Nebulizer Kit/Tubing/Mouthpiece K it for use with nebulizer--use up to four times a day dx j44.9 1units Simi Cole [facility] 01/12/2019 Incruse Ellipta 62.5mcg/Inh Aeroso l inhale one puff by mouth daily 3units Simi Cole [facility] 019 Levothyroxine Sodium 25mcg Tablets 1 tablet by mouth every day 90tabs Simi Cole [facility] 12/09 Aricept 5mg Tablets 1 by mouth every day at bedtime 90tabs G30.1 Nicolas Espana M.D. 12/08/2016 Advair Diskus 100-50mcg/Dose Aeros ol inhale one puff by mouth twice a day 180units Simi Cole [facility] 10/13/2016 Colace 100mg Capsules 1 by mouth twice a day 180caps K59.00 Simi Cole [facility] 09/03/2016 Calcium 500+D [id number]-Cqxn Table ts 1 by mouth three times a day 270tabs Luiz Pereira MD Duoneb 0.5-2.5(3)mg/3ML Solution inhale the contents of one vial via nebulizer four times a day as needed for wheezing or shortness of breath 270ml R06.02 Simi Cole [facility] 07/21/19 17 Torsemide 100mg Tablets 1tablet by mouth daily 30tabs R60.0 Simi Cole [facility] 07/20/2016 Tylenol 325mg Capsules 2 by mouth every day as needed 180caps Simi Cole [facility] 05/22/2016 Albuterol Sulfate (2 .5mg/3ML) 0.083% Nebulizer q.i.d. prn via nebulizer dx J44.9 75ml Simi Cole [facility] 09/27/2015 Coumadin 3mg Tablets take 1 tablet by mouth once a day as directed 90tabs Simi Cole, [facility] Simvastatin 40mg Tablets take one tablet by mouth at bedtime 90tabs Simi Cole [facility] 09/11/2014 Multi-Vitamins Tablets 1 by mouth daily 90tabs Simi Cole, [facility] 09/20/2002 Spironolactone 25mg Tablets 1 by mouth [...] Of Flu Vaccine Inj ection Simi Cole, [facility] 02/07/2019 Immunization Adminstration,1 [facility] Administration Of Flu Vaccine Inj ection Simi Cole, [facility] 12/24/2017 Administration Of Flu Vaccine Inj ection Carleen Trimble, [facility] 12/08/2016 Administration Of Flu Vaccine Inj ection Carleen Trimble, [facility] 12/19/2015 Administration Of Flu Vaccine Inj ection [...] Vaccine Lot # [id number] Given 12/11/2019 Influenza,Unspecified 54571 Given 11/14/2019 PPD [id number] 98363 Given 02/07/2019 Influenza Vaccin e Quadrivalent Preser/Antibiotic Free Im Use [id number] 91271 Given 07/07/2018 Adacel- Tetanus Diphtheria P ertussis (Age64 & Under) [id number] 15736 Given 04/12/2018 Shingrix 11189 Given 02/01/2018 Shingrix 89447 Given 12/24/2017 Influenza Virus Vaccine, Quadrivalent ([id number]), Derived From 0 Given 12/08/2016 Influenza Vaccin e Quadrivalent Preser/Antibiotic Free Im Use [id number] Q2037 Given 12/19/2015 Fluvirin Virus Vaccine 42545 01 Q2037 Given 12/20/2014 Fluvirin Virus Vaccine 56588 01 05969 Given 05/22/2014 Prevnar 13 [id number] Q2037 Given 12/28/2013 Fluvirin Virus Vaccine 15531 21 Q2037 Given 12/18/2011 Fluvirin Virus Vaccine 39329 01 Q2037 Given 12/16/2010 Fluvirin Virus Vaccine Q2037 Given 12/16/2010 Fluvirin Virus Vaccine 50724 Given 12/12/2009 Influenza Virus Vaccine 98469 Given 01/29/2009 Pneumovax 23 00716 Given 12/13/2008 Influenza Virus Vaccine 44556 Given 01/10/2008 Influenza Virus Vaccine 73582 Given 12/23/2006 Influenza Virus Vaccine 20613 Given 08/13/2006 Zoster Vaccine 92714 Given 02/04/2006 Influenza Virus Vaccine 50303 Given 12/09/2004 Influenza Virus Vaccine 60618 Given 12/25/2003 Influenza Virus Vaccine 96876 Given 01/09/2003 Influenza Virus Vaccine 95193 Given 12/13/2001 Influenza Virus Vaccine 27041 Given 01/25/2001 Influenza Virus Vaccine 47197 Given 04/13/2000 Tetanus Toxoid U-Pneum Given 12/07/1999 Pneumococcal,Unspecified 54604 Given 12/26/1998 Influenza Virus Vaccine 12274 Given 12/30/1993 Influenza Virus Vaccine Vital Signs [...] Date Facility Test Result H/L Range Note Type & Screen -Incl Blood Type,Price,AB SC 12/26/2019 [facility] [address] [place] [address] [phone] Blood Type A POSITIVE Normal AB Screen (Indirect Jaylan)Vis NEGATIVE Normal Laboratory test finding 12/26/2019 [facility] [address] [place] [address] [phone] Lipase 157 U/L Normal 73-393 Thyroid Stimulating Hormone 3.480 uIU/ML Normal 0.358-3.740 Liver Profile 12/26/2019 [facility] [address] [place] [address] [phone] Ast/Sgot 23 U/L Normal 7-37 Alt/SGPT 24 U/L Normal 12-78 Alkaline Phosphatase 72 U/L Normal 45-117 Bilirubin,Total 1.2 mg/dL High 0.2-1.0 Bilirubin,Direct 0.4 mg/dL High 0.0-0.2 Total Protein 6.7 GM/DL Normal 6.4-8.2 Albumin 3.7 GM/DL Normal 3.2-5.2 Albumin/Globulin Ratio 1.2 Normal 1.2-2.2 Cardiac Marker Panel 12/26/2019 [facility] C enter [address] [place] [address] [phone] CPK Creatine Phosphokinase 62 U/L Normal 26-19 2 CK-MB Value Mass < 1.0 NG/ML Normal <3.6 MB/CK Relative Index 1.61 Normal < Or =4 1 Troponin I < 0.02 NG/ML Normal < 0.10 2 Ua W/ Reflex To Culture 12/26/[address] [address] [phone] Appearance, Urine RFX CLEAR Normal Clear Color, Urine RFX YELLOW Normal Yellow PH,Urine RFX 6.0 units Normal 5.0-9.0 Specific Felda Ur Auto RFX 1.012 Normal 1.002-1.035 Protein, [...] Normal 0-1 Laboratory test finding 12/26/[address] [address] [phone] Ammonia < 10 uMOL/L Normal <32 CBC With Differential 12/26/[address] [address] [phone] White Blood Count 14.2 10 High 4.0-10.0 [...] 36.0-66.0 Lymph % 5.6 % Low 24.0-44.0 [place] % 17.9 % High 0.0-5.0 Eos % 0.5 % Normal 0.0-3.0 Baso % 0.4 % Normal 0.0-1.0 Immature Granulocyte % 0.6 % Normal 0-3.0 Nucleated Red Blood Cell % 0.0 % Normal 0-0 Neutrophils # 10.7 10 High 1.5-8.5 Lymph # 0.8 10 Low 1.5-5.0 [place] # 2.5 10 High 0.0-0.8 Eos # 0.1 10 Normal 0.0-0.5 Baso # 0.1 10 Normal 0.0-0.2 Istat PT/Inr 12/26/2019 [facility] nter [address] [place] [address] [phone] iSTAT Protime Seconds 31.3 seconds High 12.1-14. 4 iSTAT Inr 2.7 Normal Istat Chem8+ Panel 12/26/2019 [facility] [address] [address] [phone] iSTAT HCT 41.0 % Normal 38.0-51.0 iSTAT Glucose 107 mg/dL High 70-105 iSTAT Sodium 136 mEq/L Normal 136-145 iSTAT Potassium 3.9 mEq/L Normal 3.5-5.1 iSTAT CA++ 5.1 mg/dL Normal 4.5-5.3 iSTAT Chloride 95 mEq/L Low 98-109 iSTAT Co2 30.0 MM/L High 23.0-27.0 iSTAT BUN 30 mg/dL High 8-26 iSTAT Creatinine 1.2 mg/dL Normal 0.6-1.3 Laboratory test finding 12/26/2019 [facility] [address] [place] [address] [phone] iSTAT Lactate 0.90 Normal 0.4-2.0 Laboratory test finding 12/26/[address] [address] [phone] iSTAT Troponin 0.02 NG/ML Normal 0.00-0.08 Complete Blood Count 11/16/2019 [place] [employer] Job Coaching: Dr Luiz Pereira [place], [place] [id number] [phone] WBC 7.4 x10*3/UL 4.1 - 10.9 RBC [...] 2.0 - 7.8 Basic Metabolic Panel 11/16/2019 [facility] Job Coaching: [place] [address] [phone] Glucose 100 mg/dL High 74 - 99 3 BUN 24 mg/dL High 7 - 18 Creatinine 1.4 mg/dL High 0.6 - 1.3 Sodium 139 mEq/L 136 - 145 Potassium 4.3 mEq/L 3.5 - 5.1 Chloride 99 mEq/L 98 - 107 Carbon Dioxide 36 mEq/L High 21 - 32 Calcium 9.9 mg/dL 8.5 - 10.1 GFR 36 mL/min Low >60 GFR 44 mL/min Low >60 4 Laboratory test finding 11/16/2019 [place] [facility] [employer] [facility] Job Coaching: [place] [address] [phone] Thyroid Stimulating Hormone 3.19 uIU/mL 0.3 6 - 3.74 Laboratory test finding 11/14/2019 Wi-Inr Inr 3.1 Laboratory test finding 10/17/2019 Wi-Inr Inr 2.5 Complete Blood Count 08/16/2019 [place] [employer] Job Coaching: Dr Luiz [place] [address] [phone] WBC 8.1 x10*3/UL 4.1 - 10.9 RBC [...] 2.0 - 7.8 Basic Metabolic Panel 08/16/2019 [facility] Job Coaching: Dr Luiz [place] [address] [phone] Glucose 76 mg/dL 74 - 99 5 BUN 22 mg/dL High 7 - 18 Creatinine 1.2 mg/dL 0.6 - 1.3 Sodium 144 mEq/L 136 - 145 Potassium 4.2 mEq/L 3.5 - 5.1 Chloride 104 mEq/L 98 - 107 Carbon Dioxide 33 mEq/L High 21 - 32 Calcium 9.7 mg/dL 8.5 - 10.1 GFR 43 mL/min Low >60 GFR 52 mL/min Low >60 6 Laboratory test finding 08/16/2019 [place] [facility] Job Coaching: Dr Luiz [place] [address] [phone] Magnesium 2.1 mg/dL 1.8 - 2.4 1 DIAGNOSIS CRITERIA MMB ng/ml Relative Index (RI) NON-AMI < or = 5 N/A CARLOS ZONE > 5 < or = 4 AMI > 5 > 4 2 Troponin I Reference Interva l for [employer] [place] LOCI: 99th Percentile= 0.00-0.045 ng/ml Risk Stratification: <= 0.10 ng/ml Decreased Risk for Adverse Clinical Events. 0.10-1.50 ng/ml Increased Risk for Adv erse Clinical Events. Evaluation of additional criterion and/or repeat testing in 2-6 hours is suggested to rule out myocardial damage. >= 1.50 ng/ml Indicative of Myocardial Injury. 3 100-125 mg/dL PRE-DIABET ES/FASTING >126 mg/dL DIABETES/FASTING 4 CHRONIC KIDNEY DISEASE STAGI NG PER NKF STAGE I & II GFR >= 60 NORMAL TO MILDLY DECREASED STAGE III GFR 30-59 MODERATELY DECREASED STAGE IV GFR 15-29 SEVERELY DECREASED STAGE V GFR <15 VERY LITTLE GFR LEFT ESRD GFR <15 ON [employer]AT [employer] 5 100-125 mg/dL PRE-DIABET ES/FASTING >126 mg/dL DIABETES/FASTING 6 CHRONIC KIDNEY DISEASE STAGI NG PER NKF STAGE I & II GFR >= 60 NORMAL TO MILDLY DECREASED STAGE III GFR 30-59 MODERATELY DECREASED STAGE IV GFR 15-29 SEVERELY DECREASED STAGE V GFR <15 VERY LITTLE GFR LEFT ESRD GFR <15 ON [employer] Procedures Date Code Description Status 11/02/2017 [id number] Diabetic Foot Exam Completed 04/15/2016 [id number] Mammogram Completed 03/22/2015 [id number] Mammogram Completed 03/21/2014 [id number] Mammogram Completed 03/20/2013 [id number] Mammogram Completed 01/25/2013 [id number] Diabetic Retinal Eye Exam [facility] 08/17/2012 [id number] Bone Mineral Density Test [facility] 03/17/2012 [id number] Mammogram Completed 03/12/2011 [id number] Mammogram Completed 08/15/2010 [id number] Bone Mineral Density Test [facility] 03/11/2010 [id number] Mammogram Completed 03/06/2009 [id number] Mammogram Completed 03/05/2008 [id number] Bone Mineral Density Test [facility] 12/28/2003 [id number] Colonoscopy Completed Medical Devices Description No Information Available Encounters Type Date Location Provider Dx Diagnosis Office Visit 11/16/2019 1:40p [facility] 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 (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 a nticoagulants 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 heart valve Z13.89 Encounter for screening for other disorder Assessments Date Code Description Provider 11/17/2019 J44.9 Chronic obstructive pulmonary di sease, unspecified Luiz Pereira MD 11/17/2019 G30.1 Alzheimer's disease with late on set Luiz Pereira MD 11/17/2019 I48.21 Permanent atrial fibrillation Co llkobi Pereira MD 11/17/2019 I10 Essential (primary) hypertension Luiz Pereira MD 11/16/2019 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 SHANNA Bernard 11/16/2019 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 SHANNA Bernard 11/16/2019 N18.3 Chronic kidney disease, stage 3 (moderate) SHANNA Bernard 11/16/2019 J44.9 Chronic obstructive pulmonary di sease, unspecified SHANNA Bernard 11/16/2019 G30.1 Alzheimer's disease with late on set Simi Cole, [facility] 11/16/2019 F02.80 Dementia in other di seases classified elsewhere without behavioral disturbance Simi Cole, [facility] 11/16/2019 I48.21 Permanent atrial fibrillation An n Kita Lott, [facility] 11/16/2019 Z79.01 retirement (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 antic oagulants Simi Cole, [facility] 11/16/2019 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 Simi Cole, [facility] 11/16/2019 I87.2 Venous insufficiency (chronic) ( peripheral) Simi Cole, [facility] 11/14/2019 Z11.1 Encounter for screening for resp iratory tuberculosis Luiz Pereira MD 11/14/2019 I48.21 Permanent atrial fibrillation An carlos Cloe, [facility] 11/14/2019 I48.21 Permanent atrial fibrillation Pr otime 11/14/2019 Z51.81 Encounter for therapeutic drug l evel monitoring Simi Cole, [facility] 11/14/2019 Z51.81 Encounter for therapeutic drug l evel monitoring Protime 11/14/2019 Z79.01 retirement (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 antic oagulants Simi Cole, [facility] 11/14/2019 Z79.01 termite inspector (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 antic oagulants Protime 10/17/2019 I48.21 Permanent atrial fibrillation An carlos Cole, [facility] 10/17/2019 I48.21 Permanent atrial fibrillation Pr otime 10/17/2019 Z51.81 Encounter for therapeutic drug l evel monitoring Simi Cole, [facility] 10/17/2019 Z79.01 termite 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 (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 antic oagulants Simi Cole [facility] 10/12/2019 I10 Essential (primary) hypertension Luiz Pereira [...] idney disease with heart chris Simi Cole, [facility] 08/16/2019 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 Smii Cole, [facility] 08/16/2019 N18.3 Chronic kidney disease, stage 3 (moderate) Simi Cole, [facility] 08/16/2019 J44.9 Chronic obstructive pulmonary di sease, unspecified Simi Cole, [facility] 08/16/2019 G30.1 Alzheimer's disease with late on set Simi Cole, [facility] 08/16/2019 F02.80 Dementia in other di seases classified elsewhere without behavioral disturbance Simi Cole, [facility] 08/16/2019 I48.21 Permanent atrial fibrillation An carlos Cole, [facility] 08/16/2019 Z79.01 retirement (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 antic oagulants Simi Cole, [facility] 08/16/2019 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 Simi Cole, [facility] 08/16/2019 Z13.89 Encounter for screening for othe r disorder Simi Cole, [facility] 08/15/2019 N18.3 Chronic kidney disease, stage 3 (moderate) Luiz Pereira MD 08/15/2019 J44.9 Chronic obstructive pulmonary di sease, unspecified Luiz Pereira MD 08/15/2019 I10 Essential (primary) hypertension Luiz Pereira MD 08/15/2019 E66.3 Overweight Luiz valladares MD 07/27/2019 N18.3 Chronic kidney disease, stage 3 (moderate) Luiz Pereira MD 07/27/2019 J44.9 Chronic obstructive pulmonary di sease, unspecified Luiz Peerira MD 07/27/2019 G30.1 Alzheimer's disease with late on set Luiz Pereira MD 07/27/2019 I10 Essential (primary) hypertension Luiz Pereira MD Plan of Treatment Future Appointment(s):* 02/28/2020 3:20 pm - SHANNA Bernard at [facility] Functional Status Description No Information Available Mental Status Description No Information Available Referrals Description No Information Available
--- OUTSIDE RECORDS SUMMARY | 2020-03-29 02:38 | CCD | Continuity of Care Document ---
Author Author Regina Medina [employer] Organization Unknown Address Unknown Phone Unavailable Care Team Providers Care Telephone Appointment Clerk Name Role Phone Luiz Pereira Unavailable Unavailable Unavailable Luiz ePreira Unavailable Unavailable Unavailable MitchellHarvinderRadha Unavailable Roxana Abbott [...] Type: Nutrition education Payers * Medicare - [facility] * [facility]
--- OUTSIDE RECORDS SUMMARY | 2020-03-29 02:38 | CCD | Continuity of Care Document ---
Author Author Regina Medina [employer] Organization Unknown Address Unknown Phone Unavailable Care Team Providers Care Driver License Agent Name Role Phone Luiz Pereira Unavailable Unavailable Unavailable Luiz Pereira Unavailable Unavailable Unavailable MitchellNorasa Unavailable Roxana Abbott Unavailable Guerda Brendon Unavailable [...] Sajan Pereira MD Start : 10-Jan-2020 Active Calcium Sajan Pereira MD Start : 09-Jan-2020 Active Torsemide 100 MG Sajan Pereira MD Start : 09-Jan-2020 Active Tylenol 2 by mouth everyday as needed for pain >5, no more than 3,000 mg/day. Sajan Pereira MD Start : 09-Jan-2020 Active Albuterol Sulfate (2.5 MG/3ML) 0.083% via nebulizer for SOB, no more than 4x/day Sajan Preeira MD Start : 09-Jan-2020 Active Coumadin 3 [...] Medicare - [facility] * [facility]
--- OUTSIDE RECORDS SUMMARY | 2020-03-29 02:38 | CCD | Continuity of Care Document ---
Author Author Regina Bernard Organization Unknown Address [address] [facility] [address] [place] [address] Phone [phone] Care Team Providers Care Roundhouse Supervisor Name Role Phone Luiz Pereira JR, MD AUTM Unavailable Kaylee Pop AUTM [phone] David Foster MD AUTM [phone] Richie Zapien MD AUTM [phone] Simi Molina AUTM [phone] [place] AT [facility] AUTM [phone] Problems Active Problems Provider Date Anticoagulants [facility] (Current) Use O nset: 09/12/1996 Atrial fibrillation [...] of breath. DX J44.9 36ml Simi Cole [facility] 01/01/2020 [employer] [facility] Probiotic Capsules one twice daily while on antibiotics or if having diarrhea 30cap s Simi Cole [facility] 12/29/2019 Vitamin D3 Ultra Strength 125mcg (5000 Ut) Capsules 1 by mouth every day 90caps Simi Cole [facility] Nebulizer Kit/Tubing/Mouthpiece K it for use with nebulizer--use up to four times a day dx j44.9 1units Simi Cole [facility] 01/12/2019 Incruse Ellipta 62.5mcg/Inh Aeroso l inhale one puff by mouth daily 3units Simi Cole [facility] 019 Levothyroxine Sodium 25mcg Tablets 1 tablet by mouth every day 90tabs Simi Cole [facility] 12/09 Aricept 5mg Tablets 1 by mouth every day at bedtime 90tabs G30.1 Nicolas Espana M.D. 12/08/2016 Advair Diskus 100-50mcg/Dose Aeros ol inhale one puff by mouth twice a day 180units Simi Cole [facility] 10/13/2016 Colace 100mg Capsules 1 by mouth twice a day 180caps K59.00 Simi Cole [facility] 09/03/2016 Calcium 500+D 785-129mw-Vgid Table ts 1 by mouth three times a day 270tabs Luiz Pereira MD Duoneb 0.5-2.5(3)mg/3ML Solution inhale the contents of one vial via nebulizer four times a day as needed for wheezing or shortness of breath 270ml R06.02 Simi Cole [facility] 07/21/19 17 Torsemide 100mg Tablets 1tablet by mouth daily 30tabs R60.0 Simi Cole [facility] 07/20/2016 Tylenol 325mg Capsules 2 by mouth every day as needed 180caps Simi Cole [facility] 05/22/2016 Albuterol Sulfate (2 .5mg/3ML) 0.083% Nebulizer q.i.d. prn via nebulizer dx J44.9 75ml Simi Cole [facility] 09/27/2015 Coumadin 3mg Tablets take 1 tablet by mouth once a day as directed 90tabs Simi Cole, [facility] Simvastatin 40mg Tablets take one tablet by mouth at bedtime 90tabs Simi Cole [facility] 09/11/2014 Multi-Vitamins Tablets 1 by mouth daily 90tabs Simi Cole, [facility] 09/20/2002 Spironolactone 25mg Tablets 1 by [...] Of Flu Vaccine Inj ection Simi Cole, [facility] 02/07/2019 Immunization Adminstration,1 [facility]ine[facility] Administration Of Flu Vaccine Inj ection Simi Cole, [facility] 12/24/2017 Administration Of Flu Vaccine Inj ection Carleen Trimble, [facility] 12/08/2016 Administration Of Flu Vaccine Inj ection Carleen Trimble, [facility] 12/19/2015 Administration Of Flu Vaccine Inj [...] Vaccine Lot # [id number] Given 12/11/2019 Influenza,Unspecified [id number] Given 11/14/2019 PPD [id number] 11838 Given 02/07/2019 Influenza Vaccin e Quadrivalent Preser/Antibiotic Free Im Use [id number] 81797 Given 07/07/2018 Adacel- Tetanus Diphtheria P ertussis (Age64 & Under) [id number] 57833 Given 04/12/2018 Shingrix 74202 Given 02/01/2018 Shingrix 01425 Given 12/24/2017 Influenza Virus Vaccine, Quadrivalent ([id number]), Derived From 1 Given 12/08/2016 Influenza Vaccin e Quadrivalent Preser/Antibiotic Free Im Use [id number] Q2037 Given 12/19/2015 Fluvirin Virus Vaccine [id number] 01 Q2037 Given 12/20/2014 Fluvirin Virus Vaccine 66141 01 65247 Given 05/22/2014 Prevnar 13 [id number] Q2037 Given 12/28/2013 Fluvirin Virus Vaccine 99060 21 Q2037 Given 12/18/2011 Fluvirin Virus Vaccine 48364 01 Q2037 Given 12/16/2010 Fluvirin Virus Vaccine Q2037 Given 12/16/2010 Fluvirin Virus Vaccine 59905 Given 12/12/2009 Influenza Virus Vaccine 03727 Given 01/29/2009 Pneumovax 23 90546 Given 12/13/2008 Influenza Virus Vaccine 78357 Given 01/10/2008 Influenza Virus Vaccine 40857 Given 12/23/2006 Influenza Virus Vaccine 46575 Given 08/13/2006 Zoster Vaccine 72687 Given 02/04/2006 Influenza Virus Vaccine 40262 Given 12/09/2004 Influenza Virus Vaccine 57082 Given 12/25/2003 Influenza Virus Vaccine 94706 Given 01/09/2003 Influenza Virus Vaccine 66514 Given 12/13/2001 Influenza Virus Vaccine 53169 Given 01/25/2001 Influenza Virus Vaccine 18767 Given 04/13/2000 Tetanus Toxoid U-Pneum Given 12/07/1999 Pneumococcal,Unspecified 49832 Given 12/26/1998 Influenza Virus Vaccine 86625 Given 12/30/1993 Influenza Virus Vaccine Vital Signs [...] H/L Range Note Complete Blood Count 01/10/2020 [facility] enter [address] [place] [address] [phone] White Blood Count 7.8 10 Normal 4.0-10.0 [...] % Normal 0-0 Comprehensive Metabolic Profil 01/10/2020 [id number] [place] [address] [phone] Glucose, Fasting 99 mg/dL Normal 70-100 Blood [...] & Screen -Incl Blood Type,Price,AB SC 12/26/[address] [address] [phone] Blood Type A POSITIVE Normal AB Screen (Indirect Jaylan)Vis NEGATIVE Normal Laboratory test finding 12/26/[address] [address] [phone] Lipase 157 U/L Normal 73-393 Thyroid Stimulating Hormone 3.480 uIU/ML Normal 0.358-3.740 Liver Profile 12/26/2019 [facility] Ce nter [address] [place] [address] [phone] Ast/Sgot 23 U/L Normal 7-37 Alt/SGPT 24 U/L Normal 12-78 Alkaline Phosphatase 72 U/L Normal 45-117 Bilirubin,Total 1.2 mg/dL High 0.2-1.0 Bilirubin,Direct 0.4 mg/dL High 0.0-0.2 Total Protein 6.7 GM/DL Normal 6.4-8.2 Albumin 3.7 GM/DL Normal 3.2-5.2 Albumin/Globulin Ratio 1.2 Normal 1.2-2.2 Cardiac Marker Panel 12/26/2019 [facility] C enter [address] [place] [address] [phone] CPK Creatine Phosphokinase 62 U/L Normal 26-19 2 CK-MB Value Mass < 1.0 NG/ML Normal <3.6 MB/CK Relative Index 1.61 Normal < Or =4 2 Troponin I < 0.02 NG/ML Normal < 0.10 3 Ua W/ Reflex To Culture 12/26/[address] [address] [phone] Appearance, Urine RFX CLEAR Normal Clear Color, Urine RFX YELLOW Normal Yellow PH,Urine RFX 6.0 units Normal 5.0-9.0 Specific [place] Ur Auto RFX 1.012 Normal 1.002-1.035 Protein, [...] /LPF Normal 0-1 Laboratory test finding 12/26/[address] [address] [phone] Ammonia < 10 uMOL/L Normal <32 CBC With Differential 12/26/[address] [address] [phone] White Blood Count 14.2 10 High 4.0-10.0 [...] 36.0-66.0 Lymph % 5.6 % Low 24.0-44.0 Noble % 17.9 % High 0.0-5.0 Eos % 0.5 % Normal 0.0-3.0 Baso % 0.4 % Normal 0.0-1.0 Immature Granulocyte % 0.6 % Normal 0-3.0 Nucleated Red Blood Cell % 0.0 % Normal 0-0 Neutrophils # 10.7 10 High 1.5-8.5 Lymph # 0.8 10 Low 1.5-5.0 Noble # 2.5 10 High 0.0-0.8 Eos # 0.1 10 Normal 0.0-0.5 Baso # 0.1 10 Normal 0.0-0.2 Istat PT/Inr 12/26/2019 [facility] nter [address] [place] [address] [phone] iSTAT Protime Seconds 31.3 seconds High 12.1-14. 4 iSTAT Inr 2.7 Normal Istat Chem8+ Panel 12/26/2019 [facility] nter [address] [place] [address] [phone] iSTAT HCT 41.0 % Normal 38.0-51.0 iSTAT Glucose 107 mg/dL High 70-105 iSTAT Sodium 136 mEq/L Normal 136-145 iSTAT Potassium 3.9 mEq/L Normal 3.5-5.1 iSTAT CA++ 5.1 mg/dL Normal 4.5-5.3 iSTAT Chloride 95 mEq/L Low 98-109 iSTAT Co2 30.0 MM/L High 23.0-27.0 iSTAT BUN 30 mg/dL High 8-26 iSTAT Creatinine 1.2 mg/dL Normal 0.6-1.3 Laboratory test finding 12/26/[address] [address] [phone] iSTAT Lactate 0.90 Normal 0.4-2.0 Laboratory test finding 12/26/[address] [address] [phone] iSTAT Troponin 0.02 NG/ML Normal 0.00-0.08 Complete Blood Count 11/16/2019 [facility] Cloth Handler: [place] [address] [phone] WBC 7.4 x10*3/UL 4.1 - 10.9 RBC [...] 2.0 - 7.8 Basic Metabolic Panel 11/16/2019 [facility] Cloth Handler: [place] [address] [phone] Glucose 100 mg/dL High 74 - 99 [...] Low >60 5 Laboratory test finding 11/16/2019 [facility] Cloth Handler: Dr Luiz Pereira [place], [place] [id number] [phone] Thyroid Stimulating Hormone 3.19 uIU/mL 0.3 6 - 3.74 Laboratory test finding 11/14/2019 [facility] 3.1 Laboratory test finding 10/17/2019 [facility] 2.5 Complete Blood Count 08/16/2019 [facility] Cloth Handler: [place] [address] [phone] WBC 8.1 x10*3/UL 4.1 - 10.9 RBC [...] 2.0 - 7.8 Basic Metabolic Panel 08/16/2019 [facility] Cloth Handler: [place] [address] [phone] Glucose 76 mg/dL 74 - 99 6 [...] Low >60 7 Laboratory test finding 08/16/2019 [facility] Cloth Handler: Dr Luiz Pereira [place], [place] [address] [phone] Magnesium 2.1 mg/dL 1.8 - 2.4 1 Units are mL/min/1.73 m2 Chronic Kidney Disease Staging per NKF: Stage I & II GFR >=60 Normal to Mildly Decreased Stage III GFR 30-59 Moderately Decreased Stage IV GFR 15-29 Severely Decreased Stage V GFR <15 Very Little GFR Left ESRD GFR <15 on MECHANICAL INTERN 2 DIAGNOSIS CRITERIA MMB ng/ml Relative Index (RI) NON-AMI < or = 5 N/A CARLOS ZONE > 5 < or = 4 AMI > 5 > 4 3 Troponin I Reference Interva l for Siemens [place] LOCI: 99th Percentile= 0.00-0.045 ng/ml Risk Stratification: [...] LITTLE GFR LEFT ESRD GFR <15 ON MECHANICAL INTERN 6 100-125 mg/dL PRE-DIABET ES/FASTING >126 mg/dL DIABETES/FASTING 7 CHRONIC KIDNEY DISEASE STAGI NG PER NKF STAGE I & II GFR >= 60 NORMAL TO MILDLY DECREASED STAGE III GFR 30-59 MODERATELY DECREASED STAGE IV GFR 15-29 SEVERELY DECREASED STAGE V GFR <15 VERY LITTLE GFR LEFT ESRD GFR <15 ON MECHANICAL INTERN Procedures Date Code Description Status 11/02/2017 [id number] Diabetic Foot Exam Completed 04/15/2016 [id number] Mammogram Completed 03/22/2015 [id number] Mammogram Completed 03/21/2014 [id number] Mammogram Completed 03/20/2013 [id number] Mammogram Completed 01/25/2013 [id number] Diabetic Retinal Eye Exam Comple [facility] 08/17/2012 [id number] Bone Mineral Density Test [facility] 03/17/2012 [id number] Mammogram Completed 03/12/2011 [id number] Mammogram Completed 08/15/2010 [id number] Bone Mineral Density Test [facility] 03/11/2010 [id number] Mammogram Completed 03/06/2009 [id number] Mammogram Completed 03/05/2008 [id number] Bone Mineral Density Test [facility] 12/28/2003 [id number] Colonoscopy Completed Medical Devices Description No Information Available Encounters Type Date Location Provider Dx Diagnosis Office Visit 11/16/2019 1:40p [facility] 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 N18.3 Chronic kidney disease, stag e 3 (moderate) J44.9 Chronic obstructive pulmonar y disease, unspecified G30.1 Alzheimer's disease with lat e onset F02.80 Dementia in oth diseases [facility] el[facility] w/o behavrl disturb I48.21 Permanent atrial fibrillatio n Z79.01 intermediate card tender (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 a nticoagulants 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 heart valve Z13.89 Encounter for screening for other disorder Assessments Date Code Description Provider 01/04/2020 I50.41 Acute combined systo lic (congestive) and diastolic (congestive) heart failure ARVIND BernardP 01/04/2020 J44.9 Chronic obstructive pulmonary di sease, unspecified Simi Cole [facility] 01/04/2020 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 ARVIND BernardP 01/04/2020 N18.31 Chronic kidney disease, stage 3a Simi Cole [facility] 01/04/2020 I48.21 Permanent atrial fibrillation An carlos Cole [facility] 01/04/2020 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 Simi Cole [facility] 01/04/2020 Z79.01 intermediate card tender (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 antic oagulants ARVIND BernardP [...] idney disease with heart chris Simi Cole, [facility] 11/16/2019 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 Simi Cole, [facility] 11/16/2019 N18.3 Chronic kidney disease, stage 3 (moderate) Simi Cole, [facility] 11/16/2019 J44.9 Chronic obstructive pulmonary di sease, unspecified Simi Cole, [facility] 11/16/2019 G30.1 Alzheimer's disease with late on set Simi Cole, [facility] 11/16/2019 F02.80 Dementia in other di seases classified elsewhere without behavioral disturbance Simi Cole [facility] 11/16/2019 I48.21 Permanent atrial fibrillation An n Kita Lott, [facility] 11/16/2019 Z79.01 half-way (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 antic oagulants Simi Cole, [facility] 11/16/2019 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 Simi Cole, [facility] 11/16/2019 I87.2 Venous insufficiency (chronic) ( peripheral) Simi Cole [facility] 11/14/2019 Z11.1 Encounter for screening for resp iratory tuberculosis Luiz Pereira MD 11/14/2019 I48.21 Permanent atrial fibrillation An n Kita Lott [facility] 11/14/2019 I48.21 Permanent atrial fibrillation Pr otime 11/14/2019 Z51.81 Encounter for therapeutic drug l evel monitoring Simi Cole [facility] 11/14/2019 Z51.81 Encounter for therapeutic drug l evel monitoring Protime 11/14/2019 Z79.01 half-way (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 antic oagulants Simi Cole [facility] 11/14/2019 Z79.01 intermediate card tender (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 antic oagulants Protime 10/17/2019 I48.21 Permanent atrial fibrillation An n Kita Lott [facility] 10/17/2019 I48.21 Permanent atrial fibrillation Pr otime 10/17/2019 Z51.81 Encounter for therapeutic drug l evel monitoring Simi Cole, [facility] 10/17/2019 Z79.01 half-way (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 antic oagulants Simi Cole, [facility] 10/12/2019 I10 Essential (primary) hypertension Luiz [...] idney disease with heart chris Simi Cole, [facility] 08/16/2019 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 Simi Cole [facility] 08/16/2019 N18.3 Chronic kidney disease, stage 3 (moderate) Simi Cole [facility] 08/16/2019 J44.9 Chronic obstructive pulmonary di sease, unspecified Simi Cole [facility] 08/16/2019 G30.1 Alzheimer's disease with late on set Simi Cole, [facility] 08/16/2019 F02.80 Dementia in other di seases classified elsewhere without behavioral disturbance Simi Cole [facility] 08/16/2019 I48.21 Permanent atrial fibrillation An n Kita Lott, [facility] 08/16/2019 Z79.01 half-way (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 antic oagulants Simi Cole, [facility] 08/16/2019 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 Simi Cole, [facility] 08/16/2019 Z13.89 Encounter for screening for othe r disorder SHANNA Bernard 08/15/2019 N18.3 Chronic kidney disease, stage 3 (moderate) Luiz ePreira MD 08/15/2019 J44.9 Chronic obstructive pulmonary di [...] 01/23/2020 3:00 pm - SHANNA Bernard at [facility] * 02/28/2020 3:20 pm - SHANNA Bernard at [facility] 01/04/2020 - SHANNA Bernard* I50.41 Acute combined systolic (congestive) and diastolic (congestive) heart failure* New Orders:* CBC and CMP, Scheduled: 01/10/20 * Comments:* will increase Torsemide to 100mg daily.will arrange for [facility] to evaluate. * J44.9 Chronic obstructive pulmonary disease, unspecified* Comments:* will request BMP in one week. 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 * N18.31 Chronic kidney disease, stage 3a * I48.21 Permanent atrial fibrillation* Comments:* Rate controlled. * 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 heart valve * Z79.01 intermediate card tender (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 anticoagulants* Comments:* INR completed [...]
--- OUTSIDE RECORDS SUMMARY | 2020-03-29 02:40 | CCD ---
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 Role Phone Thomas, L Laurie PA Unavailable Unavailable Thomas, L Laurie PA Unavailable Unavailable Thomas, L Laurie PA Unavailable Unavailable Thomas, L Laurie PA Unavailable Unavailable Thomas, L Laurie PA Unavailable Unavailable Thomas, L Laurie PA Unavailable Unavailable Thomas, L Laurie PA Unavailable Unavailable Thomas, L Laurie PA Unavailable Unavailable Thomas, L Laurie PA Unavailable Unavailable Thomas, L Laurie PA Unavailable Unavailable Thomas, L Laurie PA Unavailable Unavailable Thomas, L Laurie PA Unavailable Unavailable Thomas, L Laurie PA Unavailable Unavailable Thomas, L Laurie PA Unavailable Unavailable Thomas, L Laurie PA Unavailable Unavailable Thomas, L Laurie PA Unavailable Unavailable Thomas, L Laurie PA Unavailable Unavailable Thomas, L Laurie PA Unavailable Unavailable Thomas, L Laurie PA Unavailable Unavailable Thomas, L Laurie PA Unavailable Unavailable Thomas, L Laurie PA Unavailable Unavailable Thomas, L Laurie PA Unavailable Unavailable Thomas, L Laurie PA Unavailable Unavailable Mason Martinez KITCHEN AND COUNTER WORKER Unavailable Unavailable Mason Martinez KITCHEN AND COUNTER WORKER Unavailable Unavailable Mason Martinez KITCHEN AND COUNTER WORKER Unavailable Unavailable Mason Martinez KITCHEN AND COUNTER WORKER Unavailable Unavailable Mason Martinez KITCHEN AND COUNTER WORKER Unavailable Unavailable LePine, M Simi KITCHEN AND COUNTER WORKER Unavailable Unavailable LePine, M Simi KITCHEN AND COUNTER WORKER Unavailable Unavailable LePine, M Simi KITCHEN AND COUNTER WORKER Unavailable Unavailable LePine, M Simi KITCHEN AND COUNTER WORKER Unavailable Unavailable LePine, M Simi KITCHEN AND COUNTER WORKER Unavailable Unavailable LePine, M Simi KITCHEN AND COUNTER WORKER Unavailable Unavailable LePine, M Simi KITCHEN AND COUNTER WORKER Unavailable Unavailable LePine, M Simi KITCHEN AND COUNTER WORKER Unavailable Unavailable LePine, M Simi KITCHEN AND COUNTER WORKER Unavailable Unavailable LePine, M Simi KITCHEN AND COUNTER WORKER Unavailable Unavailable LePine, M Simi KITCHEN AND COUNTER WORKER Unavailable Unavailable LePine, M Simi KITCHEN AND COUNTER WORKER Unavailable Unavailable LePine, M Simi KITCHEN AND COUNTER WORKER Unavailable Unavailable LePine, M Simi KITCHEN AND COUNTER WORKER Unavailable Unavailable LePine, M Simi KITCHEN AND COUNTER WORKER Unavailable Unavailable LePine, M Simi KITCHEN AND COUNTER WORKER Unavailable Unavailable LePine, M Simi KITCHEN AND COUNTER WORKER Unavailable Unavailable LePine, M Simi KITCHEN AND COUNTER WORKER Unavailable Unavailable LePine, M Simi KITCHEN AND COUNTER WORKER Unavailable Unavailable LePine, M Simi KITCHEN AND COUNTER WORKER Unavailable Unavailable LePine, M Simi KITCHEN AND COUNTER WORKER Unavailable Unavailable LePine, M Simi KITCHEN AND COUNTER WORKER Unavailable Unavailable LePine, M Simi KITCHEN AND COUNTER WORKER Unavailable Unavailable LePine, M Simi KITCHEN AND COUNTER WORKER Unavailable Unavailable LePine, M Simi KITCHEN AND COUNTER WORKER Unavailable Unavailable LePine, M Simi KITCHEN AND COUNTER WORKER Unavailable Unavailable LePine, M Simi KITCHEN AND COUNTER WORKER Unavailable Unavailable LePine, M Simi KITCHEN AND COUNTER WORKER Unavailable Unavailable LePine, M Simi KITCHEN AND COUNTER WORKER Unavailable Unavailable LePine, M Simi KITCHEN AND COUNTER WORKER Unavailable Unavailable LePine, M Simi KITCHEN AND COUNTER WORKER Unavailable Unavailable LePine, M Simi KITCHEN AND COUNTER WORKER Unavailable Unavailable LePine, M Simi KITCHEN AND COUNTER WORKER Unavailable Unavailable LePine, M Simi KITCHEN AND COUNTER WORKER Unavailable Unavailable LePine, M Simi KITCHEN AND COUNTER WORKER Unavailable Unavailable LePine, M Simi KITCHEN AND COUNTER WORKER Unavailable Unavailable LePine, M Simi KITCHEN AND COUNTER WORKER Unavailable Unavailable LePine, M Simi KITCHEN AND COUNTER WORKER Unavailable Unavailable LePine, M Simi KITCHEN AND COUNTER WORKER Unavailable Unavailable LePine, M Simi KITCHEN AND COUNTER WORKER Unavailable Unavailable LePine, M Simi KITCHEN AND COUNTER WORKER Unavailable Unavailable LePine, M Simi KITCHEN AND COUNTER WORKER Unavailable Unavailable LePine, M Simi KITCHEN AND COUNTER WORKER Unavailable Unavailable LePine, M Simi KITCHEN AND COUNTER WORKER Unavailable Unavailable LePine, M Simi KITCHEN AND COUNTER WORKER Unavailable Unavailable LePine, M Simi KITCHEN AND COUNTER WORKER Unavailable Unavailable LePine, M Simi KITCHEN AND COUNTER WORKER Unavailable Unavailable LePine, M Simi KITCHEN AND COUNTER WORKER Unavailable Unavailable LePine, M Simi KITCHEN AND COUNTER WORKER Unavailable Unavailable LePine, M Simi KITCHEN AND COUNTER WORKER Unavailable Unavailable AKI MARY MD Unavailable Unavailable AKI MARY MD Unavailable Unavailable AKI MRAY MD Unavailable Unavailable AKI MARY MD Unavailable Unavailable AKI MARY MD Unavailable Unavailable AKI MARY MD Unavailable Unavailable AKI MARY MD Unavailable Unavailable AKI MARY MD Unavailable Unavailable TYRA, MELYNNE SYLVAIN MD Unavailable Unavailable TYRA, MELYNNE SYLVAIN MD Unavailable Unavailable TYRA, MELYNNE SYLVAIN MD Unavailable Unavailable TYRA, MELYNNE SYLVAIN MD Unavailable Unavailable TYRA, MELYNNE SYLVAIN MD Unavailable Unavailable TYRA, MELYNNE SYLVAIN MD Unavailable Unavailable TYRA, MELYNNE SYLVAIN MD Unavailable Unavailable TYRA, MELYNNE SYLVAIN MD Unavailable Unavailable TYRA, MELYNNE SYLVAIN MD Unavailable Unavailable TYRA, MELYNNE SYLVAIN MD Unavailable Unavailable TYRA, MELYNNE SYLVAIN MD Unavailable Unavailable TYRA, MELYNNE SYLVAIN MD Unavailable Unavailable TYRA, MELYNNE SYLVAIN MD Unavailable Unavailable TYRA, MELYNNE SYLVAIN MD Unavailable Unavailable TYRA, MELYNNE SYLVAIN MD Unavailable Unavailable TYRA, MELYNNE SYLVAIN MD Unavailable Unavailable TYRA, MELYNNE SYLVAIN MD Unavailable Unavailable TYRA, MELYNNE SYLVAIN MD Unavailable Unavailable TYRA, MELYNNE SYLVAIN MD Unavailable Unavailable TYRA, MELYNNE SYLVAIN MD Unavailable Unavailable TYRA, MELYNNE SYLVAIN MD Unavailable Unavailable TYRA, MELYNNE SYLVAIN MD Unavailable Unavailable TYRA, MELYNNE SYLVAIN MD Unavailable Unavailable TYRA, MELYNNE SYLVAIN MD Unavailable Unavailable TYRA, MELYNNE SYLVAIN MD Unavailable Unavailable TYRA, MELYNNE SYLVAIN MD Unavailable Unavailable TYRA, MELYNNE SYLVAIN MD Unavailable Unavailable TYRA, MELYNNE SYLVAIN MD Unavailable Unavailable TYRA, MELYNNE SYLVAIN MD Unavailable Unavailable TYRA, MELYNNE SYLVAIN MD Unavailable Unavailable TYRA, MELYNNE SYLVAIN MD Unavailable Unavailable TYRA, MELYNNE SYLVAIN MD Unavailable Unavailable Re-disclosure Warning The records that you are about to access may contain information from federally-assisted alcohol or drug abuse programs. If such information is present, then the following federally mandated warning applies: This information has been disclosed to you from records protected by federal confidentiality rules (42 CFR part 2). The federal rules prohibit you from making any further disclosure of this information unless further disclosure is expressly permitted by the written consent of the person to whom it pertains or as otherwise permitted by 42 CFR part 2. A general authorization for the release of medical or other information is NOT sufficient for this purpose. The Federal rules restrict any use of the information to criminally investigate or prosecute any alcohol or drug abuse patient.The records that you are about to access may contain highly sensitive health information, the redisclosure of which is protected by Article 27-F of the [facility] Public Health law. If you continue you may have access to information: Regarding HIV / AIDS; Provided by facilities licensed or operated by the [facility] Office of Mental Health; or Provided by the [facility] Office for People With Developmental Disabilities. If such information is present, then the following [facility] mandated warning applies: This information has been disclosed to you from confidential records which are protected by state law. State law prohibits you from making any further disclosure of this information without the specific written consent of the person to whom it pertains, or as otherwise permitted by law. Any unauthorized further disclosure in violation of state law may result in a fine or usp sentence or both. A general authorization for the release of medical or other information is NOT sufficient authorization for further disc losure. Allergies and Adverse Reactions Type Description Substance Reaction Status Data Source(s ) Penicillin Penicillin Penicillin active [facility] ([facility]) codeine codeine codeine active [facility] ([facility]) chlorpromazine chlorpromazine chlorpromazine active [place] [facility] ([facility]) Family History Family Member Name Family Member Gender Family Member Status Date o f Status Description Data Source(s) Unknown Unknown Problem [facility] ([facility] Unknown Male Problem [facility] ([facility] Unknown Male Problem [facility] ([facility]) Unknown Male Problem MED[facility] ([facility] ) () Encounters Encounter Providers Location Date Indications Data Source(s ) Outpatient Attender: Laurie MCCARTY Main Office 01/11/2020 01:15:0 0 PM EST [facility] ([facility]) 01/10/2020 12:00:00 AM EST - 020 08:17:58 AM EST [facility] ([facility]) Outpatient Attender: Simi Santos 01/03 11:20:00 AM EDT MEDENT ([facility] ) Outpatient Attender: Simi Martinez CRISS Santos 11/15 01:40:00 PM EDT MEDENT ([facility] ) Outpatient Attender: Simi Martinez CRISS Santos 08/15 02:00:00 PM EDT MED[facility] ([facility] ) Outpatient Attender: Simi Martinez CRISS Santos 05/08 01:00:00 PM EST MEDENT ([facility] ) Outpatient Attender: Laurie MCCARTY Main Office 04/19/2019 12:30:0 0 PM EST MED[facility] ([facility]) Outpatient Attender: SYLVAIN Jerez/Teena/Emiliano/Markell hopkins 04/06/2019 12:30:00 PM EST MED[facility] ([facility] ) Outpatient Attender: Simi Juan Santos 02/07 01:40:00 PM EST MEDENT ([facility] ) Immunizations Vaccine Date Status Description Data Source(s) INFLUENZA VACCINE QUADRIVALENT (65 YR UP)/MF59 C.1/PF 12/13/2019 12:00:00 AM EDT completed [facility] This CVX code allows reporting of a vacc ination when formulation is unknown (for example, when recording a Influenza vaccination when noted on a vaccination card) 12/11/2019 08:35:00 AM EDT completed MEDEN T ([facility]) TB Skin test is not vaccine. 11/14/2019 10:44:00 AM EDT completed MEDENT ([facility]) Influenza, injectable, MDCK, preservative free, lashay valent 02/07/2019 02:11:00 PM EST completed [facility] ([facility]) Medications Medication Brand Name Start Date Product Form Dose Route Admi nistrative Instructions Pharmacy Instructions Status Indications Reaction Description Data Source(s) Biaxin 500 MG Biaxin 01/10/2020 12:00:00 AM EST co mpleted [facility]SM[facility] ([facility]) Ipratropium-Albuterol 0.5-2.5 (3) MG/3ML Ipratropium-Albuter ol 01/10/2020 12:00:00 AM EST completed [facility] ([facility]) Klor-Con M10 10 MEQ Klor-Con M10 01/10/2020 12:00:00 AM EST completed [facility] ([facility]) Spironolactone 25 MG Spironolactone 01/10/2020 12:00:00 AM EST completed [facility] ([facility]) Clarithromycin 500 MG Oral Tablet Clarithromycin 01/10/2020 12:00:00 AM EST active [facility] ([facility] torsemide 100 MG Oral Tablet Torsemide 01/10/2020 12:00:00 AM EST ORAL active [facility] ([facility]) Acetaminophen 325 MG Oral Tablet Acetaminophen 01/10/2020 12:00:00 AM EST active [facility] ([facility]) Xopenex 0.63 MG/3ML Xopenex 01/10/2020 12:00:00 AM EST completed [facility] ([facility] ) Coumadin 3 MG Coumadin 01/09/2020 12:00:00 AM EST 3.0 {mg} completed [facility] ([facility]) Albuterol Sulfate (2.5 MG/3ML) 0.083% Albuterol Sulfate 12:00:00 AM EST 0 {mg} completed NETSMAR T ([facility]) Tylenol Tylenol 01/09/2020 12:00:00 AM EST 325.0 {mg} c ompleted [facility] ([facility]) Torsemide 100 MG Torsemide 01/09/2020 12:00:00 AM EST 1.0 {table t} completed [facility] ([facility]) Multivitamin Multivitamin 01/09/2020 12:00:00 AM EST 1.0 {tablet } completed [facility] ([facility]) Simvastatin 40 MG Simvastatin 01/09/2020 12:00:00 AM EST 40.0 {m g} completed [facility] ([facility]) Levothyroxine Levothyroxine 01/09/2020 12:00:00 AM EST 25.0 {mcg } completed [facility] ([facility]) Aricept 5 MG Aricept 01/09/2020 12:00:00 AM EST 5.0 {mg} completed [facility] ([facility] ) Incruse Ellipta 62.5 MCG/INH Incruse Ellipta 01/09/2020 12:00:00 AM EST 62.5 {mcg} completed [facility] ([facility]) Vitamin D Vitamin D 01/09/2020 12:00:00 AM EST 125.0 {mcg} completed [facility] ([facility]) Advair Diskus 100-50 MCG/DOSE Advair Diskus 01/09/2020 12:00:00 AM EST 0 {mcg} completed [facility] ([facility]) Colace Colace 01/09/2020 12:00:00 AM EST 100.0 {mg} com pleted [facility] ([facility]) Calcium Calcium 01/09/2020 12:00:00 AM EST 0 {mg} compl eted [facility] ([facility]) Levalbuterol 0.21 MG/ML Inhalant Solution [Xopenex] Xopenex 01/01/2020 12:00:00 AM EDT active MEDENT ([facility]) Culturelle Digestive Health Probiotic Culturelle Digestive H ealth Probiotic 12/29/2019 12:00:00 AM EDT active MEDENT ([facility]) Metronidazole 500 MG Oral Tablet METRONIDAZOLE 12/28/2019 12:0 0:00 AM EDT tablet 9 TAKE ONE TABLET BY MOUTH THREE T IMES A DAY TAKE ONE TABLET BY MOUTH THREE TIMES A DAY SOLD: 12/28/2019 [facility] 500 mg 12/28/2019 12:00:00 AM EDT tablet 6 TAKE ONE TABLET BY MOUTH TWICE A DAY TAKE ONE TABLET BY MOUTH TWICE A DAY SOLD: 12/28/2019 [facility] 62.5 mcg/actuation 06/07/2019 12:00:00 AM EDT blister with d evice 30 INHALE ONE PUFF BY MOUTH EVERY DAY INHALE ONE PUFF BY MOUTH EVERY DAY SOLD: 06/07/2019 [facility] 100-50 mcg/dose 06/05/2019 12:00:00 AM EDT blister with lowell ce 60 INHALE ONE PUFF BY MOUTH TWICE A DAY INHALE ONE PUFF BY MOUTH TWICE A DAY SOLD: 06/07/2019 [facility] 100 mg 05/25/2019 12:00:00 AM EDT tablet 60 TAKE ONE-HALF TABLET BY MOUTH TWO TIMES A DAY TAKE ONE-HALF TABLET BY MOUTH TWO TIMES A DAY SOLD: 05/25/19 20 [facility] 100 mg 05/25/2019 12:00:00 AM EDT tablet 60 TAKE ONE-HALF TABLET BY MOUTH TWO TIMES A DAY TAKE ONE-HALF TABLET BY MOUTH TWO TIMES A DAY SOLD: 08/04/19 [facility] 25 mcg 05/25/2019 12:00:00 AM EDT tablet 90 TAKE 1 TABLET BY MOUTH ONCE DAILY TAKE 1 TABLET BY MOUTH ONCE DAILY SOLD: 05/25/2019 [facility] 5 mg 05/25/2019 12:00:00 AM EDT tablet 90 TAKE ONE TABLET BY MOUTH AT BEDTIME TAKE ONE TABLET BY MOUTH AT BEDTIME SOLD: 05/25/2019 [facility] Cholecalciferol 5000 UNT Oral Capsule Vitamin D3 Ultra Stren gth 04/25/2019 12:00:00 AM EST ORAL active M EDENT ([facility]) 7 ACTUAT umeclidinium 0.0625 MG/ACTUAT Dry Powder Inha ler [Incruse] Incruse Ellipta 04/18/2019 12:00:00 AM EST RESPIRATORY active [facility] ([facility]) Administration Of Flu Vaccine 02/07/2019 12:00:00 AM EST completed [facility] ([facility]) Medication administered onsite Insurance Providers Payer name Policy type / Coverage type Policy ID Covered republican ID Covered republican's relationship to nichols Policy Nichols Plan Information MEDICARE [id number] SP [id number] UMR [facility] [id number] SP [id number] FOR LIFE [id number] MEDICARE C [id number] S [id number] UMR O [id number] S [id number] FOR LIFE O [id number] S [id number] WPS For Life Medigap Part B [id number] Family Depende nt [id number] Medicare Natl Govt Servic Medicare Primary [id number] Self [id number] [place]/Umr (Old) Medigap Part B [id number] Self [id number] Umr ([place]) Medigap Part B [id number] Self [id number] WPS For Life Medigap Part B [id number] Family Depende nt [id number] Medicare Natl Govt Servic Medicare Primary [id number] Self [id number] For Life Commercial [id number] Family Dependent [id number] Medicare Medicare Primary [id number] Self [id number] Umr Commercial [id number] Self [id number] For Life - WPS Medigap Part B [id number] Family Depen dent [id number] [place] PHCS Ppo Medigap Part B [id number] Self [id number] Umr Medigap Part B [id number] Self [id number] Medicare (Part B) Medicare Primary [id number] Self [id number] [place] Medigap Part B [id number] Self [id number] For Life - WPS Medigap Part B [id number] Family Depen dent [id number] [place] PHCS Ppo Medigap Part B [id number] Self [id number] Umr Medigap Part B [id number] Self [id number] Medicare (Part B) Medicare Primary [id number] Self [id number] WPS For Life Medigap Part B [id number] Family Depende nt [id number] Medicare Natl Govt Servic Medicare Primary [id number] Self [id number] [place] Medigap Part B [id number] Self [id number] WPS For Life Medigap Part B [id number] Family Depende nt [id number] Umr Commercial [id number] Self [id number] [place] Medicare Primary [id number] Self [id number] For Life - WPS Medigap Part B [id number] Family Depen dent [id number] [place] PHCS Ppo Medigap Part B [id number] Self [id number] Umr Medigap Part B [id number] Self [id number] Medicare (Part B) Medicare Primary [id number] Self [id number] For Life Commercial [id number] Family Dependent [id number] Medicare Medicare Primary [id number] Self [id number] MEDICARE [id number] SP [id number] A For Life Commercial [id number] Family Dependent [id number] Medicare Medicare Primary [id number] Self [id number] For Life - WPS Medigap Part B [id number] Family Depen dent [id number] [place] PHCS Ppo Medigap Part B [id number] Self [id number] Umr Medigap Part B [id number] Self [id number] Medicare (Part B) Medicare Primary [id number] Self [id number] [place] MEDICARE PART B C [id number] S [id number] [place] [facility] (TFL) Medigap Part B [id number] Self [id number] [place] (pr) Medigap Part B [id number] Self [id number] Umr (pr) Medigap Part B [id number] Self [id number] Medicare Dme Supplies Medigap Part B [id number] Self [id number] [place] Primary [id number] Self [id number] [place] [id number] SP [id number] WPS For Life Medigap Part B [id number] Family Depende nt [id number] [place] Medicare Primary [id number] Self [id number] [place] Medigap Part B [id number] Self [id number] WPS For Life Medigap Part B [id number] Family Depende nt [id number] Medicare Natl Govt Servic Medicare Primary [id number] Self [id number] WPS For Life Medigap Part B [id number] Family Depende nt [id number] [place] (Old) Medigap Part B [id number] Self [id number] Medicare Natl Govt Servic Medicare Primary [id number] Self [id number] [place] [employer] (TFL) Medigap Part B [id number] Self [id number] [place] (pr) Medigap Part B [id number] Self [id number] Umr (pr) Medigap Part B [id number] Self [id number] Medicare Dme Supplies Medigap Part B [id number] Self [id number] [place] Primary [id number] Self [id number] For Life - WPS Medigap Part B [id number] Family Depen dent [id number] [place] PHCS Ppo Medigap Part B [id number] Self [id number] Medicare (Part B) Medicare Primary [id number] Self [id number] [place] [employer] (TFL) Medigap Part B [id number] Self [id number] [place] (pr) Medigap Part B [id number] Self [id number] Medicare Dme Supplies Medigap Part B [id number] Self [id number] [place] Primary [id number] Self [id number] [place] [employer] (TFL) Medigap Part B [id number] Self [id number] [place] (pr) Medigap Part B [id number] Self [id number] [place] Primary [id number] Self [id number] [place] [employer] (TFL) Medigap Part B [id number] Self [id number] [place] (pr) Medigap Part B [id number] Self [id number] [place] Primary [id number] Self [id number] [place] PPO O [id number] S [id number] MEDICARE [id number] S [id number] A For Life - WPS Medigap Part B [id number] Family Depen dent [id number] [place] PHCS Ppo Medigap Part B [id number] Self [id number] Medicare (Part B) Medicare Primary [id number] Self [id number] WPS For Life Medigap Part B [id number] Family Depende nt [id number] [place] Medicare Primary [id number] Self [id number] WPS For Life Medigap Part B [id number] Family Depende nt [id number] Medicare Natl Govt Serv Medicare Primary [id number] Self [id number] Umr [place] Ppo Medigap Part B [id number] Self [id number] WPS For Life Medigap Part B [id number] Family Depende nt [id number] [place] Medicare Primary [id number] Self [id number] For Life - WPS Medigap Part B [id number] Family Depen dent [id number] [place] PHCS Ppo Medigap Part B [id number] Self [id number] Medicare (Part B) Medicare Primary [id number] Self [id number] WPS For Life Medigap Part B [id number] Family Depende nt [id number] Medicare Natl Govt Servic Medicare Primary [id number] Self [id number] WPS For Life Medigap Part B [id number] Family Depende nt [id number] Medicare Natl Govt Servic Medicare Primary [id number] Self [id number] WPS For Life Medigap Part B [id number] Family Depende nt [id number] Medicare Natl Govt Servic Medicare Primary [id number] Self [id number] [place] Ppo Medigap Part B [id number] Self [id number] WPS For Life Medigap Part B [id number] Family Depende nt [id number] Medicare Natl Govt Servic Medicare Primary [id number] Self [id number] WPS For Life Medigap Part B [id number] Family Depende nt [id number] Medicare Natl Govt Servic Medicare Primary [id number] Self [id number] WPS For Life Medigap Part B [id number] Family Depende nt [id number] Medicare Natl Govt Servic Medicare Primary [id number] Self [id number] WPS For Life Medigap Part B [id number] Family Depende nt [id number] Medicare Natl Govt Servic Medicare Primary [id number] Self [id number] WPS For Life Medigap Part B [id number] Family Depende nt [id number] Medicare Natl Govt Servic Medicare Primary [id number] Self [id number] WPS For Life Medigap Part B [id number] Family Depende nt [id number] Medicare Natl Govt Servic Medicare Primary [id number] Self [id number] WPS For Life Medigap Part B [id number] Family Depende nt [id number] Medicare Natl Govt Servic Medicare Primary [id number] Self [id number] WPS For Life Medigap Part B [id number] Family Depende nt [id number] Medicare Natl [facility] Medicare Primary [id number] Self [id number] WPS For Life Medigap Part B [id number] Family Depende nt [id number] Medicare Natl Govt Serv Medicare Primary [id number] Self [id number] WPS For Life Medigap Part B [id number] Family Depende nt [id number] Medicare Natl Govt Servic Medicare Primary [id number] Self [id number] WPS For Life Medigap Part B [id number] Family Depende nt [id number] Medicare Natl Govt Serv Medicare Primary [id number] Self [id number] WPS For Life Medigap Part B [id number] Family Depende nt [id number] Medicare Natl Govt Serv Medicare Primary [id number] Self [id number] WPS For Life Medigap Part B [id number] Family Depende nt [id number] Medicare Natl Govt Servic Medicare Primary [id number] Self [id number] WPS For Life Medigap Part B [id number] Family Depende nt [id number] Medicare Natl [facility] Medicare Primary [id number] Self [id number] WPS For Life Medigap Part B Family Depende nt [place] Ppo Medigap Part B [id number] Self [employer] Medicare Primary Self FOR LIFE [id number] Problems, Conditions, and Diagnoses Code Display Name Description Problem Type Effective Dates Data Source(s) K57.92 Diverticulitis of intestine, part unspecified, without perforation or abscess without bleeding Diverticulitis of intestine, part unspec ified, without perforation or abscess without bleeding Problem 12/26/2019 01:00:00 AM PHILLIP RO ([facility]) 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 stage 1 through stage 4 chronic kidney disease, or unspecified chronic kidney disease Hypertensive heart and chronic kidney di sease with heart failure and stage 1 through stage 4 chronic kidney disease, or unspecified chronic kidney disease Problem 12/26/2019 01:00:00 AM EDT NETSMART ([facility]) 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 Problem 12/26/2019 01:00:00 AM EDT NETSMART ([facility]) N18.31 Chronic kidney disease, stage 3a Chronic kidney disease, stage 3a Problem 12/26/2019 01:00:00 AM EDT NETSMART ([facility]) G30.9 Alzheimer's disease, unspecified Alzheimer's disease, unspecified Problem 12/26/2019 01:00:00 AM EDT NETSMART ([facility] ) 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 Dementia in other diseases classified el sewhere without behavioral disturbance Problem 12/26/2019 01:00:00 AM EDT NETSMART ([facility]) I48.21 Permanent atrial fibrillation Permanent atrial fibrill ation Problem 12/26/2019 01:00:00 AM EDT NETSMART ([facility] ) M19.90 Unspecified osteoarthritis, unspecified site Unspecified osteoarthritis, unspecified site Problem 12/26/2019 01:00:00 AM EDT NETSMART ([facility]) M81.0 Age-related osteoporosis without current pathological fracture Age-related osteoporosis without current pathological fracture Problem 01:00:00 AM EDT NETSMART ([facility] ) Z51.81 Encounter for therapeutic drug level [facility] Encounter for therapeutic drug level monitoring Problem 12/26/2019 01:00:00 AM EDT NETSMART ( [facility]) 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 (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 anticoagulants Problem 12/26/2019 01:00:00 AM EDT NETSMART ([facility]) Z79.51 longterm (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 inhaled stero ids 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 (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 inhaled steroids Problem 12/26/2019 01:00:00 AM EDT NETSMART ([facility]) Z91.81 History of falling History of falling Problem 0 01:00:00 AM EDT NETSMART ([facility]) Z95.0 Presence of cardiac pacemaker Presence of cardiac pace maker Problem 12/26/2019 01:00:00 AM EDT NETSMART ([facility] ) 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 heart valve Presence of p rosthetic heart valve Problem 12/26/2019 01:00:00 AM EDT NETSMART ([facility]) G93.40 Encephalopathy, unspecified Encephalopathy, unspecifie d Problem 12/26/2019 01:00:00 AM EDT NETSMART ([facility] ) J44.9 Chronic obstructive pulmonary disease, u nspecified Chronic obstructive pulmonary disease, unspecified Problem 12/26/2019 01:00:00 AM EDT NE TSMART ([facility]) J44.1 Chronic obstructive pulmonary disease wi th (acute) exacerbation Chronic obstructive pulmonary disease with (acute) exacerbation Problem 12/09/2019 01:00:00 AM EDT NETSMART ([facility] ) Surgeries/Procedures Procedure Description Date Indications Data Source(s) ECG ROUTINE ECG W/LEAST 12 LDS W/I&R 01/11/2020 12:00: 00 AM EST MED[facility] ([facility]) ECG ROUTINE ECG W/LEAST 12 LDS W/I&R 04/19/2019 12:00: 00 AM EST [facility] ([facility]) Results ID Date Data Source [id number] 03/26/2020 12:00:00 AM EST [facility] Name Value Range Interpretation Code Description Data Shonna rce(s) Supporting Document(s) SARS-CoV2 Rapid Antigen Negative [facility] This lab was ordered by [facility] and reported by [facility]. ID Date Data Source [id number] 01/31/2020 07:37:00 AM EST MED[facility] ([facility]) Name Value Range Interpretation Code Description Data Shonna rce(s) Supporting Document(s) Laboratory test finding (navigational concept) 0.01 ng/mL 0.00-0.08 [facility] ([facility]) ID Date Data Source [id number] 01/31/2020 07:35:00 AM EST MED[facility] ([facility]) Name Value Range Interpretation Code Description Data Shonna rce(s) Supporting Document(s) Laboratory test finding (navigational concept) 40.0 % 38.0-51.0 [facility] ([facility]) Laboratory test finding (navigational concept) 89 mg/dL 70-105 [facility] ([facility]) Laboratory test finding (navigational concept) 138 meq/L 136-145 [facility] ([facility]) Laboratory test finding (navigational concept) 3.7 meq/L 3.5-5.1 [facility] ([facility]) Laboratory test finding (navigational concept) 4.6 mg/dL 4.5-5.3 [facility] ([facility]) Laboratory test finding (navigational concept) 98 meq/L 98-109 [facility] ([facility]) Laboratory test finding (navigational concept) 32.0 MM/L 23.0-27.0 [facility] ([facility]) Laboratory test finding (navigational concept) 1.1 mg/dL 0.6-1.3 [facility] ([facility]) Laboratory test finding (navigational concept) 26 mg/dL 8-26 [facility] ([facility]) ID Date Data Source [id number] 01/31/2020 07:19:00 AM EST [facility] ([facility]) Name Value Range Interpretation Code Description Data Shonna rce(s) Supporting Document(s) Bedside Glucose 83 mg/dL 83-110 [facility] ([facility]) ID Date Data Source [id number] 01/31/2020 07:15:00 AM EST [facility] ([facility]) Name Value Range Interpretation Code Description Data Shonna rce(s) Supporting Document(s) Inr 2.38 [facility] ([facility]) THERAPUTIC HUMAN INR VALUES INDICATIONS NORMAL RANGES PROPHYLAXIS/TREATMENT OF: VENOUS THROMBOSIS 2.0-3.0 PULMONARY EMBOLISM 2.0-3.0 PREVENTION OF SYSTEMIC EMBOLISM FROM: TISSUE HEART VALVES 2.0-3.0 ACUTE MYOCARDIAL INFARCTION 2.0-3.0 VALVULAR HEART DISEASE 2.0-3.0 ATRIAL FIBRILLATION 2.0-3.0 MECHANICAL VALVES(HIGH RISK) 2.5-3.5 RECURRENT MYOCARDIAL INFARCTION 2.5-3.5 Prothrombin Time 26.5 s 12.5-14.3 [facility] ([facility]) ID Date Data Source [id number] 01/31/2020 07:15:00 AM EST [facility] ([facility]) Name Value Range Interpretation Code Description Data Shonna rce(s) Supporting Document(s) Thyrotropin [Units/volume] in Serum or Plasma by Detec tion limit <= 0.05 mIU/L 5.120 uIU/ML 0.358-3.740 [facility] ([facility] ) ID Date Data Source [id number] 01/31/2020 07:15:00 AM EST [facility] ([facility]) Name Value Range Interpretation Code Description Data Shonna rce(s) Supporting Document(s) White Blood Count 8.5 10 4.0-10.0 [facility] ([facility]) Red Blood Count 4.35 10 4.00-5.40 [facility] ([facility]) Hemoglobin 13.0 g/dL 12.0-15.5 [facility] ([facility]) Hematocrit 40.6 % 36.0-47.0 [facility] ([facility]) Mean Corpuscular Hemoglobin 29.9 pg 27.0-33.0 CO DENT ([facility]) Mean Corpuscular Volume 93.3 fl 80.0-96.0 [facility] ([facility]) Platelet Count, Automated 194 10 150-450 MEDE NT ([facility]) Red Cell Distribution Width 15.2 % 11.5-14.5 CO [facility] ([facility]) Mean Corpuscular HGB Conc 32.0 g/dL 32.0-36.5 MEDE NT ([facility]) Schleicher % 18.0 % 0.0-5.0 [facility]) Neutrophils % 65.5 % 36.0-66.0 [facility] ([facility]) Lymph % 12.8 % 24.0-44.0 [facility] Eos % 2.2 % 0.0-3.0 [facility] Immature Granulocyte % 0.4 % 0-3.0 [facility] ([facility]) Nucleated Red Blood Cell % 0.0 % 0-0 MED ENT ([facility]) Baso % 1.1 % 0.0-1.0 [facility] Schleicher # 1.5 10 0.0-0.8 [facility] Lymph # 1.1 10 1.5-5.0 [facility] Neutrophils # 5.5 10 1.5-8.5 [facility] ([facility]) Eos # 0.2 10 0.0-0.5 [facility] Baso # 0.1 10 0.0-0.2 [facility] ID Date Data Source [id number] 01/10/2020 02:30:00 PM EST MED[facility] ([facility]) Name Value Range Interpretation Code Description Data Shonna rce(s) Supporting Document(s) Glucose, Fasting 99 mg/dL 70-100 [facility] ([facility]) Creatinine For GFR 1.07 mg/dL 0.55-1.30 [facility] ([facility]) Blood Urea Nitrogen 21 mg/dL 7-18 [facility] ([facility]) Glomerular Filtration Rate 52.1 MED ENT ([facility]) <content>Units are mL/min/1.73 m2</content>
<content></content>
<content>Chronic Kidney Disease Staging per NKF:</content>
<content></content>
<content>Stage I & II GFR >=60 Normal to Mildly Decreased</content>
<content>Stage III GFR 30- 59 Moderately Decreased</content>
<content>Stage IV GFR 15-29 Severely Decreased</content>
<content>Stage V GFR <15 Very Little GFR Left</content>
<content>ESRD GFR <15 on CONSTRUCTION MANAGEMENT INSTRUCTOR</content>
<content></content> Sodium Level 136 meq/L 136-145 MED[facility] ([facility]) Potassium Serum 4.2 meq/L 3.5-5.1 [facility] ([facility]) Chloride Level 95 meq/L 98-107 [facility] ([facility]) Carbon Dioxide Level 35 meq/L 21-32 [facility] ([facility]) Anion Gap 6 meq/L 8-16 [facility] Calcium Level 10.1 mg/dL 8.8-10.2 [facility] ([facility]) Ast/Sgot 32 U/L 7-37 [facility]) Alt/SGPT 23 U/L 12-78 [facility] Alkaline Phosphatase 66 U/L 45-117 [facility] ([facility]) Total Protein 6.6 GM/DL 6.4-8.2 [facility] ([facility]) Bilirubin,Total 0.7 mg/dL 0.2-1.0 [facility] ([facility]) Albumin/Globulin Ratio 1.3 1.2-2.2 [facility] ([facility]) Albumin 3.7 GM/DL 3.2-5.2 [facility]) ID Date Data Source [id number] 01/10/2020 02:30:00 PM EST MEDENT ([facility]) Name Value Range Interpretation Code Description Data Shonna rce(s) Supporting Document(s) Hemoglobin 13.3 g/dL 12.0-15.5 [facility] White Blood Count 7.8 10 4.0-10.0 [facility] ([facility]) Red Blood Count 4.46 10 4.00-5.40 [facility] ([facility]) Mean Corpuscular Volume 93.3 fl 80.0-96.0 [facility] ([facility]) Mean Corpuscular Hemoglobin 29.8 pg 27.0-33.0 ME DENT ([facility]) Hematocrit 41.6 % 36.0-47.0 [facility]) Platelet Count, Automated 231 10 150-450 MEDE NT ([facility]) Mean Corpuscular HGB Conc 32.0 g/dL 32.0-36.5 MEDE NT ([facility]) Red Cell Distribution Width 15.9 % 11.5-14.5 ME DENT ([facility]) Nucleated Red Blood Cell % 0.0 % 0-0 MED ENT ([facility]) ID Date Data Source [id number] 12/26/2019 09:34:00 AM EDT MED[facility] ([facility]) Name Value Range Interpretation Code Description Data Shonna rce(s) Supporting Document(s) Laboratory test finding (navigational concept) 0.02 ng/mL 0.00-0.08 [facility] ([facility]) ID Date Data Source [id number] 12/26/2019 09:29:00 AM EDT MED[facility] ([facility]) Name Value Range Interpretation Code Description Data Shonna rce(s) Supporting Document(s) Laboratory test finding (navigational concept) 0.90 0.4-2.0 [facility] ([facility]) ID Date Data Source [id number] 12/26/2019 09:28:00 AM EDT [facility] ([facility] Name Value Range Interpretation Code Description Data Shonna rce(s) Supporting Document(s) Laboratory test finding (navigational concept) 41.0 % 38.0-51.0 [facility] ([facility]) Laboratory test finding (navigational concept) 136 meq/L 136-145 [facility] ([facility]) Laboratory test finding (navigational concept) 3.9 meq/L 3.5-5.1 [facility] ([facility]) Laboratory test finding (navigational concept) 107 mg/dL 70-105 [facility] ([facility]) Laboratory test finding (navigational concept) 95 meq/L 98-109 [facility] ([facility]) Laboratory test finding (navigational concept) 30.0 MM/L 23.0-27.0 [facility] ([facility]) Laboratory test finding (navigational concept) 5.1 mg/dL 4.5-5.3 [facility] ([facility]) Laboratory test finding (navigational concept) 30 mg/dL 8-26 [facility] ([facility]) Laboratory test finding (navigational concept) 1.2 mg/dL 0.6-1.3 [facility] ([facility]) ID Date Data Source [id number] 12/26/2019 09:28:00 AM EDT MED[facility] ([facility]) Name Value Range Interpretation Code Description Data Shonna rce(s) Supporting Document(s) Laboratory test finding (navigational concept) 31.3 s 12.1-14.4 [facility] ([facility]) Laboratory test finding (navigational concept) 2.7 [facility] ([facility]) ID Date Data Source [id number] 12/26/2019 08:53:00 AM EDT MEDENT ([facility]) Name Value Range Interpretation Code Description Data Shonna rce(s) Supporting Document(s) White Blood Count 14.2 10 4.0-10.0 [facility] ([facility]) Red Blood Count 4.35 10 4.00-5.40 [facility] ([facility]) Mean Corpuscular Volume 92.4 fl 80.0-96.0 [facility] ([facility]) Hemoglobin 13.1 g/dL 12.0-15.5 [facility] Hematocrit 40.2 % 36.0-47.0 [facility] Mean Corpuscular Hemoglobin 30.1 pg 27.0-33.0 CO DENT ([facility]) Mean Corpuscular HGB Conc 32.6 g/dL 32.0-36.5 MEDE NT ([facility]) Red Cell Distribution Width 15.3 % 11.5-14.5 CO DENT ([facility]) Lymph % 5.6 % 24.0-44.0 [facility]) Neutrophils % 75.0 % 36.0-66.0 [facility] ([facility]) Platelet Count, Automated 178 10 150-450 MEDE NT ([facility]) Schleicher % 17.9 % 0.0-5.0 [facility]) Baso % 0.4 % 0.0-1.0 [facility]) Eos % 0.5 % 0.0-3.0 [facility] Nucleated Red Blood Cell % 0.0 % 0-0 MED ENT ([facility]) Immature Granulocyte % 0.6 % 0-3.0 [facility] ([facility]) Neutrophils # 10.7 10 1.5-8.5 [facility] ([facility]) Lymph # 0.8 10 1.5-5.0 [facility] Eos # 0.1 10 0.0-0.5 [facility] Schleicher # 2.5 10 0.0-0.8 [facility] Baso # 0.1 10 0.0-0.2 [facility] ID Date Data Source [id number] 12/26/2019 08:53:00 AM EDT MED[facility] ([facility]) Name Value Range Interpretation Code Description Data Shonna rce(s) Supporting Document(s) Ammonia [Mass/volume] in Blood Laboratory test result [facility]) ID Date Data Source [id number] 12/26/2019 08:53:00 AM EDT MED[facility] ([facility]) Name Value Range Interpretation Code Description Data Shonna rce(s) Supporting Document(s) Appearance, Urine RFX Laboratory test result MED[facility] ([facility]) Specific [place] Ur Auto RFX 1.012 1.002-1.035 [facility] Color, Urine RFX Laboratory test result [facility]) PH,Urine RFX 6.0 units 5.0-9.0 [facility] Glucose, Urine (Ua) Auto RFX Laboratory test result [facility] ([facility]) Protein, Urine Auto RFX Laboratory test result [facility] Ketone, Urine Auto RFX Laboratory test result [facility] ([facility]) Urobilinogen, Urine Auto RFX 0.2 mg/dL 0.0-2.0 [facility]) Bilirubin, Urine Auto RFX Laboratory test result [facility] ([facility]) Nitrite, Urine Auto RFX Laboratory test [facility] WBC, Urine Auto RFX 1 /HPF 0-3 [facility] Leukocyte Esterase Ur Auto RFX Laboratory test result [facility] ([facility]) Blood, Urine Blood RFX Laboratory test result [facility] ([facility]) Squam Epithelial Cell Ur Aurfx 0 /HPF 0-6 [facility] RBC, Urine Auto RFX 1 /HPF 0-3 [facility] Bacteria, Urine Auto RFX Laboratory test result [facility] ([facility]) Hyaline Cast, Urine Auto RFX 0 /LPF 0-1 [facility] ID Date Data Source [id number] 12/26/2019 08:53:00 AM EDT [facility] Name Value Range Interpretation Code Description Data Shonna rce(s) Supporting Document(s) CPK Creatine Phosphokinase 62 U/L 26-192 MED ENT ([facility]) Troponin I Laboratory test result [facility] ([facility]) <content>Troponin I Reference Interval f or Siemens [place] LOCI:</content>
<content></content>
<content>99th Percentile= 0.00-0.045 ng/ml</content>
<content></content>
<content>Risk Stratification:</content>
<content><= 0.10 ng/ml Decreased Risk for Adverse Clinical</content>
<content>Events.</content>
<content>0.10-1.50 ng/ml Increased Risk for Adverse Clinical</content>
<content>Events. Evaluation of additional</content>
<content>criterion and/or repeat testing in 2-6</content>
<content>hours is suggested to rule out myocardial</content>
<content>damage.</content>
<content>>= 1.50 ng/ml Indicative of Myocardial Injury.</content>
<content></content> MB/CK Relative Index 1.61 MED[facility] ([facility]) <content>DIAGNOSIS CRITERIA</content>
<content>MMB ng/ml Relative Index (RI)</content>
<content>NON-AMI < or = 5 N/A</content>
<content>CARLOS ZONE > 5 < or = 4</content>
<content>AMI > 5 > 4</content>
<content></content> CK-MB Value Mass Laboratory test result [facility] ([facility]) ID Date Data Source [id number] 12/26/2019 08:53:00 AM EDT MED[facility] ([facility]) Name Value Range Interpretation Code Description Data Shonna rce(s) Supporting Document(s) Ast/Sgot 23 U/L 7-37 [facility] ([facility]) Alkaline Phosphatase 72 U/L 45-117 [facility] ([facility]) Alt/SGPT 24 U/L 12-78 [facility] ([facility]) Bilirubin,Total 1.2 mg/dL 0.2-1.0 [facility] ([facility]) Albumin 3.7 GM/DL 3.2-5.2 [facility] Total Protein 6.7 GM/DL 6.4-8.2 [facility] ([facility]) Bilirubin,Direct 0.4 mg/dL 0.0-0.2 [facility] ([facility]) Albumin/Globulin Ratio 1.2 1.2-2.2 [facility] ([facility]) ID Date Data Source [id number] 12/26/2019 08:53:00 AM EDT [facility] Name Value Range Interpretation Code Description Data Shonna rce(s) Supporting Document(s) Lipoprotein lipase [Enzymatic activity/volume] in Serum or P lasma 157 U/L 73-393 [facility] Thyrotropin [Units/volume] in Serum or Plasma by Detec tion limit <= 0.05 mIU/L 3.480 uIU/ML 0.358-3.740 [facility] ([facility] ) ID Date Data Source [id number] 12/26/2019 08:53:00 AM EDT MED[facility] ([facility]) Name Value Range Interpretation Code Description Data Shonna rce(s) Supporting Document(s) Blood Type Laboratory test result [facility] ([facility]) AB Screen (Indirect Jaylan)Vis Laboratory test result [facility] ([facility]) ID Date Data Source [id number] 11/16/2019 01:37:00 PM EDT [facility] ([facility]) Name Value Range Interpretation Code Description Data Shonna rce(s) Supporting Document(s) Leukocytes [#/volume] in Blood by Automated count 7.4 x10*3/UL 4.1-10 .9 [facility] ([facility]) Erythrocytes [#/volume] in Blood by Automated count 5.02 x10*6/UL 4.2 0-6.30 [facility] ([facility]) Hemoglobin [Mass/volume] in Blood 14.8 g/dL 12.0-18.0 [facility] ([facility]) Hematocrit [Volume Fraction] of Blood by Automated count 44.4 % 3 7.0-51.0 [facility] ([facility]) MCV 88.5 fL 80.0-97.0 [facility] MCH 29.4 pg 26.0-32.0 [facility] MCHC 33.3 g/dL 31.0-38.0 [facility] Erythrocyte distribution width [Ratio] by Automated count 14.3 % 11.6-13.7 [facility] ([facility]) Platelets [#/volume] in Blood by Automated count 208 x10*3/UL 140-440 [facility] ([facility]) Platelet mean volume [Entitic volume] in Blood by Won 8.8 FL 7.8-11.0 [facility] ([facility]) Lymphocytes/100 leukocytes in Blood by Automated count 16.7 % 10. 0-58.5 [facility] ([facility]) Mid % 4.6 % 1.7-9.3 [facility] Neut % 78.7 % 37.0-92.0 [facility] Mid # 0.4 x10*3/UL 0.1-0.6 [facility] ([facility] Lymph # 1.2 x10*3/UL 0.6-4.1 [facility] ([facility] Neutrophils [#/volume] in Semen by Manual count 5.8 x10*3/UL 2.0-7.8 [facility] ([facility]) ID Date Data Source [id number] 11/16/2019 01:37:00 PM EDT [facility] ([facility]) Name Value Range Interpretation Code Description Data Shonna rce(s) Supporting Document(s) Thyrotropin [Units/volume] in Serum or Plasma by Detec tion limit <= 0.05 mIU/L 3.19 uIU/mL 0.36-3.74 [facility] ([facility] ) ID Date Data Source [id number] 11/16/2019 01:37:00 PM EDT [facility] ([facility]) Name Value Range Interpretation Code Description Data Shonna rce(s) Supporting Document(s) Urea nitrogen [Mass/volume] in Serum or Plasma 24 mg/dL 7-18 [facility] ([facility]) Glucose [Mass/volume] in Serum or Plasma 100 mg/dL 74-99 [facility] ([facility]) 100-125 mg/dL PRE-DIABETES/FASTING >126 mg/dL DIABETES/FASTING Sodium [Moles/volume] in Serum or Plasma 139 meq/L 136-145 [facility] ([facility]) Chloride [Moles/volume] in Serum or Plasma 99 meq/L 98-107 [facility] ([facility]) Potassium [Moles/volume] in Serum or Plasma 4.3 meq/L 3.5-5.1 [facility] ([facility]) Creatinine 1.4 mg/dL 0.6-1.3 [facility] Carbon dioxide, total [Moles/volume] in Serum or Plasma 36 meq/L 21 -32 [facility] ([facility]) Glomerular filtration rate/1.73 sq M pre dicted among non-blacks [Volume Rate/Area] in Serum or Plasma by Creatinine-based formula (MDRD) 36 mL/min [facility] ([facility]) Calcium [Mass/volume] in Serum or Plasma 9.9 mg/dL 8.5-10.1 [facility] ([facility]) Glomerular filtration rate/1.73 sq M pre dicted among blacks [Volume Rate/Area] in Serum or Plasma by Creatinine-based formula (MDRD) 44 mL/min [facility] ([facility]) <content>CHRONIC KIDNEY DISEASE STAGING PER NKF</content>
<content></content>
<content>STAGE I & II GFR >= 60 NORMAL TO MILDLY DECREASED</content>
<content>STAGE III GFR 30-59 MODERATELY DECREASED</content>
<content>STAGE IV GFR 15-29 SEVERELY DECREASED</content>
<content>STAGE V GFR <15 VERY LITTLE GFR LEFT</content>
<content>ESRD GFR <15 ON CONSTRUCTION MANAGEMENT INSTRUCTOR</content>
<content></content> ID Date Data Source [id number] 11/16/2019 01:37:00 PM EDT [facility] ([facility]) Name Value Range Interpretation Code Description Data Shonna rce(s) Supporting Document(s) Hemoglobin [Mass/volume] in Blood 14.8 g/dL 12.0-18.0 [facility] ([facility]) Erythrocytes [#/volume] in Blood by Automated count 5.02 x10*6/UL 4.2 0-6.30 [facility] ([facility]) Leukocytes [#/volume] in Blood by Automated count 7.4 x10*3/UL 4.1-10 .9 [facility] ([facility]) MCV 88.5 fL 80.0-97.0 [facility] ([facility]) Hematocrit [Volume Fraction] of Blood by Automated count 44.4 % 3 7.0-51.0 [facility] ([facility]) MCH 29.4 pg 26.0-32.0 [facility] ([facility]) MCHC 33.3 g/dL 31.0-38.0 [facility] Erythrocyte distribution width [Ratio] by Automated count 14.3 % 11.6-13.7 [facility] ([facility]) Platelets [#/volume] in Blood by Automated count 208 x10*3/UL 140-440 [facility] ([facility]) Lymph % 16.7 % 10.0-58.5 [facility] MPV 8.8 FL 7.8-11.0 [facility] Mid % 4.6 % 1.7-9.3 [facility] Neut % 78.7 % 37.0-92.0 [facility] ([facility]) Lymph # 1.2 x10*3/UL 0.6-4.1 [facility] ([facility]) Mid # 0.4 x10*3/UL 0.1-0.6 [facility] ([facility]) Neut # 5.8 x10*3/UL 2.0-7.8 [facility] ([facility]) ID Date Data Source [id number] 11/14/2019 10:56:00 AM EDT [facility] ([facility]) Name Value Range Interpretation Code Description Data Shonna rce(s) Supporting Document(s) INR in Platelet poor plasma by Coagulation assay 3.1 [facility] ([facility]) ID Date Data Source [id number] 10/17/2019 04:04:00 PM EDT [facility] ([facility]) Name Value Range Interpretation Code Description Data Shonna rce(s) Supporting Document(s) INR in Platelet poor plasma by Coagulation assay 2.5 [facility]) ID Date Data Source [id number] 08/16/2019 01:38:00 PM EDT [facility] ([facility]) Name Value Range Interpretation Code Description Data Shonna rce(s) Supporting Document(s) Magnesium 2.1 mg/dL 1.8-2.4 [facility]) ID Date Data Source [id number] 08/16/2019 01:38:00 PM EDT [facility] ([facility]) Name Value Range Interpretation Code Description Data Shonna rce(s) Supporting Document(s) Glucose [Mass/volume] in Serum or Plasma 76 mg/dL 74-99 [facility] ([facility]) 100-125 mg/dL PRE-DIABETES/FASTING >126 mg/dL DIABETES/FASTING Creatinine 1.2 mg/dL 0.6-1.3 [facility] ([facility]) Sodium [Moles/volume] in Serum or Plasma 144 meq/L 136-145 [facility] ([facility]) Urea nitrogen [Mass/volume] in Serum or Plasma 22 mg/dL 7-18 [facility] ([facility]) Potassium [Moles/volume] in Serum or Plasma 4.2 meq/L 3.5-5.1 [facility] ([facility]) Carbon dioxide, total [Moles/volume] in Serum or Plasma 33 meq/L 21 -32 [facility] ([facility]) Chloride [Moles/volume] in Serum or Plasma 104 meq/L 98-107 [facility] ([facility]) Glomerular filtration rate/1.73 sq M pre dicted among non-blacks [Volume Rate/Area] in Serum or Plasma by Creatinine-based formula (MDRD) 43 mL/min [facility] ([facility]) Calcium [Mass/volume] in Serum or Plasma 9.7 mg/dL 8.5-10.1 [facility] ([facility]) Glomerular filtration rate/1.73 sq M pre dicted among blacks [Volume Rate/Area] in Serum or Plasma by Creatinine-based formula (MDRD) 52 mL/min [facility] ([facility]) <content>CHRONIC KIDNEY DISEASE STAGING PER NKF</content>
<content></content>
<content>STAGE I & II GFR >= 60 NORMAL TO MILDLY DECREASED</content>
<content>STAGE III GFR 30-59 MODERATELY DECREASED</content>
<content>STAGE IV GFR 15-29 SEVERELY DECREASED</content>
<content>STAGE V GFR <15 VERY LITTLE GFR LEFT</content>
<content>ESRD GFR <15 ON CONSTRUCTION MANAGEMENT INSTRUCTOR</content>
<content></content> ID Date Data Source [id number] 08/16/2019 01:38:00 PM EDT [facility] ([facility]) Name Value Range Interpretation Code Description Data Shonna rce(s) Supporting Document(s) Leukocytes [#/volume] in Blood by Automated count 8.1 x10*3/UL 4.1-10 .9 [facility] ([facility]) Hemoglobin [Mass/volume] in Blood 14.8 g/dL 12.0-18.0 [facility] ([facility]) Erythrocytes [#/volume] in Blood by Automated count 5.07 x10*6/UL 4.2 0-6.30 [facility] ([facility]) Hematocrit [Volume Fraction] of Blood by Automated count 44.9 % 3 7.0-51.0 [facility] ([facility]) MCHC 33.1 g/dL 31.0-38.0 [facility] MCH 29.3 pg 26.0-32.0 [facility] MCV 88.5 fL 80.0-97.0 [facility] MPV 8.7 FL 7.8-11.0 [facility] Erythrocyte distribution width [Ratio] by Automated count 14.2 % 11.6-13.7 [facility] ([facility]) Platelets [#/volume] in Blood by Automated count 206 x10*3/UL 140-440 [facility] ([facility]) Lymph % 16.9 % 10.0-58.5 [facility]) Mid % 4.7 % 1.7-9.3 [facility]) Neut % 78.4 % 37.0-92.0 [facility] Lymph # 1.3 x10*3/UL 0.6-4.1 [facility] ([facility]) Neut # 6.3 x10*3/UL 2.0-7.8 [facility] ([facility]) Mid # 0.5 x10*3/UL 0.1-0.6 [facility] ([facility]) ID Date Data Source [id number] 05/09/2019 01:59:00 PM EST [facility] ([facility]) Name Value Range Interpretation Code Description Data Shonna rce(s) Supporting Document(s) Lymphocytes 5 % 16-44 [facility] ([facility]) Neutrophils 70 % 28-66 [facility] ([facility]) Eosinophils 4 % 0-3 [facility] ([facility]) Monocytes 2 % 0-5 [facility] Basophils 2 % 0-1 [facility]) Atypical Lymph 17 % 0-5 [facility] ([facility]) Poikilocytosis Laboratory test result [facility] ([facility]) Ovalocytes Laboratory test result [facility] ([facility]) Platelet Estimate Laboratory test result [facility] ([facility]) ID Date Data Source [id number] 05/09/2019 01:59:00 PM EST [facility] ([facility]) Name Value Range Interpretation Code Description Data Shonna rce(s) Supporting Document(s) Glucose [Mass/volume] in Serum or Plasma 104 mg/dL 74-99 [facility] ([facility]) 100-125 mg/dL PRE-DIABETES/FASTING >126 mg/dL DIABETES/FASTING Urea nitrogen [Mass/volume] in Serum or Plasma 19 mg/dL 7-18 [facility] ([facility]) Creatinine 1.2 mg/dL 0.6-1.3 [facility] ([facility]) Sodium [Moles/volume] in Serum or Plasma 144 meq/L 136-145 [facility] ([facility]) Potassium [Moles/volume] in Serum or Plasma 4.0 meq/L 3.5-5.1 [facility] ([facility]) Chloride [Moles/volume] in Serum or Plasma 102 meq/L 98-107 [facility] ([facility]) Glomerular filtration rate/1.73 sq M pre dicted among non-blacks [Volume Rate/Area] in Serum or Plasma by Creatinine-based formula (MDRD) 43 mL/min [facility] ([facility]) Carbon dioxide, total [Moles/volume] in Serum or Plasma 36 meq/L 21 -32 [facility] ([facility]) Calcium [Mass/volume] in Serum or Plasma 10.0 mg/dL 8.5-10.1 [facility] ([facility]) Glomerular filtration rate/1.73 sq M pre dicted among blacks [Volume Rate/Area] in Serum or Plasma by Creatinine-based formula (MDRD) 52 mL/min [facility] <content>CHRONIC KIDNEY DISEASE STAGING PER NKF</content>
<content></content>
<content>STAGE I & II GFR >= 60 NORMAL TO MILDLY DECREASED</content>
<content>STAGE III GFR 30-59 MODERATELY DECREASED</content>
<content>STAGE IV GFR 15-29 SEVERELY DECREASED</content>
<content>STAGE V GFR <15 VERY LITTLE GFR LEFT</content>
<content>ESRD GFR <15 ON CONSTRUCTION MANAGEMENT INSTRUCTOR</content>
<content></content> ID Date Data Source [id number] 05/09/2019 01:59:00 PM EST [facility] ([facility]) Name Value Range Interpretation Code Description Data Shonna rce(s) Supporting Document(s) Leukocytes [#/volume] in Blood by Automated count 8.0 x10*3/UL 4.1-10 .9 [facility] ([facility]) Hemoglobin [Mass/volume] in Blood 14.0 g/dL 12.0-18.0 [facility] ([facility]) Erythrocytes [#/volume] in Blood by Automated count 4.88 x10*6/UL 4.2 0-6.30 [facility] ([facility]) MCV 87.4 fL 80.0-97.0 [facility] Hematocrit [Volume Fraction] of Blood by Automated count 42.7 % 3 7.0-51.0 [facility] ([facility]) MCHC 32.9 g/dL 31.0-38.0 [facility] MCH 28.7 pg 26.0-32.0 [facility]) Platelets [#/volume] in Blood by Automated count 207 x10*3/UL 140-440 [facility] Erythrocyte distribution width [Ratio] by Automated count 14.3 % 11.6-13.7 [facility] ([facility]) MPV 8.3 FL 7.8-11.0 [facility] Lymph % 8.8 % 10.0-58.5 [facility] ([facility]) NOTE: MANUAL DIFFERENTIAL SENT TO [facility] FOR VERIFICATION. Mid % 10.9 % 1.7-9.3 [facility] ([facility]) Lymph # 0.7 x10*3/UL 0.6-4.1 [facility] ([facility]) Neut % 80.3 % 37.0-92.0 [facility] ([facility]) Neut # 6.4 x10*3/UL 2.0-7.8 [facility] ([facility]) Mid # 0.9 x10*3/UL 0.1-0.6 [facility] ID Date Data Source [id number] 02/07/2019 03:42:00 PM EST [facility] Name Value Range Interpretation Code Description Data Shonna rce(s) Supporting Document(s) Bacteria identified in Urine by Culture FULL REPORT IN L <SEE NOTE> [facility]) FULL REPORT IN LAB NOTES (eCW and [facility] ). NO GROWTH ID Date Data Source [id number] 02/07/2019 03:42:00 PM EST [facility] ([facility] Name Value Range Interpretation Code Description Data Shonna rce(s) Supporting Document(s) Urine PH 6.0 units 5.0-9.0 [facility] ([facility]) Urine Appearance SL. HAZY Abnormal (applies to non-numer ic results) [facility] ([facility]) Urine Color STRAW Abnormal (applies to non-numeric re sults) [facility] Urine Blood TRACE Abnormal (applies to non-numeric re sults) [facility] Urine Leukocytes NEGATIVE [facility] ([facility] Specific gravity of Urine 1.015 1.005-1.030 [facility] ([facility]) Glucose [Presence] in Urine NEGATIVE mg/dL [facility] ([facility]) Urine Protein NEGATIVE 0-0 [facility] ([facility]) Urine Nitrite NEGATIVE [facility] ([facility]) Urine Urobilinogen 0.2 mg/dL 0.2-1.0 [facility] ([facility]) Urine Ketone NEGATIVE mg/dL [facility] ([facility]) Bilirubin.total [Mass/volume] in Serum or Plasma NEGATIVE [facility] ([facility]) ID Date Data Source [id number] 02/07/2019 03:42:00 PM EST [facility] ([facility]) Name Value Range Interpretation Code Description Data Shonna rce(s) Supporting Document(s) Glucose [Mass/volume] in Serum or Plasma 133 mg/dL 74-99 [facility] ([facility]) 100-125 mg/dL PRE-DIABETES/FASTING >126 mg/dL DIABETES/FASTING Urea nitrogen [Mass/volume] in Serum or Plasma 20 mg/dL 7-18 [facility] ([facility]) Sodium [Moles/volume] in Serum or Plasma 141 meq/L 136-145 [facility] ([facility]) Creatinine 1.3 mg/dL 0.6-1.3 [facility] ([facility]) Potassium [Moles/volume] in Serum or Plasma 3.7 meq/L 3.5-5.1 [facility] ([facility]) Carbon dioxide, total [Moles/volume] in Serum or Plasma 36 meq/L 21 -32 [facility] ([facility]) Chloride [Moles/volume] in Serum or Plasma 99 meq/L 98-107 [facility] ([facility]) Glomerular filtration rate/1.73 sq M pre dicted among non-blacks [Volume Rate/Area] in Serum or Plasma by Creatinine-based formula (MDRD) 39 mL/min [facility] ([facility]) Glomerular filtration rate/1.73 sq M pre dicted among blacks [Volume Rate/Area] in Serum or Plasma by Creatinine-based formula (MDRD) 48 mL/min [facility] ([facility]) <content>CHRONIC KIDNEY DISEASE STAGING PER NKF</content>
<content></content>
<content>STAGE I & II GFR >= 60 NORMAL TO MILDLY DECREASED</content>
<content>STAGE III GFR 30-59 MODERATELY DECREASED</content>
<content>STAGE IV GFR 15-29 SEVERELY DECREASED</content>
<content>STAGE V GFR <15 VERY LITTLE GFR LEFT</content>
<content>ESRD GFR <15 ON CONSTRUCTION MANAGEMENT INSTRUCTOR</content>
<content></content> Calcium [Mass/volume] in Serum or Plasma 10.0 mg/dL 8.5-10.1 [facility] ID Date Data Source [id number] 02/07/2019 03:42:00 PM EST [facility] ([facility]) Name Value Range Interpretation Code Description Data Shonna rce(s) Supporting Document(s) Urea nitrogen [Mass/volume] in Serum or Plasma 20 mg/dL 7-18 [facility] ([facility]) Glucose [Mass/volume] in Serum or Plasma 133 mg/dL 74-99 [facility] ([facility]) 100-125 mg/dL PRE-DIABETES/FASTING >126 mg/dL DIABETES/FASTING Sodium [Moles/volume] in Serum or Plasma 141 meq/L 136-145 [facility] ([facility]) Creatinine 1.3 mg/dL 0.6-1.3 [facility] ([facility]) Potassium [Moles/volume] in Serum or Plasma 3.7 meq/L 3.5-5.1 [facility] ([facility]) Chloride [Moles/volume] in Serum or Plasma 99 meq/L 98-107 [facility] ([facility]) Carbon dioxide, total [Moles/volume] in Serum or Plasma 36 meq/L 21 -32 [facility] ([facility]) Calcium [Mass/volume] in Serum or Plasma 10.0 mg/dL 8.5-10.1 [facility] ([facility]) Glomerular filtration rate/1.73 sq M pre dicted among blacks [Volume Rate/Area] in Serum or Plasma by Creatinine-based formula (MDRD) 48 mL/min [facility] ([facility]) <content>CHRONIC KIDNEY DISEASE STAGING PER NKF</content>
<content></content>
<content>STAGE I & II GFR >= 60 NORMAL TO MILDLY DECREASED</content>
<content>STAGE III GFR 30-59 MODERATELY DECREASED</content>
<content>STAGE IV GFR 15-29 SEVERELY DECREASED</content>
<content>STAGE V GFR <15 VERY LITTLE GFR LEFT</content>
<content>ESRD GFR <15 ON CONSTRUCTION MANAGEMENT INSTRUCTOR</content>
<content></content>
<content></content> Glomerular filtration rate/1.73 sq M pre dicted among non-blacks [Volume Rate/Area] in Serum or Plasma by Creatinine-based formula (MDRD) 39 mL/min [facility] ([facility]) Urine Color Straw Abnormal (applies to non-numeric re sults) [facility] ([facility]) Urine Appearance SL. Hazy Abnormal (applies to non-numer ic results) [facility] ([facility]) Urine Leukocytes Negative [facility] ([facility]) Specific gravity of Urine 1.015 1.005-1.030 [facility] ([facility]) pH of Urine 6.0 units 5.0-9.0 [facility] ([facility]) Urine Blood Trace Abnormal (applies to non-numeric re sults) [facility] ([facility]) Glucose [Presence] in Urine Negative mg/dL [facility] ([facility]) Urine Protein Negative 0-0 [facility] ([facility]) Urine Nitrite Negative [facility] ([facility]) Urine Ketone Negative mg/dL [facility] ([facility]) Urine Urobilinogen 0.2 mg/dL 0.2-1.0 [facility] ([facility]) Bacteria identified in Urine by Culture Full Report In L <See Note> [facility] ([facility]) FULL REPORT IN LAB NOTES (eCW and [facility] ). NO GROWTH Bilirubin.total [Mass/volume] in Serum or Plasma Negative [facility] ([facility]) Procedure Social History Code Duration Value Status Description Data Source(s ) Smoking 01/11/2020 12:00:00 AM EST Patient is a former smoker completed Patient is a former smoker [facility] ([facility]) Vital Signs ID Date Data Source UNK Name Value Range Interpretation Code Description Data Source(s) Diastolic blood pressure--sitting 58 mm[Hg] 58 mm[Hg] [facility] ([facility]) large cuff, Ra Systolic blood pressure--sitting 118 mm[Hg] 118 mm[Hg] [facility] ([facility]) large cuff, Ra Heart rate 53 /min 53 /min [facility] ([facility]) Body mass index (BMI) [Ratio] 24.9 kg/m2 24.9 k g/m2 [facility] ([facility]) Body height 66 [in_i] 66 [in_i] [facility]) 5'6" Body weight 154.00 [lb_av] 154.00 [lb_av] [facility] T ([facility]) Oxygen saturation in Arterial blood by Pulse oximetry 94 % 94 % [facility] ([facility]) Body weight 163.00 [lb_av] 163.00 [lb_av] [facility] T ([facility]) Heart rate 82 /min 82 /min [facility]) Body mass index (BMI) [Ratio] 24.1 kg/m2 24.1 k g/m2 [facility]) Oxygen saturation in Arterial blood by [facility]ulse oximetry 95 % 95 % [facility]) Body weight 147.00 [lb_av] 147.00 [lb_av] [facility] T ([facility]) Body height 65.5 [in_i] 65.5 [in_i] [facility] ([facility]) 5'5.50" Respiratory rate 14 /min 14 /min [facility] ( [facility]) Body temperature 98.4 [degF] 98.4 [degF] [facility]) Heart rate 56 /min 56 /min [facility]) Diastolic blood pressure 50 mm[Hg] 50 mm[Hg] [facility]) Systolic blood pressure 130 mm[Hg] 130 mm[Hg] M [facility] Body weight 148.00 [lb_av] 148.00 [lb_av] [facility] T ([facility]) Body mass index (BMI) [Ratio] 24.8 kg/m2 24.8 k g/m2 [facility] ([facility]) Oxygen saturation in Arterial blood by Pulse oximetry 97 % 97 % [facility] ([facility]) Body weight 151.50 [lb_av] 151.50 [lb_av] [facility] T ([facility]) Body height 65.50 [in_i] 65.50 [in_i] [facility] ([facility]) 5'5.50" Heart rate 42 /min 42 /min [facility]) Diastolic blood pressure 70 mm[Hg] 70 mm[Hg] [facility] ([facility]) Systolic blood pressure 130 mm[Hg] 130 mm[Hg] [facility] ([facility]) Body mass index (BMI) [Ratio] 25.8 kg/m2 25.8 k g/m2 [facility]) Oxygen saturation in Arterial blood by Pulse oximetry 95 % 95 % [facility] ([facility]) RM Air Body weight 157.50 [lb_av] 157.50 [lb_av] [facility] T ([facility]) Body height 65.50 [in_i] 65.50 [in_i] [facility] ([facility]) 5'5.50" Heart rate 57 /min 57 /min [facility]) Diastolic blood pressure 70 mm[Hg] 70 mm[Hg] [facility]) Systolic blood pressure 132 mm[Hg] 132 mm[Hg] [facility] ([facility]) Diastolic blood pressure--sitting 68 mm[Hg] 68 mm[Hg] [facility] ([facility]) Systolic blood pressure--sitting 122 mm[Hg] 122 mm[Hg] [facility] ([facility]) Heart rate 51 /min 51 /min [facility] ([facility]) Body mass index (BMI) [Ratio] 26.0 kg/m2 26.0 k g/m2 [facility] ([facility]) Body height 66 [in_i] 66 [in_i] [facility] ([facility]) 5'6" Body weight 161.00 [lb_av] 161.00 [lb_av] [facility] T ([facility]) Body weight 72.633 kg 72.633 kg [facility] Body mass index (BMI) [Ratio] 27.5 kg/m2 27.5 k g/m2 [facility] Body weight 160.12 [lb_av] 160.12 [lb_av] [facility] T ([facility]) Body height 64 [in_i] 64 [in_i] [facility] ([facility]) 5'4" Oxygen saturation in Arterial blood by Pulse oximetry 97 % 97 % [facility] ([facility]) Heart rate 53 /min 53 /min [facility] ([facility]) Diastolic blood pressure 68 mm[Hg] 68 mm[Hg] [facility] ([facility]) Systolic blood pressure 126 mm[Hg] 126 mm[Hg] [facility] ([facility]) Body mass index (BMI) [Ratio] 26.4 kg/m2 26.4 k g/m2 [facility]) Oxygen saturation in Arterial blood by Pulse oximetry 95 % 95 % [facility] ([facility]) Body weight 161.00 [lb_av] 161.00 [lb_av] [facility] T ([facility]) Body height 65.50 [in_i] 65.50 [in_i] [facility] ( [facility] 5'5.50" Heart rate 60 /min 60 /min [facility]) Diastolic blood pressure 50 mm[Hg] 50 mm[Hg] [facility] ([facility]) Systolic blood pressure 128 mm[Hg] 128 mm[Hg] [facility] ([facility]) Patient Treatment Plan of Care Planned Activity Planned Date Details Description Data Source (s) Tobias-Miguel A M10 10 MEQ 01/10/2020 12:00:00 AM [facility]) Ipratropium-Albuterol 0.5-2.5 (3) MG/3ML 01/10/2020 12:00:00 AM EST [facility] ([facility] System) Biaxin 500 MG 01/10/2020 12:00:00 AM EST [facility] ([facility]) Xopenex 0.63 MG/3ML 01/10/2020 12:00:00 AM EST [facility] ([facility]) Spironolactone 25 MG 01/10/2020 12:00:00 AM EST [facility] ([facility]) Multivitamin 01/09/2020 12:00:00 AM EST N [facility] ([facility]) Simvastatin 40 MG 01/09/2020 12:00:00 AM EST [facility] ([facility]) Coumadin 3 MG 01/09/2020 12:00:00 AM EST [facility] ([facility]) Albuterol Sulfate (2.5 MG/3ML) 0.083% 01/09/2020 12:00:00 AM EST [facility] ([facility]) Tylenol 01/09/2020 12:00:00 AM EST N [facility] ([facility]) Torsemide 100 MG 01/09/2020 12:00:00 AM EST [facility] ([facility]) Calcium 01/09/2020 12:00:00 AM EST N [facility] ([facility]) Aricept 5 MG 01/09/2020 12:00:00 AM EST N [facility] ([facility]) Levothyroxine 01/09/2020 12:00:00 AM EST [facility] ([facility]) Incruse Ellipta 62.5 MCG/INH 01/09/2020 12:00:00 AM EST [facility] ([facility]) Vitamin D 01/09/2020 12:00:00 AM EST N [facility] ([facility]) Advair Diskus 100-50 MCG/DOSE 01/09/2020 12:00:00 AM EST [facility] ([facility]) Colace 01/09/2020 12:00:00 AM EST N [facility] ([facility])
--- NOTE | 2020-03-29 03:13 | REPVR ---
PROCEDURE INFORMATION: Exam: CT Head Without Contrast Exam date and time: 03/29/2020 2:34 AM Age: 84 years old Clinical indication: Injury or trauma; Fall; Concussion/head injury TECHNIQUE: Imaging protocol: Computed tomography of the head without contrast. Radiation optimization: All CT scans at this facility use at least one of these dose optimization techniques: automated exposure control; mA and/or kV adjustment per patient size (includes targeted exams where dose is matched to clinical indication); or iterative reconstruction. COMPARISON: CT Head without contrast 12/26/2019 10:09 AM FINDINGS: Brain: There is minimal patchy low attenuation of deep white matter. There is mild prominence of the peripheral sulci. There are bilateral basal ganglia calcifications. Cerebral ventricles: There is mild prominence of the central ventricular system. Bones/joints: Unremarkable. No acute fracture. Paranasal sinuses: Visualized sinuses are unremarkable. No fluid levels. Mastoid air cells: Visualized mastoid air cells are well aerated. Soft tissues: Unremarkable. IMPRESSION: There has been little change from 12/26/2019 with minimal chronic ischemic white matter change and mild atrophy. No acute interval intracranial process is identified. Electronically signed by: Russel Santana On 03/29/2020 03:12:23 AM
--- NOTE | 2020-03-29 03:14 | REPVR ---
PROCEDURE INFORMATION: Exam: CT Maxillofacial Without Contrast Exam date and time: 03/29/2020 2:34 AM Age: 84 years old Clinical indication: Face pain; Additional info: Trauma TECHNIQUE: Imaging protocol: Computed tomography images of the face without contrast. Radiation optimization: All CT scans at this facility use at least one of these dose optimization techniques: automated exposure control; mA and/or kV adjustment per patient size (includes targeted exams where dose is matched to clinical indication); or iterative reconstruction. COMPARISON: No relevant prior studies available. FINDINGS: Orbital cavity: Orbits are normal. Globes are unremarkable. Bones/joints: There are degenerative changes in the upper cervical spine. There are degenerative changes of the TMJs bilaterally. No acute fracture. Paranasal sinuses: Normal. No air-fluid levels. Soft tissues: Unremarkable. IMPRESSION: 1. Degenerative changes in the upper cervical spine and in the TMJs. 2. Otherwise negative CT facial bones. No acute fracture. Electronically signed by: Russel Santana On 03/29/2020 03:14:39 AM
--- NOTE | 2020-03-29 03:21 | REPVR ---
PROCEDURE INFORMATION: Exam: CT Cervical Spine Without Contrast Exam date and time: 03/29/2020 2:34 AM Age: 84 years old Clinical indication: Neck pain; Additional info: Trauma TECHNIQUE: Imaging protocol: Computed tomography images of the cervical spine without contrast. Radiation optimization: All CT scans at this facility use at least one of these dose optimization techniques: automated exposure control; mA and/or kV adjustment per patient size (includes targeted exams where dose is matched to clinical indication); or iterative reconstruction. COMPARISON: No relevant prior studies available. FINDINGS: Tubes, catheters and devices: Pacemaker in position from the left. Vertebrae: No acute fracture. Normal alignment. 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 C2-C3: The disc is within normal limits with degenerative/arthritic changes primarily in the left apophyseal joint with no significant spinal or foraminal stenosis. C3-C4: Moderate interspace narrowing with slight anterolisthesis and residual bilateral hypertrophic changes. There is mild bilateral neural foraminal stenosis and borderline spinal stenosis. C4-C5: Prominent interspace narrowing with mild anterolisthesis and endplate sclerosis. There are bilateral degenerative changes with ankylosis, left greater than right with no spinal stenosis. There is borderline left neural foraminal stenosis. C5-C6: Moderate interspace narrowing with vacuum phenomena and bilateral degenerative changes with borderline bilateral neural foraminal stenosis. C6-C7: Mild interspace narrowing with slight anterolisthesis and minimal disc protrusion. There are bilateral degenerative changes, greatest in the right apophyseal joint with borderline right neural foraminal stenosis. C7-T1: Early degenerative changes of apophyseal joints with no spinal or foraminal stenosis. Soft tissues: Unremarkable. Lungs: Lung apices are normal. IMPRESSION: 1. Multilevel degenerative/arthritic changes with no significant spinal stenosis. There is mild bilateral neural foraminal stenosis at C3-C4. No additional significant spinal or foraminal stenosis. 2. No acute fracture or subluxation. Electronically signed by: Russel Santana On 03/29/2020 03:20:56 AM
--- OUTSIDE RECORDS SUMMARY | 2020-03-29 04:02 | CCD ---
Author Author [facility] Organization [facility] Address Unknown Phone Unavailable Care Team Providers Care Can Washer Name Role Phone Thomas, L Laurie PA [...] L Laurie PA Unavailable Unavailable Mason Martinez CHIEF GREEN OFFICER Unavailable Unavailable Mason Martinez CHIEF GREEN OFFICER Unavailable Unavailable Mason Martinez CHIEF GREEN OFFICER Unavailable Unavailable Mason Martinez CHIEF GREEN OFFICER Unavailable Unavailable Mason Martinez CHIEF GREEN OFFICER Unavailable Unavailable LePine, M Simi CHIEF GREEN OFFICER Unavailable Unavailable LePine, M Simi CHIEF GREEN OFFICER Unavailable Unavailable LePine, M Simi CHIEF GREEN OFFICER Unavailable Unavailable LePine, M Simi CHIEF GREEN OFFICER Unavailable Unavailable LePine, M Simi CHIEF GREEN OFFICER Unavailable Unavailable LePine, M Simi CHIEF GREEN OFFICER Unavailable Unavailable LePine, M Simi CHIEF GREEN OFFICER Unavailable Unavailable LePine, M Simi CHIEF GREEN OFFICER Unavailable Unavailable LePine, M Simi CHIEF GREEN OFFICER Unavailable Unavailable LePine, M Simi CHIEF GREEN OFFICER Unavailable Unavailable LePine, M Simi CHIEF GREEN OFFICER Unavailable Unavailable LePine, M Simi CHIEF GREEN OFFICER Unavailable Unavailable LePine, M Simi CHIEF GREEN OFFICER Unavailable Unavailable LePine, M Simi CHIEF GREEN OFFICER Unavailable Unavailable LePine, M Simi CHIEF GREEN OFFICER Unavailable Unavailable LePine, M Simi CHIEF GREEN OFFICER Unavailable Unavailable LePine, M Simi CHIEF GREEN OFFICER Unavailable Unavailable LePine, M Simi CHIEF GREEN OFFICER Unavailable Unavailable LePine, M Simi CHIEF GREEN OFFICER Unavailable Unavailable LePine, M Simi CHIEF GREEN OFFICER Unavailable Unavailable LePine, M Simi CHIEF GREEN OFFICER Unavailable Unavailable LePine, M Simi CHIEF GREEN OFFICER Unavailable Unavailable LePine, M Simi CHIEF GREEN OFFICER Unavailable Unavailable LePine, M Simi CHIEF GREEN OFFICER Unavailable Unavailable LePine, M Simi CHIEF GREEN OFFICER Unavailable Unavailable LePine, M Simi CHIEF GREEN OFFICER Unavailable Unavailable LePine, M Simi CHIEF GREEN OFFICER Unavailable Unavailable LePine, M Simi CHIEF GREEN OFFICER Unavailable Unavailable LePine, M Simi CHIEF GREEN OFFICER Unavailable Unavailable LePine, M Simi CHIEF GREEN OFFICER Unavailable Unavailable LePine, M Simi CHIEF GREEN OFFICER Unavailable Unavailable LePine, M Simi CHIEF GREEN OFFICER Unavailable Unavailable LePine, M Simi CHIEF GREEN OFFICER Unavailable Unavailable LePine, M Simi CHIEF GREEN OFFICER Unavailable Unavailable LePine, M Simi CHIEF GREEN OFFICER Unavailable Unavailable LePine, M Simi CHIEF GREEN OFFICER Unavailable Unavailable LePine, M Simi CHIEF GREEN OFFICER Unavailable Unavailable LePine, M Simi CHIEF GREEN OFFICER Unavailable Unavailable LePine, M Simi CHIEF GREEN OFFICER Unavailable Unavailable LePine, M Simi CHIEF GREEN OFFICER Unavailable Unavailable LePine, M Simi CHIEF GREEN OFFICER Unavailable Unavailable LePine, M Simi CHIEF GREEN OFFICER Unavailable Unavailable LePine, M Simi CHIEF GREEN OFFICER Unavailable Unavailable LePine, M Simi CHIEF GREEN OFFICER Unavailable Unavailable LePine, M Simi CHIEF GREEN OFFICER Unavailable Unavailable LePine, M Simi CHIEF GREEN OFFICER Unavailable Unavailable LePine, M Simi CHIEF GREEN OFFICER Unavailable Unavailable LePine, M Simi CHIEF GREEN OFFICER Unavailable Unavailable LePine, M Simi CHIEF GREEN OFFICER Unavailable Unavailable LePine, M Simi CHIEF GREEN OFFICER Unavailable Unavailable AKI MARY MD Unavailable Unavailable [...] Unavailable TYRA, MELYNNE SYLVAIN MD Unavailable Unavailable YTRA, MELYNNE SYLVAIN MD Unavailable Unavailable TYRA, MELYNNE [...] is protected by Article 27-F of the [facility] Public Health law. If you continue you may have access to information: Regarding HIV / AIDS; Provided by facilities licensed or operated by the [facility] Office of Mental Health; or Provided by the [facility] Office for People With Developmental Disabilities. If such information is present, then the following [facility] mandated warning applies: This information has been [...] law may result in a fine or chcf sentence or both. A general authorization for the release of medical or other information is NOT sufficient authorization for further disc losure. Allergies and Adverse Reactions Type Description Substance Reaction Status Data Source(s ) Penicillin Penicillin Penicillin active NETSMART ([facility]) codeine codeine codeine active NETSMART ([facility]) chlorpromazine chlorpromazine chlorpromazine active NE TSMART ([facility]) Family History Family Member Name Family Member Gender Family Member Status Date o f Status Description Data Source(s) Unknown Unknown Problem MEDENT ([facility] Unknown Male Problem MEDENT ([facility] Unknown Male Problem MEDENT ([facility]) Unknown Male Problem MEDENT ([facility] ) () Encounters Encounter Providers Location Date Indications Data Source(s ) Outpatient Attender: Laurie MCCARTY Main Office 01/11/2020 01:15:0 0 PM EST MEDENT ([facility] 01/10/2020 12:00:00 AM EST - 020 08:17:58 AM EST NETSMART ([facility]) Outpatient Attender: Simi Santos 01/03 11:20:00 AM EDT MEDENT ([facility] ) Outpatient Attender: Simi Martinez CRISS Santos 11/15 01:40:00 PM EDT MEDENT ([facility] ) Outpatient Attender: Simi Martinez CRISS Santos 08/15 02:00:00 PM EDT MEDENT ([facility] ) Outpatient Attender: Simi Martinez CRISS Santos 05/08 01:00:00 PM EST MEDENT ([facility] ) Outpatient Attender: Laurie MCCARTY Main Office 04/19/2019 12:30:0 0 PM EST MEDENT ([facility] Outpatient Attender: SYLVAIN Jerez/Teena/Emiliano/Markell hopkins 04/06/2019 12:30:00 PM EST MEDENT ([facility] ) Outpatient Attender: Simi Santos 02/07 01:40:00 PM EST MEDENT ([facility] ) Immunizations Vaccine Date Status Description Data Source(s) INFLUENZA VACCINE QUADRIVALENT (65 YR UP)/MF59 C.1/PF 12/13/2019 12:00:00 AM EDT completed [facility] This CVX code allows reporting of a vacc ination when formulation is unknown (for example, when recording a Influenza vaccination when noted on a vaccination card) 12/11/2019 08:35:00 AM EDT completed MEDEN T ([facility]) TB Skin test is not vaccine. 11/14/2019 10:44:00 AM EDT completed MEDENT ([facility]) Influenza, injectable, MDCK, preservative free, lashay valent 02/07/2019 02:11:00 PM EST completed [facility] ([facility]) Medications Medication Brand Name Start Date Product Form Dose Route Admi nistrative Instructions Pharmacy Instructions Status Indications Reaction Description Data Source(s) Biaxin 500 MG Biaxin 01/10/2020 12:00:00 AM EST co mpleted NETSMART ([facility]) Ipratropium-Albuterol 0.5-2.5 (3) MG/3ML Ipratropium-Albuter ol 01/10/2020 12:00:00 AM EST completed NETSMART ([facility]) Klor-Con M10 10 MEQ Klor-Con M10 01/10/2020 12:00:00 AM EST completed [facility]SMART ([facility]) Spironolactone 25 MG Spironolactone 01/10/2020 12:00:00 AM EST completed [facility]SMART ([facility]) Clarithromycin 500 MG Oral Tablet Clarithromycin 01/10/2020 12:00:00 AM EST active [facility] ([facility] torsemide 100 MG Oral Tablet Torsemide 01/10/2020 12:00:00 AM EST ORAL active MEDENT ([facility]) Acetaminophen 325 MG Oral Tablet Acetaminophen 01/10/2020 12:00:00 AM EST active [facility] ([facility]) Xopenex 0.63 MG/3ML Xopenex 01/10/2020 12:00:00 AM EST completed NETSMART ([facility] ) Coumadin 3 MG Coumadin 01/09/2020 12:00:00 AM EST 3.0 {mg} completed [facility] ([facility]) Albuterol Sulfate (2.5 MG/3ML) 0.083% Albuterol Sulfate 12:00:00 AM EST 0 {mg} completed NETSMAR T ([facility]) Tylenol Tylenol 01/09/2020 12:00:00 AM EST 325.0 {mg} c ompleted NETSMART ([facility]) Torsemide 100 MG Torsemide 01/09/2020 12:00:00 AM EST 1.0 {table t} completed NETSMART ([facility]) Multivitamin Multivitamin 01/09/2020 12:00:00 AM EST 1.0 {tablet } completed NETSMART ([facility]) Simvastatin 40 MG Simvastatin 01/09/2020 12:00:00 AM EST 40.0 {m g} completed NETSMART ([facility]) Levothyroxine Levothyroxine 01/09/2020 12:00:00 AM EST 25.0 {mcg } completed NETSMART ([facility]) Aricept 5 MG Aricept 01/09/2020 12:00:00 AM EST 5.0 {mg} completed NETSMART ([facility] ) Incruse Ellipta 62.5 MCG/INH Incruse Ellipta 01/09/2020 12:00:00 AM EST 62.5 {mcg} completed NETSMART ([facility]) Vitamin D Vitamin D 01/09/2020 12:00:00 AM EST 125.0 {mcg} completed [facility] ([facility]) Advair Diskus 100-50 MCG/DOSE Advair Diskus 01/09/2020 12:00:00 AM EST 0 {mcg} completed NETSMART ([facility]) Colace Colace 01/09/2020 12:00:00 AM EST 100.0 {mg} com pleted NETSMART ([facility]) Calcium Calcium 01/09/2020 12:00:00 AM EST 0 {mg} compl eted NETSMART ([facility]) Levalbuterol 0.21 MG/ML Inhalant Solution [Xopenex] Xopenex 01/01/2020 12:00:00 AM EDT active MEDENT ([facility]) Culturelle Digestive Health Probiotic Culturelle Digestive H ealth Probiotic 12/29/2019 12:00:00 AM EDT active MEDENT ([facility]) Metronidazole 500 MG Oral Tablet METRONIDAZOLE [...] MOUTH TWO TIMES A DAY SOLD: 08/04/19 20 [facility] 25 mcg 05/25/2019 12:00:00 AM [...] EST RESPIRATORY active MEDENT ([facility] Administration Of Flu Vaccine 02/07/2019 12:00:00 AM EST completed MEDENT ([facility]) Medication administered onsite Insurance Providers Payer name Policy type / Coverage type Policy ID Covered constitution party ID Covered constitution party's relationship to nichols Policy Nichols Plan Information MEDICARE [id number] SP [id number] [facility]MR [facility] [id number] SP [id number] FOR LIFE [id number] MEDICARE C [id number] S [id number] UMR O [id number] S [id number] FOR LIFE O [id number] S [id number] WPS For Life Medigap Part B [id number] Family Depende nt [id number] Medicare Natl Govt Servic Medicare Primary [id number] Self [id number] [place]/Umr (Old) Medigap Part B [id number] Self [id number] Umr (New [place]) Medigap Part B [id number] Self [id number] WPS For Life Medigap Part B [id number] Family Depende nt [id number] Medicare Natl Govt Servic Medicare Primary [id number] Self [id number] For Life Commercial [id number] Family Dependent [id number] Medicare Medicare Primary [id number] Self [id number] Umr Commercial [id number] Self [id number] For Life - WPS Medigap Part B [id number] Family Depen dent [id number] [place] PHCS Ppo Medigap Part B [id number] Self [id number] Umr Medigap Part B [id number] Self [id number] Medicare (Part B) Medicare Primary [id number] Self [id number] [place] Medigap Part B [id number] Self [id number] For Life - WPS Medigap Part B [id number] Family Depen dent [id number] [place] PHCS Ppo Medigap Part B [id number] Self [id number] Umr Medigap Part B [id number] Self [id number] Medicare (Part B) Medicare Primary [id number] Self [id number] WPS For Life Medigap Part B [id number] Family Depende nt [id number] Medicare Natl Govt Servic Medicare Primary [id number] Self [id number] [place] Medigap Part B [id number] Self [id number] WPS For Life Medigap Part B [id number] Family Depende nt [id number] Umr Commercial [id number] Self [id number] [place] Medicare Primary [id number] Self [id number] For Life - WPS Medigap Part B [id number] Family Depen dent [id number] [place] PHCS Ppo Medigap Part B [id number] Self [id number] Umr Medigap Part B [id number] Self [id number] Medicare (Part B) Medicare Primary [id number] Self [id number] For Life Commercial [id number] Family Dependent [id number] Medicare Medicare Primary [id number] Self [id number] MEDICARE [id number] SP [id number] A For Life Commercial [id number] Family Dependent [id number] Medicare Medicare Primary [id number] Self [id number] For Life - WPS Medigap Part B [id number] Family Depen dent [id number] [place] PHCS Ppo Medigap Part B [id number] Self [id number] Umr Medigap Part B [id number] Self [id number] Medicare (Part B) Medicare Primary [id number] Self [id number] [place] MEDICARE PART B C [id number] S [id number] [place] [employer] (TFL) Medigap Part B [id number] Self [id number] [place] (pr) Medigap Part B [id number] Self [id number] Umr (pr) Medigap Part B [id number] Self [id number] Medicare Dme Supplies Medigap Part B [id number] Self [id number] [place] Primary [id number] Self [id number] [place] [id number] SP [id number] WPS For Life Medigap Part B [id number] Family Depende nt [id number] [place]/[facility] Medicare Primary [id number] Self [id number] [place] Medigap Part B [id number] Self [id number] WPS For Life Medigap Part B [id number] Family Depende nt [id number] Medicare Natl Govt Servic Medicare Primary [id number] Self [id number] WPS For Life Medigap Part B [id number] Family Depende nt [id number] [place]/[facility] (Old) Medigap Part B [id number] Self [id number] Medicare Natl Govt Servic Medicare Primary [id number] Self [id number] [place] [employer] (TFL) Medigap Part B [id number] Self [id number] [place] (pr) Medigap Part B [id number] Self [id number] Umr (pr) Medigap Part B [id number] Self [id number] Medicare Dme Supplies Medigap Part B [id number] Self [id number] [place] Primary [id number] Self [id number] For Life - WPS Medigap Part B [id number] Family Depen dent [id number] [place] PHCS Ppo Medigap Part B [id number] Self [id number] Medicare (Part B) Medicare Primary [id number] Self [id number] [place] [employer] (TFL) Medigap Part B [id number] Self [id number] [place] (pr) Medigap Part B [id number] Self [id number] Medicare Dme Supplies Medigap Part B [id number] Self [id number] [place] Primary [id number] Self [id number] [place] [employer] (TFL) Medigap Part B [id number] Self [id number] [place] (pr) Medigap Part B [id number] Self [id number] [place] Primary [id number] Self [id number] [place] [employer] (TFL) Medigap Part B [id number] Self [id number] [place] (pr) Medigap Part B [id number] Self [id number] [place] Primary [id number] Self [id number] [place] PPO O [id number] S [id number] MEDICARE [id number] S [id number] A For Life - WPS Medigap Part B [id number] Family Depen dent [id number] [place] PHCS Ppo Medigap Part B [id number] Self [id number] Medicare (Part B) Medicare Primary [id number] Self [id number] WPS For Life Medigap Part B [id number] Family Depende nt [id number] [place]/N[place] Medicare Primary [id number] Self [id number] WPS For Life Medigap Part B [id number] Family Depende nt [id number] Medicare Natl Govt Serv Medicare Primary [id number] Self [id number] Umr [place] Ppo Medigap Part B [id number] Self [id number] WPS For Life Medigap Part B [id number] Family Depende nt [id number] [place] Medicare Primary [id number] Self [id number] For Life - WPS Medigap Part B [id number] Family Depen dent [id number] [place] PHCS Ppo Medigap Part B [id number] Self [id number] Medicare (Part B) Medicare Primary [id number] Self [id number] WPS For Life Medigap Part B [id number] Family Depende nt [id number] Medicare Natl Govt Servic Medicare Primary [id number] Self [id number] WPS For Life Medigap Part B [id number] Family Depende nt [id number] Medicare Natl Govt Servic Medicare Primary [id number] Self [id number] WPS For Life Medigap Part B [id number] Family Depende nt [id number] Medicare Natl Govt Servic Medicare Primary [id number] Self [id number] [place] Ppo Medigap Part B [id number] Self [id number] WPS For Life Medigap Part B [id number] Family Depende nt [id number] Medicare Natl Govt Servic Medicare Primary [id number] Self [id number] WPS For Life Medigap Part B [id number] Family Depende nt [id number] Medicare Natl Govt Servic Medicare Primary [id number] Self [id number] WPS For Life Medigap Part B [id number] Family Depende nt [id number] Medicare Natl Govt Servic Medicare Primary [id number] Self [id number] WPS For Life Medigap Part B [id number] Family Depende nt [id number] Medicare Natl Govt Servic Medicare Primary [id number] Self [id number] WPS For Life Medigap Part B [id number] Family Depende nt [id number] Medicare Natl Govt Servic Medicare Primary [id number] Self [id number] WPS For Life Medigap Part B [id number] Family Depende nt [id number] Medicare Natl Govt Servic Medicare Primary [id number] Self [id number] WPS For Life Medigap Part B [id number] Family Depende nt [id number] Medicare Natl Govt Serv Medicare Primary [id number] Self [id number] WPS For Life Medigap Part B [id number] Family Depende nt [id number] Medicare Natl Govt Servic Medicare Primary [id number] Self [id number] WPS For Life Medigap Part B [id number] Family Depende nt [id number] Medicare Natl Govt Serv Medicare Primary [id number] Self [id number] WPS For Life Medigap Part B [id number] Family Depende nt [id number] Medicare Natl Govt Servic Medicare Primary [id number] Self [id number] WPS For Life Medigap Part B [id number] Family Depende nt [id number] Medicare Natl Govt Serv Medicare Primary [id number] Self [id number] WPS For Life Medigap Part B [id number] Family Depende nt [id number] Medicare Natl Govt Serv Medicare Primary [id number] Self [id number] WPS For Life Medigap Part B [id number] Family Depende nt [id number] Medicare Natl Govt Serv Medicare Primary [id number] Self [id number] WPS For Life Medigap Part B [id number] Family Depende nt [id number] Medicare Natl Govt Serv Medicare Primary [id number] Self [id number] WPS For Life Medigap Part B Family Depende nt [place] Ppo Medigap Part B 910 Self 910 Medicare Natl Govt Serv Medicare Primary Self FOR LIFE [id number] A [id number] Problems, Conditions, and Diagnoses Code Display Name Description Problem Type Effective Dates Data Source(s) K57.92 Diverticulitis of intestine, part unspecified, without perforation or abscess without bleeding Diverticulitis of intestine, part unspec ified, without perforation or abscess without bleeding Problem 12/26/2019 01:00:00 AM PHILLIP RO ([facility]) 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 stage 1 through stage 4 chronic kidney disease, or unspecified chronic kidney disease Hypertensive heart and chronic kidney di sease with heart failure and stage 1 through stage 4 chronic kidney disease, or unspecified chronic kidney disease Problem 12/26/2019 01:00:00 AM EDT NETSMART ([facility]) 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 Problem 12/26/2019 01:00:00 AM EDT NETSMART ([facility]) N18.31 Chronic kidney disease, stage 3a Chronic kidney disease, stage 3a Problem 12/26/2019 01:00:00 AM EDT NETSMART ([facility]) G30.9 Alzheimer's disease, unspecified Alzheimer's disease, unspecified Problem 12/26/2019 01:00:00 AM EDT NETSMART ([facility] ) 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 Dementia in other diseases classified el sewhere without behavioral disturbance Problem 12/26/2019 01:00:00 AM EDT NETSMART ([facility]) I48.21 Permanent atrial fibrillation Permanent atrial fibrill ation Problem 12/26/2019 01:00:00 AM EDT NETSMART ([facility] ) M19.90 Unspecified osteoarthritis, unspecified site Unspecified osteoarthritis, unspecified site Problem 12/26/2019 01:00:00 AM EDT NETSMART ([facility]) M81.0 Age-related osteoporosis without current pathological fracture Age-related osteoporosis without current pathological fracture Problem 01:00:00 AM EDT NETSMART ([facility] ) Z51.81 Encounter for therapeutic drug level mon itoring Encounter for therapeutic drug level monitoring Problem 12/26/2019 01:00:00 AM EDT NETSMART ( [facility]) Z79.01 [facility] (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 anticoagulant s [facility] (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 anticoagulants Problem 12/26/2019 01:00:00 AM EDT NETSMART ([facility]) 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 [facility] (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 inhaled steroids Problem 12/26/2019 01:00:00 AM EDT NETSMART ([facility]) Z91.81 History of falling History of falling Problem 0 01:00:00 AM EDT NETSMART ([facility]) Z95.0 Presence of cardiac pacemaker Presence of cardiac pace maker Problem 12/26/2019 01:00:00 AM EDT NETSMART ([facility] ) 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 heart valve Presence of p rosthetic heart valve Problem 12/26/2019 01:00:00 AM EDT NETSMART ([facility]) G93.40 Encephalopathy, unspecified Encephalopathy, unspecifie d Problem 12/26/2019 01:00:00 AM EDT NETSMART ([facility] ) J44.9 Chronic obstructive pulmonary disease, u nspecified Chronic obstructive pulmonary disease, unspecified Problem 12/26/2019 01:00:00 AM EDT NE TSMART ([facility]) J44.1 Chronic obstructive pulmonary disease wi th (acute) exacerbation Chronic obstructive pulmonary disease with (acute) exacerbation Problem 12/09/2019 01:00:00 AM EDT NETSMART ([facility] ) Surgeries/Procedures Procedure Description Date Indications Data Source(s) ECG ROUTINE ECG W/LEAST 12 LDS W/I&R 01/11/2020 12:00: 00 AM EST MEDENT ([facility] ECG ROUTINE ECG W/LEAST 12 LDS W/I&R 04/19/2019 12:00: 00 AM EST MEDENT ([facility]) Results ID Date Data Source [id number] 03/26/2020 12:00:00 AM EST [facility] Name Value Range Interpretation Code Description Data Shonna rce(s) Supporting Document(s) SARS-CoV2 Rapid Antigen Negative [facility] This lab was ordered by [facility] and reported by [facility]. ID Date Data Source [id number] 01/31/2020 07:37:00 AM EST MEDENT ([facility]) Name Value Range Interpretation Code Description Data Shonna rce(s) Supporting Document(s) Laboratory test finding (navigational concept) 0.01 ng/mL 0.00-0.08 MEDENT ([facility]) ID Date Data Source [id number] 01/31/2020 07:35:00 AM EST MEDENT ([facility]) Name Value Range Interpretation Code Description Data Shonna rce(s) Supporting Document(s) Laboratory test finding (navigational concept) 40.0 % 38.0-51.0 MEDENT ([facility]) Laboratory test finding (navigational concept) 89 mg/dL 70-105 [facility] ([facility]) Laboratory test finding (navigational concept) 138 meq/L 136-145 MED[facility] ([facility]) Laboratory test finding (navigational concept) 3.7 meq/L 3.5-5.1 [facility] ([facility]) Laboratory test finding (navigational concept) 4.6 mg/dL 4.5-5.3 [facility] ([facility]) Laboratory test finding (navigational concept) 98 meq/L 98-109 MED[facility] ([facility]) Laboratory test finding (navigational concept) 32.0 MM/L 23.0-27.0 MED[facility] ([facility]) Laboratory test finding (navigational concept) 1.1 mg/dL 0.6-1.3 MED[facility] ([facility]) Laboratory test finding (navigational concept) 26 mg/dL 8-26 [facility] ([facility]) ID Date Data Source [id number] 01/31/2020 07:19:00 AM EST [facility] ([facility]) Name Value Range Interpretation Code Description Data Shonna rce(s) Supporting Document(s) Bedside Glucose 83 mg/dL 83-110 [facility] ([facility]) ID Date Data Source [id number] 01/31/2020 07:15:00 AM EST [facility] ([facility]) Name Value Range Interpretation Code Description Data Shonna rce(s) Supporting Document(s) Inr 2.38 [facility] THERAPUTIC HUMAN INR VALUES INDICATIONS NORMAL RANGES PROPHYLAXIS/TREATMENT OF: VENOUS THROMBOSIS 2.0-3.0 PULMONARY EMBOLISM 2.0-3.0 PREVENTION OF SYSTEMIC EMBOLISM FROM: TISSUE HEART VALVES 2.0-3.0 ACUTE MYOCARDIAL INFARCTION 2.0-3.0 VALVULAR HEART DISEASE 2.0-3.0 ATRIAL FIBRILLATION 2.0-3.0 MECHANICAL VALVES(HIGH RISK) 2.5-3.5 RECURRENT MYOCARDIAL INFARCTION 2.5-3.5 Prothrombin Time 26.5 s 12.5-14.3 [facility] ([facility]) ID Date Data Source [id number] 01/31/2020 07:15:00 AM EST [facility] ([facility]) Name Value Range Interpretation Code Description Data Shonna rce(s) Supporting Document(s) Thyrotropin [Units/volume] in Serum or Plasma by Detec tion limit <= 0.05 mIU/L 5.120 uIU/ML 0.358-3.740 [facility] ([facility] ) ID Date Data Source [id number] 01/31/2020 07:15:00 AM EST [facility] ([facility]) Name Value Range Interpretation Code Description Data Shonna rce(s) Supporting Document(s) White Blood Count 8.5 10 4.0-10.0 [facility] ([facility]) Red Blood Count 4.35 10 4.00-5.40 [facility] ([facility]) Hemoglobin 13.0 g/dL 12.0-15.5 [facility] Hematocrit 40.6 % 36.0-47.0 [facility] ([facility]) Mean Corpuscular Hemoglobin 29.9 pg 27.0-33.0 IN DENT ([facility]) Mean Corpuscular Volume 93.3 fl 80.0-96.0 [facility] ([facility]) Platelet Count, Automated 194 10 150-450 MEDE NT ([facility]) Red Cell Distribution Width 15.2 % 11.5-14.5 IN D[facility] ([facility]) Mean Corpuscular HGB Conc 32.0 g/dL 32.0-36.5 MED[facility] NT ([facility]) [place] % 18.0 % 0.0-5.0 [facility] Neutrophils % 65.5 % 36.0-66.0 [facility] ([facility]) Lymph % 12.8 % 24.0-44.0 [facility] Eos % 2.2 % 0.0-3.0 [facility] Immature Granulocyte % 0.4 % 0-3.0 [facility] ([facility]) Nucleated Red Blood Cell % 0.0 % 0-0 MED ENT ([facility]) Baso % 1.1 % 0.0-1.0 [facility] ([facility]) [place] # 1.5 10 0.0-0.8 [facility] ([facility]) Lymph # 1.1 10 1.5-5.0 [facility] Neutrophils # 5.5 10 1.5-8.5 [facility] ([facility]) Eos # 0.2 10 0.0-0.5 [facility] ([facility]) Baso # 0.1 10 0.0-0.2 [facility]) ID Date Data Source [id number] 01/10/2020 02:30:00 PM EST [facility] ([facility]) Name Value Range Interpretation Code Description Data Shonna rce(s) Supporting Document(s) Glucose, Fasting 99 mg/dL 70-100 [facility] ([facility]) Creatinine For GFR 1.07 mg/dL 0.55-1.30 [facility] ([facility]) Blood Urea Nitrogen 21 mg/dL 7-18 [facility] ([facility]) Glomerular Filtration Rate 52.1 MED [facility] ([facility]) <content>Units are mL/min/1.73 m2</content>
<content></content>
<content>Chronic Kidney Disease Staging per NKF:</content>
<content></content>
<content>Stage I & II GFR >=60 Normal to Mildly Decreased</content>
<content>Stage III GFR 30- 59 Moderately Decreased</content>
<content>Stage IV GFR 15-29 Severely Decreased</content>
<content>Stage V GFR <15 Very Little GFR Left</content>
<content>ESRD GFR <15 on GUSSET STITCHER</content>
<content></content> Sodium Level 136 meq/L 136-145 [facility] ([facility]) Potassium Serum 4.2 meq/L 3.5-5.1 [facility] ([facility]) Chloride Level 95 meq/L 98-107 [facility] ([facility]) Carbon Dioxide Level 35 meq/L 21-32 [facility] ([facility]) Anion Gap 6 meq/L 8-16 [facility]) Calcium Level 10.1 mg/dL 8.8-10.2 [facility] ([facility]) Ast/Sgot 32 U/L 7-37 [facility] ([facility]) Alt/SGPT 23 U/L 12-78 [facility]) Alkaline Phosphatase 66 U/L 45-117 [facility] ([facility]) Total Protein 6.6 GM/DL 6.4-8.2 [facility] ([facility]) Bilirubin,Total 0.7 mg/dL 0.2-1.0 [facility] ([facility]) Albumin/Globulin Ratio 1.3 1.2-2.2 [facility] ([facility]) Albumin 3.7 GM/DL 3.2-5.2 [facility]) ID Date Data Source [id number] 01/10/2020 02:30:00 PM EST [facility] ([facility]) Name Value Range Interpretation Code Description Data Shonna rce(s) Supporting Document(s) Hemoglobin 13.3 g/dL 12.0-15.5 [facility] White Blood Count 7.8 10 4.0-10.0 [facility] ([facility]) Red Blood Count 4.46 10 4.00-5.40 [facility] ([facility]) Mean Corpuscular Volume 93.3 fl 80.0-96.0 [facility] ([facility]) Mean Corpuscular Hemoglobin 29.8 pg 27.0-33.0 ME DENT ([facility]) Hematocrit 41.6 % 36.0-47.0 [facility] ([facility]) Platelet Count, Automated 231 10 150-450 MEDE NT ([facility]) Mean Corpuscular HGB Conc 32.0 g/dL 32.0-36.5 [facility] NT ([facility]) Red Cell Distribution Width 15.9 % 11.5-14.5 ME DENT ([facility]) Nucleated Red Blood Cell % 0.0 % 0-0 [facility] ID Date Data Source [id number] 12/26/2019 09:34:00 AM EDT [facility] Name Value Range Interpretation Code Description Data Shonna rce(s) Supporting Document(s) Laboratory test finding (navigational concept) 0.02 ng/mL 0.00-0.08 [facility] ID Date Data Source [id number] 12/26/2019 09:29:00 AM EDT [facility] Name Value Range Interpretation Code Description Data Shonna rce(s) Supporting Document(s) Laboratory test finding (navigational concept) 0.90 0.4-2.0 [facility] ([facility]) ID Date Data Source [id number] 12/26/2019 09:28:00 AM EDT [facility] Name Value Range Interpretation Code Description Data Shonna rce(s) Supporting Document(s) Laboratory test finding (navigational concept) 41.0 % 38.0-51.0 [facility] ([facility]) Laboratory test finding (navigational concept) 136 meq/L 136-145 [facility] ([facility]) Laboratory test finding (navigational concept) 3.9 meq/L 3.5-5.1 [facility] ([facility]) Laboratory test finding (navigational concept) 107 mg/dL 70-105 [facility] ([facility]) Laboratory test finding (navigational concept) 95 meq/L 98-109 [facility] ([facility]) Laboratory test finding (navigational concept) 30.0 MM/L 23.0-27.0 [facility] ([facility]) Laboratory test finding (navigational concept) 5.1 mg/dL 4.5-5.3 [facility] ([facility]) Laboratory test finding (navigational concept) 30 mg/dL 8-26 [facility] ([facility]) Laboratory test finding (navigational concept) 1.2 mg/dL 0.6-1.3 [facility] ([facility]) ID Date Data Source [id number] 12/26/2019 09:28:00 AM EDT [facility] ([facility]) Name Value Range Interpretation Code Description Data Shonna rce(s) Supporting Document(s) Laboratory test finding (navigational concept) 31.3 s 12.1-14.4 [facility] ([facility]) Laboratory test finding (navigational concept) 2.7 [facility] ([facility]) ID Date Data Source [id number] 12/26/2019 08:53:00 AM EDT [facility] ([facility]) Name Value Range Interpretation Code Description Data Shonna rce(s) Supporting Document(s) White Blood Count 14.2 10 4.0-10.0 [facility] ([facility]) Red Blood Count 4.35 10 4.00-5.40 [facility] ([facility]) Mean Corpuscular Volume 92.4 fl 80.0-96.0 [facility] ([facility]) Hemoglobin 13.1 g/dL 12.0-15.5 [facility] Hematocrit 40.2 % 36.0-47.0 [facility] Mean Corpuscular Hemoglobin 30.1 pg 27.0-33.0 IN [facility] ([facility]) Mean Corpuscular HGB Conc 32.6 g/dL 32.0-36.5 [facility] NT ([facility]) Red Cell Distribution Width 15.3 % 11.5-14.5 IN [facility] ([facility]) Lymph % 5.6 % 24.0-44.0 [facility]) Neutrophils % 75.0 % 36.0-66.0 [facility] ([facility]) Platelet Count, Automated 178 10 150-450 MED[facility] NT ([facility]) [place] % 17.9 % 0.0-5.0 [facility] Baso % 0.4 % 0.0-1.0 [facility] Eos % 0.5 % 0.0-3.0 [facility]) Nucleated Red Blood Cell % 0.0 % 0-0 MED [facility] ([facility]) Immature Granulocyte % 0.6 % 0-3.0 [facility] ([facility]) Neutrophils # 10.7 10 1.5-8.5 [facility] ([facility]) Lymph # 0.8 10 1.5-5.0 [facility] Eos # 0.1 10 0.0-0.5 [facility] [place] # 2.5 10 0.0-0.8 [facility] ([facility]) Baso # 0.1 10 0.0-0.2 [facility]) ID Date Data Source [id number] 12/26/2019 08:53:00 AM EDT [facility] ([facility]) Name Value Range Interpretation Code Description Data Shonna rce(s) Supporting Document(s) Ammonia [Mass/volume] in Blood Laboratory test result [facility] ID Date Data Source [id number] 12/26/2019 08:53:00 AM EDT [facility] ([facility]) Name Value Range Interpretation Code Description Data Shonna rce(s) Supporting Document(s) Appearance, Urine RFX Laboratory test result [facility] ([facility]) Specific [place] Ur Auto RFX 1.012 1.002-1.035 [facility] Color, Urine RFX Laboratory test result [facility] ([facility]) PH,Urine RFX 6.0 units 5.0-9.0 [facility] ([facility]) Glucose, Urine (Ua) Auto RFX Laboratory test result [facility] ([facility]) Protein, Urine Auto RFX Laboratory test result [facility] ([facility]) Ketone, Urine Auto RFX Laboratory test result [facility] Urobilinogen, Urine Auto RFX 0.2 mg/dL 0.0-2.0 [facility] Bilirubin, Urine Auto RFX Laboratory test result [facility] ([facility]) Nitrite, Urine Auto RFX Laboratory [facility] WBC, Urine Auto RFX 1 /HPF 0-3 [facility] Leukocyte Esterase Ur Auto RFX Laboratory test result [facility] Blood, Urine Blood RFX Laboratory test [facility] Squam Epithelial Cell Ur Aurfx 0 /HPF 0-6 [facility] RBC, Urine Auto RFX 1 /HPF 0-3 [facility] Bacteria, Urine Auto RFX Laboratory test [facility]) Hyaline Cast, Urine Auto RFX 0 /LPF 0-1 [facility] ID Date Data Source [id number] 12/26/2019 08:53:00 AM EDT [facility] Name Value Range Interpretation Code Description Data Shonna rce(s) Supporting Document(s) CPK Creatine Phosphokinase 62 U/L 26-192 [facility] ([facility]) Troponin I Laboratory test result [facility] ([facility]) <content>Troponin I Reference Interval f or Siemens [place] LOCI:</content>
<content></content>
<content>99th Percentile= 0.00-0.045 ng/ml</content>
<content></content>
<content>Risk Stratification:</content>
<content><= 0.10 ng/ml Decreased Risk for Adverse Clinical</content>
<content>Events.</content>
<content>0.10-1.50 ng/ml Increased Risk for Adverse Clinical</content>
<content>Events. Evaluation of additional</content>
<content>criterion and/or repeat testing in 2-6</content>
<content>hours is suggested to rule out myocardial</content>
<content>damage.</content>
<content>>= 1.50 ng/ml Indicative of Myocardial Injury.</content>
<content></content> MB/CK Relative Index 1.61 [facility] <content>DIAGNOSIS CRITERIA</content>
<content>MMB ng/ml Relative Index (RI)</content>
<content>NON-AMI < or = 5 N/A</content>
<content>CARLOS ZONE > 5 < or = 4</content>
<content>AMI > 5 > 4</content>
<content></content> CK-MB Value Mass Laboratory test result [facility] ([facility]) ID Date Data Source [id number] 12/26/2019 08:53:00 AM EDT [facility] ([facility]) Name Value Range Interpretation Code Description Data Shonna rce(s) Supporting Document(s) Ast/Sgot 23 U/L 7-37 [facility] ([facility]) Alkaline Phosphatase 72 U/L 45-117 [facility] Alt/SGPT 24 U/L 12-78 [facility] ([facility]) Bilirubin,Total 1.2 mg/dL 0.2-1.0 [facility] ([facility]) Albumin 3.7 GM/DL 3.2-5.2 [facility] ([facility]) Total Protein 6.7 GM/DL 6.4-8.2 [facility] ([facility]) Bilirubin,Direct 0.4 mg/dL 0.0-0.2 [facility] Albumin/Globulin Ratio 1.2 1.2-2.2 [facility] ID Date Data Source [id number] 12/26/2019 08:53:00 AM EDT [facility] Name Value Range Interpretation Code Description Data Shonna rce(s) Supporting Document(s) Lipoprotein lipase [Enzymatic activity/volume] in Serum or P lasma 157 U/L 73-393 [facility] Thyrotropin [Units/volume] in Serum or Plasma by Detec tion limit <= 0.05 mIU/L 3.480 uIU/ML 0.358-3.740 [facility] ([facility] ) ID Date Data Source [id number] 12/26/2019 08:53:00 AM EDT [facility] ([facility]) Name Value Range Interpretation Code Description Data Shonna rce(s) Supporting Document(s) Blood Type Laboratory test result [facility] ([facility]) AB Screen (Indirect Jaylan)Vis Laboratory test result [facility] ([facility]) ID Date Data Source [id number] 11/16/2019 01:37:00 PM EDT [facility]) Name Value Range Interpretation Code Description Data Shonna rce(s) Supporting Document(s) Leukocytes [#/volume] in Blood by Automated count 7.4 x10*3/UL 4.1-10 .9 [facility] ([facility] Erythrocytes [#/volume] in Blood by Automated count 5.02 x10*6/UL 4.2 0-6.30 [facility] ([facility] Hemoglobin [Mass/volume] in Blood 14.8 g/dL 12.0-18.0 [facility] ([facility] Hematocrit [Volume Fraction] of Blood by Automated count 44.4 % 3 7.0-51.0 [facility] ([facility] MCV 88.5 fL 80.0-97.0 [facility] MCH 29.4 pg 26.0-32.0 [facility] MCHC 33.3 g/dL 31.0-38.0 [facility] Erythrocyte distribution width [Ratio] by Automated count 14.3 % 11.6-13.7 [facility] ([facility] Platelets [#/volume] in Blood by Automated count 208 x10*3/UL 140-440 [facility] ([facility] Platelet mean volume [Entitic volume] in Blood by Won 8.8 FL 7.8-11.0 [facility] ([facility] Lymphocytes/100 leukocytes in Blood by Automated count 16.7 % 10. 0-58.5 [facility] ([facility] Mid % 4.6 % 1.7-9.3 [facility] Neut % 78.7 % 37.0-92.0 [facility] ([facility] Mid # 0.4 x10*3/UL 0.1-0.6 [facility] ([facility] Lymph # 1.2 x10*3/UL 0.6-4.1 [facility] ([facility]) Neutrophils [#/volume] in Semen by Manual count 5.8 x10*3/UL 2.0-7.8 [facility] ([facility]) ID Date Data Source [id number] 11/16/2019 01:37:00 PM EDT [facility] ([facility]) Name Value Range Interpretation Code Description Data Shonna rce(s) Supporting Document(s) Thyrotropin [Units/volume] in Serum or Plasma by Detec tion limit <= 0.05 mIU/L 3.19 uIU/mL 0.36-3.74 [facility] ([facility] ) ID Date Data Source [id number] 11/16/2019 01:37:00 PM EDT [facility] ([facility]) Name Value Range Interpretation Code Description Data Shonna rce(s) Supporting Document(s) Urea nitrogen [Mass/volume] in Serum or Plasma 24 mg/dL 7-18 [facility] ([facility]) Glucose [Mass/volume] in Serum or Plasma 100 mg/dL 74-99 [facility] ([facility]) 100-125 mg/dL PRE-DIABETES/FASTING >126 mg/dL DIABETES/FASTING Sodium [Moles/volume] in Serum or Plasma 139 meq/L 136-145 [facility] ([facility]) Chloride [Moles/volume] in Serum or Plasma 99 meq/L 98-107 [facility] ([facility]) Potassium [Moles/volume] in Serum or Plasma 4.3 meq/L 3.5-5.1 [facility] ([facility]) Creatinine 1.4 mg/dL 0.6-1.3 [facility] ([facility]) Carbon dioxide, total [Moles/volume] in Serum or Plasma 36 meq/L 21 -32 [facility] ([facility]) Glomerular filtration rate/1.73 sq M pre dicted among non-blacks [Volume Rate/Area] in Serum or Plasma by Creatinine-based formula (MDRD) 36 mL/min [facility] ([facility]) Calcium [Mass/volume] in Serum or Plasma 9.9 mg/dL 8.5-10.1 [facility] ([facility]) Glomerular filtration rate/1.73 sq M pre dicted among blacks [Volume Rate/Area] in Serum or Plasma by Creatinine-based formula (MDRD) 44 mL/min [facility] ([facility]) <content>CHRONIC KIDNEY DISEASE STAGING PER NKF</content>
<content></content>
<content>STAGE I & II GFR >= 60 NORMAL TO MILDLY DECREASED</content>
<content>STAGE III GFR 30-59 MODERATELY DECREASED</content>
<content>STAGE IV GFR 15-29 SEVERELY DECREASED</content>
<content>STAGE V GFR <15 VERY LITTLE GFR LEFT</content>
<content>ESRD GFR <15 ON GUSSET STITCHER</content>
<content></content> ID Date Data Source [id number] 11/16/2019 01:37:00 PM EDT [facility] ([facility]) Name Value Range Interpretation Code Description Data Shonna rce(s) Supporting Document(s) Hemoglobin [Mass/volume] in Blood 14.8 g/dL 12.0-18.0 [facility] ([facility]) Erythrocytes [#/volume] in Blood by Automated count 5.02 x10*6/UL 4.2 0-6.30 [facility] Leukocytes [#/volume] in Blood by Automated count 7.4 x10*3/UL 4.1-10 .9 [facility] ([facility]) MCV 88.5 fL 80.0-97.0 [facility] ([facility]) Hematocrit [Volume Fraction] of Blood by Automated count 44.4 % 3 7.0-51.0 [facility] ([facility]) MCH 29.4 pg 26.0-32.0 [facility] ([facility]) MCHC 33.3 g/dL 31.0-38.0 [facility] ([facility]) Erythrocyte distribution width [Ratio] by Automated count 14.3 % 11.6-13.7 [facility] ([facility]) Platelets [#/volume] in Blood by Automated count 208 x10*3/UL 140-440 [facility] ([facility]) Lymph % 16.7 % 10.0-58.5 [facility] ([facility]) MPV 8.8 FL 7.8-11.0 [facility] ([facility]) Mid % 4.6 % 1.7-9.3 [facility] ([facility]) Neut % 78.7 % 37.0-92.0 [facility] ([facility]) Lymph # 1.2 x10*3/UL 0.6-4.1 [facility] ([facility]) Mid # 0.4 x10*3/UL 0.1-0.6 [facility] ([facility]) Neut # 5.8 x10*3/UL 2.0-7.8 [facility] ([facility]) ID Date Data Source [id number] 11/14/2019 10:56:00 AM EDT [facility] Name Value Range Interpretation Code Description Data Shonna rce(s) Supporting Document(s) INR in Platelet poor plasma by Coagulation assay 3.1 [facility] ([facility]) ID Date Data Source [id number] 10/17/2019 04:04:00 PM EDT [facility] ([facility]) Name Value Range Interpretation Code Description Data Shonna rce(s) Supporting Document(s) INR in Platelet poor plasma by Coagulation assay 2.5 [facility] ID Date Data Source [id number] 08/16/2019 01:38:00 PM EDT [facility] ([facility]) Name Value Range Interpretation Code Description Data Shonna rce(s) Supporting Document(s) Magnesium 2.1 mg/dL 1.8-2.4 [facility] ([facility]) ID Date Data Source [id number] 08/16/2019 01:38:00 PM EDT [facility] ([facility]) Name Value Range Interpretation Code Description Data Shonna rce(s) Supporting Document(s) Glucose [Mass/volume] in Serum or Plasma 76 mg/dL 74-99 [facility] ([facility]) 100-125 mg/dL PRE-DIABETES/FASTING >126 mg/dL DIABETES/FASTING Creatinine 1.2 mg/dL 0.6-1.3 [facility] ([facility]) Sodium [Moles/volume] in Serum or Plasma 144 meq/L 136-145 [facility] ([facility]) Urea nitrogen [Mass/volume] in Serum or Plasma 22 mg/dL 7-18 [facility] ([facility]) Potassium [Moles/volume] in Serum or Plasma 4.2 meq/L 3.5-5.1 [facility] ([facility]) Carbon dioxide, total [Moles/volume] in Serum or Plasma 33 meq/L 21 -32 [facility] ([facility]) Chloride [Moles/volume] in Serum or Plasma 104 meq/L 98-107 [facility] ([facility]) Glomerular filtration rate/1.73 sq M pre dicted among non-blacks [Volume Rate/Area] in Serum or Plasma by Creatinine-based formula (MDRD) 43 mL/min [facility] ([facility]) Calcium [Mass/volume] in Serum or Plasma 9.7 mg/dL 8.5-10.1 [facility] ([facility]) Glomerular filtration rate/1.73 sq M pre dicted among blacks [Volume Rate/Area] in Serum or Plasma by Creatinine-based formula (MDRD) 52 mL/min [facility] ([facility]) <content>CHRONIC KIDNEY DISEASE STAGING PER NKF</content>
<content></content>
<content>STAGE I & II GFR >= 60 NORMAL TO MILDLY DECREASED</content>
<content>STAGE III GFR 30-59 MODERATELY DECREASED</content>
<content>STAGE IV GFR 15-29 SEVERELY DECREASED</content>
<content>STAGE V GFR <15 VERY LITTLE GFR LEFT</content>
<content>ESRD GFR <15 ON GUSSET STITCHER</content>
<content></content> ID Date Data Source [id number] 08/16/2019 01:38:00 PM EDT [facility] ([facility]) Name Value Range Interpretation Code Description Data Shonna rce(s) Supporting Document(s) Leukocytes [#/volume] in Blood by Automated count 8.1 x10*3/UL 4.1-10 .9 [facility] ([facility]) Hemoglobin [Mass/volume] in Blood 14.8 g/dL 12.0-18.0 [facility] ([facility]) Erythrocytes [#/volume] in Blood by Automated count 5.07 x10*6/UL 4.2 0-6.30 [facility] ([facility] [facility]) Hematocrit [Volume Fraction] of Blood by Automated count 44.9 % 3 7.0-51.0 [facility] ([facility]) MCHC 33.1 g/dL 31.0-38.0 [facility] MCH 29.3 pg 26.0-32.0 [facility] MCV 88.5 fL 80.0-97.0 [facility] MPV 8.7 FL 7.8-11.0 [facility]) Erythrocyte distribution width [Ratio] by Automated count 14.2 % 11.6-13.7 [facility] ([facility]) Platelets [#/volume] in Blood by Automated count 206 x10*3/UL 140-440 [facility] ([facility]) Lymph % 16.9 % 10.0-58.5 [facility] Mid % 4.7 % 1.7-9.3 [facility] Neut % 78.4 % 37.0-92.0 [facility] Lymph # 1.3 x10*3/UL 0.6-4.1 [facility] ([facility]) Neut # 6.3 x10*3/UL 2.0-7.8 [facility] ([facility]) Mid # 0.5 x10*3/UL 0.1-0.6 [facility] ([facility]) ID Date Data Source [id number] 05/09/2019 01:59:00 PM EST [facility] ([facility]) Name Value Range Interpretation Code Description Data Shonna rce(s) Supporting Document(s) Lymphocytes 5 % 16-44 [facility] ([facility]) Neutrophils 70 % 28-66 [facility] ([facility]) Eosinophils 4 % 0-3 [facility] ([facility]) Monocytes 2 % 0-5 [facility] Basophils 2 % 0-1 [facility]) Atypical Lymph 17 % 0-5 [facility] ([facility]) Poikilocytosis Laboratory test result [facility] ([facility]) Ovalocytes Laboratory test result [facility] ([facility]) Platelet Estimate Laboratory test result [facility] ([facility]) ID Date Data Source [id number] 05/09/2019 01:59:00 PM EST [facility] ([facility]) Name Value Range Interpretation Code Description Data Shonna rce(s) Supporting Document(s) Glucose [Mass/volume] in Serum or Plasma 104 mg/dL 74-99 [facility] ([facility]) 100-125 mg/dL PRE-DIABETES/FASTING >126 mg/dL DIABETES/FASTING Urea nitrogen [Mass/volume] in Serum or Plasma 19 mg/dL 7-18 [facility] ([facility]) Creatinine 1.2 mg/dL 0.6-1.3 [facility] ([facility]) Sodium [Moles/volume] in Serum or Plasma 144 meq/L 136-145 [facility] ([facility]) Potassium [Moles/volume] in Serum or Plasma 4.0 meq/L 3.5-5.1 [facility] ([facility]) Chloride [Moles/volume] in Serum or Plasma 102 meq/L 98-107 [facility] ([facility]) Glomerular filtration rate/1.73 sq M pre dicted among non-blacks [Volume Rate/Area] in Serum or Plasma by Creatinine-based formula (MDRD) 43 mL/min [facility] ([facility]) Carbon dioxide, total [Moles/volume] in Serum or Plasma 36 meq/L 21 -32 [facility] ([facility]) Calcium [Mass/volume] in Serum or Plasma 10.0 mg/dL 8.5-10.1 [facility] ([facility]) Glomerular filtration rate/1.73 sq M pre dicted among blacks [Volume Rate/Area] in Serum or Plasma by Creatinine-based formula (MDRD) 52 mL/min [facility] <content>CHRONIC KIDNEY DISEASE STAGING PER NKF</content>
<content></content>
<content>STAGE I & II GFR >= 60 NORMAL TO MILDLY DECREASED</content>
<content>STAGE III GFR 30-59 MODERATELY DECREASED</content>
<content>STAGE IV GFR 15-29 SEVERELY DECREASED</content>
<content>STAGE V GFR <15 VERY LITTLE GFR LEFT</content>
<content>ESRD GFR <15 ON GUSSET STITCHER</content>
<content></content> ID Date Data Source [id number] 05/09/2019 01:59:00 PM EST [facility] ([facility]) Name Value Range Interpretation Code Description Data Shonna rce(s) Supporting Document(s) Leukocytes [#/volume] in Blood by Automated count 8.0 x10*3/UL 4.1-10 .9 [facility] ([facility]) Hemoglobin [Mass/volume] in Blood 14.0 g/dL 12.0-18.0 [facility] ([facility]) Erythrocytes [#/volume] in Blood by Automated count 4.88 x10*6/UL 4.2 0-6.30 [facility] ([facility]) MCV 87.4 fL 80.0-97.0 [facility]) Hematocrit [Volume Fraction] of Blood by Automated count 42.7 % 3 7.0-51.0 [facility] ([facility]) MCHC 32.9 g/dL 31.0-38.0 [facility] ([facility]) MCH 28.7 pg 26.0-32.0 [facility] ([facility]) Platelets [#/volume] in Blood by Automated count 207 x10*3/UL 140-440 [facility] ([facility]) Erythrocyte distribution width [Ratio] by Automated count 14.3 % 11.6-13.7 [facility] ([facility]) MPV 8.3 FL 7.8-11.0 [facility] ([facility]) Lymph % 8.8 % 10.0-58.5 [facility] ([facility]) NOTE: MANUAL DIFFERENTIAL SENT TO [facility] FOR VERIFICATION. Mid % 10.9 % 1.7-9.3 [facility] ([facility]) Lymph # 0.7 x10*3/UL 0.6-4.1 [facility] ([facility]) Neut % 80.3 % 37.0-92.0 [facility] ([facility]) Neut # 6.4 x10*3/UL 2.0-7.8 [facility] ([facility]) Mid # 0.9 x10*3/UL 0.1-0.6 [facility] ([facility]) ID Date Data Source [id number] 02/07/2019 03:42:00 PM EST [facility] Name Value Range Interpretation Code Description Data Shonna rce(s) Supporting Document(s) Bacteria identified in Urine by Culture FULL REPORT IN L <SEE NOTE> [facility] FULL REPORT IN LAB NOTES (eCW and [facility] ). NO GROWTH ID Date Data Source [id number] 02/07/2019 03:42:00 PM EST [facility] Name Value Range Interpretation Code Description Data Shonna rce(s) Supporting Document(s) Urine PH 6.0 units 5.0-9.0 [facility] ([facility]) Urine Appearance SL. HAZY Abnormal (applies to non-numer ic results) [facility] ([facility]) Urine Color STRAW Abnormal (applies to non-numeric re sults) [facility] ([facility]) Urine Blood TRACE Abnormal (applies to non-numeric re sults) [facility] Urine Leukocytes NEGATIVE [facility] Specific gravity of Urine 1.015 1.005-1.[address] [facility] ([facility]) Glucose [Presence] in Urine NEGATIVE mg/dL [facility] ([facility]) Urine Protein NEGATIVE 0-0 [facility] ([facility]) Urine Nitrite NEGATIVE [facility] ([facility]) Urine Urobilinogen 0.2 mg/dL 0.2-1.0 [facility] ([facility]) Urine Ketone NEGATIVE mg/dL [facility] ([facility]) Bilirubin.total [Mass/volume] in Serum or Plasma NEGATIVE [facility] ([facility]) ID Date Data Source [id number] 02/07/2019 03:42:00 PM EST [facility] ([facility]) Name Value Range Interpretation Code Description Data Shonna rce(s) Supporting Document(s) Glucose [Mass/volume] in Serum or Plasma 133 mg/dL 74-99 [facility] ([facility]) 100-125 mg/dL PRE-DIABETES/FASTING >126 mg/dL DIABETES/FASTING Urea nitrogen [Mass/volume] in Serum or Plasma 20 mg/dL 7-18 [facility] ([facility]) Sodium [Moles/volume] in Serum or Plasma 141 meq/L 136-145 [facility] ([facility]) Creatinine 1.3 mg/dL 0.6-1.3 [facility] ([facility]) Potassium [Moles/volume] in Serum or Plasma 3.7 meq/L 3.5-5.1 [facility] ([facility]) Carbon dioxide, total [Moles/volume] in Serum or Plasma 36 meq/L 21 -32 [facility] ([facility]) Chloride [Moles/volume] in Serum or Plasma 99 meq/L 98-107 [facility] ([facility]) Glomerular filtration rate/1.73 sq M pre dicted among non-blacks [Volume Rate/Area] in Serum or Plasma by Creatinine-based formula (MDRD) 39 mL/min [facility] ([facility]) Glomerular filtration rate/1.73 sq M pre dicted among blacks [Volume Rate/Area] in Serum or Plasma by Creatinine-based formula (MDRD) 48 mL/min [facility] ([facility]) <content>CHRONIC KIDNEY DISEASE STAGING PER NKF</content>
<content></content>
<content>STAGE I & II GFR >= 60 NORMAL TO MILDLY DECREASED</content>
<content>STAGE III GFR 30-59 MODERATELY DECREASED</content>
<content>STAGE IV GFR 15-29 SEVERELY DECREASED</content>
<content>STAGE V GFR <15 VERY LITTLE GFR LEFT</content>
<content>ESRD GFR <15 ON GUSSET STITCHER</content>
<content></content> Calcium [Mass/volume] in Serum or Plasma 10.0 mg/dL 8.5-10.1 [facility] ID Date Data Source [id number] 02/07/2019 03:42:00 PM EST [facility] ([facility]) Name Value Range Interpretation Code Description Data Shonna rce(s) Supporting Document(s) Urea nitrogen [Mass/volume] in Serum or Plasma 20 mg/dL 7-18 [facility] ([facility]) Glucose [Mass/volume] in Serum or Plasma 133 mg/dL 74-99 [facility] ([facility]) 100-125 mg/dL PRE-DIABETES/FASTING >126 mg/dL DIABETES/FASTING Sodium [Moles/volume] in Serum or Plasma 141 meq/L 136-145 [facility] ([facility]) Creatinine 1.3 mg/dL 0.6-1.3 [facility] ([facility]) Potassium [Moles/volume] in Serum or Plasma 3.7 meq/L 3.5-5.1 [facility] ([facility]) Chloride [Moles/volume] in Serum or Plasma 99 meq/L 98-107 [facility] ([facility]) Carbon dioxide, total [Moles/volume] in Serum or Plasma 36 meq/L 21 -32 [facility] ([facility]) Calcium [Mass/volume] in Serum or Plasma 10.0 mg/dL 8.5-10.1 [facility] ([facility]) Glomerular filtration rate/1.73 sq M pre dicted among blacks [Volume Rate/Area] in Serum or Plasma by Creatinine-based formula (MDRD) 48 mL/min [facility] ([facility]) <content>CHRONIC KIDNEY DISEASE STAGING PER NKF</content>
<content></content>
<content>STAGE I & II GFR >= 60 NORMAL TO MILDLY DECREASED</content>
<content>STAGE III GFR 30-59 MODERATELY DECREASED</content>
<content>STAGE IV GFR 15-29 SEVERELY DECREASED</content>
<content>STAGE V GFR <15 VERY LITTLE GFR LEFT</content>
<content>ESRD GFR <15 ON GUSSET STITCHER</content>
<content></content>
<content></content> Glomerular filtration rate/1.73 sq M pre dicted among non-blacks [Volume Rate/Area] in Serum or Plasma by Creatinine-based formula (MDRD) 39 mL/min [facility] ([facility] Urine Color Straw Abnormal (applies to non-numeric re sults) [facility] ([facility] Urine Appearance SL. Hazy Abnormal (applies to non-numer ic results) [facility] ([facility] Urine Leukocytes Negative [facility] ([facility] Specific gravity of Urine 1.015 1.005-1.030 [facility] ([facility] pH of Urine 6.0 units 5.0-9.0 [facility] ([facility] Urine Blood Trace Abnormal (applies to non-numeric re sults) [facility] ([facility] Glucose [Presence] in Urine Negative mg/dL [facility] ([facility] Urine Protein Negative 0-0 [facility] ([facility] Urine Nitrite Negative [facility] ([facility] Urine Ketone Negative mg/dL [facility] ([facility] Urine Urobilinogen 0.2 mg/dL 0.2-1.0 [facility] ([facility] Bacteria identified in Urine by Culture Full Report In L <See Note> [facility] ([facility] FULL REPORT IN LAB NOTES (eCW and [facility] ). NO GROWTH Bilirubin.total [Mass/volume] in Serum or Plasma Negative [facility] ([facility] Procedure Social History Code Duration Value Status Description Data Source(s ) Smoking 01/11/2020 12:00:00 AM EST Patient is a former smoker completed Patient is a former smoker [facility] ([facility]) Vital Signs ID Date Data Source UNK Name Value Range Interpretation Code Description Data Source(s) Diastolic blood pressure--sitting 58 mm[Hg] 58 mm[Hg] [facility] large cuff, Ra Systolic blood pressure--sitting 118 mm[Hg] 118 mm[Hg] [facility]) large cuff, Ra Heart rate 53 /min 53 /min [facility] ([facility]) Body mass index (BMI) [Ratio] 24.9 kg/m2 24.9 k g/m2 [facility] ([facility]) Body height 66 [in_i] 66 [in_i] [facility]) 5'6" Body weight 154.00 [lb_av] 154.00 [lb_av] [facility] ([facility]) Oxygen saturation in Arterial blood by Pulse oximetry 94 % 94 % [facility]) Body weight 163.00 [lb_av] 163.00 [lb_av] [facility] T ([facility]) Heart rate 82 /min 82 /min [facility]) Body mass index (BMI) [Ratio] 24.1 kg/m2 24.1 k g/m2 [facility]) Oxygen saturation in Arterial blood by Pulse oximetry 95 % 95 % [facility]) Body weight 147.00 [lb_av] 147.00 [lb_av] [facility] T ([facility]) Body height 65.5 [in_i] 65.5 [in_i] [facility] ([facility]) 5'5.50" Respiratory rate 14 /min 14 /min [facility] ( [facility] Body temperature 98.4 [degF] 98.4 [degF] [facility] Heart rate 56 /min 56 /min [facility]) Diastolic blood pressure 50 mm[Hg] 50 mm[Hg] [facility]) Systolic blood pressure 130 mm[Hg] 130 mm[Hg] M [facility] ([facility]) Body weight 148.00 [lb_av] 148.00 [lb_av] [facility] T ([facility]) Body mass index (BMI) [Ratio] 24.8 kg/m2 24.8 k g/m2 [facility] ([facility]) Oxygen saturation in Arterial blood by Pulse oximetry 97 % 97 % [facility] ([facility]) Body weight 151.50 [lb_av] 151.50 [lb_av] [facility] T ([facility]) Body height 65.50 [in_i] 65.50 [in_i] [facility] ([facility]) 5'5.50" Heart rate 42 /min 42 /min [facility] ([facility]) Diastolic blood pressure 70 mm[Hg] 70 mm[Hg] [facility]) Systolic blood pressure 130 mm[Hg] 130 mm[Hg] [facility] ([facility]) Body mass index (BMI) [Ratio] 25.8 kg/m2 25.8 k g/m2 [facility]) Oxygen saturation in Arterial blood by Pulse oximetry 95 % 95 % [facility] ([facility]) RM Air Body weight 157.50 [lb_av] 157.50 [lb_av] [facility] ([facility]) Body height 65.50 [in_i] 65.50 [in_i] [facility] ([facility]) 5'5.50" Heart rate 57 /min 57 /min [facility] ([facility]) Diastolic blood pressure 70 mm[Hg] 70 mm[Hg] [facility] ([facility]) Systolic blood pressure 132 mm[Hg] 132 mm[Hg] [facility] Diastolic blood pressure--sitting 68 mm[Hg] 68 mm[Hg] [facility] ([facility] Systolic blood pressure--sitting 122 mm[Hg] 122 mm[Hg] [facility] ([facility] Heart rate 51 /min 51 /min [facility] ([facility] Body mass index (BMI) [Ratio] 26.0 kg/m2 26.0 k g/m2 [facility] ([facility] Body height 66 [in_i] 66 [in_i] [facility] ([facility]) 5'6" Body weight 161.00 [lb_av] 161.00 [lb_av] [facility] T ([facility]) Body weight 72.633 kg 72.633 kg [facility] ([facility]) Body mass index (BMI) [Ratio] 27.5 kg/m2 27.5 k g/m2 [facility] Body weight 160.12 [lb_av] 160.12 [lb_av] [facility] T ([facility]) Body height 64 [in_i] 64 [in_i] [facility] ([facility]) 5'4" Oxygen saturation in Arterial blood by Pulse oximetry 97 % 97 % [facility] ([facility]) Heart rate 53 /min 53 /min [facility] ([facility]) Diastolic blood pressure 68 mm[Hg] 68 mm[Hg] [facility] ([facility]) Systolic blood pressure 126 mm[Hg] 126 mm[Hg] [facility] ([facility]) Body mass index (BMI) [Ratio] 26.4 kg/m2 26.4 k g/m2 [facility]) Oxygen saturation in Arterial blood by Pulse oximetry 95 % 95 % [facility] ([facility]) Body weight 161.00 [lb_av] 161.00 [lb_av] [facility] T ([facility]) Body height 65.50 [in_i] 65.50 [in_i] [facility] 5'5.50" Heart rate 60 /min 60 /min [facility]) Diastolic blood pressure 50 mm[Hg] 50 mm[Hg] [facility] ([facility]) Systolic blood pressure 128 mm[Hg] 128 mm[Hg] [facility] ([facility]) Patient Treatment Plan of Care Planned Activity Planned Date Details Description Data Source (s) Tobias-Miguel A M10 10 MEQ 01/10/2020 12:00:00 AM [facility] Ipratropium-Albuterol 0.5-2.5 (3) MG/3ML 01/10/2020 12:00:00 AM EST [facility] ([facility]) Biaxin 500 MG 01/10/2020 12:00:00 AM EST [facility] ([facility]) Xopenex 0.63 MG/3ML 01/10/2020 12:00:00 AM EST [facility] ([facility]) Spironolactone 25 MG 01/10/2020 12:00:00 AM EST [facility] ([facility]) Multivitamin 01/09/2020 12:00:00 AM EST N [facility] ([facility]) Simvastatin 40 MG 01/09/2020 12:00:00 AM EST [facility] ([facility]) Coumadin 3 MG 01/09/2020 12:00:00 AM EST [facility] ([facility]) Albuterol Sulfate (2.5 MG/3ML) 0.083% 01/09/2020 12:00:00 AM EST [facility] ([facility]) Tylenol 01/09/2020 12:00:00 AM EST N [facility] ([facility]) Torsemide 100 MG 01/09/2020 12:00:00 AM EST [facility] ([facility]) Calcium 01/09/2020 12:00:00 AM EST N [facility] ([facility]) Aricept 5 MG 01/09/2020 12:00:00 AM EST N [facility] ([facility]) Levothyroxine 01/09/2020 12:00:00 AM EST [facility] ([facility]) Incruse Ellipta 62.5 MCG/INH 01/09/2020 12:00:00 AM EST [facility] ([facility]) Vitamin D 01/09/2020 12:00:00 AM EST N [facility] ([facility]) Advair Diskus 100-50 MCG/DOSE 01/09/2020 12:00:00 AM EST [facility] ([facility]) Colace 01/09/2020 12:00:00 AM EST N [facility] ([facility])
[2020-03-29 04:53] LABS: BASO # 0.1 10^3/uL (0.0-0.2); BASO % 0.6 % (0.0-1.0); EOS # 0.2 10^3/uL (0.0-0.5); EOS % 2.1 % (0.0-3.0); HEMATOCRIT 45.9 % (36.0-47.0); HEMOGLOBIN 14.6 g/dl (12.0-15.5); LYMPH % 10.7 % (24.0-44.0); MEAN CORPUSCULAR HEMOGLOBIN 29.1 pg (27.0-33.0); MEAN CORPUSCULAR HGB CONC 31.8 g/dl (32.0-36.5); MEAN CORPUSCULAR VOLUME 91.6 fl (80.0-96.0); MONO # 1.6 10^3/uL (0.0-0.8); MONO % 16.9 % (0.0-5.0); NEUTROPHILS # 6.5 10^3/uL (1.5-8.5); NEUTROPHILS % 69.2 % (36.0-66.0); PLATELET COUNT, AUTOMATED 204 10^3/uL (150-450); RED BLOOD COUNT 5.01 10^6/uL (4.00-5.40); WHITE BLOOD COUNT 9.4 10^3/uL (4.0-10.0)
[2020-03-29 04:57] LABS: INR 2.4; PROTHROMBIN TIME 26.7 SECONDS (12.5-14.3)
[2020-03-29 05:05] LABS: BLOOD UREA NITROGEN 24 MG/DL (7-18); CALCIUM LEVEL 9.8 MG/DL (8.8-10.2); CARBON DIOXIDE LEVEL 32 MEQ/L (21-32); CHLORIDE LEVEL 98 MEQ/L (98-107); CK-MB VALUE MASS 1.1 NG/ML (<3.6); CPK CREATINE PHOSPHOKINASE 57 U/L (26-192); CREATININE FOR GFR 1.13 MG/DL (0.55-1.30); GLUCOSE, FASTING 96 MG/DL (70-100); MB/CK RELATIVE INDEX 1.93 (< OR =4); SODIUM LEVEL 138 MEQ/L (136-145); TROPONIN I < 0.02 NG/ML (< 0.10)
[2020-03-29] MEDS ORDERED: BOOSTRIX/ADACEL VACCINE (DIPHTH/PERTUSS/ACELL/TETANUS) 0.5ML SYR IM ONE (06:30)
--- NOTE | 2020-03-29 07:07 | REP ---
INDICATION: hip pain COMPARISON: 03/24/2017 TECHNIQUE: Portable AP view of the chest FINDINGS: The mediastinum and cardiac silhouette are stable and cardiomegaly again noted. The lung rosa demonstrate chronic appearing changes. Subtle right lower lobe airspace disease cannot be excluded. Skeletal structures intact. Evidence for prior sternotomy and pacemaker. IMPRESSION: Stable cardiomegaly and chronic changes. Cannot exclude subtle right lower lobe opacity. <Electronically signed by Jett Barragan > 03/29/20 [id number]
--- NOTE | 2020-03-29 07:09 | REP ---
INDICATION: hip pain COMPARISON: None. TECHNIQUE: AP and frog-lateral views of the left hip FINDINGS: Age-related degenerative changes include increased sclerosis to the acetabulum with joint space narrowing and marginal spurring. No acute fracture or dislocation. IMPRESSION: Age related arthritic changes. No acute fracture or dislocation. <Electronically signed by Jett Barragan > 03/29/20 [id number]
--- NOTE | 2020-03-29 07:10 | REP ---
INDICATION: hip pain COMPARISON: None. TECHNIQUE: Single AP view of the pelvis. FINDINGS: Age-related degenerative changes are appreciated. No acute fracture or dislocation. 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 IMPRESSION: Arthritic changes. No acute fracture or dislocation. <Electronically signed by Jett Barragan > 03/29/20 [id number]
--- NOTE | 2020-03-29 07:57 | REP ---
INDICATION: hip pain COMPARISON: None. TECHNIQUE: AP and lateral views of the mid to distal femur. FINDINGS: Visualized portions of the mid to distal femur demonstrate age-related degenerative changes. No acute fracture or dislocation. IMPRESSION: . No acute fracture or dislocation. <Electronically signed by Jett Barragan > 03/29/20 0753
[2020-03-29] MEDS ORDERED: ACETAMINOPHEN TAB 650MG DOSE (2X325MG) PO ONE (08:00)
[2020-03-29] MEDS ORDERED: LIDOCAINE 2% W/EPINEPHRINE 20ML VIAL **PRES FREE As Ordered ONE (08:20)
[2020-03-29] MEDS ORDERED: LIDOCAINE 2% W/EPINEPHRINE 20ML VIAL **PRES FREE INJ ONE (08:30)
[2020-03-29] MEDS ORDERED: VITMTA PO (09:49)
--- OUTSIDE RECORDS SUMMARY | 2020-03-29 10:12 | CCD ---
Author Author [facility] Organization [facility] Address Unknown Phone Unavailable Care Team Providers Care Plush Cutter Name Role Phone Thomas, L Laurie PA [...] L Laurie PA Unavailable Unavailable Mason Martinez SPACE SYSTEMS OPERATIONS MANAGER Unavailable Unavailable Mason Martinez SPACE SYSTEMS OPERATIONS MANAGER Unavailable Unavailable Mason Martinez SPACE SYSTEMS OPERATIONS MANAGER Unavailable Unavailable Mason Martinez SPACE SYSTEMS OPERATIONS MANAGER Unavailable Unavailable Mason Martinez SPACE SYSTEMS OPERATIONS MANAGER Unavailable Unavailable LePine, M Simi SPACE SYSTEMS OPERATIONS MANAGER Unavailable Unavailable LePine, M Simi SPACE SYSTEMS OPERATIONS MANAGER Unavailable Unavailable LePine, M Simi SPACE SYSTEMS OPERATIONS MANAGER Unavailable Unavailable LePine, M Simi SPACE SYSTEMS OPERATIONS MANAGER Unavailable Unavailable LePine, M Simi SPACE SYSTEMS OPERATIONS MANAGER Unavailable Unavailable LePine, M Simi SPACE SYSTEMS OPERATIONS MANAGER Unavailable Unavailable LePine, M Simi SPACE SYSTEMS OPERATIONS MANAGER Unavailable Unavailable LePine, M Simi SPACE SYSTEMS OPERATIONS MANAGER Unavailable Unavailable LePine, M Simi SPACE SYSTEMS OPERATIONS MANAGER Unavailable Unavailable LePine, M Simi SPACE SYSTEMS OPERATIONS MANAGER Unavailable Unavailable LePine, M Simi SPACE SYSTEMS OPERATIONS MANAGER Unavailable Unavailable LePine, M Simi SPACE SYSTEMS OPERATIONS MANAGER Unavailable Unavailable LePine, M Simi SPACE SYSTEMS OPERATIONS MANAGER Unavailable Unavailable LePine, M Simi SPACE SYSTEMS OPERATIONS MANAGER Unavailable Unavailable LePine, M Simi SPACE SYSTEMS OPERATIONS MANAGER Unavailable Unavailable LePine, M Simi SPACE SYSTEMS OPERATIONS MANAGER Unavailable Unavailable LePine, M Simi SPACE SYSTEMS OPERATIONS MANAGER Unavailable Unavailable LePine, M Simi SPACE SYSTEMS OPERATIONS MANAGER Unavailable Unavailable LePine, M Simi SPACE SYSTEMS OPERATIONS MANAGER Unavailable Unavailable LePine, M Simi SPACE SYSTEMS OPERATIONS MANAGER Unavailable Unavailable LePine, M Simi SPACE SYSTEMS OPERATIONS MANAGER Unavailable Unavailable LePine, M Simi SPACE SYSTEMS OPERATIONS MANAGER Unavailable Unavailable LePine, M Simi SPACE SYSTEMS OPERATIONS MANAGER Unavailable Unavailable LePine, M Simi SPACE SYSTEMS OPERATIONS MANAGER Unavailable Unavailable LePine, M Simi SPACE SYSTEMS OPERATIONS MANAGER Unavailable Unavailable LePine, M Simi SPACE SYSTEMS OPERATIONS MANAGER Unavailable Unavailable LePine, M Simi SPACE SYSTEMS OPERATIONS MANAGER Unavailable Unavailable LePine, M Simi SPACE SYSTEMS OPERATIONS MANAGER Unavailable Unavailable LePine, M Simi SPACE SYSTEMS OPERATIONS MANAGER Unavailable Unavailable LePine, M Simi SPACE SYSTEMS OPERATIONS MANAGER Unavailable Unavailable LePine, M Simi SPACE SYSTEMS OPERATIONS MANAGER Unavailable Unavailable LePine, M Simi SPACE SYSTEMS OPERATIONS MANAGER Unavailable Unavailable LePine, M Simi SPACE SYSTEMS OPERATIONS MANAGER Unavailable Unavailable LePine, M Simi SPACE SYSTEMS OPERATIONS MANAGER Unavailable Unavailable LePine, M Simi SPACE SYSTEMS OPERATIONS MANAGER Unavailable Unavailable LePine, M Simi SPACE SYSTEMS OPERATIONS MANAGER Unavailable Unavailable LePine, M Simi SPACE SYSTEMS OPERATIONS MANAGER Unavailable Unavailable LePine, M Simi SPACE SYSTEMS OPERATIONS MANAGER Unavailable Unavailable LePine, M Simi SPACE SYSTEMS OPERATIONS MANAGER Unavailable Unavailable LePine, M Simi SPACE SYSTEMS OPERATIONS MANAGER Unavailable Unavailable LePine, M Simi SPACE SYSTEMS OPERATIONS MANAGER Unavailable Unavailable LePine, M Simi SPACE SYSTEMS OPERATIONS MANAGER Unavailable Unavailable LePine, M Simi SPACE SYSTEMS OPERATIONS MANAGER Unavailable Unavailable LePine, M Simi SPACE SYSTEMS OPERATIONS MANAGER Unavailable Unavailable LePine, M Simi SPACE SYSTEMS OPERATIONS MANAGER Unavailable Unavailable LePine, M Simi SPACE SYSTEMS OPERATIONS MANAGER Unavailable Unavailable LePine, M Simi SPACE SYSTEMS OPERATIONS MANAGER Unavailable Unavailable LePine, M Simi SPACE SYSTEMS OPERATIONS MANAGER Unavailable Unavailable LePine, M Simi SPACE SYSTEMS OPERATIONS MANAGER Unavailable Unavailable LePine, M Simi SPACE SYSTEMS OPERATIONS MANAGER Unavailable Unavailable AKI MARY MD Unavailable Unavailable [...] is protected by Article 27-F of the [facility] Public Health law. If you continue you may have access to information: Regarding HIV / AIDS; Provided by facilities licensed or operated by the [facility] Office of Mental Health; or Provided by the [facility] Office for People With Developmental Disabilities. If such information is present, then the following [facility] mandated warning applies: This information has been [...] law may result in a fine or long term sentence or both. A general authorization for the release of medical or other information is NOT sufficient authorization for further disc losure. Allergies and Adverse Reactions Type Description Substance Reaction Status Data Source(s ) Penicillin Penicillin Penicillin active NETSMART ([facility]) codeine codeine codeine active NETSMART ([facility]) chlorpromazine chlorpromazine chlorpromazine active NE TSMART ([facility]) Family History Family Member Name Family Member Gender Family Member Status Date o f Status Description Data Source(s) Unknown Unknown Problem MEDENT ([facility]) Unknown Male Problem MEDENT ([facility] Unknown Male Problem MEDENT ([facility]) Unknown Male Problem MEDENT ([facility] ) () Encounters Encounter Providers Location Date Indications Data Source(s ) Outpatient Attender: Laurie MCCARTY Main Office 01/11/2020 01:15:0 0 PM EST MEDENT ([facility]) 01/10/2020 12:00:00 AM EST - 020 08:17:58 AM EST NETSMART ([facility]) Outpatient Attender: Simi Santos 01/03 11:20:00 AM EDT MEDENT ([facility] ) Outpatient Attender: Simi Martinez CRISS Santos 11/15 01:40:00 PM EDT MEDENT ([facility] ) Outpatient Attender: Simi Martinez CRISS Santos 08/15 02:00:00 PM EDT MEDENT ([facility] ) Outpatient Attender: Simi Martinez CRISS Santos 05/08 01:00:00 PM EST MEDENT ([facility] ) Outpatient Attender: Laurie MCCARTY Main Office 04/19/2019 12:30:0 0 PM EST MEDENT ([facility]) Outpatient Attender: SYLVAIN Jerez/Teena/Emiliano/Markell hopkins 04/06/2019 12:30:00 PM EST MEDENT ([facility], ) Outpatient Attender: Simi Santos 02/07 01:40:00 PM EST MEDENT ([facility] ) Immunizations Vaccine Date Status Description Data Source(s) INFLUENZA VACCINE QUADRIVALENT (65 YR UP)/MF59 C.1/PF 12/13/2019 12:00:00 AM EDT completed [facility] This CVX code allows reporting of a vacc ination when formulation is unknown (for example, when recording a Influenza vaccination when noted on a vaccination card) 12/11/2019 08:35:00 AM EDT completed MEDEN T ([facility]) TB Skin test is not vaccine. 11/14/2019 10:44:00 AM EDT completed MEDENT ([facility]) Influenza, injectable, MDCK, preservative free, lashay valent 02/07/2019 02:11:00 PM EST completed [facility] ([facility]) Medications Medication Brand Name Start Date Product Form Dose Route Admi nistrative Instructions Pharmacy Instructions Status Indications Reaction Description Data Source(s) Biaxin 500 MG Biaxin 01/10/2020 12:00:00 AM EST co mpleted NETSMART ([facility]) Ipratropium-Albuterol 0.5-2.5 (3) MG/3ML Ipratropium-Albuter ol 01/10/2020 12:00:00 AM EST completed NETSMART ([facility]) Klor-Con M10 10 MEQ Klor-Con M10 01/10/2020 12:00:00 AM EST completed NETSMART ([facility]) Spironolactone 25 MG Spironolactone 01/10/2020 12:00:00 AM EST completed NETSMART ([facility]) Clarithromycin 500 MG Oral Tablet Clarithromycin 01/10/2020 12:00:00 AM EST active [facility] torsemide 100 MG Oral Tablet Torsemide 01/10/2020 12:00:00 AM EST ORAL active MED[facility] ([facility]) Acetaminophen 325 MG Oral Tablet Acetaminophen 01/10/2020 12:00:00 AM EST active MED[facility] ([facility]) Xopenex 0.63 MG/3ML Xopenex 01/10/2020 12:00:00 AM EST completed NETSMART ([facility] ) Coumadin 3 MG Coumadin 01/09/2020 12:00:00 AM EST 3.0 {mg} completed NETSMART ([facility]) Albuterol Sulfate (2.5 MG/3ML) 0.083% Albuterol Sulfate 12:00:00 AM EST 0 {mg} completed NETSMAR T ([facility]) Tylenol Tylenol 01/09/2020 12:00:00 AM EST 325.0 {mg} c ompleted NETSMART ([facility]) Torsemide 100 MG Torsemide 01/09/2020 12:00:00 AM EST 1.0 {table t} completed NETSMART ([facility]) Multivitamin Multivitamin 01/09/2020 12:00:00 AM EST 1.0 {tablet } completed NETSMART ([facility]) Simvastatin 40 MG Simvastatin 01/09/2020 12:00:00 AM EST 40.0 {m g} completed NETSMART ([facility]) Levothyroxine Levothyroxine 01/09/2020 12:00:00 AM EST 25.0 {mcg } completed NETSMART ([facility]) Aricept 5 MG Aricept 01/09/2020 12:00:00 AM EST 5.0 {mg} completed NETSMART ([facility] ) Incruse Ellipta 62.5 MCG/INH Incruse Ellipta 01/09/2020 12:00:00 AM EST 62.5 {mcg} completed NETSMART ([facility]) Vitamin D Vitamin D 01/09/2020 12:00:00 AM EST 125.0 {mcg} completed NETSMART ([facility]) Advair Diskus 100-50 MCG/DOSE Advair Diskus 01/09/2020 12:00:00 AM EST 0 {mcg} completed NETSMART ([facility]) Colace Colace 01/09/2020 12:00:00 AM EST 100.0 {mg} com pleted NETSMART ([facility]) Calcium Calcium 01/09/2020 12:00:00 AM EST 0 {mg} compl eted NETSMART ([facility]) Levalbuterol 0.21 MG/ML Inhalant Solution [Xopenex] Xopenex 01/01/2020 12:00:00 AM EDT active MEDENT ([facility]) Culturelle Digestive Health Probiotic Culturelle Digestive H ealth Probiotic 12/29/2019 12:00:00 AM EDT active MEDENT ([facility]) Metronidazole 500 MG Oral Tablet METRONIDAZOLE [...] EST RESPIRATORY active MEDENT ([facility]) Administration Of Flu Vaccine 02/07/2019 12:00:00 AM EST completed MEDENT ([facility]) Medication administered onsite Insurance Providers Payer name Policy type / Coverage type Policy ID Covered constitution party ID Covered constitution party's relationship to nichols Policy Nichols Plan Information MEDICARE [id number] SP [id number] [facility] [id number] SP [id number] FOR LIFE [id number] MEDICARE C [id number] S [id number] UMR O [id number] S [id number] FOR LIFE O [id number] S [id number] WPS For Life Medigap Part B [id number] Family Depende nt [id number] Medicare Natl Govt Servic Medicare Primary [id number] Self [id number] [place]/Umr (Old) Medigap Part B [id number] Self [id number] Umr (New [place]) Medigap Part B [id number] Self [id number] WPS For Life Medigap Part B [id number] Family Depende nt [id number] Medicare Natl Govt Servic Medicare Primary [id number] Self [id number] For Life Commercial [id number] Family Dependent [id number] Medicare Medicare Primary [id number] Self [id number] Umr Commercial [id number] Self [id number] For Life - WPS Medigap Part B [id number] Family Depen dent [id number] [place] PHCS Ppo Medigap Part B [id number] Self [id number] Umr Medigap Part B [id number] Self [id number] Medicare (Part B) Medicare Primary [id number] Self [id number] [place] Medigap Part B [id number] Self [id number] For Life - WPS Medigap Part B [id number] Family Depen dent [id number] [place] PHCS Ppo Medigap Part B [id number] Self [id number] Umr Medigap Part B [id number] Self [id number] Medicare (Part B) Medicare Primary [id number] Self [id number] WPS For Life Medigap Part B [id number] Family Depende nt [id number] Medicare Natl Govt Servic Medicare Primary [id number] Self [id number] [place] Medigap Part B [id number] Self [id number] WPS For Life Medigap Part B [id number] Family Depende nt [id number] Umr Commercial [id number] Self [id number] [place] Medicare Primary [id number] Self [id number] For Life - WPS Medigap Part B [id number] Family Depen dent [id number] [place] PHCS Ppo Medigap Part B [id number] Self [id number] Umr Medigap Part B [id number] Self [id number] Medicare (Part B) Medicare Primary [id number] Self [id number] For Life Commercial [id number] Family Dependent [id number] Medicare Medicare Primary [id number] Self [id number] MEDICARE [id number] SP [id number] A For Life Commercial [id number] Family Dependent [id number] Medicare Medicare Primary [id number] Self [id number] For Life - WPS Medigap Part B [id number] Family Depen dent [id number] [place] PHCS Ppo Medigap Part B [id number] Self [id number] Umr Medigap Part B [id number] Self [id number] Medicare (Part B) Medicare Primary [id number] Self [id number] [place] MEDICARE PART B C [id number] S [id number] [place] [employer] (TFL) Medigap Part B [id number] Self [id number] [place] (pr) Medigap Part B [id number] Self [id number] Umr (pr) Medigap Part B [id number] Self [id number] Medicare Dme Supplies Medigap Part B [id number] Self [id number] [place] Primary [id number] Self [id number] [place] [id number] SP [id number] WPS For Life Medigap Part B [id number] Family Depende nt [id number] [place] Medicare Primary [id number] Self [id number] [place] Medigap Part B [id number] Self [id number] WPS For Life Medigap Part B [id number] Family Depende nt [id number] Medicare Natl Govt Servic Medicare Primary [id number] Self [id number] WPS For Life Medigap Part B [id number] Family Depende nt [id number] [place]/Um[place] (Old) Medigap Part B [id number] Self [id number] Medicare Natl Govt Servic Medicare Primary [id number] Self [id number] [place] [employer] (TFL) Medigap Part B [id number] Self [id number] [place] (pr) Medigap Part B [id number] Self [id number] Umr (pr) Medigap Part B [id number] Self [id number] Medicare Dme Supplies Medigap Part B [id number] Self [id number] [place] Primary [id number] Self [id number] For Life - WPS Medigap Part B [id number] Family Depen dent [id number] [place] PHCS Ppo Medigap Part B [id number] Self [id number] Medicare (Part B) Medicare Primary [id number] Self [id number] [place] [employer] (TFL) Medigap Part B [id number] Self [id number] [place] (pr) Medigap Part B [id number] Self [id number] Medicare Dme Supplies Medigap Part B [id number] Self [id number] [place] Primary [id number] Self [id number] [place] [employer] (TFL) Medigap Part B [id number] Self [id number] [place] (pr) Medigap Part B [id number] Self [id number] [place] Primary [id number] Self [id number] [place] [employer] (TFL) Medigap Part B [id number] Self [id number] [place] (pr) Medigap Part B [id number] Self [id number] [place] Primary [id number] Self [id number] [place] PPO O [id number] S [id number] MEDICARE [id number] S [id number] A For Life - WPS Medigap Part B [id number] Family Depen dent [id number] [place] PHCS Ppo Medigap Part B [id number] Self [id number] Medicare (Part B) Medicare Primary [id number] Self [id number] WPS For Life Medigap Part B [id number] Family Depende nt [id number] [place]/NGS Medicare Primary [id number] Self [id number] WPS For Life Medigap Part B [id number] Family Depende nt [id number] Medicare Natl Govt Serv Medicare Primary [id number] Self [id number] Umr [place] Ppo Medigap Part B [id number] Self [id number] WPS For Life Medigap Part B [id number] Family Depende nt [id number] [place] Medicare Primary [id number] Self [id number] For Life - WPS Medigap Part B [id number] Family Depen dent [id number] [place] PHCS Ppo Medigap Part B [id number] Self [id number] Medicare (Part B) Medicare Primary [id number] Self [id number] WPS For Life Medigap Part B [id number] Family Depende nt [id number] Medicare Natl Govt Servic Medicare Primary [id number] Self [id number] WPS For Life Medigap Part B [id number] Family Depende nt [id number] Medicare Natl Govt Servic Medicare Primary [id number] Self [id number] WPS For Life Medigap Part B [id number] Family Depende nt [id number] Medicare Natl Govt Servic Medicare Primary [id number] Self [id number] [place] Ppo Medigap Part B [id number] Self [id number] WPS For Life Medigap Part B [id number] Family Depende nt [id number] Medicare Natl Govt Servic Medicare Primary [id number] Self [id number] WPS For Life Medigap Part B [id number] Family Depende nt [id number] Medicare Natl Govt Servic Medicare Primary [id number] Self [id number] WPS For Life Medigap Part B [id number] Family Depende nt [id number] Medicare Natl Govt Servic Medicare Primary [id number] Self [id number] WPS For Life Medigap Part B [id number] Family Depende nt [id number] Medicare Natl Govt Servic Medicare Primary [id number] Self [id number] WPS For Life Medigap Part B [id number] Family Depende nt [id number] Medicare Natl Govt Servic Medicare Primary [id number] Self [id number] WPS For Life Medigap Part B [id number] Family Depende nt [id number] Medicare Natl Govt Servic Medicare Primary [id number] Self [id number] WPS For Life Medigap Part B [id number] Family Depende nt [id number] Medicare Natl Govt Serv Medicare Primary [id number] Self [id number] WPS For Life Medigap Part B [id number] Family Depende nt [id number] Medicare Natl Govt Servic Medicare Primary [id number] Self [id number] WPS For Life Medigap Part B [id number] Family Depende nt [id number] Medicare Natl Govt Serv Medicare Primary [id number] Self [id number] WPS For Life Medigap Part B [id number] Family Depende nt [id number] Medicare Natl Govt Servic Medicare Primary [id number] Self [id number] WPS For Life Medigap Part B [id number] Family Depende nt [id number] Medicare Natl Govt Serv Medicare Primary [id number] Self [id number] WPS For Life Medigap Part B [id number] Family Depende nt [id number] Medicare Natl Govt Serv Medicare Primary [id number] Self [id number] WPS For Life Medigap Part B [id number] Family Depende nt [id number] Medicare Natl Govt Serv Medicare Primary [id number] Self [id number] WPS For Life Medigap Part B [id number] Family Depende nt [id number] Medicare Natl Govt Serv Medicare Primary [id number] Self [id number] WPS For Life Medigap Part B Family Depende nt [place] Ppo Medigap Part B [id number] Self 910 Medicare Natl Govt Serv Medicare Primary Self FOR LIFE [id number] A [id number] Problems, Conditions, and Diagnoses Code Display Name Description Problem Type Effective Dates Data Source(s) K57.92 Diverticulitis of intestine, part unspecified, without perforation or abscess without bleeding Diverticulitis of intestine, part unspec ified, without perforation or abscess without bleeding Problem 12/26/2019 01:00:00 AM PHILLIP RO ([facility]) 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 stage 1 through stage 4 chronic kidney disease, or unspecified chronic kidney disease Hypertensive heart and chronic kidney di sease with heart failure and stage 1 through stage 4 chronic kidney disease, or unspecified chronic kidney disease Problem 12/26/2019 01:00:00 AM EDT NETSMART ([facility]) 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 Problem 12/26/2019 01:00:00 AM EDT NETSMART ([facility]) N18.31 Chronic kidney disease, stage 3a Chronic kidney disease, stage 3a Problem 12/26/2019 01:00:00 AM EDT NETSMART ([facility]) G30.9 Alzheimer's disease, unspecified Alzheimer's disease, unspecified Problem 12/26/2019 01:00:00 AM EDT NETSMART ([facility] ) 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 Dementia in other diseases classified el sewhere without behavioral disturbance Problem 12/26/2019 01:00:00 AM EDT NETSMART ([facility]) I48.21 Permanent atrial fibrillation Permanent atrial fibrill ation Problem 12/26/2019 01:00:00 AM EDT NETSMART ([facility] ) M19.90 Unspecified osteoarthritis, unspecified site Unspecified osteoarthritis, unspecified site Problem 12/26/2019 01:00:00 AM EDT NETSMART ([facility]) M81.0 Age-related osteoporosis without current pathological fracture Age-related osteoporosis without current pathological fracture Problem 01:00:00 AM EDT NETSMART ([facility] ) Z51.81 Encounter for therapeutic drug level mon itoring Encounter for therapeutic drug level monitoring Problem 12/26/2019 01:00:00 AM EDT NETSMART ( [facility]) Z79.01 half-way (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 anticoagulant s half-way (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 anticoagulants Problem 12/26/2019 01:00:00 AM EDT NETSMART ([facility]) 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 half-way (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 inhaled steroids Problem 12/26/2019 01:00:00 AM EDT NETSMART ([facility]) Z91.81 History of falling History of falling Problem 0 01:00:00 AM EDT NETSMART ([facility]) Z95.0 Presence of cardiac pacemaker Presence of cardiac pace maker Problem 12/26/2019 01:00:00 AM EDT NETSMART ([facility] ) 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 heart valve Presence of p rosthetic heart valve Problem 12/26/2019 01:00:00 AM EDT NETSMART ([facility]) G93.40 Encephalopathy, unspecified Encephalopathy, unspecifie d Problem 12/26/2019 01:00:00 AM EDT NETSMART ([facility] ) J44.9 Chronic obstructive pulmonary disease, u nspecified Chronic obstructive pulmonary disease, unspecified Problem 12/26/2019 01:00:00 AM EDT NE TSMART ([facility]) J44.1 Chronic obstructive pulmonary disease wi th (acute) exacerbation Chronic obstructive pulmonary disease with (acute) exacerbation Problem 12/09/2019 01:00:00 AM EDT NETSMART ([facility] ) Surgeries/Procedures Procedure Description Date Indications Data Source(s) ECG ROUTINE ECG W/LEAST 12 LDS W/I&R 01/11/2020 12:00: 00 AM EST MEDENT ([facility]) ECG ROUTINE ECG W/LEAST 12 LDS W/I&R 04/19/2019 12:00: 00 AM EST MEDENT ([facility]) Results ID Date Data Source [id number] 03/29/2020 02:57:00 AM EST MED[facility] ([facility]) Name Value Range Interpretation Code Description Data Shonna rce(s) Supporting Document(s) Glucose, Fasting 96 mg/dL 70-100 MEDENT ([facility]) Blood Urea Nitrogen 24 mg/dL 7-18 MEDENT ([facility]) Glomerular Filtration Rate 49.0 MED ENT ([facility]) <content>Units are mL/min/1.73 m2</content>
<content></content>
<content>Chronic Kidney Disease Staging per NKF:</content>
<content></content>
<content>Stage I & II GFR >=60 Normal to Mildly Decreased</content>
<content>Stage III GFR 30- 59 Moderately Decreased</content>
<content>Stage IV GFR 15-29 Severely Decreased</content>
<content>Stage V GFR <15 Very Little GFR Left</content>
<content>ESRD GFR <15 on DATA PROCESSING MECHANIC</content>
<content></content> Sodium Level 138 meq/L 136-145 MEDENT ([facility]) Creatinine For GFR 1.13 mg/dL 0.55-1.30 MEDENT ([facility]) Potassium Serum 4.0 meq/L 3.5-5.1 MED[facility] ([facility]) Chloride Level 98 meq/L 98-107 MEDENT ([facility]) Carbon Dioxide Level 32 meq/L 21-32 MEDENT ([facility]) Calcium Level 9.8 mg/dL 8.8-10.2 MEDENT ([facility]) Anion Gap 8 meq/L 8-16 [facility] ([facility]) ID Date Data Source [id number] 03/29/2020 02:57:00 AM EST [facility] ([facility]) Name Value Range Interpretation Code Description Data Shonna rce(s) Supporting Document(s) CPK Creatine Phosphokinase 57 U/L 26-192 [facility] ([facility]) CK-MB Value Mass 1.1 ng/mL [facility] ([facility]) Troponin I Laboratory test result [facility] ([facility]) <content>Troponin I Reference Interval f or Siemens [place] LOCI:</content>
<content></content>
<content>99th Percentile= 0.00-0.045 ng/ml</content>
<content></content>
<content>Risk Stratification:</content>
<content><= 0.10 ng/ml Decreased Risk for Adverse Clinical</content>
<content>Events.</content>
<content>0.10-1.50 ng/ml Increased Risk for Adverse Clinical</content>
<content>Events. Evaluation of additional</content>
<content>criterion and/or repeat testing in 2-6</content>
<content>hours is suggested to rule out myocardial</content>
<content>damage.</content>
<content>>= 1.50 ng/ml Indicative of Myocardial Injury.</content>
<content></content> MB/CK Relative Index 1.93 [facility] ([facility]) <content>DIAGNOSIS CRITERIA</content>
<content>MMB ng/ml Relative Index (RI)</content>
<content>NON-AMI < or = 5 N/A</content>
<content>CARLOS ZONE > 5 < or = 4</content>
<content>AMI > 5 > 4</content>
<content></content> ID Date Data Source [id number] 03/29/2020 02:57:00 AM EST [facility] ([facility]) Name Value Range Interpretation Code Description Data Shonna rce(s) Supporting Document(s) Prothrombin Time 26.7 s 12.5-14.3 [facility] ([facility]) Inr 2.40 [facility] ([facility]) THERAPUTIC HUMAN INR VALUES INDICATIONS NORMAL RANGES PROPHYLAXIS/TREATMENT OF: VENOUS THROMBOSIS 2.0-3.0 PULMONARY EMBOLISM 2.0-3.0 PREVENTION OF SYSTEMIC EMBOLISM FROM: TISSUE HEART VALVES 2.0-3.0 ACUTE MYOCARDIAL INFARCTION 2.0-3.0 VALVULAR HEART DISEASE 2.0-3.0 ATRIAL FIBRILLATION 2.0-3.0 MECHANICAL VALVES(HIGH RISK) 2.5-3.5 RECURRENT MYOCARDIAL INFARCTION 2.5-3.5 ID Date Data Source [id number] 03/29/2020 02:57:00 AM EST [facility] ([facility]) Name Value Range Interpretation Code Description Data Shonna rce(s) Supporting Document(s) White Blood Count 9.4 10 4.0-10.0 [facility] ([facility]) Red Blood Count 5.01 10 4.00-5.40 [facility] ([facility]) Hemoglobin 14.6 g/dL 12.0-15.5 [facility] ([facility]) Hematocrit 45.9 % 36.0-47.0 [facility]) Mean Corpuscular Volume 91.6 fl 80.0-96.0 [facility] ([facility]) Mean Corpuscular Hemoglobin 29.1 pg 27.0-33.0 [facility] ([facility]) Mean Corpuscular HGB Conc 31.8 g/dL 32.0-36.5 [facility] ([facility]) Red Cell Distribution Width 14.9 % 11.5-14.5 [facility] ([facility]) Platelet Count, Automated 204 10 150-450 [facility] ([facility]) Neutrophils % 69.2 % 36.0-66.0 [facility] ([facility]) Lymph % 10.7 % 24.0-44.0 [facility] ([facility]) Stark % 16.9 % 0.0-5.0 [facility] ([facility]) Eos % 2.1 % 0.0-3.0 [facility] ([facility]) Immature Granulocyte % 0.5 % 0-3.0 [facility] ([facility]) Baso % 0.6 % 0.0-1.0 [facility] ([facility]) Nucleated Red Blood Cell % 0.0 % 0-0 [facility] ([facility]) Lymph # 1.0 10 1.5-5.0 [facility] ([facility]) Neutrophils # 6.5 10 1.5-8.5 [facility] ([facility]) Stark # 1.6 10 0.0-0.8 [facility] ([facility]) Baso # 0.1 10 0.0-0.2 [facility] ([facility]) Eos # 0.2 10 0.0-0.5 [facility] ([facility]) ID Date Data Source [id number] 03/26/2020 12:00:00 AM EST [facility] Name Value Range Interpretation Code Description Data Shonna rce(s) Supporting Document(s) SARS-CoV2 Rapid Antigen Negative [facility] This lab was ordered by [facility] and reported by [facility]. ID Date Data Source [id number] 01/31/2020 07:37:00 AM EST [facility] ([facility]) Name Value Range Interpretation Code Description Data Shonna rce(s) Supporting Document(s) Laboratory test finding (navigational concept) 0.01 ng/mL 0.00-0.08 [facility] ([facility]) ID Date Data Source [id number] 01/31/2020 07:35:00 AM EST [facility] ([facility]) Name Value Range Interpretation Code Description Data Shonna rce(s) Supporting Document(s) Laboratory test finding (navigational concept) 89 mg/dL 70-105 [facility] ([facility]) Laboratory test finding (navigational concept) 40.0 % 38.0-51.0 [facility] ([facility]) Laboratory test finding (navigational concept) 138 meq/L 136-145 [facility] ([facility]) Laboratory test finding (navigational concept) 3.7 meq/L 3.5-5.1 [facility] ([facility]) Laboratory test finding (navigational concept) 4.6 mg/dL 4.5-5.3 [facility] ([facility]) Laboratory test finding (navigational concept) 98 meq/L 98-109 [facility] ([facility]) Laboratory test finding (navigational concept) 32.0 MM/L 23.0-27.0 [facility] ([facility]) Laboratory test finding (navigational concept) 1.1 mg/dL 0.6-1.3 [facility] ([facility]) Laboratory test finding (navigational concept) 26 mg/dL 8-26 [facility] ([facility]) ID Date Data Source [id number] 01/31/2020 07:19:00 AM EST [facility] ([facility]) Name Value Range Interpretation Code Description Data Shonna rce(s) Supporting Document(s) Bedside Glucose 83 mg/dL 83-110 [facility] ([facility]) ID Date Data Source [id number] 01/31/2020 07:15:00 AM EST [facility] ([facility]) Name Value Range Interpretation Code Description Data Shonna rce(s) Supporting Document(s) White Blood Count 8.5 10 4.0-10.0 [facility] ([facility]) Red Blood Count 4.35 10 4.00-5.40 [facility] ([facility]) Hematocrit 40.6 % 36.0-47.0 [facility] Mean Corpuscular Volume 93.3 fl 80.0-96.0 [facility] ([facility]) Hemoglobin 13.0 g/dL 12.0-15.5 [facility] ([facility] Red Cell Distribution Width 15.2 % 11.5-14.5 [facility] ([facility]) Mean Corpuscular HGB Conc 32.0 g/dL 32.0-36.5 [facility] ([facility]) Mean Corpuscular Hemoglobin 29.9 pg 27.0-33.0 [facility] ([facility]) Platelet Count, Automated 194 10 150-450 [facility] ([facility]) Neutrophils % 65.5 % 36.0-66.0 [facility] ([facility]) Lymph % 12.8 % 24.0-44.0 [facility]) Stark % 18.0 % 0.0-5.0 [facility] ([facility]) Baso % 1.1 % 0.0-1.0 [facility] ([facility]) Eos % 2.2 % 0.0-3.0 [facility] ([facility]) Immature Granulocyte % 0.4 % 0-3.0 [facility] ([facility]) Nucleated Red Blood Cell % 0.0 % 0-0 [facility] ([facility]) Neutrophils # 5.5 10 1.5-8.5 [facility] ([facility]) Eos # 0.2 10 0.0-0.5 [facility]) Stark # 1.5 10 0.0-0.8 [facility] ([facility]) Lymph # 1.1 10 1.5-5.0 [facility] ([facility]) Baso # 0.1 10 0.0-0.2 [facility] ([facility]) ID Date Data Source [id number] 01/31/2020 07:15:00 AM EST [facility] ([facility]) Name Value Range Interpretation Code Description Data Shonna rce(s) Supporting Document(s) Thyrotropin [Units/volume] in Serum or Plasma by Detec tion limit <= 0.05 mIU/L 5.120 uIU/ML 0.358-3.740 [facility] ([facility] ) ID Date Data Source [id number] 01/31/2020 07:15:00 AM EST [facility] ([facility]) Name Value Range Interpretation Code Description Data Shonna rce(s) Supporting Document(s) Prothrombin Time 26.5 s 12.5-14.3 [facility] Inr 2.38 [facility] ([facility]) THERAPUTIC HUMAN INR VALUES INDICATIONS NORMAL RANGES PROPHYLAXIS/TREATMENT OF: VENOUS THROMBOSIS 2.0-3.0 PULMONARY EMBOLISM 2.0-3.0 PREVENTION OF SYSTEMIC EMBOLISM FROM: TISSUE HEART VALVES 2.0-3.0 ACUTE MYOCARDIAL INFARCTION 2.0-3.0 VALVULAR HEART DISEASE 2.0-3.0 ATRIAL FIBRILLATION 2.0-3.0 MECHANICAL VALVES(HIGH RISK) 2.5-3.5 RECURRENT MYOCARDIAL INFARCTION 2.5-3.5 ID Date Data Source [id number] 01/10/2020 02:30:00 PM EST [facility] ([facility]) Name Value Range Interpretation Code Description Data Shonna rce(s) Supporting Document(s) Glucose, Fasting 99 mg/dL 70-100 [facility] ([facility]) Blood Urea Nitrogen 21 mg/dL 7-18 [facility] ([facility]) Sodium Level 136 meq/L 136-145 [facility] ([facility]) Creatinine For GFR 1.07 mg/dL 0.55-1.30 [facility] ([facility]) Glomerular Filtration Rate 52.1 [facility] ([facility]) <content>Units are mL/min/1.73 m2</content>
<content></content>
<content>Chronic Kidney Disease Staging per NKF:</content>
<content></content>
<content>Stage I & II GFR >=60 Normal to Mildly Decreased</content>
<content>Stage III GFR 30- 59 Moderately Decreased</content>
<content>Stage IV GFR 15-29 Severely Decreased</content>
<content>Stage V GFR <15 Very Little GFR Left</content>
<content>ESRD GFR <15 on DATA PROCESSING MECHANIC</content>
<content></content> Chloride Level 95 meq/L 98-107 [facility] ([facility]) Potassium Serum 4.2 meq/L 3.5-5.1 [facility] ([facility]) Carbon Dioxide Level 35 meq/L 21-32 [facility] ([facility]) Calcium Level 10.1 mg/dL 8.8-10.2 [facility] ([facility]) Anion Gap 6 meq/L 8-16 [facility] ([facility]) Alkaline Phosphatase 66 U/L 45-117 [facility] ([facility]) Ast/Sgot 32 U/L 7-37 [facility] ([facility]) Alt/SGPT 23 U/L 12-78 [facility] ([facility]) Total Protein 6.6 GM/DL 6.4-8.2 [facility] ([facility]) Bilirubin,Total 0.7 mg/dL 0.2-1.0 [facility] ([facility]) Albumin 3.7 GM/DL 3.2-5.2 [facility] ([facility]) Albumin/Globulin Ratio 1.3 1.2-2.2 [facility] ([facility]) ID Date Data Source [id number] 01/10/2020 02:30:00 PM EST [facility] ([facility]) Name Value Range Interpretation Code Description Data Shonna rce(s) Supporting Document(s) Hemoglobin 13.3 g/dL 12.0-15.5 [facility] ([facility]) White Blood Count 7.8 10 4.0-10.0 [facility] ([facility]) Red Blood Count 4.46 10 4.00-5.40 [facility] ([facility]) Mean Corpuscular Volume 93.3 fl 80.0-96.0 [facility] ([facility]) Mean Corpuscular Hemoglobin 29.8 pg 27.0-33.0 [facility] ([facility]) Hematocrit 41.6 % 36.0-47.0 [facility] ([facility]) Platelet Count, Automated 231 10 150-450 [facility] NT ([facility]) Mean Corpuscular HGB Conc 32.0 g/dL 32.0-36.5 [facility] ([facility]) Red Cell Distribution Width 15.9 % 11.5-14.5 [facility] ([facility]) Nucleated Red Blood Cell % 0.0 % 0-0 [facility] ([facility]) ID Date Data Source [id number] 12/26/2019 09:34:00 AM EDT [facility] ([facility]) Name Value Range Interpretation Code Description Data Shonna rce(s) Supporting Document(s) Laboratory test finding (navigational concept) 0.02 ng/mL 0.00-0.08 [facility] ([facility]) ID Date Data Source [id number] 12/26/2019 09:29:00 AM EDT [facility] ([facility]) Name Value Range Interpretation Code Description Data Shonna rce(s) Supporting Document(s) Laboratory test finding (navigational concept) 0.90 0.4-2.0 [facility] ([facility]) ID Date Data Source [id number] 12/26/2019 09:28:00 AM EDT [facility] ([facility]) Name Value Range Interpretation Code Description Data Shonna rce(s) Supporting Document(s) Laboratory test finding (navigational concept) 41.0 % 38.0-51.0 [facility] ([facility]) Laboratory test finding (navigational concept) 107 mg/dL 70-105 [facility] ([facility]) Laboratory test finding (navigational concept) 136 meq/L 136-145 [facility] ([facility]) Laboratory test finding (navigational concept) 5.1 mg/dL 4.5-5.3 [facility] ([facility]) Laboratory test finding (navigational concept) 3.9 meq/L 3.5-5.1 [facility] ([facility]) Laboratory test finding (navigational concept) 95 meq/L 98-109 [facility] ([facility]) Laboratory test finding (navigational concept) 30 mg/dL 8-26 [facility] ([facility]) Laboratory test finding (navigational concept) 30.0 MM/L 23.0-27.0 [facility] Laboratory test finding (navigational concept) 1.2 mg/dL 0.6-1.3 [facility] ID Date Data Source [id number] 12/26/2019 09:28:00 AM EDT [facility] ([facility]) Name Value Range Interpretation Code Description Data Shonna rce(s) Supporting Document(s) Laboratory test finding (navigational concept) 31.3 s 12.1-14.4 [facility] ([facility]) Laboratory test finding (navigational concept) 2.7 [facility] ([facility]) ID Date Data Source [id number] 12/26/2019 08:53:00 AM EDT [facility] ([facility]) Name Value Range Interpretation Code Description Data Shonna rce(s) Supporting Document(s) White Blood Count 14.2 10 4.0-10.0 [facility] ([facility]) Red Blood Count 4.35 10 4.00-5.40 [facility] ([facility]) Hemoglobin 13.1 g/dL 12.0-15.5 [facility]) Hematocrit 40.2 % 36.0-47.0 [facility] ([facility]) Mean Corpuscular Volume 92.4 fl 80.0-96.0 [facility] Mean Corpuscular Hemoglobin 30.1 pg 27.0-33.0 [facility] ([facility]) Mean Corpuscular HGB Conc 32.6 g/dL 32.0-36.5 [facility] ([facility]) Neutrophils % 75.0 % 36.0-66.0 [facility] ([facility]) Platelet Count, Automated 178 10 150-450 [facility] ([facility]) Red Cell Distribution Width 15.3 % 11.5-14.5 [facility] ([facility]) Lymph % 5.6 % 24.0-44.0 [facility] ([facility]) Stark % 17.9 % 0.0-5.0 [facility] ([facility]) Eos % 0.5 % 0.0-3.0 [facility] ([facility]) Nucleated Red Blood Cell % 0.0 % 0-0 [facility] ([facility]) Immature Granulocyte % 0.6 % 0-3.0 [facility] ([facility]) Baso % 0.4 % 0.0-1.0 [facility] ([facility]) Neutrophils # 10.7 10 1.5-8.5 [facility] ([facility]) Lymph # 0.8 10 1.5-5.0 [facility] ([facility]) Stark # 2.5 10 0.0-0.8 [facility] ([facility]) Baso # 0.1 10 0.0-0.2 [facility] ([facility]) Eos # 0.1 10 0.0-0.5 [facility] ([facility]) ID Date Data Source [id number] 12/26/2019 08:53:00 AM EDT [facility] Name Value Range Interpretation Code Description Data Shonna rce(s) Supporting Document(s) Ammonia [Mass/volume] in Blood Laboratory test result [facility] ID Date Data Source [id number] 12/26/2019 08:53:00 AM EDT [facility] ([facility]) Name Value Range Interpretation Code Description Data Shonna rce(s) Supporting Document(s) Color, Urine RFX Laboratory test result [facility] Appearance, Urine RFX Laboratory test result [facility] Specific [place] Ur Auto RFX 1.012 1.002-1.035 [facility] PH,Urine RFX 6.0 units 5.0-9.0 [facility] Glucose, Urine (Ua) Auto RFX Laboratory test result [facility] Protein, Urine Auto RFX Laboratory test result [facility] Ketone, Urine Auto RFX Laboratory test result [facility] ([facility]) Urobilinogen, Urine Auto RFX 0.2 mg/dL 0.0-2.0 [facility] Bilirubin, Urine Auto RFX Laboratory test result [facility] ([facility]) Nitrite, Urine Auto RFX Laboratory test result [facility] ([facility]) WBC, Urine Auto RFX 1 /HPF 0-3 [facility] ([facility]) Leukocyte Esterase Ur Auto RFX Laboratory test result [facility] ([facility]) Blood, Urine Blood RFX Laboratory test result [facility] ([facility]) RBC, Urine Auto RFX 1 /HPF 0-3 [facility] ([facility]) Bacteria, Urine Auto RFX Laboratory test result [facility] ([facility]) Squam Epithelial Cell Ur Aurfx 0 /HPF 0-6 [facility] ([facility]) Hyaline Cast, Urine Auto RFX 0 /LPF 0-1 [facility] ID Date Data Source [id number] 12/26/2019 08:53:00 AM EDT [facility] ([facility]) Name Value Range Interpretation Code Description Data Shonna rce(s) Supporting Document(s) CPK Creatine Phosphokinase 62 U/L 26-192 [facility] Troponin I Laboratory test result [facility] ([facility]) <content>Troponin I Reference Interval f or Siemens [place] LOCI:</content>
<content></content>
<content>99th Percentile= 0.00-0.045 ng/ml</content>
<content></content>
<content>Risk Stratification:</content>
<content><= 0.10 ng/ml Decreased Risk for Adverse Clinical</content>
<content>Events.</content>
<content>0.10-1.50 ng/ml Increased Risk for Adverse Clinical</content>
<content>Events. Evaluation of additional</content>
<content>criterion and/or repeat testing in 2-6</content>
<content>hours is suggested to rule out myocardial</content>
<content>damage.</content>
<content>>= 1.50 ng/ml Indicative of Myocardial Injury.</content>
<content></content> MB/CK Relative Index 1.61 [facility] <content>DIAGNOSIS CRITERIA</content>
<content>MMB ng/ml Relative Index (RI)</content>
<content>NON-AMI < or = 5 N/A</content>
<content>CARLOS ZONE > 5 < or = 4</content>
<content>AMI > 5 > 4</content>
<content></content> CK-MB Value Mass Laboratory test result [facility] ID Date Data Source [id number] 12/26/2019 08:53:00 AM EDT [facility] Name Value Range Interpretation Code Description Data Shonna rce(s) Supporting Document(s) Ast/Sgot 23 U/L 7-37 [facility] ([facility]) Alkaline Phosphatase 72 U/L 45-117 [facility] Alt/SGPT 24 U/L 12-78 [facility] ([facility]) Total Protein 6.7 GM/DL 6.4-8.2 [facility] ([facility]) Bilirubin,Total 1.2 mg/dL 0.2-1.0 [facility] ([facility]) Bilirubin,Direct 0.4 mg/dL 0.0-0.2 [facility] ([facility] Albumin 3.7 GM/DL 3.2-5.2 [facility] Albumin/Globulin Ratio 1.2 1.2-2.2 [facility] ([facility]) ID Date Data Source [id number] 12/26/2019 08:53:00 AM EDT [facility] ([facility]) Name Value Range Interpretation Code Description Data Shonna rce(s) Supporting Document(s) Lipoprotein lipase [Enzymatic activity/volume] in Serum or P lasma 157 U/L 73-393 [facility] ([facility]) Thyrotropin [Units/volume] in Serum or Plasma by Detec tion limit <= 0.05 mIU/L 3.480 uIU/ML 0.358-3.740 [facility] ([facility] ) ID Date Data Source [id number] 12/26/2019 08:53:00 AM EDT [facility] ([facility]) Name Value Range Interpretation Code Description Data Shonna rce(s) Supporting Document(s) Blood Type Laboratory test result [facility] AB Screen (Indirect Jaylan)Vis Laboratory test result [facility] ([facility]) ID Date Data Source [id number] 11/16/2019 01:37:00 PM EDT [facility] ([facility]) Name Value Range Interpretation Code Description Data Shonna rce(s) Supporting Document(s) Thyrotropin [Units/volume] in Serum or Plasma by Detec tion limit <= 0.05 mIU/L 3.19 uIU/mL 0.36-3.74 [facility] ([facility] ) ID Date Data Source [id number] 11/16/2019 01:37:00 PM EDT [facility] ([facility]) Name Value Range Interpretation Code Description Data Shonna rce(s) Supporting Document(s) Urea nitrogen [Mass/volume] in Serum or Plasma 24 mg/dL 7-18 [facility] ([facility]) Glucose [Mass/volume] in Serum or Plasma 100 mg/dL 74-99 [facility] ([facility]) 100-125 mg/dL PRE-DIABETES/FASTING >126 mg/dL DIABETES/FASTING Creatinine 1.4 mg/dL 0.6-1.3 [facility] ([facility]) Sodium [Moles/volume] in Serum or Plasma 139 meq/L 136-145 [facility] ([facility]) Chloride [Moles/volume] in Serum or Plasma 99 meq/L 98-107 [facility] ([facility]) Potassium [Moles/volume] in Serum or Plasma 4.3 meq/L 3.5-5.1 [facility] ([facility]) Carbon dioxide, total [Moles/volume] in Serum or Plasma 36 meq/L 21 -32 [facility] Glomerular filtration rate/1.73 sq M pre dicted among non-blacks [Volume Rate/Area] in Serum or Plasma by Creatinine-based formula (MDRD) 36 mL/min [facility] Calcium [Mass/volume] in Serum or Plasma 9.9 mg/dL 8.5-10.1 [facility] Glomerular filtration rate/1.73 sq M pre dicted among blacks [Volume Rate/Area] in Serum or Plasma by Creatinine-based formula (MDRD) 44 mL/min [facility] <content>CHRONIC KIDNEY DISEASE STAGING PER NKF</content>
<content></content>
<content>STAGE I & II GFR >= 60 NORMAL TO MILDLY DECREASED</content>
<content>STAGE III GFR 30-59 MODERATELY DECREASED</content>
<content>STAGE IV GFR 15-29 SEVERELY DECREASED</content>
<content>STAGE V GFR <15 VERY LITTLE GFR LEFT</content>
<content>ESRD GFR <15 ON DATA PROCESSING MECHANIC</content>
<content></content> ID Date Data Source [id number] 11/16/2019 01:37:00 PM EDT [facility] ([facility]) Name Value Range Interpretation Code Description Data Shonna rce(s) Supporting Document(s) Hemoglobin [Mass/volume] in Blood 14.8 g/dL 12.0-18.0 [facility] ([facility] Erythrocytes [#/volume] in Blood by Automated count 5.02 x10*6/UL 4.2 0-6.30 [facility] ([facility]) Leukocytes [#/volume] in Blood by Automated count 7.4 x10*3/UL 4.1-10 .9 [facility] ([facility]) MCV 88.5 fL 80.0-97.0 [facility] ([facility]) Hematocrit [Volume Fraction] of Blood by Automated count 44.4 % 3 7.0-51.0 [facility] ([facility]) MCH 29.4 pg 26.0-32.0 [facility] ([facility]) MCHC 33.3 g/dL 31.0-38.0 [facility] ([facility]) Erythrocyte distribution width [Ratio] by Automated count 14.3 % 11.6-13.7 [facility] ([facility]) Platelets [#/volume] in Blood by Automated count 208 x10*3/UL 140-440 [facility] ([facility]) Lymph % 16.7 % 10.0-58.5 [facility] ([facility]) MPV 8.8 FL 7.8-11.0 [facility] ([facility]) Mid % 4.6 % 1.7-9.3 [facility] ([facility]) Neut % 78.7 % 37.0-92.0 [facility] ([facility]) Lymph # 1.2 x10*3/UL 0.6-4.1 [facility] ([facility]) Mid # 0.4 x10*3/UL 0.1-0.6 [facility] ([facility]) Neut # 5.8 x10*3/UL 2.0-7.8 [facility] ([facility]) ID Date Data Source [id number] 11/16/2019 01:37:00 PM EDT [facility] ([facility]) Name Value Range Interpretation Code Description Data Shonna rce(s) Supporting Document(s) Leukocytes [#/volume] in Blood by Automated count 7.4 x10*3/UL 4.1-10 .9 [facility] ([facility]) Erythrocytes [#/volume] in Blood by Automated count 5.02 x10*6/UL 4.2 0-6.30 [facility] ([facility]) Hemoglobin [Mass/volume] in Blood 14.8 g/dL 12.0-18.0 [facility] ([facility]) Hematocrit [Volume Fraction] of Blood by Automated count 44.4 % 3 7.0-51.0 [facility] ([facility]) MCV 88.5 fL 80.0-97.0 [facility] ([facility]) MCH 29.4 pg 26.0-32.0 [facility] ([facility]) MCHC 33.3 g/dL 31.0-38.0 [facility] ([facility]) Erythrocyte distribution width [Ratio] by Automated count 14.3 % 11.6-13.7 [facility] ([facility]) Platelets [#/volume] in Blood by Automated count 208 x10*3/UL 140-440 [facility] ([facility]) Platelet mean volume [Entitic volume] in Blood by Nader-Samuel 8.8 FL 7.8-11.0 [facility] ([facility]) Lymphocytes/100 leukocytes in Blood by Automated count 16.7 % 10. 0-58.5 [facility] ([facility]) Mid % 4.6 % 1.7-9.3 [facility] ([facility]) Neut % 78.7 % 37.0-92.0 [facility] ([facility]) Mid # 0.4 x10*3/UL 0.1-0.6 [facility] ([facility]) Lymph # 1.2 x10*3/UL 0.6-4.1 [facility] ([facility]) Neutrophils [#/volume] in Semen by Manual count 5.8 x10*3/UL 2.0-7.8 [facility] ([facility]) ID Date Data Source [id number] 11/14/2019 10:56:00 AM EDT [facility] ([facility]) Name Value Range Interpretation Code Description Data Shonna rce(s) Supporting Document(s) INR in Platelet poor plasma by Coagulation assay 3.1 [facility] ([facility]) ID Date Data Source [id number] 10/17/2019 04:04:00 PM EDT [facility] ([facility]) Name Value Range Interpretation Code Description Data Shonna rce(s) Supporting Document(s) INR in Platelet poor plasma by Coagulation assay 2.5 [facility] ([facility]) ID Date Data Source [id number] 08/16/2019 01:38:00 PM EDT [facility] ([facility]) Name Value Range Interpretation Code Description Data Shonna rce(s) Supporting Document(s) Magnesium 2.1 mg/dL 1.8-2.4 [facility] ([facility]) ID Date Data Source [id number] 08/16/2019 01:38:00 PM EDT [facility] ([facility]) Name Value Range Interpretation Code Description Data Shonna rce(s) Supporting Document(s) Glucose [Mass/volume] in Serum or Plasma 76 mg/dL 74-99 [facility] ([facility]) 100-125 mg/dL PRE-DIABETES/FASTING >126 mg/dL DIABETES/FASTING Creatinine 1.2 mg/dL 0.6-1.3 [facility] ([facility]) Sodium [Moles/volume] in Serum or Plasma 144 meq/L 136-145 [facility] ([facility]) Urea nitrogen [Mass/volume] in Serum or Plasma 22 mg/dL 7-18 [facility] ([facility]) Potassium [Moles/volume] in Serum or Plasma 4.2 meq/L 3.5-5.1 [facility] ([facility]) Carbon dioxide, total [Moles/volume] in Serum or Plasma 33 meq/L 21 -32 [facility] ([facility]) Chloride [Moles/volume] in Serum or Plasma 104 meq/L 98-107 [facility] ([facility]) Glomerular filtration rate/1.73 sq M pre dicted among non-blacks [Volume Rate/Area] in Serum or Plasma by Creatinine-based formula (MDRD) 43 mL/min [facility] ([facility]) Calcium [Mass/volume] in Serum or Plasma 9.7 mg/dL 8.5-10.1 [facility] ([facility]) Glomerular filtration rate/1.73 sq M pre dicted among blacks [Volume Rate/Area] in Serum or Plasma by Creatinine-based formula (MDRD) 52 mL/min [facility] ([facility]) <content>CHRONIC KIDNEY DISEASE STAGING PER NKF</content>
<content></content>
<content>STAGE I & II GFR >= 60 NORMAL TO MILDLY DECREASED</content>
<content>STAGE III GFR 30-59 MODERATELY DECREASED</content>
<content>STAGE IV GFR 15-29 SEVERELY DECREASED</content>
<content>STAGE V GFR <15 VERY LITTLE GFR LEFT</content>
<content>ESRD GFR <15 ON DATA PROCESSING MECHANIC</content>
<content></content> ID Date Data Source [id number] 08/16/2019 01:38:00 PM EDT [facility] ([facility]) Name Value Range Interpretation Code Description Data Shonna rce(s) Supporting Document(s) Leukocytes [#/volume] in Blood by Automated count 8.1 x10*3/UL 4.1-10 .9 [facility] ([facility]) Hemoglobin [Mass/volume] in Blood 14.8 g/dL 12.0-18.0 [facility] ([facility]) Erythrocytes [#/volume] in Blood by Automated count 5.07 x10*6/UL 4.2 0-6.30 [facility] ([facility]) Hematocrit [Volume Fraction] of Blood by Automated count 44.9 % 3 7.0-51.0 [facility] ([facility]) MCHC 33.1 g/dL 31.0-38.0 [facility] ([facility]) MCH 29.3 pg 26.0-32.0 [facility] ([facility]) MCV 88.5 fL 80.0-97.0 [facility] ([facility]) MPV 8.7 FL 7.8-11.0 [facility] ([facility]) Erythrocyte distribution width [Ratio] by Automated count 14.2 % 11.6-13.7 [facility] ([facility]) Platelets [#/volume] in Blood by Automated count 206 x10*3/UL 140-440 [facility] ([facility]) Lymph % 16.9 % 10.0-58.5 [facility] ([facility]) Mid % 4.7 % 1.7-9.3 [facility]) Neut % 78.4 % 37.0-92.0 [facility]) Lymph # 1.3 x10*3/UL 0.6-4.1 [facility] ([facility]) Neut # 6.3 x10*3/UL 2.0-7.8 [facility] ([facility]) Mid # 0.5 x10*3/UL 0.1-0.6 [facility] ([facility]) ID Date Data Source [id number] 05/09/2019 01:59:00 PM EST [facility] ([facility]) Name Value Range Interpretation Code Description Data Shonna rce(s) Supporting Document(s) Lymphocytes 5 % 16-44 [facility] ([facility]) Neutrophils 70 % 28-66 [facility] ([facility]) Eosinophils 4 % 0-3 [facility] ([facility]) Monocytes 2 % 0-5 [facility] ([facility]) Basophils 2 % 0-1 [facility] Atypical Lymph 17 % 0-5 [facility] ([facility]) Poikilocytosis Laboratory test result [facility] ([facility]) Ovalocytes Laboratory test result [facility] ([facility]) Platelet Estimate Laboratory test result [facility] ([facility]) ID Date Data Source [id number] 05/09/2019 01:59:00 PM EST [facility] ([facility]) Name Value Range Interpretation Code Description Data Shonna rce(s) Supporting Document(s) Glucose [Mass/volume] in Serum or Plasma 104 mg/dL 74-99 [facility] ([facility]) 100-125 mg/dL PRE-DIABETES/FASTING >126 mg/dL DIABETES/FASTING Urea nitrogen [Mass/volume] in Serum or Plasma 19 mg/dL 7-18 [facility] ([facility]) Creatinine 1.2 mg/dL 0.6-1.3 [facility] ([facility]) Sodium [Moles/volume] in Serum or Plasma 144 meq/L 136-145 [facility] ([facility]) Potassium [Moles/volume] in Serum or Plasma 4.0 meq/L 3.5-5.1 [facility] ([facility]) Chloride [Moles/volume] in Serum or Plasma 102 meq/L 98-107 [facility] ([facility]) Glomerular filtration rate/1.73 sq M pre dicted among non-blacks [Volume Rate/Area] in Serum or Plasma by Creatinine-based formula (MDRD) 43 mL/min [facility] ([facility]) Carbon dioxide, total [Moles/volume] in Serum or Plasma 36 meq/L 21 -32 [facility] ([facility]) Calcium [Mass/volume] in Serum or Plasma 10.0 mg/dL 8.5-10.1 [facility] ([facility]) Glomerular filtration rate/1.73 sq M pre dicted among blacks [Volume Rate/Area] in Serum or Plasma by Creatinine-based formula (MDRD) 52 mL/min [facility] ([facility]) <content>CHRONIC KIDNEY DISEASE STAGING PER NKF</content>
<content></content>
<content>STAGE I & II GFR >= 60 NORMAL TO MILDLY DECREASED</content>
<content>STAGE III GFR 30-59 MODERATELY DECREASED</content>
<content>STAGE IV GFR 15-29 SEVERELY DECREASED</content>
<content>STAGE V GFR <15 VERY LITTLE GFR LEFT</content>
<content>ESRD GFR <15 ON DATA PROCESSING MECHANIC</content>
<content></content> ID Date Data Source [id number] 05/09/2019 01:59:00 PM EST [facility] Name Value Range Interpretation Code Description Data Shonna rce(s) Supporting Document(s) Leukocytes [#/volume] in Blood by Automated count 8.0 x10*3/UL 4.1-10 .9 [facility] ([facility]) Hemoglobin [Mass/volume] in Blood 14.0 g/dL 12.0-18.0 [facility] ([facility]) Erythrocytes [#/volume] in Blood by Automated count 4.88 x10*6/UL 4.2 0-6.30 [facility] ([facility]) MCV 87.4 fL 80.0-97.0 [facility] ([facility]) Hematocrit [Volume Fraction] of Blood by Automated count 42.7 % 3 7.0-51.0 [facility] ([facility]) MCHC 32.9 g/dL 31.0-38.0 [facility] ([facility]) MCH 28.7 pg 26.0-32.0 [facility] ([facility]) Platelets [#/volume] in Blood by Automated count 207 x10*3/UL 140-440 [facility] ([facility]) Erythrocyte distribution width [Ratio] by Automated count 14.3 % 11.6-13.7 [facility] ([facility]) MPV 8.3 FL 7.8-11.0 [facility] ([facility]) Lymph % 8.8 % 10.0-58.5 [facility] ([facility]) NOTE: MANUAL DIFFERENTIAL SENT TO [facility] FOR VERIFICATION. Mid % 10.9 % 1.7-9.3 [facility] ([facility]) Lymph # 0.7 x10*3/UL 0.6-4.1 [facility] ([facility]) Neut % 80.3 % 37.0-92.0 [facility] ([facility]) Neut # 6.4 x10*3/UL 2.0-7.8 [facility] ([facility]) Mid # 0.9 x10*3/UL 0.1-0.6 [facility] ([facility]) ID Date Data Source [id number] 02/07/2019 03:42:00 PM EST [facility] ([facility]) Name Value Range Interpretation Code Description Data Shonna rce(s) Supporting Document(s) Bacteria identified in Urine by Culture FULL REPORT IN L <SEE NOTE> [facility] ([facility]) FULL REPORT IN LAB NOTES (eCW and [facility] ). NO GROWTH ID Date Data Source [id number] 02/07/2019 03:42:00 PM EST [facility] ([facility]) Name Value Range Interpretation Code Description Data Shonna rce(s) Supporting Document(s) Urine PH 6.0 units 5.0-9.0 [facility] ([facility]) Urine Appearance SL. HAZY Abnormal (applies to non-numer ic results) [facility] ([facility]) Urine Color STRAW Abnormal (applies to non-numeric re sults) [facility] ([facility]) Urine Blood TRACE Abnormal (applies to non-numeric re sults) [facility] ([facility]) Urine Leukocytes NEGATIVE [facility] ([facility] Specific gravity of Urine 1.015 1.005-1.030 [facility] ([facility]) Glucose [Presence] in Urine NEGATIVE mg/dL [facility] ([facility]) Urine Protein NEGATIVE 0-0 [facility] ([facility]) Urine Nitrite NEGATIVE [facility] ([facility]) Urine Urobilinogen 0.2 mg/dL 0.2-1.0 [facility] ([facility]) Urine Ketone NEGATIVE mg/dL [facility] ([facility]) Bilirubin.total [Mass/volume] in Serum or Plasma NEGATIVE [facility] ([facility]) ID Date Data Source [id number] 02/07/2019 03:42:00 PM EST [facility] Name Value Range Interpretation Code Description Data [facility] Supporting Document(s) Glucose [Mass/volume] in Serum or Plasma 133 mg/dL 74-99 [facility] ([facility]) 100-125 mg/dL PRE-DIABETES/FASTING >126 mg/dL DIABETES/FASTING Urea nitrogen [Mass/volume] in Serum or Plasma 20 mg/dL 7-18 [facility] ([facility]) Sodium [Moles/volume] in Serum or Plasma 141 meq/L 136-145 [facility] ([facility]) Creatinine 1.3 mg/dL 0.6-1.3 [facility] ([facility]) Potassium [Moles/volume] in Serum or Plasma 3.7 meq/L 3.5-5.1 [facility] ([facility]) Carbon dioxide, total [Moles/volume] in Serum or Plasma 36 meq/L 21 -32 [facility] ([facility]) Chloride [Moles/volume] in Serum or Plasma 99 meq/L 98-107 [facility] ([facility]) Glomerular filtration rate/1.73 sq M pre dicted among non-blacks [Volume Rate/Area] in Serum or Plasma by Creatinine-based formula (MDRD) 39 mL/min [facility] ([facility]) Glomerular filtration rate/1.73 sq M pre dicted among blacks [Volume Rate/Area] in Serum or Plasma by Creatinine-based formula (MDRD) 48 mL/min [facility] ([facility]) <content>CHRONIC KIDNEY DISEASE STAGING PER NKF</content>
<content></content>
<content>STAGE I & II GFR >= 60 NORMAL TO MILDLY DECREASED</content>
<content>STAGE III GFR 30-59 MODERATELY DECREASED</content>
<content>STAGE IV GFR 15-29 SEVERELY DECREASED</content>
<content>STAGE V GFR <15 VERY LITTLE GFR LEFT</content>
<content>ESRD GFR <15 ON DATA PROCESSING MECHANIC</content>
<content></content> Calcium [Mass/volume] in Serum or Plasma 10.0 mg/dL 8.5-10.1 [facility] ([facility]) ID Date Data Source [id number] 02/07/2019 03:42:00 PM EST [facility] ([facility]) Name Value Range Interpretation Code Description Data Shonna rce(s) Supporting Document(s) Urea nitrogen [Mass/volume] in Serum or Plasma 20 mg/dL 7-18 [facility] ([facility]) Glucose [Mass/volume] in Serum or Plasma 133 mg/dL 74-99 [facility] ([facility]) 100-125 mg/dL PRE-DIABETES/FASTING >126 mg/dL DIABETES/FASTING Sodium [Moles/volume] in Serum or Plasma 141 meq/L 136-145 [facility] ([facility]) Creatinine 1.3 mg/dL 0.6-1.3 [facility] ([facility]) Potassium [Moles/volume] in Serum or Plasma 3.7 meq/L 3.5-5.1 [facility] ([facility]) Chloride [Moles/volume] in Serum or Plasma 99 meq/L 98-107 [facility] ([facility]) Carbon dioxide, total [Moles/volume] in Serum or Plasma 36 meq/L 21 -32 [facility] ([facility]) Calcium [Mass/volume] in Serum or Plasma 10.0 mg/dL 8.5-10.1 [facility] ([facility]) Glomerular filtration rate/1.73 sq M pre dicted among blacks [Volume Rate/Area] in Serum or Plasma by Creatinine-based formula (MDRD) 48 mL/min [facility] ([facility]) <content>CHRONIC KIDNEY DISEASE STAGING PER NKF</content>
<content></content>
<content>STAGE I & II GFR >= 60 NORMAL TO MILDLY DECREASED</content>
<content>STAGE III GFR 30-59 MODERATELY DECREASED</content>
<content>STAGE IV GFR 15-29 SEVERELY DECREASED</content>
<content>STAGE V GFR <15 VERY LITTLE GFR LEFT</content>
<content>ESRD GFR <15 ON DATA PROCESSING MECHANIC</content>
<content></content>
<content></content> Glomerular filtration rate/1.73 sq M pre dicted among non-blacks [Volume Rate/Area] in Serum or Plasma by Creatinine-based formula (MDRD) 39 mL/min [facility] ([facility]) Urine Color Straw Abnormal (applies to non-numeric re sults) [facility] ([facility]) Urine Appearance SL. Hazy Abnormal (applies to non-numer ic results) [facility] ([facility]) Urine Leukocytes Negative [facility] ([facility]i [facility]) Specific gravity of Urine 1.015 1.005-1.030 [facility] ([facility]) pH of Urine 6.0 units 5.0-9.0 [facility] ([facility]) Urine Blood Trace Abnormal (applies to non-numeric re sults) [facility] ([facility]) Glucose [Presence] in Urine Negative mg/dL [facility] ([facility]) Urine Protein Negative 0-0 [facility] (Cardiolo gy [facility]) Urine Nitrite Negative [facility] ([facility]) Urine Ketone Negative mg/dL [facility] (Card i[facility]) Urine Urobilinogen 0.2 mg/dL 0.2-1.0 [facility] ([facility]) Bacteria identified in Urine by Culture Full Report In L <See Note> [facility] ([facility]) FULL REPORT IN LAB NOTES (eCW and [facility] ). NO GROWTH Bilirubin.total [Mass/volume] in Serum or Plasma Negative [facility] ([facility]) Procedure Social History Code Duration Value Status Description Data Source(s ) Smoking 01/11/2020 12:00:00 AM EST Patient is a former smoker completed Patient is a former smoker [facility] ([facility]) Vital Signs ID Date Data Source UNK Name Value Range Interpretation Code Description Data Source(s) Diastolic blood pressure--sitting 58 mm[Hg] 58 mm[Hg] [facility] ([facility]) large cuff, Ra Systolic blood pressure--sitting 118 mm[Hg] 118 mm[Hg] [facility] ([facility]) large cuff, Ra Heart rate 53 /min 53 /min [facility] ([facility]) Body mass index (BMI) [Ratio] 24.9 kg/m2 24.9 k g/m2 [facility] ([facility]) Body height 66 [in_i] 66 [in_i] [facility] ([facility]) 5'6" Body weight 154.00 [lb_av] 154.00 [lb_av] [facility] ([facility]) Oxygen saturation in Arterial blood by Pulse oximetry 94 % 94 % [facility] ([facility]) Body weight 163.00 [lb_av] 163.00 [lb_av] [facility] ([facility]) Heart rate 82 /min 82 /min [facility] ([facility]) Body mass index (BMI) [Ratio] 24.1 kg/m2 24.1 k g/m2 [facility] ([facility]) Oxygen saturation in Arterial blood by Pulse oximetry 95 % 95 % [facility] ([facility]) Body weight 147.00 [lb_av] 147.00 [lb_av] [facility] ([facility]) Body height 65.5 [in_i] 65.5 [in_i] [facility] ([facility]) 5'5.50" Respiratory rate 14 /min 14 /min [facility] ( [facility]) Body temperature 98.4 [degF] 98.4 [degF] [facility] ([facility]) Heart rate 56 /min 56 /min [facility] ([facility]) Diastolic blood pressure 50 mm[Hg] 50 mm[Hg] [facility] ([facility]) Systolic blood pressure 130 mm[Hg] 130 mm[Hg] [facility] ([facility]) Body weight 148.00 [lb_av] 148.00 [lb_av] [facility] ([facility]) Body mass index (BMI) [Ratio] 24.8 kg/m2 24.8 k g/m2 [facility] ([facility]) Oxygen saturation in Arterial blood by Pulse oximetry 97 % 97 % [facility] ([facility]) Body weight 151.50 [lb_av] 151.50 [lb_av] [facility] ([facility]) Body height 65.50 [in_i] 65.50 [in_i] [facility] ([facility]) 5'5.50" Heart rate 42 /min 42 /min [facility] ([facility]) Diastolic blood pressure 70 mm[Hg] 70 mm[Hg] [facility] ([facility]) Systolic blood pressure 130 mm[Hg] 130 mm[Hg] [facility] ([facility]) Body mass index (BMI) [Ratio] 25.8 kg/m2 25.8 k g/m2 [facility] ([facility]) Oxygen saturation in Arterial blood by Pulse oximetry 95 % 95 % [facility] ([facility]) RM Air Body weight 157.50 [lb_av] 157.50 [lb_av] [facility] ([facility]) Body height 65.50 [in_i] 65.50 [in_i] [facility] ([facility]) 5'5.50" Heart rate 57 /min 57 /min [facility] ([facility]) Diastolic blood pressure 70 mm[Hg] 70 mm[Hg] [facility] ([facility]) Systolic blood pressure 132 mm[Hg] 132 mm[Hg] [facility] ([facility]) Diastolic blood pressure--sitting 68 mm[Hg] 68 mm[Hg] [facility] ([facility]) Systolic blood pressure--sitting 122 mm[Hg] 122 mm[Hg] [facility] ([facility]) Heart rate 51 /min 51 /min [facility] (Cardio logy [facility]) Body mass index (BMI) [Ratio] 26.0 kg/m2 26.0 k g/m2 [facility] ([facility]) Body height 66 [in_i] 66 [in_i] [facility] ([facility]i [facility]) 5'6" Body weight 161.00 [lb_av] 161.00 [lb_av] [facility] ([facility]) Body weight 72.633 kg 72.633 kg [facility] ([facility]) Body mass index (BMI) [Ratio] 27.5 kg/m2 27.5 k g/m2 [facility] ([facility]) Body weight 160.12 [lb_av] 160.12 [lb_av] [facility] ([facility]) Body height 64 [in_i] 64 [in_i] [facility] ([facility] [facility]) 5'4" Oxygen saturation in Arterial blood by Pulse oximetry 97 % 97 % [facility] ([facility] [place]) Heart rate 53 /min 53 /min [facility] ([facility]) Diastolic blood pressure 68 mm[Hg] 68 mm[Hg] [facility] ([facility] [place]) Systolic blood pressure 126 mm[Hg] 126 mm[Hg] M [facility] ([facility] [place]) Body mass index (BMI) [Ratio] 26.4 kg/m2 26.4 k g/m2 [facility] ([facility]) Oxygen saturation in Arterial blood by Pulse oximetry 95 % 95 % [facility] ([facility]) Body weight 161.00 [lb_av] 161.00 [lb_av] [facility] ([facility]) Body height 65.50 [in_i] 65.50 [in_i] [facility] ([facility]) 5'5.50" Heart rate 60 /min 60 /min [facility] ([facility]) Diastolic blood pressure 50 mm[Hg] 50 mm[Hg] [facility] ([facility]) Systolic blood pressure 128 mm[Hg] 128 mm[Hg] M [facility] ([facility]) Patient Treatment Plan of Care Planned Activity Planned Date Details Description Data Source (s) Klor-Con M10 10 MEQ 01/10/2020 12:00:00 AM EST [facility] ([facility]) Ipratropium-Albuterol 0.5-2.5 (3) MG/3ML 01/10/2020 12:00:00 AM EST [facility] ([facility]) Biaxin 500 MG 01/10/2020 12:00:00 AM EST [facility] ([facility]) Xopenex 0.63 MG/3ML 01/10/2020 12:00:00 AM EST [facility] ([facility]) Spironolactone 25 MG 01/10/2020 12:00:00 AM EST [facility] ([facility]) Multivitamin 01/09/2020 12:00:00 AM EST N [facility] ([facility]) Simvastatin 40 MG 01/09/2020 12:00:00 AM EST [facility] ([facility]) Coumadin 3 MG 01/09/2020 12:00:00 AM EST [facility] ([facility]) Albuterol Sulfate (2.5 MG/3ML) 0.083% 01/09/2020 12:00:00 AM EST [facility] ([facility]) Tylenol 01/09/2020 12:00:00 AM EST N [facility] ([facility]) Torsemide 100 MG 01/09/2020 12:00:00 AM EST [facility] ([facility]) Calcium 01/09/2020 12:00:00 AM EST N [facility] ([facility]) Aricept 5 MG 01/09/2020 12:00:00 AM EST N [facility] ([facility]) Levothyroxine 01/09/2020 12:00:00 AM EST [facility] ([facility]) Incruse Ellipta 62.5 MCG/INH 01/09/2020 12:00:00 AM EST [facility] ([facility]) Vitamin D 01/09/2020 12:00:00 AM EST N [facility] ([facility]) Advair Diskus 100-50 MCG/DOSE 01/09/2020 12:00:00 AM EST [facility] ([facility]) Colace 01/09/2020 12:00:00 AM EST N [facility] ([facility])
[2020-03-29 11:19] LABS: RSV AMPLIFICATION NEGATIVE (NEGATIVE)
[2020-03-29] MEDS ORDERED: traMADol 50 MG TAB PO PRN (13:15)
[2020-03-29] MEDS ORDERED: cloNIDine 0.1MG TABLET PO ONE (13:15)
[2020-03-29] MEDS ORDERED: IPRATROPIUM 0.5MG/ALBUTEROL 2.5MG INH SOL UD 3ML (DUONEB) INH PRN (13:15)
[2020-03-29] MEDS ORDERED: ALBUTEROL SULFATE 2.5 MG/0.5 ML INH NEB SOLN INH PRN (13:15)
--- NOTE | 2020-03-29 13:27 | IPNPDOC ---
Date Seen The patient was seen on 03/29/20. Progress Note CHIEF COMPLAINT: mechanical fall at [facility] HPI: 84 y/o F lives w her at [facility] fell in her bedroom between the two twin beds when she got up in the middle of the night to go to the bathroom to urinate, scraping her face, neck, and groin on the bed frame, needing sutures in the ER for the groin laceration. Pt denied any prodromal symptoms such as chest pain, pressure, tightness, dizziness, lightheadedness, cough, nausea, vomiting,diaphoresis. Family requesting SNF placement due to worsening dementia and gait imbalance. She otherwise denies any infectious symptoms such as fever, chills, dysuria, urgency, frequency, diarrhea, abd pain. no other c/o. PAST MEDICAL HISTORY: 1. Alzheimer's Dementia. 2. HTN. 3. A-Fib. 4. Diastolic Heart Failure. 5. COPD 6. Mechanical Mitral Valve 7. CKD Stage 3 PAST SURGICAL HISTORY: 1. Pacemaker. 2. Mitral Mechanical Valve Replacement. SOCIAL HISTORY: Marital status: . Resides in: [facility]. 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 Tobacco use: Former smoker. Daughter reports that she quit in the 70s, and smoked less than one pack a day ETOH: used to drink socially. FAMILY HISTORY: Mother: of a stroke in her 60s. ALLERGIES: Please see below. REVIEW OF SYSTEMS: 12 point ROS negative aside from +findings on HPI HOME MEDICATIONS: Please see below. PHYSICAL EXAMINATION: vitals: see below GEN: aaox1 person only. pleasant but confused no pallor no distress. speaks in full sentences HEENT: superficial laceration on left forehead and left neck, EOMI, no cervical LAD or thyromegaly . face is symmetric Lungs: CTAB Heart: S1S2 irregularly irregular Abd: +bs soft groin tender w sutures intact no purulence or bloody discharge ext: no cyanosis or clubbing LABORATORY DATA, IMAGING STUDIES, MICROBIOLOGY: SEE BELOW ASSESSMENT AND PLAN: 84 y/o F lives w her at [facility] fell in her bedroom between the two twin beds when she got up in the middle of the night to go to the bathroom to urinate, scraping her face, neck, and groin on the bed frame, needing sutures in the ER for the groin laceration. Pt denied any prodromal symptoms such as chest pain, pressure, tightness, dizziness, lightheadedness, cough, nausea, vomiting,diaphoresis. Family requesting SNF placement due to worsening dementia and gait imbalance. She otherwise denies any infectious symptoms such as fever, chills, dysuria, urgency, frequency, diarrhea, abd pain. no other c/o.Pt has been admitted as an inpatient s/p mechanical fall w groin laceration requiring sutures, for placement due toworsening dementia and gait imbalance per familyrequest. Mechanical Fall Traumatic Injury Face, neck, groin laceration groin laceration requiring sutures gait imbalance Alzheimer's Dementia. HTN. A-Fib. Diastolic Heart Failure. COPD Mechanical Mitral Valve CKD Stage 3 PLAN: s/p sutures by ER MD Dr. Smart. topical bacitracin for open lacerations. resumed on home meds. prn tramadol for pain. bid tylenol for comfort. pfs consulted to assist in snf placement. no other acute medical issues. VS, I&O, [facility] Vital Sign[facility]/I&O Vital Signs Date Time Temp Pulse Resp B/P (MAP) Pulse Ox O2 Delivery O2 Flow Rate FiO2 03/29/20 12:31 56 18 198/96 (130) 97 Room Air 03/29/20 07:11 97.1 Laboratory Data 24H LABS Laboratory Tests 2 03/29/20 02:57: Immature Granulocyte % (Auto) 0.5, Neutrophils (%) (Auto) 69.2H, Lymphocytes (%) (Auto) 10.7L, Monocytes (%) (Auto) 16.9H, Eosinophils (%) (Auto) 2.1, Basophils (%) (Auto) 0.6, Neutrophils # (Auto) 6.5, Lymphocytes # (Auto) 1.0L, Monocytes # (Auto) 1.6H, Eosinophils # (Auto) 0.2, Basophils # (Auto) 0.1, Nucleated Red Blood Cells % (auto) 0.0, Prothrombin Time 26.7H, Prothromb Time International Ratio 2.40, Anion Gap 8, Glomerular Filtration Rate 49.0, Calcium Level 9.8, Total Creatine Kinase 57, Creatine Kinase MB 1.1, Creatine Kinase MB Relative Index 1.93, Troponin I < 0.02 03/29/20 10:12: Coronavirus (COVID-19)(PCR) NEGATIVE, Influenza Type A (RT-PCR) NEGATIVE, Influenza Type B (RT-PCR) NEGATIVE, Respiratory Syncytial Virus (PCR) NEGATIVE CBC/BMP Laboratory Tests 03/29/20 02:57 TERI SOLIMAN MD Mar 29, 2020 13:11
[2020-03-29 14:52] VITALS: BP 186/74
[2020-03-29 17:45] VITALS: BP 130/95
[2020-03-29] MEDS: SPIRONOLACTONE 25 MG TAB PO SCH (18:01)
[2020-03-29] MEDS: POTASSIUM CHLORIDE 10 MEQ SR TABLET PO SCH (18:01)
[2020-03-29] MEDS: CALCIUM/VITAMIN D 500 MG TAB PO SCH ×2 (18:01→21:42)
[2020-03-29] MEDS: WARFARIN SOD 3MG TAB PO SCH (19:02)
[2020-03-29] MEDS: TORSEMIDE 100 MG TAB PO SCH (19:02)
--- NOTE | 2020-03-29 20:52 | ECGEPIP ---
[facility] - ED Test Date: 2020-03-29 Pat Name: IMAN BELLA Department: Room: - Gender: Female Receiving Lead: AARON : 1935 Requested By: Shai Lilly Order Number: [id number] Reading MD: Donna Obrien Measurements Intervals [place] Rate: 61 P: MT: 0 QRS: -68 QRSD: 138 T: -63 QT: 452 QTc: 459 Interpretive Statements ATRIAL FIBRILLATION MARKED LEFT AXIS DEVIATION INTRAVENTRICULAR CONDUCTION DELAY ANTERIOR MYOCARDIAL INFARCTION, age indeterminate NSTTW abnormalities Electronically Signed on 03-29-2020 20:52:25 EST by Donna Obrien
[2020-03-29] MEDS: DONEPEZIL 5 MG TAB PO SCH (21:39)
[2020-03-29] MEDS: BACITRACIN OINTMENT 30GM TUBE TOP SCH (21:39)
[2020-03-29] MEDS: MULTIVITAMINS/MINERALS THERAP 1 TAB PO SCH (21:39)
[2020-03-29] MEDS: SIMVASTATIN 40 MG TAB PO SCH (21:39)
[2020-03-29] MEDS: DOCUSATE SODIUM 100MG CAPSULE PO SCH (21:39)
[2020-03-29] MEDS: ACETAMINOPHEN TAB 650MG DOSE (2X325MG) PO SCH (21:40)
[2020-03-29 22:00] VITALS: BP 142/55
[2020-03-30 01:32] VITALS: BP 140/55
[2020-03-30 06:00] VITALS: BP 142/56
[2020-03-30] MEDS: LEVOTHYROXINE 25MCG TABLET (0.025MG) PO SCH (06:32)
[2020-03-30 06:48] LABS: HEMOGLOBIN 12.7 g/dl (12.0-15.5); MEAN CORPUSCULAR HEMOGLOBIN 29.7 pg (27.0-33.0); MEAN CORPUSCULAR HGB CONC 32.6 g/dl (32.0-36.5); MEAN CORPUSCULAR VOLUME 91.3 fl (80.0-96.0); PLATELET COUNT, AUTOMATED 191 10^3/uL (150-450); RED BLOOD COUNT 4.27 10^6/uL (4.00-5.40); WHITE BLOOD COUNT 7.9 10^3/uL (4.0-10.0)
[2020-03-30 06:58] LABS: INR 2.42; PROTHROMBIN TIME 26.9 SECONDS (12.5-14.3)
[2020-03-30 07:09] LABS: CALCIUM LEVEL 9.5 MG/DL (8.8-10.2); CREATININE FOR GFR 0.96 MG/DL (0.55-1.30); GLOMERULAR FILTRATION RATE 59.1 (>32)
[2020-03-30] MEDS: ACETAMINOPHEN TAB 650MG DOSE (2X325MG) PO SCH (08:51)
[2020-03-30] MEDS: DOCUSATE SODIUM 100MG CAPSULE PO SCH ×2 (08:51→22:04)
[2020-03-30] MEDS: POTASSIUM CHLORIDE 10 MEQ SR TABLET PO SCH ×2 (08:51→18:33)
[2020-03-30] MEDS: CALCIUM/VITAMIN D 500 MG TAB PO SCH ×3 (08:51→22:04)
[2020-03-30] MEDS: TORSEMIDE 100 MG TAB PO SCH (08:51)
[2020-03-30] MEDS: SPIRONOLACTONE 25 MG TAB PO SCH (08:52)
[2020-03-30] MEDS: BACITRACIN OINTMENT 30GM TUBE TOP SCH ×2 (08:52→22:05)
[2020-03-30] MEDS ORDERED: ACETAMINOPHEN TAB 650MG DOSE (2X325MG) PO ONE (09:30)
--- NOTE | 2020-03-30 11:57 | IPNPDOC ---
Date Seen The patient was seen on 03/30/20. Progress Note Subjective: woke up in the civil engineer helper confused wanting to take peripheral iv out, and c/o chest pain which resolved w tramadol. daughter re-directed patient, and went back to sleep. denied diaphoresis, feeling of impending doom, epigastric pain, nausea, or sob or painradiating up the jaw down the left arm. Objective: PHYSICAL EXAMINATION: vitals: see below GEN: asleep snoring, but arousable. confused. aaoto person only HEENT: superficial laceration on left forehead and left neck, clean w/o erythema or tenderness EOMI, no cervical LAD or thyromegaly . face is symmetric Lungs: CTAB Heart: S1S2 irregularly irregular Abd: +bs soft groin tender w sutures intact no purulence or bloody discharge left anterior thigh 2x 2 cm laceration w intact sutures w/o drainage,erythema, crepitus or induration ext: no cyanosis or clubbing LABORATORY DATA, IMAGING STUDIES, MICROBIOLOGY: SEE BELOW ASSESSMENT AND PLAN: 84 y/o F lives w her at [facility] living fell in her bedroom be tween the two twin beds when she got up in the middle of the night to go to the bathroom to urinate, scraping her face, neck, and groin on the bed frame, needing sutures in the ER for the groin lace ration. Pt denied any prodromal symptoms such as chest pain, pressure, tightness, dizziness, lightheadedness, cough, nausea, vomiting,diaphoresis. Family requesting SNF placement due to worsening dementia and gait imbalance. She otherwise denies any infectious symptoms such as fever, chills, dysuria, urgency, frequency, diarrhea, abd pain. no other c/o.Pt has been admitted as an inpatient s/p mechanical fall w groin laceration requiring sutures, for placement due toworsening dementia and gait imbalance per familyrequest. Mechanical Fall Traumatic Injury Face, neck, left anterior thigh laceration left 2x2cm anterior thigh laceration requiring sutures musculoskeletal chest pain gait imbalance Alzheimer's Dementia. HTN. A-Fib. Diastolic Heart Failure. COPD Mechanical Mitral Valve CKD Stage 3 PLAN: s/p sutures by ER MD Dr. Smart to be left intact for two weeks. topical bacitracin for open lacerations. resumed on home meds. prn tramadol and tylenolfor pain avoid sedatives or hypnotics due to increased risk of acute delirium on baseline dementia. pt's daughters will be taking turns providing 24 /7 supervision during her inpt stay. pfs consulted to assist in snf placement. no other acute medical issues. VS, I&O, 24H, [facility] Vital Signs/I&O Vital Signs Date Time Temp Pulse Resp B/P (MAP) Pulse Ox O2 Delivery O2 Flow Rate FiO2 03/30/20 06:00 97.4 62 14 142/56 (84) 93 Room Air I&O- Last 24 Hours up to 6 AM 03/30/20 06:00 Intake Total 300 ml Output Total 0 ml Balance 300 ml Laboratory Data 24H LABS Laboratory Tests 2 03/29/20 10:12: Coronavirus (COVID-19)(PCR) NEGATIVE, Influenza Type A (RT-PCR) NEGATIVE, Inf luenza Type B (RT-PCR) NEGATIVE, Respiratory Syncytial Virus (PCR) NEGATIVE 03/30/20 05:41: Nucleated Red Blood Cells % (auto) 0.0, Prothrombin Time 26.9H, Prothromb Time International Ratio 2.42, Anion Gap 5L, Glomerular Filtration Rate 59.1, Calcium Level 9.5 CBC/BMP Laboratory Tests 03/30/20 05:41 TERI SOLIMAN MD Mar 30, 2020 08:08
[2020-03-30 14:00] VITALS: BP 139/58
[2020-03-30] MEDS: WARFARIN SOD 3MG TAB PO SCH (17:08)
[2020-03-30] MEDS: ACETAMINOPHEN TAB 650MG DOSE (2X325MG) PO PRN ×2 (17:09→22:06)
[2020-03-30 22:00] VITALS: BP 118/64
[2020-03-30] MEDS: DONEPEZIL 5 MG TAB PO SCH (22:04)
[2020-03-30] MEDS: MULTIVITAMINS/MINERALS THERAP 1 TAB PO SCH (22:04)
[2020-03-30] MEDS: SIMVASTATIN 40 MG TAB PO SCH (22:05)
[2020-03-31 06:00] VITALS: BP 131/56
[2020-03-31 06:25] LABS: HEMATOCRIT 38.8 % (36.0-47.0); HEMOGLOBIN 12.5 g/dl (12.0-15.5); MEAN CORPUSCULAR HEMOGLOBIN 29.2 pg (27.0-33.0); MEAN CORPUSCULAR HGB CONC 32.2 g/dl (32.0-36.5); MEAN CORPUSCULAR VOLUME 90.7 fl (80.0-96.0); PLATELET COUNT, AUTOMATED 202 10^3/uL (150-450); RED BLOOD COUNT 4.28 10^6/uL (4.00-5.40); WHITE BLOOD COUNT 9.1 10^3/uL (4.0-10.0)
[2020-03-31] MEDS: ACETAMINOPHEN TAB 650MG DOSE (2X325MG) PO PRN ×2 (06:34→23:56)
[2020-03-31] MEDS: LEVOTHYROXINE 25MCG TABLET (0.025MG) PO SCH (06:34)
[2020-03-31 06:38] LABS: INR 2.7; PROTHROMBIN TIME 29.3 SECONDS (12.5-14.3)
[2020-03-31 06:48] LABS: CALCIUM LEVEL 9.3 MG/DL (8.8-10.2); CREATININE FOR GFR 1.03 MG/DL (0.55-1.30); GLOMERULAR FILTRATION RATE 54.5 (>32); POTASSIUM SERUM 3.8 MEQ/L (3.5-5.1)
[2020-03-31] MEDS: ADVAIR HFA 45/21MCG INHALER INH SCH ×2 (08:00→20:26)
[2020-03-31] MEDS: DOCUSATE SODIUM 100MG CAPSULE PO SCH ×2 (08:36→20:22)
[2020-03-31] MEDS: SPIRONOLACTONE 25 MG TAB PO SCH (08:36)
[2020-03-31] MEDS: POTASSIUM CHLORIDE 10 MEQ SR TABLET PO SCH ×2 (08:36→18:18)
[2020-03-31] MEDS: CALCIUM/VITAMIN D 500 MG TAB PO SCH ×3 (08:36→20:22)
[2020-03-31] MEDS: TORSEMIDE 100 MG TAB PO SCH (08:36)
[2020-03-31] MEDS: BACITRACIN OINTMENT 30GM TUBE TOP SCH ×2 (08:37→20:22)
--- NOTE | 2020-03-31 09:01 | IPNPDOC ---
Date Seen The patient was seen on 03/31/20. Progress Note Subjective: pulled out her iv yesterday. re-directed by daughter at the bedside. right anterior thigh dressing dislodged, but daughter said mom was not scratching it. no new issues overnight. denied any pain . per daughter pt was lethargic most of the day yesterday after one dose of tramadol. preferred tylenol for pain. Objective: PHYSICAL EXAMINATION: vitals: see below GEN: taking her pills w rn and daughter at the bedside no distress pleasant aaox2 HEENT: superficial laceration on left forehead and left neck, clean w/o erythema or tenderness EOMI, no cervical LAD or thyromegaly . face is symmetric Lungs: CTAB Heart: S1S2 irregularly irregular Abd: +bs soft groin tender w sutures intact no purulence or bloody discharge left anterior thigh 2x 2 cm laceration w intact sutures w/o drainage,erythema, crepitus or induration ext: no cyanosis or clubbing LABORATORY DATA, IMAGING STUDIES, MICROBIOLOGY: SEE BELOW ASSESSMENT AND PLAN: 84 y/o F lives w her at [facility] living fell in her bedroom between the two twin beds when she got up in the middle of the night to go to the bathroom to urinate, scraping her face, neck, and groin on the bed frame, needing sutures in the ER for the groin laceration. Pt denied any prodromal symptoms such as chest pain, pressure, tightness, dizziness, lightheadedness, cough, nausea, vomiting,diaphoresis. Family requesting SNF placement due to worsening dementia and gait imbalance. She otherwise denies any infectious symptoms such as fever, chills, dysuria, urgency, frequency, diarrhea, abd pain. no other c/o.Pt has been admitted as an inpatient s/p mechanical fall w groin laceration requiring sutures, for placement due toworsening dementia and gait imbalance per familyrequest. Mechanical Fall Traumatic Injury Face, neck, left anterior thigh laceration left 2x2cm anterior thigh laceration requiring sutures musculoskeletal chest pain,resolved sundowning gait imbalance Alzheimer's Dementia. HTN. A-Fib. Diastolic Heart Failure. COPD Mechanical Mitral Valve CKD Stage 3 PLAN: despite sundowning, pt was re-directable and has not needed any sedatives which we are trying to avoid. daughter at the bedside is a teacher and will be returning to work tomorrow, but hte otherdaughter willbe available during the day and both are ableto provide 24/7care while she is in the hospital, but requesting snf placement due to pt requiring 2person max assist getting to bedside commode. continue supportive care w prn aceta minophen for pain assisted ambulation. therapeutic inr on warfarin dose. no other acute issues. medically stable for dc to snf anytime. pfs to help expedite sybil keep application. covid 19 negative.sut ures to remain in place for ten days per dr. daily,MINH schultz who placed sutures. topical bacitracin to superficial lacerations w/o signs of cellulitis or abscess. VS, I&O, 24H, Fishbone Vital Signs/I&O Vital Signs Date Time Temp Pulse Resp B/P (MAP) Pulse Ox O2 Delivery O2 Flow Rate FiO2 03/31/20 06:00 97.2 61 16 131/56 (81) 95 Room Air I&O- Last 24 Hours up to 6 AM 03/31/20 06:00 Intake Total 770 ml Output Total 0 ml Balance 770 ml Laboratory Data 24H LABS Laboratory Tests 2 03/31/20 05:57: Nucleated Red Blood Cells % (auto) 0.0, Prothrombin Time 29.3H, Prothromb Time International Ratio 2.70, Anion Gap 5L, Glomerular Filtration Rate 54.5, Calcium Level 9.3 CBC/BMP Laboratory Tests 03/31/20 05:57 TERI SOLIMAN MD Mar 31, 2020 08:33
[2020-03-31 14:00] VITALS: BP 135/58
[2020-03-31] MEDS: WARFARIN SOD 3MG TAB PO SCH (16:42)
[2020-03-31] MEDS: MULTIVITAMINS/MINERALS THERAP 1 TAB PO SCH (20:22)
[2020-03-31] MEDS: SIMVASTATIN 40 MG TAB PO SCH (20:22)
[2020-03-31] MEDS: DONEPEZIL 5 MG TAB PO SCH (20:22)
[2020-03-31] MEDS: INCRUSE ELLIPTA (PATIENT'S OWN MED) INH SCH (20:25)
[2020-03-31 22:00] VITALS: BP 137/58
[2020-04-01] MEDS: LEVOTHYROXINE 25MCG TABLET (0.025MG) PO SCH (05:49)
[2020-04-01 06:00] VITALS: BP 137/57
[2020-04-01] MEDS: ACETAMINOPHEN TAB 650MG DOSE (2X325MG) PO PRN (06:06)
[2020-04-01 06:32] LABS: HEMATOCRIT 37.3 % (36.0-47.0); HEMOGLOBIN 12.4 g/dl (12.0-15.5); MEAN CORPUSCULAR HEMOGLOBIN 29.9 pg (27.0-33.0); MEAN CORPUSCULAR HGB CONC 33.2 g/dl (32.0-36.5); MEAN CORPUSCULAR VOLUME 89.9 fl (80.0-96.0); PLATELET COUNT, AUTOMATED 202 10^3/uL (150-450); RED BLOOD COUNT 4.15 10^6/uL (4.00-5.40); WHITE BLOOD COUNT 8.6 10^3/uL (4.0-10.0)
[2020-04-01 06:40] LABS: INR 2.81; PROTHROMBIN TIME 30.2 SECONDS (12.5-14.3)
[2020-04-01 06:59] LABS: CALCIUM LEVEL 9.5 MG/DL (8.8-10.2); CREATININE FOR GFR 0.99 MG/DL (0.55-1.30); POTASSIUM SERUM 3.7 MEQ/L (3.5-5.1)
[2020-04-01] MEDS: SPIRONOLACTONE 25 MG TAB PO SCH (09:17)
[2020-04-01] MEDS: DOCUSATE SODIUM 100MG CAPSULE PO SCH ×2 (09:17→21:34)
[2020-04-01] MEDS: BACITRACIN OINTMENT 30GM TUBE TOP SCH ×2 (09:18→21:34)
[2020-04-01] MEDS: TORSEMIDE 100 MG TAB PO SCH (09:18)
[2020-04-01] MEDS: CALCIUM/VITAMIN D 500 MG TAB PO SCH ×3 (09:18→21:34)
[2020-04-01] MEDS: POTASSIUM CHLORIDE 10 MEQ SR TABLET PO SCH ×2 (09:18→16:58)
--- NOTE | 2020-04-01 09:28 | IPNPDOC ---
Date Seen The patient was seen on 04/01/20. Progress Note Subjective: continues to sundown, but re-oriented by daughter at the bedside. c/o pain in left knee where there is a bruise when she ambulated in the room w daughter. increased le edema,but no sob, cp, cough. good appetite. not scratching her left neck swab or right anterior thigh sutures. Objective: PHYSICAL EXAMINATION: vitals: see below GEN: eating oatmeal at the bedside. aaox 1 person only pleasant . HEENT: superficial laceration on left forehead and left neck, clean w/o erythema or tenderness EOMI, no cervical LAD or thyromegaly . face is symmetric Lungs: CTAB Heart: S1S2 irregularly irregular Abd: +bs soft groin tender w sutures intact no purulence or bloody discharge left anterior thigh 2x 2 cm laceration w intact sutures w/o drainage,erythema, crepitus or induration ext: no cyanosis or clubbing. +1+ edema b/l LABORATORY DATA, IMAGING STUDIES, MICROBIOLOGY: SEE BELOW ASSESSMENT AND PLAN: 84 y/o F lives w her at [facility] living fell in her bedroom between the two twin beds when she got up in the middle of the night to go to the bathroom to urinate, scraping her face, neck, and groin on the bed frame, needing sutures in the ER for the groin lacera tion. Pt denied any prodromal symptoms such as chest pain, pressure, tightness, dizziness, lightheadedness, cough, nausea, vomiting,diaphoresis. Family requesting SNF placement due to worsening dementia and gait imbalance. She otherwise denies any infectious symptoms such as fever, chills, dysuria, urgency, frequency, diarrhea, abd pain. no other c/o.Pt has been admitted as an inpatient s/p mechanical fall w groin laceration requiring sutures, for placement due toworsening dementia and gait imbalance per familyrequest. Mechanical Fall,Traumatic Injury, Face, neck, left anterior thigh lacer ation,left 2x2cm anterior thigh laceration requiring sutures musculoskeletal chest pain, gait imbalance -due to persistent pain , will make acetaminophen tid -had lethargy w tramadol -assisted ambulation only -full 10 days before sutures can be removed from admission per Dr. daily-keep dry ing -avoid hyponotics, sedatives -re-oriented by daughter at the bedside Alzheimer's Dementia. -pfs consulted to expedite sybil keep application for snf placement HTN. -controlled on home meds A-Fib. -rate controlled -resumed home mes Diastolic Heart Failure. -fluid overloaded with LE edema -lasix and resume diuretics COPD -inhalers resumed -compensated Mechanical Mitral Valve -therapeutic on warfarin CKD Stage 3 -resumed home meds. VS, I&O, 24H, Fishbone Vital Signs/I&O Vital Signs Date Time Temp Pulse Resp B/P (MAP) Pulse Ox O2 Delivery O2 Flow Rate FiO2 04/01/20 06:00 98.7 61 18 137/57 (83) 94 Room Air I&O- Last 24 Hours up to 6 AM 04/01/20 06:00 Intake Total 1770 ml Output Total 350 ml Balance 1420 ml Laboratory Data 24H LABS Laboratory Tests 2 04/01/20 05:42: Nucleated Red Blood Cells % (auto) 0.0, Prothrombin Time 30.2H, Prothromb Time International Ratio 2.81, Anion Gap 8, Glomerular Filtration Rate 57.0, Calcium Level 9.5 CBC/BMP Laboratory Tests 04/01/20 05:42 TERI SOLIMAN MD Apr 01, 2020 09:28
[2020-04-01] MEDS ORDERED: FUROSEMIDE 20 MG TAB PO ONE (10:00)
[2020-04-01] MEDS ORDERED: FUROSEMIDE 20MG/2ML VIAL (J1940) IV ONE (10:00)
[2020-04-01] MEDS: ADVAIR HFA 45/21MCG INHALER INH SCH ×2 (11:30→20:11)
[2020-04-01 14:00] VITALS: BP 151/64
[2020-04-01] MEDS: WARFARIN SOD 3MG TAB PO SCH (16:58)
[2020-04-01] MEDS: INCRUSE ELLIPTA (PATIENT'S OWN MED) INH SCH (20:11)
[2020-04-01] MEDS: MULTIVITAMINS/MINERALS THERAP 1 TAB PO SCH (21:34)
[2020-04-01] MEDS: DONEPEZIL 5 MG TAB PO SCH (21:34)
[2020-04-01] MEDS: SIMVASTATIN 40 MG TAB PO SCH (21:40)
[2020-04-01 22:00] VITALS: BP 117/39
[2020-04-02 06:00] VITALS: BP 134/51
[2020-04-02] MEDS: LEVOTHYROXINE 25MCG TABLET (0.025MG) PO SCH (06:27)
[2020-04-02 07:20] LABS: HEMATOCRIT 37.6 % (36.0-47.0); HEMOGLOBIN 12.4 g/dl (12.0-15.5); MEAN CORPUSCULAR HEMOGLOBIN 29.5 pg (27.0-33.0); MEAN CORPUSCULAR VOLUME 89.3 fl (80.0-96.0); PLATELET COUNT, AUTOMATED 212 10^3/uL (150-450); RED BLOOD COUNT 4.21 10^6/uL (4.00-5.40)
[2020-04-02 07:30] LABS: INR 2.85; PROTHROMBIN TIME 30.6 SECONDS (12.5-14.3)
[2020-04-02 07:38] LABS: CALCIUM LEVEL 9.7 MG/DL (8.8-10.2); CREATININE FOR GFR 0.98 MG/DL (0.55-1.30); GLOMERULAR FILTRATION RATE 57.7 (>32); POTASSIUM SERUM 3.7 MEQ/L (3.5-5.1)
[2020-04-02] MEDS: ADVAIR HFA 45/21MCG INHALER INH SCH ×2 (07:49→21:48)
[2020-04-02] MEDS: CALCIUM/VITAMIN D 500 MG TAB PO SCH ×3 (08:48→21:00)
[2020-04-02] MEDS: DOCUSATE SODIUM 100MG CAPSULE PO SCH ×2 (08:48→21:00)
[2020-04-02] MEDS: BACITRACIN OINTMENT 30GM TUBE TOP SCH ×2 (08:49→21:01)
[2020-04-02] MEDS: TORSEMIDE 100 MG TAB PO SCH (08:49)
[2020-04-02] MEDS: POTASSIUM CHLORIDE 10 MEQ SR TABLET PO SCH ×2 (08:49→17:13)
[2020-04-02] MEDS: SPIRONOLACTONE 25 MG TAB PO SCH (08:49)
[2020-04-02] MEDS: WARFARIN SOD 3MG TAB PO SCH (17:13)
[2020-04-02] MEDS: MULTIVITAMINS/MINERALS THERAP 1 TAB PO SCH (21:00)
[2020-04-02] MEDS: SIMVASTATIN 40 MG TAB PO SCH (21:00)
[2020-04-02] MEDS: DONEPEZIL 5 MG TAB PO SCH (21:01)
[2020-04-02] MEDS: INCRUSE ELLIPTA (PATIENT'S OWN MED) INH SCH (21:49)
[2020-04-02] MEDS ORDERED: ACETAMINOPHEN TAB 650MG DOSE (2X325MG) PO PRN (23:15)
--- NOTE | 2020-04-02 23:18 | IPNPDOC ---
Text Note Date of Service The patient was seen on 04/02/20. NOTE Subjective: Continues to have sundowning, but re-oriented by daughter at the bedside. Does not offer any complaints this morning. PHYSICAL EXAMINATION: vitals: see below GEN: eating oatmeal at the bedside. aaox 1 person only, pleasant and cooperative. HEENT: superficial laceration on left forehead and left neck, clean w/o erythema or tenderness EOMI, no cervical LAD or thyromegaly . face is symmetric Lungs: CTAB Heart: S1S2 irregularly irregular, no murmur or gallop Abd: +bs, soft, nontender, groin tender w sutures intact no purulence ext: no cyanosis or clubbing. +1+ edema b/l, left anterior thigh 2x 2 cm laceration w intact sutures w/o drainage,erythema, crepitus or induration LABORATORY DATA, IMAGING STUDIES, MICROBIOLOGY: SEE BELOW ASSESSMENT AND PLAN: 84 y/o F lives w her at [facility] living fell in her bedroom between the two twin beds when she got up in the middle of the night to go to the bathroom to urinate, scraping her face, neck, and groin on the bed frame, needing sutures in the ER for the groin laceration. Pt denied any prodromal symptoms such as chest pain, pressure, tightness, dizziness, lightheadedness, cough, nausea, vomiting,diaphoresis. Family requesting SNF placement due to worsening dementia and gait imbalance. She otherwise denies any infectious symptoms such as fever, chills, dysuria, urgency, frequency, diarrhea, abd pain. no other c/o.Pt has been admitted as an inpatient s/p mechanical fall w groin laceration requiring sutures, for placement due toworsening dementia and gait imbalance per familyrequest. Mechanical Fall/ gait instability. Traumatic Injury, Face, neck, left 2x2cm anterior thigh laceration requiring sutures Pain control with tylenol had lethargy w tramadol assisted ambulation only full 10 days before sutures can be removed from admission per Dr. daily-keep dry Sundowning/ Delirium avoid hyponotics, sedatives re-oriented by daughter at the bedside Alzheimer's Dementia. for terminologist placement. On Donepezil HTN. BP controlled On diuretics Mechanical Mitral Valve therapeutic on warfarin A-Fib. rate controlled resumed home meds On coumadin. Diastolic Heart Failure. resumed diuretics. On torsemide and spironolactone COPD inhalers resumed compensated advair, incruse CKD Stage 3 resumed home meds. HLD statin Hypothyroid synthroid. Dispo: [facility]. Will change to ALC status. OK to go to [facility] for second dose of COVID vaccine on 04/03/20 VS,Beth, I+O VS, Beth, I+O Laboratory Tests 04/02/20 06:36 Vital Signs Date Time Temp Pulse Resp B/P (MAP) Pulse Ox O2 Delivery O2 Flow Rate FiO2 04/02/20 06:00 97.7 60 17 134/51 (78) 92 Room Air I&O- Last 24 Hours up to 6 AM 04/02/20 07:00 Intake Total 1020 ml Output Total 250 ml Balance 770 ml DEMARCO OSUNA MD Apr 02, 2020 23:18
[2020-04-03 06:00] VITALS: BP 130/50
[2020-04-03] MEDS: LEVOTHYROXINE 25MCG TABLET (0.025MG) PO SCH (06:01)
[2020-04-03 08:03] LABS: HEMATOCRIT 38.2 % (36.0-47.0); HEMOGLOBIN 12.2 g/dl (12.0-15.5); MEAN CORPUSCULAR HEMOGLOBIN 28.9 pg (27.0-33.0); MEAN CORPUSCULAR HGB CONC 31.9 g/dl (32.0-36.5); MEAN CORPUSCULAR VOLUME 90.5 fl (80.0-96.0); PLATELET COUNT, AUTOMATED 202 10^3/uL (150-450); RED BLOOD COUNT 4.22 10^6/uL (4.00-5.40); WHITE BLOOD COUNT 9.9 10^3/uL (4.0-10.0)
[2020-04-03 08:17] LABS: INR 3.06; PROTHROMBIN TIME 32.3 SECONDS (12.5-14.3)
[2020-04-03 08:25] LABS: CALCIUM LEVEL 9.7 MG/DL (8.8-10.2); CREATININE FOR GFR 1.02 MG/DL (0.55-1.30); GLOMERULAR FILTRATION RATE 55.1 (>32); POTASSIUM SERUM 3.7 MEQ/L (3.5-5.1)
[2020-04-03] MEDS: ADVAIR HFA 45/21MCG INHALER INH SCH (08:31)
[2020-04-03] MEDS: DOCUSATE SODIUM 100MG CAPSULE PO SCH (08:49)
[2020-04-03] MEDS: SPIRONOLACTONE 25 MG TAB PO SCH (08:50)
[2020-04-03] MEDS: POTASSIUM CHLORIDE 10 MEQ SR TABLET PO SCH (08:50)
[2020-04-03] MEDS: TORSEMIDE 100 MG TAB PO SCH (08:50)
[2020-04-03] MEDS: CALCIUM/VITAMIN D 500 MG TAB PO SCH (08:50)
[2020-04-03] MEDS: BACITRACIN OINTMENT 30GM TUBE TOP SCH (08:51)
[2020-04-03] MEDS ORDERED: ACETAMINOPHEN 500 MG TAB PO SCH (09:00)
[2020-04-03] MEDS ORDERED: BACI50OI TOP (09:22)
--- NOTE | 2020-04-03 10:04 | DS.PDOC ---
Discharge Summary General Date of Admission Mar 29, 2020 at 09:56 Date of Discharge 04/03/20 Discharge Summary PROCEDURES PERFORMED DURING STAY: Stitches on right thigh laceration. DISCHARGE DIAGNOSES: Advanced Dementia Fall with laceration to right thigh SECONDARY DIAGNOSIS: HTN, Mechanical Mitral valve on coumadin, COPD, Diastolic CHF, CKD stage 3, chronic afib, HLD, hypothyroid COMPLICATIONS/CHIEF COMPLAINT: Leg Laceration. HOSPITAL COURSE: 84 y/o F with dementia, gait instability, HTN, mechanical Mitral valve on coumadin, COPD, Diastolic CHF, CKD stage 3, chronic afib, HLD, hypothyroid lived with her at [facility] fell in her bedroom between the two twin beds when she got up in the middle of the night to go to the bathroom to urinate, scraping her face, neck, and thigh on the bed frame, needing sutures in the ER for the thigh laceration. Family requesting SNF placement due to worsening dementia and gait imbalance. Mechanical Fall/ gait instability. Traumatic Injury, Face, neck, right 2cm anterior thigh laceration requiring sutures Pain control with tylenol had lethargy with tramadol assisted ambulation only full 10 days before sutures can be removed from admission per Dr. daily-keep dry Sundowning/ Delirium avoid hyponotics, sedatives re-oriented by daughter at the bedside Alzheimer's Dementia. 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 On Donepezil HTN. BP controlled On diuretics Mechanical Mitral Valve therapeutic on warfarin INR range 2.5 to 3.5 therapeutic for this patient. A-Fib. rate controlled resumed home meds On coumadin. Diastolic Heart Failure. resumed diuretics. On torsemide and spironolactone COPD inhalers resumed compensated advair, incruse CKD Stage 3 resumed home meds. HLD statin Hypothyroid synthroid. DISCHARGE MEDICATIONS: Please see below. ALLERGIES: Please see below. PHYSICAL EXAMINATION ON DISCHARGE: VITAL SIGNS: Please see below. GEN: eating oatmeal at the bedside. aaox 1 person only, pleasant and cooperative. HEENT: superficial laceration on left forehead and left neck, clean w/o erythema or tenderness EOMI, no cervical LAD or thyromegaly . face is symmetric Lungs: CTAB Heart: S1S2 irregularly irregular, no murmur or gallop ABD: +bs, soft, nontender, groin tender w sutures intact no purulence ext: no cyanosis or clubbing. +1+ edema b/l, right anterior thigh 2x 2 cm laceration w intact sutures w/o drainage,erythema, crepitus or induration LABORATORY DATA: Please see below. ACTIVITY: [As tolerated]. DIET:As tolerated DISCHARGE PLAN: [facility] DISCHARGE CONDITION: [Stable]. TIME SPENT ON DISCHARGE: 35 minutes. Vital Signs/I&Os Vital Signs Date Time Temp Pulse Resp B/P (MAP) Pulse Ox O2 Delivery O2 Flow Rate FiO2 04/03/20 06:00 98.5 63 19 130/50 (76) 94 Room Air I&O- Last 24 Hours up to 6 AM 04/03/20 06:00 Intake Total 700 ml Balance 700 ml Laboratory Data Labs 24H Laboratory Tests 2 04/02/20 15:38: Coronavirus (COVID-19)(PCR) NEGATIVE 04/03/20 06:55: Nucleated Red Blood Cells % (auto) 0.0, Prothrombin Time 32.3H, Prothromb Time International Ratio 3.06, Anion Gap 9, Glomerular Filtration Rate 55.1, Calcium Level 9.7 CBC/BMP Laboratory Tests 04/03/20 06:55 Discharge Medications Scheduled Bacitracin (Bacitracin) 28.4 Gm Oint...g., 0 DOSE TOP BID Calcium Carbonate/Vitamin D3 (Calcium 500-Vit D3 200 Caplet) 1 Each Tablet, 1 TAB PO TID, (Reported) Cholecalciferol (Vitamin D3) (Vitamin D3) 125 Mcg Capsule, 125 MCG PO DAILY, (Reported) TAKES AT 1300 Docusate Sodium (Colace) 100 Mg Capsule, 100 MG PO BID, (Reported) Donepezil HCl (Aricept) 5 Mg Tab, 5 MG PO QHS, (Reported) Levothyroxine Sodium (Levothyroxine Sodium) 25 Mcg Tablet, 25 MCG PO DAILY, (Reported) Multivitamins (Thera M Plus Tablet) 1 Each Tablet, 1 TAB PO QHS, (Reported) Potassium Chloride (Potassium Chloride) 10 Meq Tab.er.prt, 10 MEQ PO BID, (Reported) TAKES 0800 AND 1800 Salmeterol/Fluticasone (Advair 100-50 Diskus) 28 Puff/Inhaler Aerp, 1 PUFF INH BID, (Reported) Simvastatin (Simvastatin) 40 Mg Tab, 40 MG PO QHS, (Reported) Spironolactone (Spironolactone) 25 Mg Tab, 25 MG PO DAILY, (Reported) Torsemide (Torsemide) 100 Mg Tab, 100 MG PO DAILY, (Reported) Umeclidinium [place] (Incruse Ellipta) 62.5 Mcg Blst.w.dev, 1 PUFF PO QHS, (Reported) Warfarin Sodium (Warfarin Sodium) 3 Mg Tablet, 3 MG PO QHS, (Reported) Scheduled PRN Acetaminophen (Tylenol) 325 Mg Tablet, 650 MG PO Q6H PRN for PAIN / FEVER, (Reported) Albuterol Sulf (Albuterol Sulfate) 2.5 Mg/3 Ml Vial.neb, 2.5 MG INH QID PRN for SOB/WHEEZING, (Reported) Ipratropium/Albuterol Sulfate (Iprat-Albut 0.5-3(2.5) mg/3 ml) 3 Ml Ampul.neb, 1 STEVE INH QID PRN for SHORTNESS OF BREATH, (Reported) Allergies Coded Allergies: Penicillins (Verified Allergy, Intermediate, rash, 01/31/20) chlorpromazine (Verified Allergy, Unknown, 01/31/20) codeine (Verified Adverse Reaction, Unknown, vomiting, 01/31/20) DEMARCO OSUNA MD Apr 03, 2020 09:37
--- NOTE | 2020-04-14 16:27 | HPEPDOC ---
[facility] Medical History & Physical Date of Admission Mar 29, 2020 Date of Service: Mar 29, 2020 History and Physical CHIEF COMPLAINT: mechanical fall at [facility] HPI: 84 y/o F lives w her at [facility] fell in her bedroom between the two twin beds when she got up in the middle of the night to go to the bathroom to urinate, scraping her face, neck, and groin on the bed frame, needing sutures in the ER for the groin laceration. Pt denied any prodromal symptoms such as chest pain, pressure, tightness, dizziness, lightheadedness, cough, nausea, vomiting,diaphoresis. Family requesting SNF placement due to worsening dementia and gait imbalance. She otherwise denies any infectious symptoms such as fever, chills, dysuria, urgency, frequency, diarrhea, abd pain. no other c/o. PAST MEDICAL HISTORY: 1. Alzheimer's Dementia. 2. HTN. 3. A-Fib. 4. Diastolic Heart Failure. 5. COPD 6. Mechanical Mitral Valve 7. CKD Stage 3 PAST SURGICAL HISTORY: 1. Pacemaker. 2. Mitral Mechanical Valve Replacement. SOCIAL HISTORY: Marital status: . Resides in: [facility]. 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 Tobacco use: Former smoker. Daughter reports that she quit in the 70s, and smoked less than one pack a day ETOH: used to drink socially. FAMILY HISTORY: Mother: of a stroke in her 60s. ALLERGIES: Please see below. REVIEW OF SYSTEMS: 12 point ROS negative aside from +findings on HPI HOME MEDICATIONS: Please see below. PHYSICAL EXAMINATION: vitals: see below GEN: aaox1 person only. pleasant but confused no pallor no distress. speaks in full sentences HEENT: superficial laceration on left forehead and left neck, EOMI, no cervical LAD or thyromegaly . face is symmetric Lungs: CTAB Heart: S1S2 irregularly irregular Abd: +bs soft groin tender w sutures intact no purulence or bloody discharge ext: no cyanosis or clubbing LABORATORY DATA, IMAGING STUDIES, MICROBIOLOGY: SEE BELOW ASSESSMENT AND PLAN: 84 y/o F lives w her at [facility] fell in her bedroom between the two twin beds when she got up in the middle of the night to go to the bathroom to urinate, scraping her face, neck, and groin on the bed frame, needing sutures in the ER for the groin laceration. Pt denied any prodromal symptoms such as chest pain, pressure, tightness, dizziness, lightheadedness, cough, nausea, vomiting,diaphoresis. Family requesting SNF placement due to worsening dementia and gait imbalance. She otherwise denies any infectious symptoms such as fever, chills, dysuria, urgency, frequency, diarrhea, abd pain. no other c/o.Pt has been admitted as an inpatient s/p mechanical fall w groin laceration requiring sutures, for placement due toworsening dementia and gait imbalance per familyrequest. Mechanical Fall Traumatic Injury Face, neck, groin laceration groin laceration requiring sutures gait imbalance Alzheimer's Dementia. HTN. A-Fib. Diastolic Heart Failure. COPD Mechanical Mitral Valve CKD Stage 3 PLAN: s/p sutures by ER MD Dr. Smart. topical bacitracin for open lacerations. resumed on home meds. prn tramadol for pain. bid tylenol for comfort. pfs consulted to assist in snf placement. no other acute medical issues. Home Medications Scheduled Bacitracin (Bacitracin) 28.4 Gm Oint...g., 0 DOSE TOP BID Calcium Carbonate/Vitamin D3 (Calcium 500-Vit D3 200 Caplet) 1 Each Tablet, 1 TAB PO TID Cholecalciferol (Vitamin D3) (Vitamin D3) 125 Mcg Capsule, 125 MCG PO DAILY TAKES AT 1300 Docusate Sodium (Colace) 100 Mg Capsule, 100 MG PO BID Donepezil HCl (Aricept) 5 Mg Tab, 5 MG PO QHS Levothyroxine Sodium (Levothyroxine Sodium) 25 Mcg Tablet, 25 MCG PO DAILY Multivitamins (Thera M Plus Tablet) 1 Each Tablet, 1 TAB PO QHS Potassium Chloride (Potassium Chloride) 10 Meq Tab.er.prt, 10 MEQ PO BID TAKES 0800 AND 1800 Salmeterol/Fluticasone (Advair 100-50 Diskus) 28 Puff/Inhaler Aerp, 1 PUFF INH BID Simvastatin (Simvastatin) 40 Mg Tab, 40 MG PO QHS Spironolactone (Spironolactone) 25 Mg Tab, 25 MG PO DAILY Torsemide (Torsemide) 100 Mg Tab, 100 MG PO DAILY Umeclidinium [place] (Incruse Ellipta) 62.5 Mcg Blst.w.dev, 1 PUFF PO QHS Warfarin Sodium (Warfarin Sodium) 3 Mg Tablet, 3 MG PO QHS Scheduled PRN Acetaminophen (Tylenol) 325 Mg Tablet, 650 MG PO Q6H PRN for PAIN / FEVER Albuterol Sulf (Albuterol Sulfate) 2.5 Mg/3 Ml Vial.neb, 2.5 MG INH QID PRN for SOB/WHEEZING Ipratropium/Albuterol Sulfate (Iprat-Albut 0.5-3(2.5) mg/3 ml) 3 Ml Ampul.neb, 1 STEVE INH QID PRN for SHORTNESS OF BREATH Allergies Coded Allergies: Penicillins (Verified Allergy, Intermediate, rash, 01/31/20) chlorpromazine (Verified Allergy, Unknown, 01/31/20) codeine (Verified Adverse Reaction, Unknown, vomiting, 01/31/20) A-FIB/CHADSVASC A-FIB History Current/History of A-Fib/PAF?: Yes Current PO Anticoag Therapy: Yes Age/Risk Factor Scoring CHADSVASC: CHADSVASC Response (Comments) Value Age Risk Factor Age >/= 75 years old 2 Gender Risk Factor Female 1 Hx of CHF Yes 1 Hx of HTN Yes 1 Hx of Stroke/TIA/or VTE No 0 Hx of Diabetes No 0 Hx of Vascular Disease No 0 Total 5 Treatment Treatment ordered: Apixaban TERI SOLIMAN MD Apr 14, 2020 16:26
== END 2020-04-03 11:45 | DRG 57 ==
LOC: M ED 02:31 → M ED INP 09:56 → M MSPAV 17:44
PROVIDERS: ADMIT General Practice; ATTEND Internal Medicine Nephrology
DX: G30.9 Alzheimer's disease, unspecified (principal); I13.0 Hypertensive heart and chronic kidney disease with heart failure and stage 1 through stage 4 chronic kidney disease, or unspecified chronic kidney disease; I50.32 Chronic diastolic (congestive) heart failure; I48.20 Chronic atrial fibrillation, unspecified; R26.89 Other abnormalities of gait and mobility; N18.30 Chronic kidney disease, stage 3 unspecified; J44.9 Chronic obstructive pulmonary disease, unspecified; S31.119A Laceration without foreign body of abdominal wall, unspecified quadrant without penetration into peritoneal cavity, initial encounter; S01.81XA Laceration without foreign body of other part of head, initial encounter; F02.80 Dementia in other diseases classified elsewhere, unspecified severity, without behavioral disturbance, psychotic disturbance, mood disturbance, and anxiety; E03.9 Hypothyroidism, unspecified; Z79.01 Long term (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 anticoagulants; Z95.2 Presence of prosthetic heart valve; Z79.899 Other long term (current) drug therapy; Z88.0 Allergy status to penicillin; Z88.5 Allergy status to narcotic agent; Z88.8 Allergy status to other drugs, medicaments and biological substances; Z87.891 Personal history of nicotine dependence; Z66 Do not resuscitate; W18.30XA Fall on same level, unspecified, initial encounter; Y92.009 Unspecified place in unspecified non-institutional (private) residence as the place of occurrence of the external cause

== ENCOUNTER → 2020-04-10 | Outpatient (REF) ==
[~2020-04-10] MED LIST changes: +BACI50OI TOP
== END ==
LOC: SKLAB2 11:00
PROVIDERS: ATTEND Internal Medicine
DX: Z20.822 Contact with and (suspected) exposure to COVID-19 (principal)

== ENCOUNTER → 2020-04-16 | Outpatient (REF) | payer MEDICARE, OTHER ==
[2020-04-16 10:24] LABS: INR 2.37; PROTHROMBIN TIME 26.4 SECONDS (12.5-14.3)
== END ==
LOC: SKLAB2 09:32
PROVIDERS: ATTEND Internal Medicine
DX: Z79.01 Long term (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 anticoagulants (principal); Z95.2 Presence of prosthetic heart valve

== ENCOUNTER → 2020-04-17 | Outpatient (REF) ==
[2020-04-17 07:31] LABS: HEMATOCRIT 44.3 % (36.0-47.0); HEMOGLOBIN 14.3 g/dl (12.0-15.5); MEAN CORPUSCULAR HGB CONC 32.3 g/dl (32.0-36.5); MEAN CORPUSCULAR VOLUME 89.9 fl (80.0-96.0); PLATELET COUNT, AUTOMATED 247 10^3/uL (150-450); RED BLOOD COUNT 4.93 10^6/uL (4.00-5.40); WHITE BLOOD COUNT 13.7 10^3/uL (4.0-10.0)
[2020-04-17 07:54] LABS: ALBUMIN 3.6 GM/DL (3.2-5.2); BILIRUBIN,TOTAL 1.1 MG/DL (0.2-1.0); CALCIUM LEVEL 9.7 MG/DL (8.8-10.2); CREATININE FOR GFR 1.31 MG/DL (0.55-1.30); GLOMERULAR FILTRATION RATE 41.3 (>32); POTASSIUM SERUM 4.1 MEQ/L (3.5-5.1); THYROID STIMULATING HORMONE 2.52 uIU/ML (0.358-3.740); TOTAL PROTEIN 6.7 GM/DL (6.4-8.2)
== END ==
LOC: SKLAB2 10:09
PROVIDERS: ATTEND Internal Medicine
DX: Z20.822 Contact with and (suspected) exposure to COVID-19 (principal); I50.9 Heart failure, unspecified; E03.9 Hypothyroidism, unspecified

== ENCOUNTER → 2020-04-19 | Outpatient (REF) | payer MEDICARE, OTHER ==
[2020-04-19 09:26] LABS: INR 1.61; PROTHROMBIN TIME 19.5 SECONDS (12.5-14.3)
== END ==
LOC: SKLAB2 08:52
PROVIDERS: ATTEND Internal Medicine
DX: Z79.01 Long term (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 anticoagulants (principal); Z51.81 Encounter for therapeutic drug level monitoring

== ENCOUNTER → 2020-04-22 | Outpatient (REF) ==
[2020-04-22 08:13] LABS: INR 1.95; PROTHROMBIN TIME 22.7 SECONDS (12.5-14.3)
== END ==
LOC: SKLAB2 14:28
PROVIDERS: ATTEND Internal Medicine
DX: Z95.2 Presence of prosthetic heart valve (principal)

== ENCOUNTER → 2020-04-24 | Outpatient (REF) | payer MEDICARE, OTHER | LOC: SKLAB2 08:16 | PROVIDERS: ATTEND Internal Medicine | DX: Z20.822 Contact with and (suspected) exposure to COVID-19 (principal) ==

== ENCOUNTER → 2020-04-26 | Outpatient (REF) | payer MEDICARE, OTHER ==
[2020-04-26 07:49] LABS: INR 3.55; PROTHROMBIN TIME 36.3 SECONDS (12.5-14.3)
[2020-04-26 08:14] LABS: CALCIUM LEVEL 9.8 MG/DL (8.8-10.2); CREATININE FOR GFR 1.01 MG/DL (0.55-1.30); GLOMERULAR FILTRATION RATE 55.7 (>32); POTASSIUM SERUM 4.3 MEQ/L (3.5-5.1)
== END ==
LOC: SKLAB2 09:44
PROVIDERS: ATTEND Internal Medicine
DX: I50.9 Heart failure, unspecified (principal); I48.91 Unspecified atrial fibrillation

== ENCOUNTER → 2020-04-30 | Outpatient (REF) | payer MEDICARE, OTHER ==
[2020-04-30 10:59] LABS: INR 2.15; PROTHROMBIN TIME 24.5 SECONDS (12.5-14.3)
== END ==
LOC: SKLAB2 10:03
PROVIDERS: ATTEND Internal Medicine
DX: I48.91 Unspecified atrial fibrillation (principal); Z79.899 Other long term (current) drug therapy

== ENCOUNTER → 2020-05-01 | Outpatient (REF) | payer MEDICARE, OTHER | LOC: SKLAB2 09:43 | PROVIDERS: ATTEND Internal Medicine | DX: Z20.822 Contact with and (suspected) exposure to COVID-19 (principal) ==

== ENCOUNTER → 2020-05-07 | Outpatient (REF) | payer MEDICARE, OTHER ==
[2020-05-07 08:24] LABS: INR 2.05; PROTHROMBIN TIME 23.6 SECONDS (12.5-14.3)
== END ==
LOC: SKLAB2 08:00
PROVIDERS: ATTEND Internal Medicine
DX: Z51.81 Encounter for therapeutic drug level monitoring (principal); Z79.899 Other long term (current) drug therapy

== ENCOUNTER → 2020-05-10 | Outpatient (REF) | payer MEDICARE, OTHER ==
[2020-05-10 07:09] LABS: CALCIUM LEVEL 9.4 MG/DL (8.8-10.2); CREATININE FOR GFR 0.96 MG/DL (0.55-1.30); GLOMERULAR FILTRATION RATE 59.1 (>32); POTASSIUM SERUM 3.8 MEQ/L (3.5-5.1)
== END ==
LOC: SKLAB2 07:00
PROVIDERS: ATTEND Internal Medicine
DX: I50.9 Heart failure, unspecified (principal)

== ENCOUNTER → 2020-05-14 | Outpatient (REF) | payer MEDICARE, OTHER ==
[2020-05-14 07:52] LABS: INR 3.2; PROTHROMBIN TIME 33.5 SECONDS (12.5-14.3)
== END ==
LOC: SKLAB2 10:34
PROVIDERS: ATTEND Internal Medicine
DX: Z95.2 Presence of prosthetic heart valve (principal)

== ENCOUNTER → 2020-05-15 | Outpatient (REF) | payer MEDICARE, OTHER | LOC: SKLAB2 08:00 | PROVIDERS: ATTEND Internal Medicine | DX: Z11.52 Encounter for screening for COVID-19 (principal) ==

== ENCOUNTER → 2020-05-21 | Outpatient (REF) | payer MEDICARE, OTHER ==
[2020-05-21 09:29] LABS: INR 4.49; PROTHROMBIN TIME 43.7 SECONDS (12.5-14.3)
== END ==
LOC: SKLAB2 09:06
PROVIDERS: ATTEND Internal Medicine
DX: I48.91 Unspecified atrial fibrillation (principal)

== ENCOUNTER → 2020-05-22 | Outpatient (REF) | payer MEDICARE, OTHER | LOC: SKLAB2 09:07 | PROVIDERS: ATTEND Internal Medicine | DX: Z20.822 Contact with and (suspected) exposure to COVID-19 (principal) ==

== ENCOUNTER → 2020-05-28 | Outpatient (REF) | payer MEDICARE, OTHER ==
[2020-05-28 08:11] LABS: INR 2.92; PROTHROMBIN TIME 31.1 SECONDS (12.5-14.3)
== END ==
LOC: SKLAB2 09:08
PROVIDERS: ATTEND Internal Medicine
DX: Z95.2 Presence of prosthetic heart valve (principal)

== ENCOUNTER → 2020-06-04 | Outpatient (REF) | payer MEDICARE, OTHER ==
[2020-06-04 09:35] LABS: INR 2.14; PROTHROMBIN TIME 24.4 SECONDS (12.5-14.3)
== END ==
LOC: SKLAB2 16:11
PROVIDERS: ATTEND Internal Medicine
DX: I48.91 Unspecified atrial fibrillation (principal); Z79.01 Long term (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 anticoagulants

== ENCOUNTER → 2020-06-07 | Outpatient (REF) | payer MEDICARE, OTHER | LOC: SKLAB2 06-06 16:12 | PROVIDERS: ATTEND Internal Medicine | DX: Z20.822 Contact with and (suspected) exposure to COVID-19 (principal) ==

== ENCOUNTER → 2020-06-11 | Outpatient (REF) | payer MEDICARE, OTHER ==
[2020-06-11 09:36] LABS: INR 3.42; PROTHROMBIN TIME 35.3 SECONDS (12.5-14.3)
== END ==
LOC: SKLAB2 16:12
PROVIDERS: ATTEND Internal Medicine
DX: I48.91 Unspecified atrial fibrillation (principal); Z79.01 Long term (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 anticoagulants

== ENCOUNTER → 2020-06-17 | Outpatient (REF) | payer MEDICARE, OTHER | LOC: SKLAB2 10:32 | PROVIDERS: ATTEND Internal Medicine | DX: S81.802A Unspecified open wound, left lower leg, initial encounter (principal); X58.XXXA Exposure to other specified factors, initial encounter; Y92.9 Unspecified place or not applicable; Y99.9 Unspecified external cause status ==

== ENCOUNTER → 2020-06-18 | Outpatient (REF) | payer MEDICARE, OTHER ==
[2020-06-18 09:28] LABS: INR 3.19; PROTHROMBIN TIME 33.4 SECONDS (12.5-14.3)
== END ==
LOC: SKLAB2 16:13
PROVIDERS: ATTEND Internal Medicine
DX: Z95.2 Presence of prosthetic heart valve (principal); Z79.899 Other long term (current) drug therapy

== ENCOUNTER → 2020-06-19 | Outpatient (REF) | payer MEDICARE, OTHER ==
[2020-06-19 14:19] LABS: HEMATOCRIT 40.1 % (36.0-47.0); HEMOGLOBIN 13.1 g/dl (12.0-15.5); MEAN CORPUSCULAR HEMOGLOBIN 29.8 pg (27.0-33.0); MEAN CORPUSCULAR HGB CONC 32.7 g/dl (32.0-36.5); MEAN CORPUSCULAR VOLUME 91.1 fl (80.0-96.0); PLATELET COUNT, AUTOMATED 233 10^3/uL (150-450); WHITE BLOOD COUNT 12.1 10^3/uL (4.0-10.0)
[2020-06-19 15:08] LABS: BLOOD UREA NITROGEN 25 MG/DL (7-18); CALCIUM LEVEL 9.9 MG/DL (8.8-10.2); CARBON DIOXIDE LEVEL 33 MEQ/L (21-32); CHLORIDE LEVEL 98 MEQ/L (98-107); CREATININE FOR GFR 0.86 MG/DL (0.55-1.30); GLOMERULAR FILTRATION RATE > 60.0 (>32); GLUCOSE, FASTING 114 MG/DL (70-100); POTASSIUM SERUM 4.5 MEQ/L (3.5-5.1); SODIUM LEVEL 135 MEQ/L (136-145)
== END ==
LOC: SKLAB2 16:13
PROVIDERS: ATTEND Internal Medicine
DX: L03.90 Cellulitis, unspecified (principal)

== ENCOUNTER → 2020-06-20 | Outpatient (REF) | payer MEDICARE, OTHER ==
[2020-06-20 09:19] LABS: INR 3.24; PROTHROMBIN TIME 33.8 SECONDS (12.5-14.3)
== END ==
LOC: SKLAB2 16:14
PROVIDERS: ATTEND Internal Medicine
DX: T14.8XXA Other injury of unspecified body region, initial encounter (principal)

== ENCOUNTER → 2020-06-25 | Outpatient (REF) | payer MEDICARE, OTHER ==
[2020-06-25 09:42] LABS: INR 3.97; PROTHROMBIN TIME 39.7 SECONDS (12.5-14.3)
== END ==
LOC: SKLAB2 15:43
PROVIDERS: ATTEND Internal Medicine
DX: R79.1 Abnormal coagulation profile (principal)

== ENCOUNTER → 2020-06-27 | Outpatient (REF) | payer MEDICARE, OTHER ==
[2020-06-27 13:24] LABS: INR 2.75; PROTHROMBIN TIME 29.7 SECONDS (12.5-14.3)
== END ==
LOC: SKLAB2 06-26 08:00
PROVIDERS: ATTEND Internal Medicine
DX: Z51.81 Encounter for therapeutic drug level monitoring (principal); Z79.899 Other long term (current) drug therapy

== ENCOUNTER → 2020-07-02 | Outpatient (REF) | payer MEDICARE, OTHER ==
[2020-07-02 11:42] LABS: INR 1.2; PROTHROMBIN TIME 15.5 SECONDS (12.5-14.3)
== END ==
LOC: SKLAB2 10:57
PROVIDERS: ATTEND Internal Medicine
DX: I48.91 Unspecified atrial fibrillation (principal)

== ENCOUNTER → 2020-07-03 | Outpatient (REF) | payer MEDICARE, OTHER ==
[2020-07-03 07:50] LABS: INR 1.26; PROTHROMBIN TIME 16.1 SECONDS (12.5-14.3)
== END ==
LOC: SKLAB2 08:40
PROVIDERS: ATTEND Internal Medicine
DX: I48.91 Unspecified atrial fibrillation (principal); Z79.899 Other long term (current) drug therapy

== ENCOUNTER → 2020-07-04 | Outpatient (REF) | payer MEDICARE, OTHER ==
[2020-07-04 08:45] LABS: INR 1.72; PROTHROMBIN TIME 20.6 SECONDS (12.5-14.3)
== END ==
LOC: SKLAB2 09:10
PROVIDERS: ATTEND Internal Medicine
DX: Z95.2 Presence of prosthetic heart valve (principal)

== ENCOUNTER → 2020-07-05 | Outpatient (REF) | payer MEDICARE, OTHER ==
[2020-07-05 10:34] LABS: INR 2.7; PROTHROMBIN TIME 29.3 SECONDS (12.5-14.3)
== END ==
LOC: SKLAB2 09:23
PROVIDERS: ATTEND Internal Medicine
DX: Z95.2 Presence of prosthetic heart valve (principal)

== ENCOUNTER → 2020-07-09 | Outpatient (REF) | payer MEDICARE, OTHER ==
[2020-07-09 08:37] LABS: INR 3.21; PROTHROMBIN TIME 33.6 SECONDS (12.5-14.3)
== END ==
LOC: SKLAB2 09:26
PROVIDERS: ATTEND Internal Medicine
DX: I48.91 Unspecified atrial fibrillation (principal); Z95.2 Presence of prosthetic heart valve

== ENCOUNTER → 2020-07-16 | Outpatient (REF) | payer MEDICARE, OTHER ==
[2020-07-16 08:52] LABS: HEMATOCRIT 39.6 % (36.0-47.0); HEMOGLOBIN 12.5 g/dl (12.0-15.5); MEAN CORPUSCULAR HEMOGLOBIN 28.5 pg (27.0-33.0); MEAN CORPUSCULAR HGB CONC 31.6 g/dl (32.0-36.5); MEAN CORPUSCULAR VOLUME 90.2 fl (80.0-96.0); PLATELET COUNT, AUTOMATED 235 10^3/uL (150-450); RED BLOOD COUNT 4.39 10^6/uL (4.00-5.40); WHITE BLOOD COUNT 10.3 10^3/uL (4.0-10.0)
[2020-07-16 09:11] LABS: INR 4.07; PROTHROMBIN TIME 40.5 SECONDS (12.5-14.3)
[2020-07-16 09:12] LABS: BLOOD UREA NITROGEN 20 MG/DL (7-18); CALCIUM LEVEL 9.5 MG/DL (8.8-10.2); CARBON DIOXIDE LEVEL 32 MEQ/L (21-32); CHLORIDE LEVEL 103 MEQ/L (98-107); CREATININE FOR GFR 0.78 MG/DL (0.55-1.30); GLOMERULAR FILTRATION RATE > 60.0 (>32); GLUCOSE, FASTING 112 MG/DL (70-100); POTASSIUM SERUM 3.8 MEQ/L (3.5-5.1); SODIUM LEVEL 138 MEQ/L (136-145)
== END ==
LOC: SKLAB2 11:52
PROVIDERS: ATTEND Internal Medicine
DX: I50.9 Heart failure, unspecified (principal)

== ENCOUNTER → 2020-07-23 | Outpatient (REF) | payer MEDICARE, OTHER ==
[2020-07-23 10:43] LABS: INR 2.63; PROTHROMBIN TIME 28.7 SECONDS (12.5-14.3)
== END ==
LOC: SKLAB2 08:27
PROVIDERS: ATTEND Internal Medicine
DX: Z95.2 Presence of prosthetic heart valve (principal); Z79.899 Other long term (current) drug therapy

== ENCOUNTER → 2020-07-30 | Outpatient (REF) | payer MEDICARE, OTHER | LOC: SKLAB2 14:02 | PROVIDERS: ATTEND Internal Medicine | DX: Z53.8 Procedure and treatment not carried out for other reasons (principal) ==

== ENCOUNTER → 2020-07-31 | Outpatient (REF) | payer MEDICARE, OTHER ==
[2020-07-31 09:34] LABS: INR 2.15; PROTHROMBIN TIME 24.5 SECONDS (12.5-14.3)
== END ==
LOC: SKLAB2 11:53
PROVIDERS: ATTEND Internal Medicine
DX: Z95.2 Presence of prosthetic heart valve (principal)

== ENCOUNTER → 2020-08-06 | Outpatient (REF) | payer MEDICARE, OTHER ==
[2020-08-06 10:16] LABS: INR 2.72; PROTHROMBIN TIME 29.5 SECONDS (12.5-14.3)
== END ==
LOC: SKLAB2 13:18
PROVIDERS: ATTEND Internal Medicine
DX: Z79.01 Long term (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 anticoagulants (principal); Z95.2 Presence of prosthetic heart valve

== ENCOUNTER → 2020-08-13 | Outpatient (REF) | payer MEDICARE, OTHER ==
[2020-08-13 14:21] LABS: INR 3.12; PROTHROMBIN TIME 32.8 SECONDS (12.5-14.3)
== END ==
LOC: SKLAB2 13:19
PROVIDERS: ATTEND Internal Medicine
DX: Z79.01 Long term (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 anticoagulants (principal); Z95.2 Presence of prosthetic heart valve

== ENCOUNTER → 2020-08-20 | Outpatient (REF) | payer MEDICARE, OTHER ==
[~2020-08-20] MED LIST changes: -DOXY100C37 PO; +DOXY1CAP62 PO
[2020-08-20 09:22] LABS: INR 2.2; PROTHROMBIN TIME 24.9 SECONDS (12.5-14.3)
== END ==
LOC: SKLAB2 11:08
PROVIDERS: ATTEND Internal Medicine
DX: I48.91 Unspecified atrial fibrillation (principal)

== ENCOUNTER → 2020-08-26 | Outpatient (REF) | payer MEDICARE, OTHER ==
[2020-08-26 14:55] LABS: BASO % 0.3 % (0.0-1.0); EOS # 0.1 10^3/uL (0.0-0.5); EOS % 1.3 % (0.0-3.0); HEMATOCRIT 43.7 % (36.0-47.0); HEMOGLOBIN 13.8 g/dl (12.0-15.5); LYMPH # 0.8 10^3/uL (1.5-5.0); LYMPH % 8.7 % (24.0-44.0); MEAN CORPUSCULAR HEMOGLOBIN 28.1 pg (27.0-33.0); MEAN CORPUSCULAR HGB CONC 31.6 g/dl (32.0-36.5); MONO # 1.4 10^3/uL (0.0-0.8); MONO % 15.4 % (2.0-8.0); NEUTROPHILS # 6.7 10^3/uL (1.5-8.5); NEUTROPHILS % 73.9 % (36.0-66.0); PLATELET COUNT, AUTOMATED 244 10^3/uL (150-450); RED BLOOD COUNT 4.91 10^6/uL (4.00-5.40); WHITE BLOOD COUNT 9.1 10^3/uL (4.0-10.0)
[2020-08-26 16:02] LABS: BLOOD UREA NITROGEN 22 MG/DL (7-18); CALCIUM LEVEL 9.9 MG/DL (8.8-10.2); CARBON DIOXIDE LEVEL 30 MEQ/L (21-32); CHLORIDE LEVEL 101 MEQ/L (98-107); CREATININE FOR GFR 0.76 MG/DL (0.55-1.30); GLOMERULAR FILTRATION RATE > 60.0 (>32); GLUCOSE, FASTING 100 MG/DL (70-100); POTASSIUM SERUM 4.3 MEQ/L (3.5-5.1); SODIUM LEVEL 138 MEQ/L (136-145)
== END ==
LOC: SKLAB2 13:05
PROVIDERS: ATTEND Internal Medicine
DX: I50.9 Heart failure, unspecified (principal); L30.9 Dermatitis, unspecified

== ENCOUNTER → 2020-08-27 | Outpatient (REF) | payer MEDICARE, OTHER ==
[2020-08-27 11:19] LABS: INR 2.56; PROTHROMBIN TIME 28.1 SECONDS (12.5-14.3)
== END ==
LOC: SKLAB2 11:12
PROVIDERS: ATTEND Internal Medicine
DX: Z95.2 Presence of prosthetic heart valve (principal); Z79.01 Long term (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 anticoagulants

== ENCOUNTER → 2020-09-03 | Outpatient (REF) | payer MEDICARE, OTHER ==
[2020-09-03 10:12] LABS: INR 2.53; PROTHROMBIN TIME 27.8 SECONDS (12.5-14.3)
== END ==
LOC: SKLAB2 08:18
PROVIDERS: ATTEND Internal Medicine
DX: Z95.2 Presence of prosthetic heart valve (principal); Z79.899 Other long term (current) drug therapy

== ENCOUNTER → 2020-09-10 | Outpatient (REF) | payer MEDICARE, OTHER ==
[2020-09-10 14:13] LABS: INR 2.94; PROTHROMBIN TIME 31.3 SECONDS (12.5-14.3)
== END ==
LOC: SKLAB2 11:28
PROVIDERS: ATTEND Internal Medicine
DX: Z95.2 Presence of prosthetic heart valve (principal); Z79.01 Long term (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 anticoagulants

== ENCOUNTER → 2020-09-17 | Outpatient (REF) | payer MEDICARE, OTHER ==
[2020-09-17 10:14] LABS: INR 2.94; PROTHROMBIN TIME 31.3 SECONDS (12.5-14.3)
== END ==
LOC: SKLAB2 16:08
PROVIDERS: ATTEND Internal Medicine
DX: Z95.2 Presence of prosthetic heart valve (principal); Z79.01 Long term (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 anticoagulants

== ENCOUNTER → 2020-09-24 | Outpatient (REF) | payer MEDICARE, OTHER ==
[2020-09-24 10:46] LABS: INR 3.27; PROTHROMBIN TIME 34.1 SECONDS (12.5-14.3)
== END ==
LOC: SKLAB2 12:12
PROVIDERS: ATTEND Internal Medicine
DX: Z51.81 Encounter for therapeutic drug level monitoring (principal); Z79.899 Other long term (current) drug therapy

== ENCOUNTER → 2020-10-01 | Outpatient (REF) | payer MEDICARE, OTHER ==
[2020-10-01 08:04] LABS: INR 2.97; PROTHROMBIN TIME 31.6 SECONDS (12.5-14.3)
== END ==
LOC: SKLAB2 12:13
PROVIDERS: ATTEND Internal Medicine
DX: Z51.81 Encounter for therapeutic drug level monitoring (principal); Z79.899 Other long term (current) drug therapy

== ENCOUNTER → 2020-10-08 | Outpatient (REF) | payer MEDICARE, OTHER ==
[2020-10-08 09:51] LABS: INR 2.78; PROTHROMBIN TIME 29.7 SECONDS (12.7-14.5)
== END ==
LOC: SKLAB2 07:00
PROVIDERS: ATTEND Internal Medicine
DX: Z95.2 Presence of prosthetic heart valve (principal); Z79.01 Long term (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 anticoagulants

== ENCOUNTER → 2020-10-11 | Outpatient (CLI) | payer MEDICARE, OTHER ==
[~2020-10-11] MED LIST changes: +BENA-8 PO; -BENA20TA8 PO; +DOXY-443 PO; -DOXY1CAP62 PO; +LOSA50TA28; -LOSA50TA88
== END ==
LOC: M RAD 16:08
PROVIDERS: ATTEND Nurse Practitioner Family
DX: R53.81 Other malaise (principal); R53.1 Weakness; G31.9 Degenerative disease of nervous system, unspecified; I48.91 Unspecified atrial fibrillation; I44.4 Left anterior fascicular block; R53.83 Other fatigue

== ENCOUNTER → 2020-10-11 | Outpatient (REF) | payer MEDICARE, OTHER ==
[2020-10-11 15:48] LABS: HEMATOCRIT 44.5 % (36.0-47.0); HEMOGLOBIN 14.2 g/dl (12.0-15.5); MEAN CORPUSCULAR HEMOGLOBIN 27.6 pg (27.0-33.0); MEAN CORPUSCULAR HGB CONC 31.9 g/dl (32.0-36.5); MEAN CORPUSCULAR VOLUME 86.4 fl (80.0-96.0); PLATELET COUNT, AUTOMATED 239 10^3/uL (150-450); RED BLOOD COUNT 5.15 10^6/uL (4.00-5.40); WHITE BLOOD COUNT 14.1 10^3/uL (4.0-10.0)
[2020-10-11 16:11] LABS: BLOOD UREA NITROGEN 30 MG/DL (7-18); CALCIUM LEVEL 9.7 MG/DL (8.8-10.2); CARBON DIOXIDE LEVEL 32 MEQ/L (21-32); CHLORIDE LEVEL 102 MEQ/L (98-107); CREATININE FOR GFR 0.77 MG/DL (0.55-1.30); GLOMERULAR FILTRATION RATE > 60.0 (>32); GLUCOSE, FASTING 94 MG/DL (70-100); POTASSIUM SERUM 4.6 MEQ/L (3.5-5.1); SODIUM LEVEL 141 MEQ/L (136-145)
== END ==
LOC: SKLAB2 14:34
PROVIDERS: ATTEND Internal Medicine
DX: R53.1 Weakness (principal); R53.83 Other fatigue; I48.91 Unspecified atrial fibrillation; I44.4 Left anterior fascicular block

== ENCOUNTER → 2020-10-12 | Outpatient (REF) | payer MEDICARE, OTHER ==
[2020-10-12 10:53] LABS: AMORPHOUS SEDIMENT SMALL (NEGATIVE); APPEARANCE, URINE CLOUDY (CLEAR); BACTERIA, URINE AUTO 3+ (NEGATIVE); BILIRUBIN, URINE AUTO NEGATIVE (NEGATIVE); BLOOD, URINE BLOOD 1+ (NEGATIVE); COLOR, URINE YELLOW (YELLOW); GLUCOSE, URINE (UA) AUTO NEGATIVE (NEGATIVE); KETONE, URINE AUTO NEGATIVE (NEGATIVE); LEUKOCYTE ESTERASE, URINE AUTO 3+ (NEGATIVE); NITRITE, URINE AUTO POSITIVE (NEGATIVE); PROTEIN, URINE AUTO NEGATIVE (NEGATIVE); RBC, URINE AUTO 6 /HPF (0-3); SPECIFIC GRAVITY URINE AUTO 1.011 (1.002-1.035); SQUAMOUS EPITHELIAL CELL UR AU 3 /HPF (0-6); UROBILINOGEN, URINE AUTO 0.2 mg/dL (0.0-2.0); WBC, URINE AUTO 135 /HPF (0-3)
== END ==
LOC: SKLAB2 09:48 → M LAB 09:48
PROVIDERS: ATTEND Internal Medicine
DX: R41.0 Disorientation, unspecified (principal)

== ENCOUNTER → 2020-10-15 | Outpatient (REF) | payer MEDICARE, OTHER ==
[~2020-10-15] MED LIST changes: -BENA-8 PO; +BENA20TA8 PO; -DOXY-443 PO; +DOXY1CAP62 PO; -LOSA50TA28; +LOSA50TA88
[2020-10-15 09:42] LABS: HEMATOCRIT 42.6 % (36.0-47.0); HEMOGLOBIN 13.3 g/dl (12.0-15.5); MEAN CORPUSCULAR HEMOGLOBIN 27.7 pg (27.0-33.0); MEAN CORPUSCULAR HGB CONC 31.2 g/dl (32.0-36.5); MEAN CORPUSCULAR VOLUME 88.8 fl (80.0-96.0); PLATELET COUNT, AUTOMATED 235 10^3/uL (150-450); WHITE BLOOD COUNT 10.4 10^3/uL (4.0-10.0)
[2020-10-15 10:14] LABS: ALBUMIN 3.3 GM/DL (3.2-5.2); ALT/SGPT 27 U/L (12-78); BILIRUBIN,TOTAL 0.8 MG/DL (0.2-1.0); BLOOD UREA NITROGEN 27 MG/DL (7-18); CALCIUM LEVEL 9.7 MG/DL (8.8-10.2); CARBON DIOXIDE LEVEL 36 MEQ/L (21-32); CHLORIDE LEVEL 107 MEQ/L (98-107); CREATININE FOR GFR 0.77 MG/DL (0.55-1.30); GLOMERULAR FILTRATION RATE > 60.0 (>32); GLUCOSE, FASTING 119 MG/DL (70-100); SODIUM LEVEL 145 MEQ/L (136-145); TOTAL PROTEIN 6.8 GM/DL (6.4-8.2)
== END ==
LOC: SKLAB2 07:00
PROVIDERS: ATTEND Internal Medicine
DX: E03.9 Hypothyroidism, unspecified (principal); I50.9 Heart failure, unspecified; Z79.01 Long term (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 anticoagulants

== ENCOUNTER → 2020-10-22 | Outpatient (REF) | payer MEDICARE, OTHER ==
[2020-10-22 10:44] LABS: INR 2.3; PROTHROMBIN TIME 25.7 SECONDS (12.7-14.5)
== END ==
LOC: SKLAB2 08:13
PROVIDERS: ATTEND Internal Medicine
DX: Z95.2 Presence of prosthetic heart valve (principal); Z79.899 Other long term (current) drug therapy

== ENCOUNTER → 2020-10-29 | Outpatient (REF) | payer MEDICARE, OTHER ==
[2020-10-29 08:41] LABS: INR 2.28; PROTHROMBIN TIME 25.6 SECONDS (12.7-14.5)
== END ==
LOC: SKLAB2 07:00
PROVIDERS: ATTEND Internal Medicine
DX: Z95.2 Presence of prosthetic heart valve (principal); Z79.899 Other long term (current) drug therapy

== ENCOUNTER → 2020-11-05 | Outpatient (REF) | payer MEDICARE, OTHER ==
[2020-11-05 09:18] LABS: INR 3.25; PROTHROMBIN TIME 33.4 SECONDS (12.7-14.5)
== END ==
LOC: SKLAB2 09:17
PROVIDERS: ATTEND Internal Medicine
DX: Z51.81 Encounter for therapeutic drug level monitoring (principal); Z79.899 Other long term (current) drug therapy

== ENCOUNTER → 2020-11-09 | Outpatient (REF) ==
--- NOTE | 2020-11-09 13:13 | REP ---
INDICATION: POST FALL/ [facility] PATIENT. COMPARISON: None. TECHNIQUE: Three images of the right shoulder were obtained. FINDINGS: There is moderate arthritis of the acromioclavicular and glenohumeral joints. There is cranial migration of the humeral head consistent with rotator cuff arthropathy. There is no evidence of fracture or dislocation. The periarticular soft tissues are normal. The adjacent right lung is clear. IMPRESSION: 1. Arthritis of the acromioclavicular and glenohumeral joints. 2. Rotator cuff arthropathy. 3. No evidence of acute fracture or dislocation. <Electronically signed by iMchel Carrasquillo > 11/09/20 [id number]
--- NOTE | 2020-11-09 13:15 | REP ---
INDICATION: POST FALL/ [facility] PATIENT. COMPARISON: Right hip, 11/24/2016. TECHNIQUE: AP and frogleg lateral views of the right hip were obtained. FINDINGS: There is severe arthritis of the right hip with almost complete loss of the joint space, endplate sclerosis and subchondral cysts and marginal osteophytes. There is no fracture or dislocation. IMPRESSION: Severe arthritis of the right hip. No evidence of fracture or dislocation. <Electronically signed by Michel Carrasquillo > 11/09/20 [id number]
== END ==
LOC: SKLAB2 11:48
PROVIDERS: ATTEND Internal Medicine
DX: M12.811 Other specific arthropathies, not elsewhere classified, right shoulder (principal)

== ENCOUNTER → 2020-11-12 | Outpatient (REF) | payer MEDICARE, OTHER ==
[2020-11-12 10:14] LABS: INR 3.63; PROTHROMBIN TIME 36.4 SECONDS (12.7-14.5)
== END ==
LOC: SKLAB2 07:00
PROVIDERS: ATTEND Internal Medicine
DX: Z79.899 Other long term (current) drug therapy (principal); Z95.2 Presence of prosthetic heart valve

== ENCOUNTER → 2020-11-13 | Outpatient (REF) | payer MEDICARE, OTHER ==
[2020-11-13 07:57] LABS: ALBUMIN 3.2 GM/DL (3.2-5.2); ALT/SGPT 21 U/L (12-78); BILIRUBIN,TOTAL 1.3 MG/DL (0.2-1.0); BLOOD UREA NITROGEN 22 MG/DL (7-18); CALCIUM LEVEL 9.7 MG/DL (8.8-10.2); CARBON DIOXIDE LEVEL 33 MEQ/L (21-32); CHLORIDE LEVEL 100 MEQ/L (98-107); GLOMERULAR FILTRATION RATE > 60.0 (>32); GLUCOSE, FASTING 107 MG/DL (70-100); SODIUM LEVEL 137 MEQ/L (136-145); TOTAL PROTEIN 6.4 GM/DL (6.4-8.2)
== END ==
LOC: SKLAB2 07:00
PROVIDERS: ATTEND Internal Medicine
DX: R63.4 Abnormal weight loss (principal)

== ENCOUNTER → 2020-11-26 | Outpatient (REF) | payer MEDICARE, OTHER ==
[2020-11-26 09:26] LABS: HEMATOCRIT 41.4 % (36.0-47.0); HEMOGLOBIN 13.3 g/dl (12.0-15.5); MEAN CORPUSCULAR HEMOGLOBIN 28.1 pg (27.0-33.0); MEAN CORPUSCULAR HGB CONC 32.1 g/dl (32.0-36.5); MEAN CORPUSCULAR VOLUME 87.3 fl (80.0-96.0); PLATELET COUNT, AUTOMATED 238 10^3/uL (150-450); RED BLOOD COUNT 4.74 10^6/uL (4.00-5.40); WHITE BLOOD COUNT 10.4 10^3/uL (4.0-10.0)
[2020-11-26 09:47] LABS: ERYTHROCYTE SEDIMENTATION RATE 12 mm/hr (0-30)
[2020-11-26 09:50] LABS: PROTHROMBIN TIME 53.1 SECONDS (12.7-14.5)
[2020-11-26 09:52] LABS: BLOOD UREA NITROGEN 19 MG/DL (7-18); CALCIUM LEVEL 9.6 MG/DL (8.8-10.2); CARBON DIOXIDE LEVEL 32 MEQ/L (21-32); CHLORIDE LEVEL 101 MEQ/L (98-107); CREATININE FOR GFR 0.71 MG/DL (0.55-1.30); GLOMERULAR FILTRATION RATE > 60.0 (>32); GLUCOSE, FASTING 92 MG/DL (70-100); POTASSIUM SERUM 4.2 MEQ/L (3.5-5.1); SODIUM LEVEL 138 MEQ/L (136-145)
[2020-11-26 09:55] LABS: INR 5.96
== END ==
LOC: SKLAB2 07:00
PROVIDERS: ATTEND Internal Medicine
DX: M25.579 Pain in unspecified ankle and joints of unspecified foot (principal); R23.8 Other skin changes

== ENCOUNTER → 2020-11-28 | Outpatient (REF) | payer MEDICARE, OTHER ==
[2020-11-28 13:22] LABS: INR 4.11
== END ==
LOC: SKLAB2 08:04
PROVIDERS: ATTEND Internal Medicine
DX: Z95.2 Presence of prosthetic heart valve (principal); Z79.899 Other long term (current) drug therapy

== ENCOUNTER → 2020-12-19 | Outpatient (REF) | payer MEDICARE, OTHER ==
[2020-12-19 13:55] LABS: INR 3.48; PROTHROMBIN TIME 35.3 SECONDS (12.7-14.5)
== END ==
LOC: SKLAB2 11:55 → SKLAB3 11:55
PROVIDERS: ATTEND Internal Medicine
DX: I48.91 Unspecified atrial fibrillation (principal)

== ENCOUNTER → 2020-12-26 | Outpatient (REF) | payer MEDICARE, OTHER ==
[~2020-12-26] MED LIST changes: +DOXY-443 PO; -DOXY1CAP62 PO
[2020-12-26 12:14] LABS: INR 3.9; PROTHROMBIN TIME 38.4 SECONDS (12.7-14.5)
== END ==
LOC: SKLAB6 07:00
PROVIDERS: ATTEND Internal Medicine
DX: Z51.81 Encounter for therapeutic drug level monitoring (principal)

== ENCOUNTER → 2020-12-26 | Outpatient (REF) | payer MEDICARE, OTHER | LOC: SKLAB6 09:10 | PROVIDERS: ATTEND Internal Medicine | DX: Z20.822 Contact with and (suspected) exposure to COVID-19 (principal) ==

== ENCOUNTER → 2020-12-27 | Outpatient (REF) | payer MEDICARE, OTHER ==
[2020-12-27 15:50] LABS: INR 3.46
== END ==
LOC: SKLAB6 07:00
PROVIDERS: ATTEND Internal Medicine
DX: Z51.81 Encounter for therapeutic drug level monitoring (principal); Z79.01 Long term (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 anticoagulants

== ENCOUNTER → 2020-12-30 | Outpatient (REF) | payer MEDICARE, OTHER | LOC: SKLAB6 06:02 | PROVIDERS: ATTEND Internal Medicine | DX: Z20.822 Contact with and (suspected) exposure to COVID-19 (principal) ==

== ENCOUNTER → 2021-01-01 | Outpatient (REF) | payer MEDICARE, OTHER | LOC: SKLAB6 08:13 | PROVIDERS: ATTEND Internal Medicine | DX: Z20.822 Contact with and (suspected) exposure to COVID-19 (principal) ==

== ENCOUNTER → 2021-01-02 | Outpatient (REF) | payer MEDICARE, OTHER ==
[2021-01-02 11:53] LABS: INR 2.94
== END ==
LOC: SKLAB6 06:20
PROVIDERS: ATTEND Internal Medicine
DX: I48.91 Unspecified atrial fibrillation (principal)

== ENCOUNTER → 2021-01-06 | Outpatient (REF) | payer MEDICARE, OTHER | LOC: SKLAB6 05:29 | PROVIDERS: ATTEND Internal Medicine | DX: Z20.822 Contact with and (suspected) exposure to COVID-19 (principal) ==

== ENCOUNTER → 2021-01-07 | Outpatient (REF) | payer MEDICARE, OTHER ==
[2021-01-07 13:52] LABS: HEMATOCRIT 48.8 % (36.0-47.0); HEMOGLOBIN 15.2 g/dl (12.0-15.5); MEAN CORPUSCULAR HEMOGLOBIN 28.1 pg (27.0-33.0); MEAN CORPUSCULAR HGB CONC 31.1 g/dl (32.0-36.5); MEAN CORPUSCULAR VOLUME 90.4 fl (80.0-96.0); PLATELET COUNT, AUTOMATED 264 10^3/uL (150-450); WHITE BLOOD COUNT 12.5 10^3/uL (4.0-10.0)
[2021-01-07 14:25] LABS: ALBUMIN 3.6 GM/DL (3.2-5.2); ALT/SGPT 29 U/L (12-78); BILIRUBIN,TOTAL 0.8 MG/DL (0.2-1.0); BLOOD UREA NITROGEN 36 MG/DL (7-18); CALCIUM LEVEL 9.9 MG/DL (8.8-10.2); CARBON DIOXIDE LEVEL 37 MEQ/L (21-32); CHLORIDE LEVEL 104 MEQ/L (98-107); CREATININE FOR GFR 0.83 MG/DL (0.55-1.30); GLOMERULAR FILTRATION RATE > 60.0 (>32); GLUCOSE, FASTING 143 MG/DL (70-100); POTASSIUM SERUM 3.4 MEQ/L (3.5-5.1); SODIUM LEVEL 143 MEQ/L (136-145); TOTAL PROTEIN 7.6 GM/DL (6.4-8.2)
== END ==
LOC: SKLAB6 07:08
PROVIDERS: ATTEND Internal Medicine
DX: U07.1 COVID-19 (principal); Z79.899 Other long term (current) drug therapy

== ENCOUNTER → 2021-01-08 | Outpatient (REF) | payer MEDICARE, OTHER ==
[~2021-01-08] MED LIST changes: +ACETAMINOPHEN TAB 650MG DOSE (2X325MG) PO ONE; +ALBUTEROL 90 MCG/ACT 8GM HFA INHALER INH PRN; +ALBUTEROL SULFATE 2.5 MG/0.5 ML INH NEB SOLN INH PRN; +CASIRIVIMAB/IMDEVIMAB 1,200 MG in NS 250 ML IV ONE; +EPINEPHrine INJ 1 MG/ML 1ML AMP IM PRN; +NS 1,000 ML IV SCH; +diphenhydrAMINE 25MG CAP PO ONE; +diphenhydrAMINE 50MG/ML VIAL (J1200) IV PRN; +methylPREDNISolone 125MG 2ML VIAL IV ONE; +methylPREDNISolone 125MG 2ML VIAL IV PRN
[2021-01-08 09:57] LABS: HEMOGLOBIN 14.4 g/dl (12.0-15.5); MEAN CORPUSCULAR VOLUME 87.4 fl (80.0-96.0); PLATELET COUNT, AUTOMATED 246 10^3/uL (150-450); RED BLOOD COUNT 5.15 10^6/uL (4.00-5.40); WHITE BLOOD COUNT 9.4 10^3/uL (4.0-10.0)
[2021-01-08 10:31] LABS: BLOOD UREA NITROGEN 32 MG/DL (7-18); CALCIUM LEVEL 9.2 MG/DL (8.8-10.2); CARBON DIOXIDE LEVEL 36 MEQ/L (21-32); CHLORIDE LEVEL 108 MEQ/L (98-107); GLOMERULAR FILTRATION RATE > 60.0 (>32); GLUCOSE, FASTING 101 MG/DL (70-100); POTASSIUM SERUM 3.4 MEQ/L (3.5-5.1); SODIUM LEVEL 146 MEQ/L (136-145)
[2021-01-08 10:54] LABS: INR 3.19
== END ==
LOC: SKLAB2 07:01
PROVIDERS: ATTEND Internal Medicine
DX: U07.1 COVID-19 (principal); Z79.899 Other long term (current) drug therapy; Z79.01 Long term (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 anticoagulants

== ENCOUNTER → 2021-01-09 | Outpatient (REF) | payer MEDICARE, OTHER ==
[~2021-01-09] MED LIST changes: -ACETAMINOPHEN TAB 650MG DOSE (2X325MG) PO ONE; -ALBUTEROL 90 MCG/ACT 8GM HFA INHALER INH PRN; -ALBUTEROL SULFATE 2.5 MG/0.5 ML INH NEB SOLN INH PRN; -CASIRIVIMAB/IMDEVIMAB 1,200 MG in NS 250 ML IV ONE; -EPINEPHrine INJ 1 MG/ML 1ML AMP IM PRN; -NS 1,000 ML IV SCH; -diphenhydrAMINE 25MG CAP PO ONE; -diphenhydrAMINE 50MG/ML VIAL (J1200) IV PRN; -methylPREDNISolone 125MG 2ML VIAL IV ONE; -methylPREDNISolone 125MG 2ML VIAL IV PRN
== END ==
LOC: SKLAB2 07:00
PROVIDERS: ATTEND Internal Medicine
DX: Z51.81 Encounter for therapeutic drug level monitoring (principal)

== ENCOUNTER → 2021-01-09 | Outpatient (REF) | payer MEDICARE, OTHER ==
[2021-01-09 13:25] LABS: INR 4.24
== END ==
LOC: SKLAB2 07:00
PROVIDERS: ATTEND Internal Medicine
DX: Z51.81 Encounter for therapeutic drug level monitoring (principal)

== ENCOUNTER → 2021-01-10 | Outpatient (CLI) | payer MEDICARE, OTHER ==
--- NOTE | 2021-01-10 15:30 | REPVR ---
PROCEDURE INFORMATION: Exam: CT Head Without Contrast Exam date and time: 01/10/2021 3:16 PM Age: 85 years old Clinical indication: Injury or trauma; Fall; Blunt trauma (contusions or hematomas); Additional info: Fall injury TECHNIQUE: Imaging protocol: Computed tomography of the head without contrast. Radiation optimization: All CT scans at this facility use at least one of these dose optimization techniques: automated exposure control; mA and/or kV adjustment per patient size (includes targeted exams where dose is matched to clinical indication); or iterative reconstruction. COMPARISON: CT Head without contrast 10/11/2020 4:23 PM FINDINGS: Brain: There is no acute intracranial hemorrhage, cerebral edema, or midline shift. Chronic microvascular ischemic changes are seen in the periventricular white matter. Age-related cerebral and cerebellar volume loss is present. Cerebral ventricles: Moderate ex vacuo dilation of the lateral and third ventricles is noted. Paranasal sinuses: There is no acute sinusitis. Mastoid air cells: The mastoid air cells are clear. Orbital cavity: The included orbital structures are unremarkable. Vasculature: Atherosclerotic calcifications are seen involving the cavernous carotid arteries. Bones/joints: No acute fracture. Soft tissues: Unremarkable. IMPRESSION: 1. No acute intracranial abnormality. 2. Atrophy and chronic deep white matter ischemic changes. Electronically signed by: Vernon Hannah On 01/10/2021 15:30:18 PM
== END ==
LOC: M RAD 14:56
PROVIDERS: ATTEND Nurse Practitioner Family
DX: E87.6 Hypokalemia (principal); S09.90XA Unspecified injury of head, initial encounter; W19.XXXA Unspecified fall, initial encounter; Y92.9 Unspecified place or not applicable; Y93.9 Activity, unspecified; Y99.9 Unspecified external cause status; I65.23 Occlusion and stenosis of bilateral carotid arteries; U07.1 COVID-19; Z79.899 Other long term (current) drug therapy

== ENCOUNTER → 2021-01-10 | Outpatient (REF) | payer MEDICARE, OTHER ==
[2021-01-10 10:10] LABS: HEMATOCRIT 44.5 % (36.0-47.0); HEMOGLOBIN 14.4 g/dl (12.0-15.5); MEAN CORPUSCULAR HEMOGLOBIN 28.3 pg (27.0-33.0); MEAN CORPUSCULAR HGB CONC 32.4 g/dl (32.0-36.5); MEAN CORPUSCULAR VOLUME 87.6 fl (80.0-96.0); PLATELET COUNT, AUTOMATED 255 10^3/uL (150-450); RED BLOOD COUNT 5.08 10^6/uL (4.00-5.40); WHITE BLOOD COUNT 11.9 10^3/uL (4.0-10.0)
[2021-01-10 10:27] LABS: INR 4.55; PROTHROMBIN TIME 43.3 SECONDS (12.7-14.5)
[2021-01-10 10:31] LABS: BLOOD UREA NITROGEN 24 MG/DL (7-18); CARBON DIOXIDE LEVEL 34 MEQ/L (21-32); CHLORIDE LEVEL 100 MEQ/L (98-107); CREATININE FOR GFR 0.76 MG/DL (0.55-1.30); GLOMERULAR FILTRATION RATE > 60.0 (>32); GLUCOSE, FASTING 112 MG/DL (70-100); POTASSIUM SERUM 3.1 MEQ/L (3.5-5.1); SODIUM LEVEL 138 MEQ/L (136-145)
== END ==
LOC: SKLAB2 08:24
PROVIDERS: ATTEND Internal Medicine
DX: U07.1 COVID-19 (principal); Z79.899 Other long term (current) drug therapy

== ENCOUNTER → 2021-01-12 | Outpatient (REF) | payer MEDICARE, OTHER ==
[2021-01-12 08:30] LABS: INR 2.52; PROTHROMBIN TIME 27.6 SECONDS (12.7-14.5)
== END ==
LOC: SKLAB2 07:00
PROVIDERS: ATTEND Internal Medicine
DX: R79.1 Abnormal coagulation profile (principal)

== ENCOUNTER → 2021-01-13 | Outpatient (REF) | payer MEDICARE, OTHER ==
[2021-01-13 11:27] LABS: HEMATOCRIT 44.6 % (36.0-47.0); HEMOGLOBIN 14.4 g/dl (12.0-15.5); MEAN CORPUSCULAR HEMOGLOBIN 28.3 pg (27.0-33.0); MEAN CORPUSCULAR HGB CONC 32.3 g/dl (32.0-36.5); MEAN CORPUSCULAR VOLUME 87.8 fl (80.0-96.0); PLATELET COUNT, AUTOMATED 242 10^3/uL (150-450); RED BLOOD COUNT 5.08 10^6/uL (4.00-5.40); WHITE BLOOD COUNT 10.1 10^3/uL (4.0-10.0)
[2021-01-13 11:44] LABS: BLOOD UREA NITROGEN 21 MG/DL (7-18); CALCIUM LEVEL 9.5 MG/DL (8.8-10.2); CARBON DIOXIDE LEVEL 33 MEQ/L (21-32); CHLORIDE LEVEL 103 MEQ/L (98-107); CREATININE FOR GFR 0.85 MG/DL (0.55-1.30); GLOMERULAR FILTRATION RATE > 60.0 (>32); GLUCOSE, FASTING 162 MG/DL (70-100); POTASSIUM SERUM 3.7 MEQ/L (3.5-5.1); SODIUM LEVEL 142 MEQ/L (136-145)
== END ==
LOC: SKLAB2 11:20
PROVIDERS: ATTEND Internal Medicine
DX: U07.1 COVID-19 (principal); Z79.899 Other long term (current) drug therapy

== ENCOUNTER → 2021-01-14 | Outpatient (REF) | payer MEDICARE, OTHER ==
[2021-01-14 11:32] LABS: INR 2.54; PROTHROMBIN TIME 27.7 SECONDS (12.7-14.5)
== END ==
LOC: SKLAB2 07:00
PROVIDERS: ATTEND Internal Medicine
DX: I48.91 Unspecified atrial fibrillation (principal)

== ENCOUNTER → 2021-01-15 | Outpatient (REF) | payer MEDICARE, OTHER ==
[2021-01-15 08:53] LABS: HEMATOCRIT 44.1 % (36.0-47.0); HEMOGLOBIN 14.3 g/dl (12.0-15.5); MEAN CORPUSCULAR HEMOGLOBIN 28.3 pg (27.0-33.0); MEAN CORPUSCULAR HGB CONC 32.4 g/dl (32.0-36.5); MEAN CORPUSCULAR VOLUME 87.3 fl (80.0-96.0); PLATELET COUNT, AUTOMATED 261 10^3/uL (150-450); RED BLOOD COUNT 5.05 10^6/uL (4.00-5.40); WHITE BLOOD COUNT 9.5 10^3/uL (4.0-10.0)
[2021-01-15 09:11] LABS: BLOOD UREA NITROGEN 20 MG/DL (7-18); CALCIUM LEVEL 9.7 MG/DL (8.8-10.2); CARBON DIOXIDE LEVEL 34 MEQ/L (21-32); CHLORIDE LEVEL 99 MEQ/L (98-107); CREATININE FOR GFR 0.69 MG/DL (0.55-1.30); GLOMERULAR FILTRATION RATE > 60.0 (>32); GLUCOSE, FASTING 93 MG/DL (70-100); POTASSIUM SERUM 3.7 MEQ/L (3.5-5.1); SODIUM LEVEL 137 MEQ/L (136-145)
== END ==
LOC: SKLAB2 08:20
PROVIDERS: ATTEND Internal Medicine
DX: U07.1 COVID-19 (principal); Z79.899 Other long term (current) drug therapy

== ENCOUNTER → 2021-01-17 | Outpatient (REF) | payer MEDICARE, OTHER ==
[2021-01-17 13:30] LABS: HEMATOCRIT 43.4 % (36.0-47.0); MEAN CORPUSCULAR HEMOGLOBIN 28.5 pg (27.0-33.0); MEAN CORPUSCULAR HGB CONC 32.3 g/dl (32.0-36.5); MEAN CORPUSCULAR VOLUME 88.2 fl (80.0-96.0); PLATELET COUNT, AUTOMATED 250 10^3/uL (150-450); RED BLOOD COUNT 4.92 10^6/uL (4.00-5.40)
[2021-01-17 14:06] LABS: BLOOD UREA NITROGEN 19 MG/DL (7-18); CALCIUM LEVEL 9.3 MG/DL (8.8-10.2); CARBON DIOXIDE LEVEL 33 MEQ/L (21-32); CHLORIDE LEVEL 98 MEQ/L (98-107); CREATININE FOR GFR 0.76 MG/DL (0.55-1.30); GLOMERULAR FILTRATION RATE > 60.0 (>32); GLUCOSE, FASTING 130 MG/DL (70-100); POTASSIUM SERUM 3.8 MEQ/L (3.5-5.1); SODIUM LEVEL 137 MEQ/L (136-145)
== END ==
LOC: SKLAB6 07:00
PROVIDERS: ATTEND Internal Medicine
DX: Z51.81 Encounter for therapeutic drug level monitoring (principal); I50.9 Heart failure, unspecified

== ENCOUNTER → 2021-01-21 | Outpatient (REF) | payer MEDICARE, OTHER ==
[2021-01-21 13:01] LABS: INR 2.55; PROTHROMBIN TIME 27.8 SECONDS (12.7-14.5)
== END ==
LOC: SKLAB3 13:53
PROVIDERS: ATTEND Internal Medicine
DX: I48.91 Unspecified atrial fibrillation (principal); Z51.81 Encounter for therapeutic drug level monitoring

== ENCOUNTER → 2021-01-28 | Outpatient (REF) | payer MEDICARE, OTHER ==
[2021-01-28 09:56] LABS: INR 3.39; PROTHROMBIN TIME 34.6 SECONDS (12.7-14.5)
== END ==
LOC: SKLAB3 09:51
PROVIDERS: ATTEND Internal Medicine
DX: I48.91 Unspecified atrial fibrillation (principal)

== ENCOUNTER → 2021-02-04 | Outpatient (REF) | payer MEDICARE, OTHER ==
[2021-02-04 14:53] LABS: INR 3.49; PROTHROMBIN TIME 35.3 SECONDS (12.7-14.5)
== END ==
LOC: SKLAB3 07:00
PROVIDERS: ATTEND Internal Medicine
DX: Z95.2 Presence of prosthetic heart valve (principal)

== ENCOUNTER → 2021-02-11 | Outpatient (REF) | payer MEDICARE, OTHER ==
[2021-02-11 10:31] LABS: INR 3.71
== END ==
LOC: SKLAB3 13:43
PROVIDERS: ATTEND Internal Medicine
DX: Z95.2 Presence of prosthetic heart valve (principal)

== ENCOUNTER → 2021-02-18 | Outpatient (REF) | payer MEDICARE, OTHER ==
[2021-02-18 12:34] LABS: INR 3.24; PROTHROMBIN TIME 33.4 SECONDS (12.7-14.5)
== END ==
LOC: SKLAB3 07:00
PROVIDERS: ATTEND Internal Medicine
DX: Z95.2 Presence of prosthetic heart valve (principal)

== ENCOUNTER → 2021-02-25 | Outpatient (REF) | payer MEDICARE, OTHER ==
[2021-02-25 13:37] LABS: INR 3.19; PROTHROMBIN TIME 32.9 SECONDS (12.7-14.5)
== END ==
LOC: SKLAB3 10:10
PROVIDERS: ATTEND Internal Medicine
DX: Z95.2 Presence of prosthetic heart valve (principal)

== ENCOUNTER → 2021-03-04 | Outpatient (REF) | payer MEDICARE, OTHER ==
[~2021-03-04] MED LIST changes: +BENA-8 PO; -BENA20TA8 PO; +LOSA50TA28; -LOSA50TA88
[2021-03-04 09:19] LABS: INR 2.94
== END ==
LOC: SKLAB3 06:49
PROVIDERS: ATTEND Internal Medicine
DX: Z95.2 Presence of prosthetic heart valve (principal)

== ENCOUNTER → 2021-03-11 | Outpatient (REF) | payer MEDICARE, OTHER ==
[2021-03-11 09:34] LABS: INR 2.96; PROTHROMBIN TIME 31.1 SECONDS (12.7-14.5)
== END ==
LOC: SKLAB3 07:00
PROVIDERS: ATTEND Internal Medicine
DX: Z95.2 Presence of prosthetic heart valve (principal); Z79.899 Other long term (current) drug therapy

== ENCOUNTER → 2021-03-18 | Outpatient (REF) | payer MEDICARE, OTHER ==
[2021-03-18 09:55] LABS: INR 1.98; PROTHROMBIN TIME 22.9 SECONDS (12.7-14.5)
== END ==
LOC: SKLAB3 07:00
PROVIDERS: ATTEND Internal Medicine
DX: Z95.2 Presence of prosthetic heart valve (principal); Z79.899 Other long term (current) drug therapy

== ENCOUNTER → 2021-03-25 | Outpatient (REF) | payer MEDICARE, OTHER ==
[2021-03-25 08:41] LABS: INR 2.29; PROTHROMBIN TIME 25.6 SECONDS (12.7-14.5)
== END ==
LOC: SKLAB3 13:52
PROVIDERS: ATTEND Internal Medicine
DX: Z95.2 Presence of prosthetic heart valve (principal); Z79.899 Other long term (current) drug therapy

== ENCOUNTER → 2021-04-08 | Outpatient (REF) | payer MEDICARE, OTHER ==
[2021-04-08 13:30] LABS: INR 2.87; PROTHROMBIN TIME 30.4 SECONDS (12.7-14.5)
== END ==
LOC: SKLAB3 07:00
PROVIDERS: ATTEND Internal Medicine
DX: Z95.2 Presence of prosthetic heart valve (principal)

== ENCOUNTER → 2021-04-15 | Outpatient (REF) | payer MEDICARE, OTHER ==
[2021-04-15 12:33] LABS: INR 2.24; PROTHROMBIN TIME 25.2 SECONDS (12.7-14.5)
== END ==
LOC: SKLAB3 07:00
PROVIDERS: ATTEND Internal Medicine
DX: Z95.2 Presence of prosthetic heart valve (principal)

== ENCOUNTER → 2021-04-22 | Outpatient (REF) | payer MEDICARE, OTHER ==
[2021-04-22 14:38] LABS: INR 1.71; PROTHROMBIN TIME 20.5 SECONDS (12.7-14.5)
== END ==
LOC: SKLAB3 11:18
PROVIDERS: ATTEND Internal Medicine
DX: Z95.2 Presence of prosthetic heart valve (principal)

== ENCOUNTER → 2021-04-29 | Outpatient (REF) | payer MEDICARE, OTHER ==
[2021-04-29 08:19] LABS: INR 2.44; PROTHROMBIN TIME 26.9 SECONDS (12.7-14.5)
== END ==
LOC: SKLAB3 09:52
PROVIDERS: ATTEND Internal Medicine
DX: Z95.2 Presence of prosthetic heart valve (principal)

== ENCOUNTER → 2021-05-06 | Outpatient (REF) | payer MEDICARE, OTHER ==
[2021-05-06 09:25] LABS: INR 2.26; PROTHROMBIN TIME 25.3 SECONDS (12.7-14.5)
== END ==
LOC: SKLAB3 07:00
PROVIDERS: ATTEND Internal Medicine
DX: Z95.2 Presence of prosthetic heart valve (principal)

== ENCOUNTER → 2021-05-08 | Outpatient (REF) | payer MEDICARE, OTHER | LOC: SKLAB3 10:26 | PROVIDERS: ATTEND Internal Medicine | DX: R05.9 Cough, unspecified (principal); R06.2 Wheezing ==

== ENCOUNTER → 2021-05-13 | Outpatient (REF) | payer MEDICARE, OTHER ==
[2021-05-13 08:18] LABS: INR 2.72; PROTHROMBIN TIME 29.2 SECONDS (12.7-14.5)
== END ==
LOC: SKLAB3 06:58
PROVIDERS: ATTEND Internal Medicine
DX: Z95.2 Presence of prosthetic heart valve (principal)

== ENCOUNTER → 2021-05-20 | Outpatient (REF) | payer MEDICARE, OTHER ==
[2021-05-20 09:18] LABS: INR 2.84; PROTHROMBIN TIME 30.2 SECONDS (12.7-14.5)
== END ==
LOC: SKLAB3 06:59
PROVIDERS: ATTEND Internal Medicine
DX: Z95.2 Presence of prosthetic heart valve (principal)

== ENCOUNTER → 2021-05-27 | Outpatient (REF) | payer MEDICARE, OTHER ==
[2021-05-27 09:36] LABS: INR 2.21; PROTHROMBIN TIME 24.9 SECONDS (12.7-14.5)
== END ==
LOC: SKLAB3 07:00
PROVIDERS: ATTEND Internal Medicine
DX: Z95.2 Presence of prosthetic heart valve (principal); Z79.899 Other long term (current) drug therapy

== ENCOUNTER → 2021-06-03 | Outpatient (REF) | payer MEDICARE, OTHER ==
[2021-06-03 10:06] LABS: INR 2.19; PROTHROMBIN TIME 24.7 SECONDS (12.7-14.5)
== END ==
LOC: SKLAB3 09:24
PROVIDERS: ATTEND Internal Medicine
DX: Z95.2 Presence of prosthetic heart valve (principal)

== ENCOUNTER → 2021-06-10 | Outpatient (REF) | payer MEDICARE, OTHER ==
[2021-06-10 11:44] LABS: INR 1.79; PROTHROMBIN TIME 21.2 SECONDS (12.7-14.5)
== END ==
LOC: SKLAB3 07:00
PROVIDERS: ATTEND Internal Medicine
DX: Z95.2 Presence of prosthetic heart valve (principal)

== ENCOUNTER → 2021-06-19 | Outpatient (REF) | payer MEDICARE, OTHER ==
[2021-06-19 12:08] LABS: INR 2.83; PROTHROMBIN TIME 30.1 SECONDS (12.7-14.5)
== END ==
LOC: SKLAB3 07:09
PROVIDERS: ATTEND Internal Medicine
DX: Z95.2 Presence of prosthetic heart valve (principal)

== ENCOUNTER → 2021-06-24 | Outpatient (REF) | payer MEDICARE, OTHER ==
[2021-06-24 11:26] LABS: INR 2.6; PROTHROMBIN TIME 28.2 SECONDS (12.7-14.5)
== END ==
LOC: SKLAB3 11:37
PROVIDERS: ATTEND Internal Medicine
DX: Z95.2 Presence of prosthetic heart valve (principal)

== ENCOUNTER → 2021-07-08 | Outpatient (REF) | payer MEDICARE, OTHER ==
[2021-07-08 09:47] LABS: INR 2.55; PROTHROMBIN TIME 27.8 SECONDS (12.7-14.5)
== END ==
LOC: SKLAB3 10:46
PROVIDERS: ATTEND Internal Medicine
DX: Z95.2 Presence of prosthetic heart valve (principal); Z79.899 Other long term (current) drug therapy

== ENCOUNTER → 2021-07-15 | Outpatient (REF) | payer MEDICARE, OTHER ==
[2021-07-15 08:03] LABS: INR 3.03; PROTHROMBIN TIME 31.7 SECONDS (12.7-14.5)
== END ==
LOC: SKLAB3 07:00
PROVIDERS: ATTEND Internal Medicine
DX: Z95.2 Presence of prosthetic heart valve (principal)

== ENCOUNTER → 2021-07-22 | Outpatient (REF) | payer MEDICARE, OTHER ==
[2021-07-22 08:29] LABS: INR 2.93; PROTHROMBIN TIME 30.9 SECONDS (12.7-14.5)
== END ==
LOC: SKLAB3 07:00
PROVIDERS: ATTEND Internal Medicine
DX: Z95.2 Presence of prosthetic heart valve (principal)

== ENCOUNTER → 2021-07-29 | Outpatient (REF) | payer MEDICARE, OTHER ==
[2021-07-29 08:10] LABS: INR 3.28; PROTHROMBIN TIME 33.7 SECONDS (12.7-14.5)
== END ==
LOC: SKLAB3 07:00
PROVIDERS: ATTEND Internal Medicine
DX: Z95.2 Presence of prosthetic heart valve (principal)

== ENCOUNTER → 2021-08-05 | Outpatient (REF) | payer MEDICARE, OTHER ==
[~2021-08-05] MED LIST changes: +ALBU2.5V10 INH; -ALBU83IN INH
[2021-08-05 10:02] LABS: HEMATOCRIT 42.6 % (36.0-47.0); HEMOGLOBIN 13.5 g/dl (12.0-15.5); MEAN CORPUSCULAR HEMOGLOBIN 28.8 pg (27.0-33.0); MEAN CORPUSCULAR HGB CONC 31.7 g/dl (32.0-36.5); MEAN CORPUSCULAR VOLUME 90.8 fl (80.0-96.0); PLATELET COUNT, AUTOMATED 143 10^3/uL (150-450); RED BLOOD COUNT 4.69 10^6/uL (4.00-5.40); WHITE BLOOD COUNT 5.9 10^3/uL (4.0-10.0)
[2021-08-05 10:11] LABS: INR 2.31; PROTHROMBIN TIME 25.8 SECONDS (12.7-14.5)
[2021-08-05 10:52] LABS: BLOOD UREA NITROGEN 17 MG/DL (7-18); CALCIUM LEVEL 9.8 MG/DL (8.8-10.2); CARBON DIOXIDE LEVEL 31 MEQ/L (21-32); CHLORIDE LEVEL 104 MEQ/L (98-107); CREATININE FOR GFR 0.64 MG/DL (0.55-1.30); GLOMERULAR FILTRATION RATE > 60.0 (>32); GLUCOSE, FASTING 118 MG/DL (70-100); SODIUM LEVEL 141 MEQ/L (136-145)
== END ==
LOC: SKLAB3 11:50
PROVIDERS: ATTEND Internal Medicine
DX: Z95.2 Presence of prosthetic heart valve (principal)

== ENCOUNTER → 2021-08-12 | Outpatient (REF) | payer MEDICARE, OTHER ==
[2021-08-12 08:20] LABS: INR 2.27; PROTHROMBIN TIME 25.4 SECONDS (12.7-14.5)
== END ==
LOC: SKLAB3 07:00
PROVIDERS: ATTEND Internal Medicine
DX: I48.91 Unspecified atrial fibrillation (principal)

== ENCOUNTER → 2021-08-19 | Outpatient (REF) | payer MEDICARE, OTHER ==
[2021-08-19 07:32] LABS: INR 2.92; PROTHROMBIN TIME 30.8 SECONDS (12.7-14.5)
== END ==
LOC: SKLAB3 07:00
PROVIDERS: ATTEND Internal Medicine
DX: I48.91 Unspecified atrial fibrillation (principal)

== ENCOUNTER → 2021-08-26 | Outpatient (REF) | payer MEDICARE, OTHER ==
[2021-08-26 07:43] LABS: INR 1.84; PROTHROMBIN TIME 21.7 SECONDS (12.7-14.5)
[2021-08-26 08:05] LABS: ALT/SGPT 15 U/L (12-78); BLOOD UREA NITROGEN 22 MG/DL (7-18); CALCIUM LEVEL 9.8 MG/DL (8.8-10.2); CARBON DIOXIDE LEVEL 35 MEQ/L (21-32); CHLORIDE LEVEL 100 MEQ/L (98-107); CREATININE FOR GFR 0.59 MG/DL (0.55-1.30); GLOMERULAR FILTRATION RATE > 60.0 (>32); GLUCOSE, FASTING 78 MG/DL (70-100); POTASSIUM SERUM 3.7 MEQ/L (3.5-5.1); SODIUM LEVEL 140 MEQ/L (136-145)
[2021-08-26 08:06] LABS: ALBUMIN 3.1 GM/DL (3.2-5.2); BILIRUBIN,TOTAL 0.7 MG/DL (0.2-1.0); FREE T4 1.21 NG/DL (0.76-1.46); TOTAL PROTEIN 6.2 GM/DL (6.4-8.2)
== END ==
LOC: SKLAB3 07:00
PROVIDERS: ATTEND Nurse Practitioner Family
DX: Z95.2 Presence of prosthetic heart valve (principal); Z79.899 Other long term (current) drug therapy

== ENCOUNTER → 2021-09-02 | Outpatient (REF) | payer MEDICARE, OTHER ==
[2021-09-02 08:21] LABS: INR 3.03; PROTHROMBIN TIME 31.7 SECONDS (12.7-14.5)
== END ==
LOC: SKLAB3 07:00
PROVIDERS: ATTEND Nurse Practitioner Family
DX: Z95.2 Presence of prosthetic heart valve (principal)

== ENCOUNTER → 2021-09-09 | Outpatient (REF) | payer MEDICARE, OTHER ==
[2021-09-09 08:06] LABS: INR 3.61; PROTHROMBIN TIME 36.2 SECONDS (12.7-14.5)
== END ==
LOC: SKLAB3 09-02 11:25
PROVIDERS: ATTEND Internal Medicine
DX: Z95.2 Presence of prosthetic heart valve (principal)

== ENCOUNTER → 2021-09-16 | Outpatient (REF) | payer MEDICARE, OTHER ==
[2021-09-16 08:12] LABS: INR 3.88; PROTHROMBIN TIME 38.3 SECONDS (12.7-14.5)
== END ==
LOC: SKLAB3 08:43
PROVIDERS: ATTEND Nurse Practitioner Family
DX: Z95.2 Presence of prosthetic heart valve (principal)

== ENCOUNTER → 2021-09-23 | Outpatient (REF) | payer MEDICARE, OTHER ==
[2021-09-23 09:46] LABS: INR 2.48; PROTHROMBIN TIME 27.2 SECONDS (12.7-14.5)
== END ==
LOC: SKLAB3 09:39
PROVIDERS: ATTEND Nurse Practitioner Family
DX: Z95.2 Presence of prosthetic heart valve (principal)

== ENCOUNTER → 2021-09-30 | Outpatient (REF) | payer MEDICARE, OTHER ==
[2021-09-30 08:11] LABS: INR 2.81; PROTHROMBIN TIME 29.9 SECONDS (12.7-14.5)
== END ==
LOC: SKLAB3 10:18
PROVIDERS: ATTEND Nurse Practitioner Family
DX: Z95.2 Presence of prosthetic heart valve (principal)

== ENCOUNTER → 2021-10-03 | Outpatient (REF) | payer MEDICARE, OTHER | LOC: SKLAB3 12:12 | PROVIDERS: ATTEND Internal Medicine | DX: Z20.822 Contact with and (suspected) exposure to COVID-19 (principal) ==

== ENCOUNTER → 2021-10-07 | Outpatient (REF) | payer MEDICARE, OTHER ==
[~2021-10-07] MED LIST changes: +POTA-150 PO; -POTA10TA17 PO
[2021-10-07 09:13] LABS: INR 3.2; PROTHROMBIN TIME 33.1 SECONDS (12.7-14.5)
== END ==
LOC: SKLAB3 07:00
PROVIDERS: ATTEND Nurse Practitioner Family
DX: Z95.2 Presence of prosthetic heart valve (principal)

== ENCOUNTER → 2021-10-14 | Outpatient (REF) | payer MEDICARE, OTHER ==
[2021-10-14 08:42] LABS: INR 2.96; PROTHROMBIN TIME 31.1 SECONDS (12.7-14.5)
== END ==
LOC: SKLAB3 08:31
PROVIDERS: ATTEND Nurse Practitioner Family
DX: Z95.2 Presence of prosthetic heart valve (principal)

== ENCOUNTER → 2021-10-21 | Outpatient (REF) | payer MEDICARE, OTHER ==
[2021-10-21 10:08] LABS: INR 3.38; PROTHROMBIN TIME 34.5 SECONDS (12.7-14.5)
[2021-10-21 10:50] LABS: BLOOD UREA NITROGEN 15 MG/DL (7-18); CALCIUM LEVEL 10.4 MG/DL (8.8-10.2); CARBON DIOXIDE LEVEL 36 MEQ/L (21-32); CHLORIDE LEVEL 100 MEQ/L (98-107); CREATININE FOR GFR 0.75 MG/DL (0.55-1.30); GLOMERULAR FILTRATION RATE > 60.0 (>32); GLUCOSE, FASTING 156 MG/DL (70-100); POTASSIUM SERUM 4.2 MEQ/L (3.5-5.1); SODIUM LEVEL 138 MEQ/L (136-145)
== END ==
LOC: SKLAB3 09:44
PROVIDERS: ATTEND Nurse Practitioner Family
DX: Z95.2 Presence of prosthetic heart valve (principal); Z79.01 Long term (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 anticoagulants

== ENCOUNTER → 2021-10-28 | Outpatient (REF) | payer MEDICARE, OTHER ==
[2021-10-28 10:34] LABS: INR 3.39; PROTHROMBIN TIME 34.6 SECONDS (12.7-14.5)
== END ==
LOC: SKLAB3 07:00
PROVIDERS: ATTEND Nurse Practitioner Family
DX: Z95.2 Presence of prosthetic heart valve (principal)

== ENCOUNTER → 2021-11-04 | Outpatient (REF) | payer MEDICARE, OTHER ==
[2021-11-04 08:38] LABS: INR 3.06; PROTHROMBIN TIME 31.9 SECONDS (12.7-14.5)
== END ==
LOC: SKLAB3 09:17
PROVIDERS: ATTEND Nurse Practitioner Family
DX: Z95.2 Presence of prosthetic heart valve (principal)

== ENCOUNTER → 2021-11-11 | Outpatient (REF) | payer MEDICARE, OTHER ==
[~2021-11-11] MED LIST changes: +ALEN70TA87 PO; -FOSA70TA PO
[2021-11-11 08:05] LABS: INR 1.04
== END ==
LOC: SKLAB3 10:54
PROVIDERS: ATTEND Nurse Practitioner Family
DX: Z95.2 Presence of prosthetic heart valve (principal); Z79.899 Other long term (current) drug therapy

== ENCOUNTER → 2021-11-18 | Outpatient (REF) | payer MEDICARE, OTHER ==
[2021-11-18 07:41] LABS: INR 7.92
== END ==
LOC: SKLAB3 10:19
PROVIDERS: ATTEND Nurse Practitioner Family
DX: Z95.2 Presence of prosthetic heart valve (principal)

== ENCOUNTER → 2021-11-19 | Outpatient (REF) | payer MEDICARE, OTHER ==
[2021-11-19 10:29] LABS: INR 3.45
== END ==
LOC: SKLAB3 10:28
PROVIDERS: ATTEND Nurse Practitioner Family
DX: Z95.2 Presence of prosthetic heart valve (principal)

== ENCOUNTER → 2021-11-25 | Outpatient (REF) | payer MEDICARE, OTHER ==
[2021-11-25 11:30] LABS: PROTHROMBIN TIME 23.1 SECONDS (12.7-14.5)
== END ==
LOC: SKLAB3 09:39
PROVIDERS: ATTEND Nurse Practitioner Family
DX: Z95.2 Presence of prosthetic heart valve (principal)

== ENCOUNTER → 2021-12-02 | Outpatient (REF) | payer MEDICARE, OTHER ==
[2021-12-02 08:40] LABS: INR 1.93; PROTHROMBIN TIME 22.5 SECONDS (12.7-14.5)
== END ==
LOC: SKLAB3 14:16
PROVIDERS: ATTEND Nurse Practitioner Family
DX: Z95.2 Presence of prosthetic heart valve (principal)

== ENCOUNTER → 2021-12-16 | Outpatient (REF) | payer MEDICARE, OTHER ==
[2021-12-16 08:02] LABS: HEMATOCRIT 39.1 % (36.0-47.0); HEMOGLOBIN 12.4 g/dl (12.0-15.5); MEAN CORPUSCULAR HEMOGLOBIN 28.8 pg (27.0-33.0); MEAN CORPUSCULAR HGB CONC 31.7 g/dl (32.0-36.5); MEAN CORPUSCULAR VOLUME 90.7 fl (80.0-96.0); PLATELET COUNT, AUTOMATED 187 10^3/uL (150-450); RED BLOOD COUNT 4.31 10^6/uL (4.00-5.40); WHITE BLOOD COUNT 12.3 10^3/uL (4.0-10.0)
[2021-12-16 08:15] LABS: INR 3.07; PROTHROMBIN TIME 32.2 SECONDS (12.5-14.5)
== END ==
LOC: SKLAB3 14:40
PROVIDERS: ATTEND Nurse Practitioner Family
DX: Z79.01 Long term (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 anticoagulants (principal); Z95.2 Presence of prosthetic heart valve

== ENCOUNTER → 2021-12-23 | Outpatient (REF) | payer MEDICARE, OTHER ==
[2021-12-23 09:07] LABS: INR 1.61; PROTHROMBIN TIME 19.4 SECONDS (12.5-14.5)
== END ==
LOC: SKLAB3 07:00
PROVIDERS: ATTEND Nurse Practitioner Family
DX: Z79.01 Long term (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 anticoagulants (principal); Z95.2 Presence of prosthetic heart valve

== ENCOUNTER → 2021-12-30 | Outpatient (REF) | payer MEDICARE, OTHER ==
[2021-12-30 11:58] LABS: INR 2.24; PROTHROMBIN TIME 25.2 SECONDS (12.5-14.5)
== END ==
LOC: SKLAB3 07:00
PROVIDERS: ATTEND Nurse Practitioner Family
DX: Z95.2 Presence of prosthetic heart valve (principal)